=== PATIENT | male | born 1975 | race Caucasian/White ===

== ENCOUNTER 2017-04-11 13:48 | Inpatient (IN) | payer MEDICARE, MEDICAID ==
[~2017-04-11] VITALS: Ht 175.3 cm; Wt 76.7 kg
[~2017-04-11 13:48] MED LIST: AMOX1TAB61 PO; ASPI-630 PO; ASPI325T8 PO; ATEN25TA PO; CARV25TA PO; CLOP75TA PO; DOCU-109 PO; FENO48TA2 PO; FLUO20CA8 PO; FURO40TA4 PO; GABA600T2 PO; HYDR50CA PO; HYDR8TAB29 PO; IPRA4AER IH; LANS30CA PO; METF500T4 PO; MORP15TA3 PO; NITR0.4T SL; OMEP20CA9 PO; POTA10TA5 PO; POTA20TA12 PO; PROM25TA10 PO; SIMV20TA3 PO; TIZA4TAB PO; TRAZ150T49 PO
[2017-04-11] MEDS ORDERED: IPRATRPIUM/ALBUTEROL 0.5/2.5MG 3 ML NEBU. NEB ONE (14:30)
[2017-04-11] MEDS ORDERED: oxyCODONE/APAP 10/325 1 TAB TABLET PO ONE (14:30)
[2017-04-11 14:41] LABS: BASO # 0.1 x10^3/uL (0.0-0.2); BASO % 0 % (0-3); EOS % 0 % (0-3); HEMATOCRIT 36.9 % (39.0-53.0); HEMOGLOBIN 11.7 g/dL (13.0-17.5); LYMPH % 8 % (24-48); MEAN CORPUSCULAR HEMOGLOBIN 23 pg (25-35); MEAN CORPUSCULAR HGB CONC 32 g/dL (31-37); MEAN CORPUSCULAR VOLUME 71 fL (79-100); MONO % 4 % (0-9); NEUT % 88 % (31-73); PLATELET COUNT 416 x10^3/uL (140-400); RED BLOOD COUNT 5.21 x10^6/uL (4.30-5.70); RED CELL DISTRIBUTION WIDTH 26.5 % (11.5-14.5); WHITE BLOOD COUNT 25.7 x10^3/uL (4.0-11.0)
--- NOTE | 2017-04-11 14:49 | RAD ---
Portable chest, 04/11/2017: History: Hypoxia, recent pneumonia Comparison is made to a study from 09/10/2015. There has been an interval median sternotomy. The heart size and pulmonary vascularity are at the upper limits of normal. The basilar pulmonary markings are prominent. No consolidating infiltrate is seen. There is no evidence of pleural fluid. IMPRESSION: Prominent basilar pulmonary markings suggesting low-grade congestive heart failure versus atypical pneumonia.
[2017-04-11 14:58] LABS: ALBUMIN 3.5 g/dL (3.4-5.0); ALBUMIN/GLOBULIN RATIO 0.9 (1.0-1.7); CALCIUM 8.9 mg/dL (8.5-10.1); GFR 81.9; TOTAL BILIRUBIN 0.2 mg/dL (0.2-1.0); TOTAL PROTEIN 7.2 g/dL (6.4-8.2)
[2017-04-11 15:06] LABS: CKMB MASS 3.7 ng/mL (0.0-3.6); CREATINE KINASE 69 U/L (39-308)
[2017-04-11] MEDS ORDERED: VANCOMYCIN 1GM IVPB FOR OMNI 250 ML IV ONE (15:15)
--- NOTE | 2017-04-11 15:17 | PHYS DOC ---
Past Medical History Past Medical History: CAD, High Cholesterol, Hypertension, AZ, Pneumonia, Other Additional Past Medical Histor: chronic back pain Past Surgical History: Angioplasty, Other Additional Past Surgical Histo: back surgeries, multiple cardiac cath with stents, tear duct surgery.dental Alcohol Use: Occasionally Drug Use: None Adult General Chief Complaint Chief Complaint: SHORTNESS OF BREATH HPI HPI Patient is a 42 year old male who presents ambulatory to the ED with the complaint of hard to breathe for about 2 days. Patient tells me that he lives in [facility]. He is here visiting his vymaia-wi-oiy today. He was just released from the hospital in [place] about one week ago after a hospitalization for pneumonia, states that he was intubated for 3 days and had bronchoscopy. He was released on Levaquin and he has finished that. He felt okay for a few days but it is become more hard to breathe for 2 days. States he had a fever yesterday to 101.8. Patient is still taking prednisone after his hospitalization. On arrival to the room the patient had a pulse ox on room air of 88%. Patient is not on oxygen at home. He does have a nebulizer at home but has not been taking breathing treatments regularly. The patient is a smoker. Patient has a history of AZ and a CABG which was done at [facility]. He denies a history of tuberculosis. PCP in [facility]. Review of Systems Review of Systems Constitutional: As in history of present illness Eyes: Denies change in visual acuity, redness, or eye pain [] HENT: Denies nasal congestion or sore throat [] Respiratory: As in history of present illness Cardiovascular: As in history of present illness GI: Denies abdominal pain, nausea, vomiting, bloody stools or diarrhea [] : Denies dysuria or hematuria [] Musculoskeletal: Denies back pain or joint pain [] Integument: Denies rash or skin lesions [] Neurologic: Denies headache Current Medications Current Medications Current Medications Medications (Trade) Dose Ordered Sig/Josi Start Time Stop Time Status Last Admin Dose Admin Albuterol/ Ipratropium (Duoneb) 3 ml 1X ONCE 04/11/17 14:30 04/11/17 14:31 DC 04/11/17 14:37 3 ML Oxycodone/ Acetaminophen (Percocet 10/325) 1 tab 1X ONCE 04/11/17 14:30 04/11/17 14:31 DC 04/11/17 15:16 1 TAB Vancomycin HCl 250 ml @ 250 mls/hr 1X ONCE 04/11/17 15:15 04/11/17 16:14 Allergies Allergies Allergies Coded Allergies Type Severity Reaction Last Updated Verified ketorolac Adverse Reaction Intermediate nausea and vomiting 09/07/14 Yes metoprolol Adverse Reaction Intermediate hypotension 09/07/14 Yes moxifloxacin Adverse Reaction Intermediate Nausea and Vomiting 09/07/14 Yes tramadol Adverse Reaction Intermediate nausea and vomiting 09/07/14 Yes Physical Exam Physical Exam Constitutional: Well developed, well nourished, talkative without difficulty, not dyspneic, but he is on oxygen per nasal cannula. HENT: Normocephalic, atraumatic, bilateral external ears normal, nose normal. [ ] Eyes: conjunctiva normal, no discharge. [] Neck: Normal range of motion, no stridor. [] Cardiovascular:Heart rate regular rhythm, no murmur [] Lungs & Thorax: Breath sounds decreased on the left. Breath sounds present bilaterally. Prolonged expiratory phase, no significant wheezes or rhonchi. Abdomen: Bowel sounds normal, soft, no tenderness, no masses, no pulsatile masses. [] Skin: Warm, dry, no erythema, no rash. [] Extremities: No tenderness, no cyanosis, no clubbing, ROM intact, no edema. [] Neurologic: Alert and oriented X 3, normal motor function, no focal deficits noted. [] Current Patient Data Vital Signs Vital Signs Date Time Temp Pulse Resp B/P (MAP) Pulse Ox O2 Delivery O2 Flow Rate FiO2 04/11/17 15:16 17 04/11/17 14:37 95 Nasal Cannula 2.0 04/11/17 14:00 98.0 92 143/73 (96) 98.0 Lab Values Laboratory Tests Test 04/11/17 14:00 White Blood Count 25.7 x10^3/uL (4.0-11.0) H Red Blood Count 5.21 x10^6/uL (4.30-5.70) Hemoglobin 11.7 g/dL (13.0-17.5) L Hematocrit 36.9 % (39.0-53.0) L Mean Corpuscular Volume 71 fL (79-100) L Mean Corpuscular Hemoglobin 23 pg (25-35) L Mean Corpuscular Hemoglobin Concent 32 g/dL (31-37) Red Cell Distribution Width 26.5 % (11.5-14.5) H Platelet Count 416 x10^3/uL (140-400) H Neutrophils (%) (Auto) 88 % (31-73) H Lymphocytes (%) (Auto) 8 % (24-48) L Monocytes (%) (Auto) 4 % (0-9) Eosinophils (%) (Auto) 0 % (0-3) Basophils (%) (Auto) 0 % (0-3) Neutrophils # (Auto) 22.6 x10^3uL (1.8-7.7) H Lymphocytes # (Auto) 2.0 x10^3/uL (1.0-4.8) Monocytes # (Auto) 1.0 x10^3/uL (0.0-1.1) Eosinophils # (Auto) 0.0 x10^3/uL (0.0-0.7) Basophils # (Auto) 0.1 x10^3/uL (0.0-0.2) Platelet Estimate Pending Sodium Level 143 mmol/L (136-145) Potassium Level 3.0 mmol/L (3.5-5.1) L Chloride Level 102 mmol/L (98-107) Carbon Dioxide Level 28 mmol/L (21-32) Anion Gap 13 (6-14) Blood Urea Nitrogen 10 mg/dL (8-26) Creatinine 1.0 mg/dL (0.7-1.3) Estimated GFR (Cockcroft-Gault) 81.9 BUN/Creatinine Ratio 10 (6-20) Glucose Level 138 mg/dL (70-99) H Calcium Level 8.9 mg/dL (8.5-10.1) Magnesium Level 1.5 mg/dL (1.8-2.4) L Total Bilirubin 0.2 mg/dL (0.2-1.0) Aspartate Amino Transferase (AST) 24 U/L (15-37) Alanine Aminotransferase (ALT) 24 U/L (16-63) Alkaline Phosphatase 108 U/L (46-116) Creatine Kinase 69 U/L (39-308) Creatine Kinase MB (Mass) 3.7 ng/mL (0.0-3.6) H Creatine Kinase MB Relative Index % (0-4) Troponin I Quantitative 0.020 ng/mL (0.000-0.055) VK-Ctg-J-Type Natriuretic Peptide 512 pg/mL (0-124) H Total Protein 7.2 g/dL (6.4-8.2) Albumin 3.5 g/dL (3.4-5.0) Albumin/Globulin Ratio 0.9 (1.0-1.7) L Laboratory Tests 04/11/17 14:00 Laboratory Tests 04/11/17 14:00 EKG EKG Twelve-lead EKG read by me. Compared to previous EKG in the patient's record. Sinus rhythm. Heart rate 90. There are are lateral no ST and T wave changes which are actually improved from the previous EKG. No ST elevation. No STEMI. 1400[] Radiology/Procedures Radiology/Procedures One view portable chest x-ray read by me. Heart size is normal. There is a left lower lobe infiltrate and possibly a right lower lobe infiltrate. Not consolidated. No effusions.[] Course & Med Decision Making Course & Med Decision Making Pertinent Labs and Imaging studies reviewed. (See chart for details) 42-year-old male who has a history of COPD, AZ, CABG, presents with difficulty breathing for 2 days, worsening. His pulse ox on room air was 88% on arrival. The patient states he was just released one week ago from a hospitalization in [facility] during which time he was intubated for 3 days. He had pneumonia he states. The patient was given a breathing treatment. Chest x-ray shows left lower and possibly bilateral lower lobe infiltrates, no comparison is available so I don' t know whether these are improving or not. His white count is concerning lay elevated at 25,000. He is on prednisone but this is probably at least 2 weeks into his steroids, I find it hard to believe that he would have that much leukocytosis from that at this time. I believe the patient needs to be hospitalized for room air hypoxia and likely persistent pneumonia. I talked to the patient and his about this. I wrote for a dose of vancomycin since he was recently hospitalized and has been on Levaquin recently. Pt states that he takes OxyContin 10 mg twice a day and oxycodone 5 mg 4 times a day, he left those at home and so he hasn't had a dose since this morning. He is having back pain and needs some pain medication. Patient also states he smokes and will need a NicoDerm patch. I discussed the case with Dr. Resendez who will admit the patient. I wrote bridge orders. [] Dragon Disclaimer Dragon Disclaimer This electronic medical record was generated, in whole or in part, using a voice recognition dictation system. Departure Departure Impression: Primary Impression: Pneumonia Additional Impression: Hypoxemia Disposition: 09 ADMITTED INPATIENT Admitting Physician: Tammy Resendez Condition: STABLE Referrals: UNKNOWN PCP NAME (PCP) Problem Qualifiers HOMAR ART MD Apr 11, 2017 15:17
[2017-04-11 15:29] LABS: ANISOCYTOSIS MARKED; HYPOCHROMIA MOD; MICROCYTOSIS MOD; PLT ESTIMATE INCREASED (ADEQUATE)
[2017-04-11] MEDS ORDERED: NICOTINE 21MG PATCH. TD ONE (15:30)
[2017-04-11 15:31] LABS: POIKILOCYTOSIS SLIGHT
[2017-04-11] MEDS ORDERED: NICOTINE 21MG PATCH. TD PRN (17:00)
[2017-04-11] MEDS ORDERED: ALBUTEROL SULFATE 2.5 MG/3 ML NEBU. NEB PRN (17:00)
[2017-04-11] MEDS ORDERED: hydrALAZINE 20 MG/ML VIAL. IVP PRN (17:00)
[2017-04-11] MEDS ORDERED: ONDANSETRON PF 4 MG/2 ML VIAL. IV PRN (17:00)
[2017-04-11] MEDS ORDERED: DOCUSATE SODIUM 100 MG CAPSULE. PO PRN ×2 (17:00→17:15)
[2017-04-11] MEDS ORDERED: ACETAMINOPHEN 325 MG TABLET. PO PRN (17:00)
[2017-04-11] MEDS ORDERED: DIPH25CA58 PO (17:06)
[2017-04-11] MEDS ORDERED: ASPI-630 PO (17:06)
[2017-04-11] MEDS ORDERED: MELA3TAB2 PO (17:06)
--- NOTE | 2017-04-11 17:11 | PDOC1 ---
History and Physical Date of Admission Date of Admission 04/11/17 Identification/Chief Complaint Chief Complaint sob Problems: Source Source: Chart review, Patient History of Present Illness History of Present Illness HPI Patient is a 42 year old male who presents ambulatory to the ED with the complaint of hard to breathe for about 5days. Pt said he was hospitalized at [facility] 1 week ago, for PNA, was intubated x3days, did bronch but didnot know the result. He was was released with levaquin and steroid tapering. He said not really felt good after dc. cont have cough, no sputum, and sob worse for 2 days, no chest pain. + subjective fever, no chills. smoking, 1PPD. as per ERP, On arrival to the room the patient had a pulse ox on room air of 88% . Pt used night home o2 sometimes. use symbicort at home. Patient has a history of CA and a CABG which was done at [facility]. Past Medical History Cardiovascular: CAD, HTN, CA, Hyperlipidemia Pulmonary: Pneumonia CENTRAL NERVOUS SYSTEM: Carpal Tunnel Syndrome GI: GERD Heme/Onc: No pertinent hx Hepatobiliary: No pertinent hx Psych: Anxiety Infectious disease: No pertinent hx Renal/: No pertinent hx Endocrine: Other Past Surgical History Past Surgical History: Other Family History Family History: Coronary Artery Disease Social History Smoke: 1 pack per day ALCOHOL: none Drugs: None Current Problem List Problem List Problems Medical Problems: (1) Hypoxemia Status: Acute (2) Pneumonia Status: Acute Current Medications Current Medications Current Medications Medications (Trade) Dose Ordered Sig/Josi Start Time Stop Time Status Last Admin Dose Admin Albuterol/ Ipratropium (Duoneb) 3 ml RTQID 04/11/17 20:00 04/12/17 19:59 Nicotine (Nicoderm Cq 21mg) 1 patch 1X ONCE 04/11/17 15:30 04/11/17 15:31 DC Oxycodone/ Acetaminophen (Percocet 10/325) 1 tab 1X ONCE 04/11/17 14:30 04/11/17 14:31 DC 04/11/17 15:16 1 TAB Vancomycin HCl 250 ml @ 250 mls/hr 1X ONCE 04/11/17 15:15 04/11/17 16:14 DC Allergies Allergies Allergies Coded Allergies Type Severity Reaction Last Updated Verified ketorolac Adverse Reaction Intermediate nausea and vomiting 09/07/14 Yes metoprolol Adverse Reaction Intermediate hypotension 09/07/14 Yes moxifloxacin Adverse Reaction Intermediate Nausea and Vomiting 09/07/14 Yes tramadol Adverse Reaction Intermediate nausea and vomiting 09/07/14 Yes ROS Review of System CONSTITUTIONAL: No fever or chills EYES: No recent changes SKIN: No rash or itching CARDIOVASCULAR: No chest pain, syncope, palpitations, or edema RESPIRATORY: No SOB or cough GASTROINTESTINAL: No nausea, vomiting or abdominal pain NEUROLOGICAL: No headaches or weakness ENDOCRINE: No cold or heat intolerance GENITOURINARY: No urgency or frequency of urination MUSCULOSKELETAL: No back pain or joint pain LYMPHATICS: No enlarged lymph nodes PSYCHIATRIC: No anxiety or depression Physical Exam Physical Exam GEN.: No apparent distress. Alert and oriented. HEENT: Head is normocephalic, atraumatic NECK: Supple. LUNGS: bl coarse bs HEART: RRR, S1, S2 present. Peripheral pulses intact ABDOMEN: Soft, nontender. Positive bowel sounds. EXTREMITIES: Without any cyanosis. NEUROLOGIC: Normal speech, normal tone PSYCHIATRIC: Normal affect, normal mood. SKIN: No ulcerations Vitals Vitals Vital Signs Date Time Temp Pulse Resp B/P (MAP) Pulse Ox O2 Delivery O2 Flow Rate FiO2 04/11/17 15:26 94 33 128/83 (98) 92 Nasal Cannula 2.0 04/11/17 14:00 98.0 98.0 Labs Labs Laboratory Tests Test 04/11/17 14:00 White Blood Count 25.7 x10^3/uL (4.0-11.0) Red Blood Count 5.21 x10^6/uL (4.30-5.70) Hemoglobin 11.7 g/dL (13.0-17.5) Hematocrit 36.9 % (39.0-53.0) Mean Corpuscular Volume 71 fL (79-100) Mean Corpuscular Hemoglobin 23 pg (25-35) Mean Corpuscular Hemoglobin Concent 32 g/dL (31-37) Red Cell Distribution Width 26.5 % (11.5-14.5) Platelet Count 416 x10^3/uL (140-400) Neutrophils (%) (Auto) 88 % (31-73) Lymphocytes (%) (Auto) 8 % (24-48) Monocytes (%) (Auto) 4 % (0-9) Eosinophils (%) (Auto) 0 % (0-3) Basophils (%) (Auto) 0 % (0-3) Neutrophils # (Auto) 22.6 x10^3uL (1.8-7.7) Lymphocytes # (Auto) 2.0 x10^3/uL (1.0-4.8) Monocytes # (Auto) 1.0 x10^3/uL (0.0-1.1) Eosinophils # (Auto) 0.0 x10^3/uL (0.0-0.7) Basophils # (Auto) 0.1 x10^3/uL (0.0-0.2) Segmented Neutrophils % 92 % (35-66) Lymphocytes % 4 % (24-48) Atypical Lymphocytes % (Manual) 1 % (0-0) Monocytes % 3 % (0-10) Platelet Estimate Increased (ADEQUATE) Hypochromasia Mod Poikilocytosis Slight Anisocytosis Marked Microcytosis Mod Sodium Level 143 mmol/L (136-145) Potassium Level 3.0 mmol/L (3.5-5.1) Chloride Level 102 mmol/L (98-107) Carbon Dioxide Level 28 mmol/L (21-32) Anion Gap 13 (6-14) Blood Urea Nitrogen 10 mg/dL (8-26) Creatinine 1.0 mg/dL (0.7-1.3) Estimated GFR (Cockcroft-Gault) 81.9 BUN/Creatinine Ratio 10 (6-20) Glucose Level 138 mg/dL (70-99) Calcium Level 8.9 mg/dL (8.5-10.1) Magnesium Level 1.5 mg/dL (1.8-2.4) Total Bilirubin 0.2 mg/dL (0.2-1.0) Aspartate Amino Transf (AST/SGOT) 24 U/L (15-37) Alanine Aminotransferase (ALT/SGPT) 24 U/L (16-63) Alkaline Phosphatase 108 U/L (46-116) Creatine Kinase 69 U/L (39-308) Creatine Kinase MB (Mass) 3.7 ng/mL (0.0-3.6) Creatine Kinase MB Relative Index % (0-4) Troponin I Quantitative 0.020 ng/mL (0.000-0.055) QH-Qkm-T-Type Natriuretic Peptide 512 pg/mL (0-124) Total Protein 7.2 g/dL (6.4-8.2) Albumin 3.5 g/dL (3.4-5.0) Albumin/Globulin Ratio 0.9 (1.0-1.7) Laboratory Tests Test 04/11/17 14:00 White Blood Count 25.7 x10^3/uL (4.0-11.0) Red Blood Count 5.21 x10^6/uL (4.30-5.70) Hemoglobin 11.7 g/dL (13.0-17.5) Hematocrit 36.9 % (39.0-53.0) Mean Corpuscular Volume 71 fL (79-100) Mean Corpuscular Hemoglobin 23 pg (25-35) Mean Corpuscular Hemoglobin Concent 32 g/dL (31-37) Red Cell Distribution Width 26.5 % (11.5-14.5) Platelet Count 416 x10^3/uL (140-400) Neutrophils (%) (Auto) 88 % (31-73) Lymphocytes (%) (Auto) 8 % (24-48) Monocytes (%) (Auto) 4 % (0-9) Eosinophils (%) (Auto) 0 % (0-3) Basophils (%) (Auto) 0 % (0-3) Neutrophils # (Auto) 22.6 x10^3uL (1.8-7.7) Lymphocytes # (Auto) 2.0 x10^3/uL (1.0-4.8) Monocytes # (Auto) 1.0 x10^3/uL (0.0-1.1) Eosinophils # (Auto) 0.0 x10^3/uL (0.0-0.7) Basophils # (Auto) 0.1 x10^3/uL (0.0-0.2) Segmented Neutrophils % 92 % (35-66) Lymphocytes % 4 % (24-48) Atypical Lymphocytes % (Manual) 1 % (0-0) Monocytes % 3 % (0-10) Platelet Estimate Increased (ADEQUATE) Hypochromasia Mod Poikilocytosis Slight Anisocytosis Marked Microcytosis Mod Sodium Level 143 mmol/L (136-145) Potassium Level 3.0 mmol/L (3.5-5.1) Chloride Level 102 mmol/L (98-107) Carbon Dioxide Level 28 mmol/L (21-32) Anion Gap 13 (6-14) Blood Urea Nitrogen 10 mg/dL (8-26) Creatinine 1.0 mg/dL (0.7-1.3) Estimated GFR (Cockcroft-Gault) 81.9 BUN/Creatinine Ratio 10 (6-20) Glucose Level 138 mg/dL (70-99) Calcium Level 8.9 mg/dL (8.5-10.1) Magnesium Level 1.5 mg/dL (1.8-2.4) Total Bilirubin 0.2 mg/dL (0.2-1.0) Aspartate Amino Transf (AST/SGOT) 24 U/L (15-37) Alanine Aminotransferase (ALT/SGPT) 24 U/L (16-63) Alkaline Phosphatase 108 U/L (46-116) Creatine Kinase 69 U/L (39-308) Creatine Kinase MB (Mass) 3.7 ng/mL (0.0-3.6) Creatine Kinase MB Relative Index % (0-4) Troponin I Quantitative 0.020 ng/mL (0.000-0.055) LH-Bwx-P-Type Natriuretic Peptide 512 pg/mL (0-124) Total Protein 7.2 g/dL (6.4-8.2) Albumin 3.5 g/dL (3.4-5.0) Albumin/Globulin Ratio 0.9 (1.0-1.7) VTE Prophylaxis Ordered VTE Prophylaxis Devices: Yes VTE Pharmacological Prophylaxi: Yes Assessment/Plan Assessment/Plan acute resp failure with copd, HAP possible HAP copd EXAcerbation h/o CAD post PCI and CABG HTN HLD RECEnt PNA chronic back pain ,s/p back sx tobaccoism hypokalemia hypomagnesemia sepsis plan: pulm consult cont home meds add vanco, zosyn for now duoneb prednisone 40mg daily nc as needed may need 6min walk before dc dvt ppx gi ppx nicotine patch prn daily admit 2 nights ANNIKA REZA MD Apr 11, 2017 17:11
[2017-04-11] MEDS ORDERED: VANCOMYCIN PER PHARMACY MC PRN (17:15)
[2017-04-11] MEDS ORDERED: NITROGLYCERIN SUBLINGUAL 0.4 MG BOTTLE OF 25. SL PRN (17:15)
[2017-04-11] MEDS ORDERED: PIP/TAZO PER PHARMACY MC PRN (17:15)
[2017-04-11 17:22] VITALS: BP 128/76
[2017-04-11 17:23] VITALS: BP 128/76
[2017-04-11] MEDS ORDERED: PROMETHAZINE 12.5 MG TABLET. PO PRN (17:30)
[2017-04-11] MEDS ORDERED: VANCOMYCIN 2 GM in IV NORMAL SALINE 500ML BAG 500 ML IV ONE (17:30)
[2017-04-11] MEDS: MAGNESIUM SULFATE 2GM 50 ML IV ONE ×2 (17:30→22:05)
[2017-04-11] MEDS: POTASSIUM CHLORIDE 20 MEQ TABLET.ER. PO SCH (17:31)
[2017-04-11] MEDS: ENOXAPARIN 40 MG/0.4 ML SYRINGE. SQ SCH (18:00)
--- NOTE | 2017-04-11 18:46 | PDOC ---
PULMONARY PROGRESS NOTES Vitals Vital Signs Date Time Temp Pulse Resp B/P (MAP) Pulse Ox O2 Delivery O2 Flow Rate FiO2 04/11/17 17:23 97.6 84 15 128/76 (93) 95 Room Air 97.6 04/11/17 17:11 2.0 Lungs: Clear Cardiovascular: S1, S2 Abdomen: Soft Extremities: No Edema Labs Laboratory Tests Test 04/11/17 14:00 White Blood Count 25.7 x10^3/uL (4.0-11.0) Red Blood Count 5.21 x10^6/uL (4.30-5.70) Hemoglobin 11.7 g/dL (13.0-17.5) Hematocrit 36.9 % (39.0-53.0) Mean Corpuscular Volume 71 fL (79-100) Mean Corpuscular Hemoglobin 23 pg (25-35) Mean Corpuscular Hemoglobin Concent 32 g/dL (31-37) Red Cell Distribution Width 26.5 % (11.5-14.5) Platelet Count 416 x10^3/uL (140-400) Neutrophils (%) (Auto) 88 % (31-73) Lymphocytes (%) (Auto) 8 % (24-48) Monocytes (%) (Auto) 4 % (0-9) Eosinophils (%) (Auto) 0 % (0-3) Basophils (%) (Auto) 0 % (0-3) Neutrophils # (Auto) 22.6 x10^3uL (1.8-7.7) Lymphocytes # (Auto) 2.0 x10^3/uL (1.0-4.8) Monocytes # (Auto) 1.0 x10^3/uL (0.0-1.1) Eosinophils # (Auto) 0.0 x10^3/uL (0.0-0.7) Basophils # (Auto) 0.1 x10^3/uL (0.0-0.2) Segmented Neutrophils % 92 % (35-66) Lymphocytes % 4 % (24-48) Atypical Lymphocytes % (Manual) 1 % (0-0) Monocytes % 3 % (0-10) Platelet Estimate Increased (ADEQUATE) Hypochromasia Mod Poikilocytosis Slight Anisocytosis Marked Microcytosis Mod Sodium Level 143 mmol/L (136-145) Potassium Level 3.0 mmol/L (3.5-5.1) Chloride Level 102 mmol/L (98-107) Carbon Dioxide Level 28 mmol/L (21-32) Anion Gap 13 (6-14) Blood Urea Nitrogen 10 mg/dL (8-26) Creatinine 1.0 mg/dL (0.7-1.3) Estimated GFR (Cockcroft-Gault) 81.9 BUN/Creatinine Ratio 10 (6-20) Glucose Level 138 mg/dL (70-99) Calcium Level 8.9 mg/dL (8.5-10.1) Magnesium Level 1.5 mg/dL (1.8-2.4) Total Bilirubin 0.2 mg/dL (0.2-1.0) Aspartate Amino Transf (AST/SGOT) 24 U/L (15-37) Alanine Aminotransferase (ALT/SGPT) 24 U/L (16-63) Alkaline Phosphatase 108 U/L (46-116) Creatine Kinase 69 U/L (39-308) Creatine Kinase MB (Mass) 3.7 ng/mL (0.0-3.6) Creatine Kinase MB Relative Index % (0-4) Troponin I Quantitative 0.020 ng/mL (0.000-0.055) UI-Zlq-V-Type Natriuretic Peptide 512 pg/mL (0-124) Total Protein 7.2 g/dL (6.4-8.2) Albumin 3.5 g/dL (3.4-5.0) Albumin/Globulin Ratio 0.9 (1.0-1.7) Laboratory Tests Test 04/11/17 14:00 White Blood Count 25.7 x10^3/uL (4.0-11.0) Red Blood Count 5.21 x10^6/uL (4.30-5.70) Hemoglobin 11.7 g/dL (13.0-17.5) Hematocrit 36.9 % (39.0-53.0) Mean Corpuscular Volume 71 fL (79-100) Mean Corpuscular Hemoglobin 23 pg (25-35) Mean Corpuscular Hemoglobin Concent 32 g/dL (31-37) Red Cell Distribution Width 26.5 % (11.5-14.5) Platelet Count 416 x10^3/uL (140-400) Neutrophils (%) (Auto) 88 % (31-73) Lymphocytes (%) (Auto) 8 % (24-48) Monocytes (%) (Auto) 4 % (0-9) Eosinophils (%) (Auto) 0 % (0-3) Basophils (%) (Auto) 0 % (0-3) Neutrophils # (Auto) 22.6 x10^3uL (1.8-7.7) Lymphocytes # (Auto) 2.0 x10^3/uL (1.0-4.8) Monocytes # (Auto) 1.0 x10^3/uL (0.0-1.1) Eosinophils # (Auto) 0.0 x10^3/uL (0.0-0.7) Basophils # (Auto) 0.1 x10^3/uL (0.0-0.2) Segmented Neutrophils % 92 % (35-66) Lymphocytes % 4 % (24-48) Atypical Lymphocytes % (Manual) 1 % (0-0) Monocytes % 3 % (0-10) Platelet Estimate Increased (ADEQUATE) Hypochromasia Mod Poikilocytosis Slight Anisocytosis Marked Microcytosis Mod Sodium Level 143 mmol/L (136-145) Potassium Level 3.0 mmol/L (3.5-5.1) Chloride Level 102 mmol/L (98-107) Carbon Dioxide Level 28 mmol/L (21-32) Anion Gap 13 (6-14) Blood Urea Nitrogen 10 mg/dL (8-26) Creatinine 1.0 mg/dL (0.7-1.3) Estimated GFR (Cockcroft-Gault) 81.9 BUN/Creatinine Ratio 10 (6-20) Glucose Level 138 mg/dL (70-99) Calcium Level 8.9 mg/dL (8.5-10.1) Magnesium Level 1.5 mg/dL (1.8-2.4) Total Bilirubin 0.2 mg/dL (0.2-1.0) Aspartate Amino Transf (AST/SGOT) 24 U/L (15-37) Alanine Aminotransferase (ALT/SGPT) 24 U/L (16-63) Alkaline Phosphatase 108 U/L (46-116) Creatine Kinase 69 U/L (39-308) Creatine Kinase MB (Mass) 3.7 ng/mL (0.0-3.6) Creatine Kinase MB Relative Index % (0-4) Troponin I Quantitative 0.020 ng/mL (0.000-0.055) RU-Uiy-U-Type Natriuretic Peptide 512 pg/mL (0-124) Total Protein 7.2 g/dL (6.4-8.2) Albumin 3.5 g/dL (3.4-5.0) Albumin/Globulin Ratio 0.9 (1.0-1.7) Medications Active Scripts Medications Dose Route/Sig Max Daily Dose Days Date Category Benadryl (Diphenhydramine Hcl) 25 Mg Capsule 1 Cap PO QHS 04/11/17 Reported Melatonin 3 Mg Tablet 1 Tab PO QHS 04/11/17 Reported Aspirin 81 Mg Tab.chew 81 Mg PO 04/11/17 Reported Dilaudid (Hydromorphone Hcl) 8 Mg Tablet 10 Mg PO PRN 09/10/15 Reported Combivent Respimat Inhal (Ipratropium/Albuterol Sulfate) 4 Gm Aer.w.adap 2 Inh IH TID 09/10/15 Reported Nitrostat (Nitroglycerin) 0.4 Mg Tab.subl 0.4 Mg SL PRN Q5MIN PRN 09/10/15 Reported Trazodone Hcl 150 Mg Tablet 1 Tab PO QHS 09/10/15 Reported Omeprazole 20 Mg Capsule. 1 Cap PO DAILY 09/10/15 Reported Coreg (Carvedilol) 25 Mg Tablet 1 Tab PO BID 09/10/15 Reported Colace (Docusate Sodium) 100 Mg Capsule 100 Mg PO PRN 09/07/14 Reported Promethazine Hcl 25 Mg Tablet 25 Mg PO Q6H PRN 09/07/14 Reported Tizanidine Hcl 4 Mg Tablet 4 Mg PO QID PRN 09/07/14 Reported Klor-Con 10 (Potassium Chloride) 10 Meq Tablet.er 1 Tab PO DAILY PRN 09/07/14 Reported Potassium Chloride 20 Meq Tab.er.prt 20 Meq PO DAILY 09/07/14 Reported Furosemide 40 Mg Tablet 1 Tab PO DAILY PRN 09/07/14 Reported Fenofibrate (Fenofibrate Nanocrystallized) 48 Mg Tablet 48 Mg PO DAILY 09/07/14 Reported Vistaril (Hydroxyzine Pamoate) 50 Mg Capsule 50 Mg PO QID 09/07/14 Reported Simvastatin 20 Mg Tablet 1 Tab PO QHS 09/07/14 Reported Lansoprazole 30 Mg Capsule.dr 1 Cap PO DAILY 09/07/14 Reported Fluoxetine Hcl 20 Mg Capsule 1 Cap PO DAILY 09/07/14 Reported Gabapentin 600 Mg Tablet 3 Tab PO QHS 09/07/14 Reported Gabapentin 600 Mg Tablet 2 Tab PO DAILY06 09/07/14 Reported Clopidogrel (Clopidogrel Bisulfate) 75 Mg Tablet 1 Tab PO DAILY 09/07/14 Reported Impression . consult dictated resp failure acute chf possible pneumonia BELINDA SCOTT MD Apr 11, 2017 18:46
[2017-04-11] MEDS: CARVEDILOL 12.5 MG TABLET. PO SCH (18:56)
[2017-04-11] MEDS: PIPERACILLIN/TAZOBACTAM 3.375 GM in IV NORMAL SALINE 50ML 50 ML IV SCH (18:56)
[2017-04-11 19:00] VITALS: BP 137/71
[2017-04-11] MEDS: IPRATRPIUM/ALBUTEROL 0.5/2.5MG 3 ML NEBU. NEB SCH (19:52)
[2017-04-11] MEDS ORDERED: IPRATRPIUM/ALBUTEROL 0.5/2.5MG 3 ML NEBU. NEB SCH (20:00)
[2017-04-11] MEDS: GABAPENTIN 300 MG CAPSULE. PO SCH (20:32)
[2017-04-11] MEDS: diphenhydrAMINE HCL 25 MG CAPSULE PO SCH (20:33)
[2017-04-11] MEDS: hydrOXYzine PAMOATE 25 MG CAPSULE PO SCH (20:33)
[2017-04-11] MEDS: traZODone 100 MG TABLET. PO SCH (20:33)
[2017-04-11] MEDS: oxyCODONE/APAP 10/325 1 TAB TABLET PO PRN (20:34)
[2017-04-11] MEDS: SIMVASTATIN 20 MG TABLET PO SCH (20:43)
[2017-04-11 20:59] VITALS: BP 137/71
[2017-04-11] MEDS ORDERED: NON FORMULARY ITEM (Melatonin 1 TAB) PO SCH (21:00)
[2017-04-11 23:00] VITALS: BP 137/71
[2017-04-12] MEDS: oxyCODONE/APAP 10/325 1 TAB TABLET PO PRN ×3 (02:42→21:47)
[2017-04-12] MEDS: tiZANidine 4 MG TABLET. PO PRN ×2 (04:24→21:48)
[2017-04-12] MEDS ORDERED: VANCOMYCIN 1.5 GM in IV NORMAL SALINE 500ML BAG 500 ML IV SCH (05:00)
[2017-04-12] MEDS: PIPERACILLIN/TAZOBACTAM 3.375 GM in IV NORMAL SALINE 50ML 50 ML IV SCH ×7 (06:02→23:51)
[2017-04-12] MEDS: GABAPENTIN 300 MG CAPSULE. PO SCH ×2 (06:02→20:12)
[2017-04-12 06:10] LABS: BASO # 0.2 x10^3/uL (0.0-0.2); BASO % 1 % (0-3); EOS % 1 % (0-3); HEMATOCRIT 33.7 % (39.0-53.0); HEMOGLOBIN 10.4 g/dL (13.0-17.5); LYMPH # 3.9 x10^3/uL (1.0-4.8); LYMPH % 19 % (24-48); MEAN CORPUSCULAR HEMOGLOBIN 22 pg (25-35); MEAN CORPUSCULAR HGB CONC 31 g/dL (31-37); MEAN CORPUSCULAR VOLUME 72 fL (79-100); MONO % 4 % (0-9); NEUT % 76 % (31-73); PLATELET COUNT 323 x10^3/uL (140-400); RED BLOOD COUNT 4.69 x10^6/uL (4.30-5.70); RED CELL DISTRIBUTION WIDTH 26.7 % (11.5-14.5); WHITE BLOOD COUNT 20.4 x10^3/uL (4.0-11.0)
[2017-04-12 06:19] LABS: CALCIUM 8.3 mg/dL (8.5-10.1); CREATININE 1.1 mg/dL (0.7-1.3); GFR 73.4; POTASSIUM 3.2 mmol/L (3.5-5.1)
[2017-04-12 06:50] VITALS: BP 96/49
--- NOTE | 2017-04-12 07:33 | CONS ---
DATE OF CONSULTATION: 04/11/2017 ATTENDING PHYSICIAN: Niesha Resendez M.D. REASON FOR CONSULTATION: The patient is seen in pulmonary consultation at the request of Dr. Resendez for abnormal x-ray, increasing shortness of breath. HISTORY OF PRESENT ILLNESS: The patient is a 42-year-old with history of COPD, previous myocardial infarction, status post coronary artery bypass grafting, presented with increasing shortness of breath over the last 2 days, cough, mostly nonproductive. He was recently hospitalized at [place], [place] for pneumonia. The patient was also complaining of low O2 sat on room air it was found to have saturations of 88%. He uses Symbicort and albuterol at home. He continues to smoke. He has had some subjective fever, no chills, no productive cough, no hemoptysis. PAST MEDICAL HISTORY: Coronary artery disease with previous myocardial infarction, status post coronary artery bypass grafting, hypertension, carpal tunnel syndrome, COPD, tobacco dependence. No history of DVT or pulmonary embolism. PAST SURGICAL HISTORY: As above. In addition, has had a previous back surgery. CURRENT MEDICATIONS: List is reviewed. SOCIAL HISTORY: He continues to smoke. FAMILY HISTORY: Remarkable for coronary artery disease. REVIEW OF SYSTEMS: As indicated above, otherwise, a 10-point system was reviewed and negative. PHYSICAL EXAMINATION: VITAL SIGNS: Stable. O2 saturation was greater than 92%, currently on 2 liters. HEENT: Eyes, the sclerae were nonicteric. NECK: Jugular venous distention was not elevated. No lymphadenopathy. CHEST: Full expansion. LUNGS: Crackles and wheezes bilaterally. CARDIOVASCULAR: Regular rate and rhythm with S1, S2, no S3. ABDOMEN: Soft, nontender, nondistended. EXTREMITIES: No clubbing, cyanosis, minimal edema. IMAGING: Chest x-ray was reviewed, bilateral pulmonary infiltrates compatible with vascular congestion. IMPRESSION: 1. Acute respiratory failure secondary to acute systolic heart failure. 2. Acute systolic heart failure. 3. Abnormal x-ray. 4. Acute exacerbation of chronic obstructive pulmonary disease. PLAN: 1. Difficult to rule out the possibility of concomitant pneumonia. I agree for now to empirically start antibiotics. 2. Continue home meds. 3. Oxygen supplementation. 4. Prednisone. 5. A 6-minute walk prior to discharge. I do appreciate the privilege in sharing in the patient's care. BELINDA SCOTT MD DR: Jaylen JOB#: [id number] / [id number]
[2017-04-12] MEDS: CARVEDILOL 12.5 MG TABLET. PO SCH ×2 (08:00→17:00)
[2017-04-12] MEDS: IPRATRPIUM/ALBUTEROL 0.5/2.5MG 3 ML NEBU. NEB SCH ×4 (08:04→20:10)
[2017-04-12] MEDS: CLOPIDOGREL BISULFATE 75 MG TABLET PO SCH (08:20)
[2017-04-12] MEDS: POTASSIUM CHLORIDE 20 MEQ TABLET.ER. PO SCH ×2 (08:21→18:20)
[2017-04-12] MEDS: PANTOPRAZOLE 40 MG TABLET.DR. PO SCH (08:22)
[2017-04-12] MEDS: FENOFIBRATE 54 MG TABLET. PO SCH (08:22)
[2017-04-12] MEDS: ASPIRIN CHEWABLE 81 MG TABLET. PO SCH (08:22)
[2017-04-12] MEDS: FLUoxetine HCL 20 MG CAPSULE PO SCH (08:23)
[2017-04-12] MEDS: hydrOXYzine PAMOATE 25 MG CAPSULE PO SCH ×4 (08:23→20:13)
[2017-04-12] MEDS ORDERED: predniSONE 20 MG TABLET PO SCH (09:00)
[2017-04-12] MEDS ORDERED: POTASSIUM CHLORIDE 20 MEQ TABLET.ER. PO SCH (09:00)
[2017-04-12 11:20] VITALS: BP 89/47
[2017-04-12 12:14] LABS: HCO3 ABG 25 mmol/L (21-28); PCO2 ABG 34 mmHg (35-46); PH ABG 7.49 (7.35-7.45); PO2 ABG 91 mmHg (75-108); SAT O2 ABG 97 % (92-99)
--- NOTE | 2017-04-12 12:14 | EKG ---
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
[2017-04-12 12:16] LABS: FIO2 ABG >50
[2017-04-12] MEDS ORDERED: FUROSEMIDE 40 MG/4 ML VIAL. IVP ONE ×2 (12:30→15:45)
--- NOTE | 2017-04-12 12:47 | PDOC ---
PROGRESS NOTES Chief Complaint Chief Complaint Acute on chronic, hypoxic respir distress ASSESSMENT AND PLAN: 1. Respir failure: recent admit for PNA/COPD [facility] with D/C about a week ago, persistent/worsening sx. appears comfortable. nebs, suppl O2 (pt has home O2 at [facility]); appreciate Dr Betancourt's input: suspected CHF by CXR. stop steroids, start IV lasix. obtain echo, cardiology input 2. Early sepsis: Tachycardia, hypotension, no fevers, leukocytosis sl improved. with above issues, cautious with IVF administration 3. Tobaccoism: nicotine patch prn daily. encouraged cessation 4. CAD: hx AR/CABG. no acute issues. cont home meds 5. HTN/HLD: continue home meds 6. hypokalemia/hypomagnesemia: replete as indicated 7. [place]: moderate microcytosis. obtain iron labs 8. GERD: PPI 9. Chronic back pain: hx back sx. cont home regimen 10. Anxiety 11. Prophylaxis: lovenox History of Present Illness History of Present Illness feels fine, no SOP, CP or palpitations Vitals Vitals Vital Signs Date Time Temp Pulse Resp B/P (MAP) Pulse Ox O2 Delivery O2 Flow Rate FiO2 04/12/17 11:34 80 Nasal Cannula 6.0 04/12/17 09:03 18 04/12/17 08:00 87 96/49 04/12/17 06:50 99.3 99.3 Physical Exam General: Alert, Oriented X3, Cooperative, No acute distress Heart: Regular rate Lungs: Clear Abdomen: Normal bowel sounds, No tenderness Extremities: No clubbing, No edema Skin: No rashes Labs LABS Laboratory Tests Test 04/11/17 14:00 04/11/17 22:00 04/12/17 05:00 04/12/17 11:55 White Blood Count 25.7 x10^3/uL (4.0-11.0) 20.4 x10^3/uL (4.0-11.0) Red Blood Count 5.21 x10^6/uL (4.30-5.70) 4.69 x10^6/uL (4.30-5.70) Hemoglobin 11.7 g/dL (13.0-17.5) 10.4 g/dL (13.0-17.5) Hematocrit 36.9 % (39.0-53.0) 33.7 % (39.0-53.0) Mean Corpuscular Volume 71 fL (79-100) 72 fL (79-100) Mean Corpuscular Hemoglobin 23 pg (25-35) 22 pg (25-35) Mean Corpuscular Hemoglobin Concent 32 g/dL (31-37) 31 g/dL (31-37) Red Cell Distribution Width 26.5 % (11.5-14.5) 26.7 % (11.5-14.5) Platelet Count 416 x10^3/uL (140-400) 323 x10^3/uL (140-400) Neutrophils (%) (Auto) 88 % (31-73) 76 % (31-73) Lymphocytes (%) (Auto) 8 % (24-48) 19 % (24-48) Monocytes (%) (Auto) 4 % (0-9) 4 % (0-9) Eosinophils (%) (Auto) 0 % (0-3) 1 % (0-3) Basophils (%) (Auto) 0 % (0-3) 1 % (0-3) Neutrophils # (Auto) 22.6 x10^3uL (1.8-7.7) 15.6 x10^3uL (1.8-7.7) Lymphocytes # (Auto) 2.0 x10^3/uL (1.0-4.8) 3.9 x10^3/uL (1.0-4.8) Monocytes # (Auto) 1.0 x10^3/uL (0.0-1.1) 0.7 x10^3/uL (0.0-1.1) Eosinophils # (Auto) 0.0 x10^3/uL (0.0-0.7) 0.1 x10^3/uL (0.0-0.7) Basophils # (Auto) 0.1 x10^3/uL (0.0-0.2) 0.2 x10^3/uL (0.0-0.2) Segmented Neutrophils % 92 % (35-66) Lymphocytes % 4 % (24-48) Atypical Lymphocytes % (Manual) 1 % (0-0) Monocytes % 3 % (0-10) Platelet Estimate Increased (ADEQUATE) Hypochromasia Mod Poikilocytosis Slight Anisocytosis Marked Microcytosis Mod Sodium Level 143 mmol/L (136-145) 139 mmol/L (136-145) Potassium Level 3.0 mmol/L (3.5-5.1) 3.2 mmol/L (3.5-5.1) Chloride Level 102 mmol/L (98-107) 102 mmol/L (98-107) Carbon Dioxide Level 28 mmol/L (21-32) 24 mmol/L (21-32) Anion Gap 13 (6-14) 13 (6-14) Blood Urea Nitrogen 10 mg/dL (8-26) 11 mg/dL (8-26) Creatinine 1.0 mg/dL (0.7-1.3) 1.1 mg/dL (0.7-1.3) Estimated GFR (Cockcroft-Gault) 81.9 73.4 BUN/Creatinine Ratio 10 (6-20) Glucose Level 138 mg/dL (70-99) 114 mg/dL (70-99) Calcium Level 8.9 mg/dL (8.5-10.1) 8.3 mg/dL (8.5-10.1) Magnesium Level 1.5 mg/dL (1.8-2.4) Total Bilirubin 0.2 mg/dL (0.2-1.0) Aspartate Amino Transf (AST/SGOT) 24 U/L (15-37) Alanine Aminotransferase (ALT/SGPT) 24 U/L (16-63) Alkaline Phosphatase 108 U/L (46-116) Creatine Kinase 69 U/L (39-308) Creatine Kinase MB (Mass) 3.7 ng/mL (0.0-3.6) Creatine Kinase MB Relative Index % (0-4) Troponin I Quantitative 0.020 ng/mL (0.000-0.055) 0.030 ng/mL (0.000-0.055) 0.026 ng/mL (0.000-0.055) XC-Nxw-Q-Type Natriuretic Peptide 512 pg/mL (0-124) Total Protein 7.2 g/dL (6.4-8.2) Albumin 3.5 g/dL (3.4-5.0) Albumin/Globulin Ratio 0.9 (1.0-1.7) O2 Saturation 97 % (92-99) Arterial Blood pH 7.49 (7.35-7.45) Arterial Blood pCO2 at Patient Temp 34 mmHg (35-46) Arterial Blood pO2 at Patient Temp 91 mmHg (75-108) Arterial Blood HCO3 25 mmol/L (21-28) Arterial Blood Base Excess 2 mmol/L (-3-3) FiO2 >50 MALINDA NOVA MD Apr 12, 2017 12:47
[2017-04-12 13:28] LABS: BARBITURATES NEG (NEG); BENZODIAZEPINES NEG (NEG); CANNABINOIDS NEG (NEG); COCAINE NEG (NEG); METHADONE NEG (NEG); OPIATES NEG (NEG); PHENCYCLIDINE NEG (NEG)
[2017-04-12] MEDS ORDERED: IOHEXOL 300 MG/ML 75 ML VIAL IV ONE (13:30)
[2017-04-12] MEDS ORDERED: CONTRAST GIVEN MC PRN (13:45)
--- NOTE | 2017-04-12 13:59 | RAD ---
CTA of the chest with contrast, 04/12/2017: History: Shortness of breath, hypoxia Multidetector CT imaging was performed following an IV bolus injection of iodinated contrast material. Multiplanar reconstructions were produced including coronal MIP images. The central pulmonary arteries are well opacified and no filling defects are seen to suggest pulmonary emboli. Some of the smaller pulmonary arteries are less clearly defined. The thoracic aorta is of normal caliber. There has been a previous median sternotomy. Moderate coronary artery calcifications are present. The heart is mildly enlarged. Several small mediastinal lymph nodes are seen without definite pathologic enlargement. There are extensive airspace and interstitial opacities throughout both lungs. The central bronchi are widely patent. There is a suggestion of a trace amount of right-sided pleural fluid. No large pleural effusions are evident. IMPRESSION: 1. No CT evidence of central pulmonary emboli. 2. Extensive coronary artery disease. 3. Extensive bilateral airspace and interstitial opacities most compatible with pulmonary edema. Pneumonia on an infectious or hypersensitivity basis is less likely. PQRS Compliance Statement: One or more of the following individualized dose reduction techniques were utilized for this examination: 1. Automated exposure control 2. Adjustment of the mA and/or kV according to patient size 3. Use of iterative reconstruction technique
--- NOTE | 2017-04-12 14:40 | PDOC ---
PULMONARY PROGRESS NOTES Subjective pt severely soa this am Vitals Vital Signs Date Time Temp Pulse Resp B/P (MAP) Pulse Ox O2 Delivery O2 Flow Rate FiO2 04/12/17 11:34 80 Nasal Cannula 6.0 04/12/17 11:20 98.2 111 24 89/47 (61) 98.2 ROS: No Nausea, No Chest Pain, No Abdominal Pain, No Increase Cough Lungs: Wheezing, Crackles Cardiovascular: S1, S2 Abdomen: Soft Neuro Exam: Alert Extremities: No Edema Skin: Warm Labs Laboratory Tests Test 04/11/17 14:00 04/11/17 22:00 04/12/17 05:00 04/12/17 11:55 White Blood Count 25.7 x10^3/uL (4.0-11.0) 20.4 x10^3/uL (4.0-11.0) Red Blood Count 5.21 x10^6/uL (4.30-5.70) 4.69 x10^6/uL (4.30-5.70) Hemoglobin 11.7 g/dL (13.0-17.5) 10.4 g/dL (13.0-17.5) Hematocrit 36.9 % (39.0-53.0) 33.7 % (39.0-53.0) Mean Corpuscular Volume 71 fL (79-100) 72 fL (79-100) Mean Corpuscular Hemoglobin 23 pg (25-35) 22 pg (25-35) Mean Corpuscular Hemoglobin Concent 32 g/dL (31-37) 31 g/dL (31-37) Red Cell Distribution Width 26.5 % (11.5-14.5) 26.7 % (11.5-14.5) Platelet Count 416 x10^3/uL (140-400) 323 x10^3/uL (140-400) Neutrophils (%) (Auto) 88 % (31-73) 76 % (31-73) Lymphocytes (%) (Auto) 8 % (24-48) 19 % (24-48) Monocytes (%) (Auto) 4 % (0-9) 4 % (0-9) Eosinophils (%) (Auto) 0 % (0-3) 1 % (0-3) Basophils (%) (Auto) 0 % (0-3) 1 % (0-3) Neutrophils # (Auto) 22.6 x10^3uL (1.8-7.7) 15.6 x10^3uL (1.8-7.7) Lymphocytes # (Auto) 2.0 x10^3/uL (1.0-4.8) 3.9 x10^3/uL (1.0-4.8) Monocytes # (Auto) 1.0 x10^3/uL (0.0-1.1) 0.7 x10^3/uL (0.0-1.1) Eosinophils # (Auto) 0.0 x10^3/uL (0.0-0.7) 0.1 x10^3/uL (0.0-0.7) Basophils # (Auto) 0.1 x10^3/uL (0.0-0.2) 0.2 x10^3/uL (0.0-0.2) Segmented Neutrophils % 92 % (35-66) Lymphocytes % 4 % (24-48) Atypical Lymphocytes % (Manual) 1 % (0-0) Monocytes % 3 % (0-10) Platelet Estimate Increased (ADEQUATE) Hypochromasia Mod Poikilocytosis Slight Anisocytosis Marked Microcytosis Mod Sodium Level 143 mmol/L (136-145) 139 mmol/L (136-145) Potassium Level 3.0 mmol/L (3.5-5.1) 3.2 mmol/L (3.5-5.1) Chloride Level 102 mmol/L (98-107) 102 mmol/L (98-107) Carbon Dioxide Level 28 mmol/L (21-32) 24 mmol/L (21-32) Anion Gap 13 (6-14) 13 (6-14) Blood Urea Nitrogen 10 mg/dL (8-26) 11 mg/dL (8-26) Creatinine 1.0 mg/dL (0.7-1.3) 1.1 mg/dL (0.7-1.3) Estimated GFR (Cockcroft-Gault) 81.9 73.4 BUN/Creatinine Ratio 10 (6-20) Glucose Level 138 mg/dL (70-99) 114 mg/dL (70-99) Calcium Level 8.9 mg/dL (8.5-10.1) 8.3 mg/dL (8.5-10.1) Magnesium Level 1.5 mg/dL (1.8-2.4) Total Bilirubin 0.2 mg/dL (0.2-1.0) Aspartate Amino Transf (AST/SGOT) 24 U/L (15-37) Alanine Aminotransferase (ALT/SGPT) 24 U/L (16-63) Alkaline Phosphatase 108 U/L (46-116) Creatine Kinase 69 U/L (39-308) Creatine Kinase MB (Mass) 3.7 ng/mL (0.0-3.6) Creatine Kinase MB Relative Index % (0-4) Troponin I Quantitative 0.020 ng/mL (0.000-0.055) 0.030 ng/mL (0.000-0.055) 0.026 ng/mL (0.000-0.055) QY-Orl-U-Type Natriuretic Peptide 512 pg/mL (0-124) Total Protein 7.2 g/dL (6.4-8.2) Albumin 3.5 g/dL (3.4-5.0) Albumin/Globulin Ratio 0.9 (1.0-1.7) O2 Saturation 97 % (92-99) Arterial Blood pH 7.49 (7.35-7.45) Arterial Blood pCO2 at Patient Temp 34 mmHg (35-46) Arterial Blood pO2 at Patient Temp 91 mmHg (75-108) Arterial Blood HCO3 25 mmol/L (21-28) Arterial Blood Base Excess 2 mmol/L (-3-3) FiO2 >50 Test 04/12/17 12:25 04/12/17 13:10 Lactic Acid Level 2.6 mmol/L (0.4-2.0) Urine Opiates Screen Neg (NEG) Urine Methadone Screen Neg (NEG) Urine Barbiturates Neg (NEG) Urine Phencyclidine Screen Neg (NEG) Urine Amphetamine/Methamphetamine Neg (NEG) Urine Benzodiazepines Screen Neg (NEG) Urine Cocaine Screen Neg (NEG) Urine Cannabinoids Screen Neg (NEG) Urine Ethyl Alcohol Neg (NEG) Laboratory Tests Test 04/11/17 22:00 04/12/17 05:00 04/12/17 11:55 04/12/17 12:25 Troponin I Quantitative 0.030 ng/mL (0.000-0.055) 0.026 ng/mL (0.000-0.055) White Blood Count 20.4 x10^3/uL (4.0-11.0) Red Blood Count 4.69 x10^6/uL (4.30-5.70) Hemoglobin 10.4 g/dL (13.0-17.5) Hematocrit 33.7 % (39.0-53.0) Mean Corpuscular Volume 72 fL (79-100) Mean Corpuscular Hemoglobin 22 pg (25-35) Mean Corpuscular Hemoglobin Concent 31 g/dL (31-37) Red Cell Distribution Width 26.7 % (11.5-14.5) Platelet Count 323 x10^3/uL (140-400) Neutrophils (%) (Auto) 76 % (31-73) Lymphocytes (%) (Auto) 19 % (24-48) Monocytes (%) (Auto) 4 % (0-9) Eosinophils (%) (Auto) 1 % (0-3) Basophils (%) (Auto) 1 % (0-3) Neutrophils # (Auto) 15.6 x10^3uL (1.8-7.7) Lymphocytes # (Auto) 3.9 x10^3/uL (1.0-4.8) Monocytes # (Auto) 0.7 x10^3/uL (0.0-1.1) Eosinophils # (Auto) 0.1 x10^3/uL (0.0-0.7) Basophils # (Auto) 0.2 x10^3/uL (0.0-0.2) Sodium Level 139 mmol/L (136-145) Potassium Level 3.2 mmol/L (3.5-5.1) Chloride Level 102 mmol/L (98-107) Carbon Dioxide Level 24 mmol/L (21-32) Anion Gap 13 (6-14) Blood Urea Nitrogen 11 mg/dL (8-26) Creatinine 1.1 mg/dL (0.7-1.3) Estimated GFR (Cockcroft-Gault) 73.4 Glucose Level 114 mg/dL (70-99) Calcium Level 8.3 mg/dL (8.5-10.1) O2 Saturation 97 % (92-99) Arterial Blood pH 7.49 (7.35-7.45) Arterial Blood pCO2 at Patient Temp 34 mmHg (35-46) Arterial Blood pO2 at Patient Temp 91 mmHg (75-108) Arterial Blood HCO3 25 mmol/L (21-28) Arterial Blood Base Excess 2 mmol/L (-3-3) FiO2 >50 Lactic Acid Level 2.6 mmol/L (0.4-2.0) Test 04/12/17 13:10 Urine Opiates Screen Neg (NEG) Urine Methadone Screen Neg (NEG) Urine Barbiturates Neg (NEG) Urine Phencyclidine Screen Neg (NEG) Urine Amphetamine/Methamphetamine Neg (NEG) Urine Benzodiazepines Screen Neg (NEG) Urine Cocaine Screen Neg (NEG) Urine Cannabinoids Screen Neg (NEG) Urine Ethyl Alcohol Neg (NEG) Medications Active Scripts Medications Dose Route/Sig Max Daily Dose Days Date Category Benadryl (Diphenhydramine Hcl) 25 Mg Capsule 1 Cap PO QHS 04/11/17 Reported Melatonin 3 Mg Tablet 1 Tab PO QHS 04/11/17 Reported Aspirin 81 Mg Tab.chew 81 Mg PO 04/11/17 Reported Dilaudid (Hydromorphone Hcl) 8 Mg Tablet 10 Mg PO PRN 09/10/15 Reported Combivent Respimat Inhal (Ipratropium/Albuterol Sulfate) 4 Gm Aer.w.adap 2 Inh IH TID 09/10/15 Reported Nitrostat (Nitroglycerin) 0.4 Mg Tab.subl 0.4 Mg SL PRN Q5MIN PRN 09/10/15 Reported Trazodone Hcl 150 Mg Tablet 1 Tab PO QHS 09/10/15 Reported Omeprazole 20 Mg Capsule.dr 1 Cap PO DAILY 09/10/15 Reported Coreg (Carvedilol) 25 Mg Tablet 1 Tab PO BID 09/10/15 Reported Colace (Docusate Sodium) 100 Mg Capsule 100 Mg PO PRN 09/07/14 Reported Promethazine Hcl 25 Mg Tablet 25 Mg PO Q6H PRN 09/07/14 Reported Tizanidine Hcl 4 Mg Tablet 4 Mg PO QID PRN 09/07/14 Reported Klor-Con 10 (Potassium Chloride) 10 Meq Tablet.er 1 Tab PO DAILY PRN 09/07/14 Reported Potassium Chloride 20 Meq Tab.er.prt 20 Meq PO DAILY 09/07/14 Reported Furosemide 40 Mg Tablet 1 Tab PO DAILY PRN 09/07/14 Reported Fenofibrate (Fenofibrate Nanocrystallized) 48 Mg Tablet 48 Mg PO DAILY 09/07/14 Reported Vistaril (Hydroxyzine Pamoate) 50 Mg Capsule 50 Mg PO QID 09/07/14 Reported Simvastatin 20 Mg Tablet 1 Tab PO QHS 09/07/14 Reported Lansoprazole 30 Mg Capsule.dr 1 Cap PO DAILY 09/07/14 Reported Fluoxetine Hcl 20 Mg Capsule 1 Cap PO DAILY 09/07/14 Reported Gabapentin 600 Mg Tablet 3 Tab PO QHS 09/07/14 Reported Gabapentin 600 Mg Tablet 2 Tab PO DAILY06 09/07/14 Reported Clopidogrel (Clopidogrel Bisulfate) 75 Mg Tablet 1 Tab PO DAILY 09/07/14 Reported Comments IMPRESSION: 1. No CT evidence of central pulmonary emboli. 2. Extensive coronary artery disease. 3. Extensive bilateral airspace and interstitial opacities most compatible with pulmonary edema. Pneumonia on an infectious or hypersensitivity basis is less likely. Impression . 1. Acute respiratory failure secondary to acute systolic heart failure. 2. Acute systolic heart failure. 3. Abnormal x-ray. 4. Acute exacerbation of chronic obstructive pulmonary disease. Plan . pt with severe soa this am stat CT of chest no pe suspect mostly CHF will give extra lasix bipap see orders 1. Difficult to rule out the possibility of concomitant pneumonia. I agree for now to empirically start antibiotics. 2. Continue home meds. 3. Oxygen supplementation. 4. Prednisone. 5. A 6-minute walk prior to discharge. BELINDA SCOTT MD Apr 12, 2017 14:40
[2017-04-12 15:00] VITALS: BP 117/58
[2017-04-12 17:28] VITALS: BP 123/70
[2017-04-12] MEDS: ENOXAPARIN 40 MG/0.4 ML SYRINGE. SQ SCH (18:00)
[2017-04-12 19:00] VITALS: BP 98/57
[2017-04-12] MEDS: traZODone 100 MG TABLET. PO SCH (20:13)
[2017-04-12] MEDS: diphenhydrAMINE HCL 25 MG CAPSULE PO SCH (20:13)
[2017-04-12] MEDS: SIMVASTATIN 20 MG TABLET PO SCH (20:13)
[2017-04-12 23:00] VITALS: BP 107/66
[2017-04-13] VITALS (13 sets, daily range): BP systolic 79–122; BP diastolic 34–76
[2017-04-13 03:50] LABS: BASO # 0.1 x10^3/uL (0.0-0.2); BASO % 0 % (0-3); EOS % 1 % (0-3); HEMATOCRIT 32.1 % (39.0-53.0); LYMPH # 3.5 x10^3/uL (1.0-4.8); LYMPH % 20 % (24-48); MEAN CORPUSCULAR HEMOGLOBIN 22 pg (25-35); MEAN CORPUSCULAR HGB CONC 31 g/dL (31-37); MEAN CORPUSCULAR VOLUME 70 fL (79-100); MONO % 2 % (0-9); NEUT % 77 % (31-73); PLATELET COUNT 330 x10^3/uL (140-400); RED BLOOD COUNT 4.56 x10^6/uL (4.30-5.70); WHITE BLOOD COUNT 17.7 x10^3/uL (4.0-11.0)
[2017-04-13 04:09] LABS: % SAT IRON 5 % (15-34); IRON,SERUM 15 ug/dL (65-175)
[2017-04-13 04:20] LABS: ALBUMIN 2.5 g/dL (3.4-5.0); ALBUMIN/GLOBULIN RATIO 0.7 (1.0-1.7); CALCIUM 8.5 mg/dL (8.5-10.1); CREATININE 0.9 mg/dL (0.7-1.3); GFR 92.5; MAGNESIUM 1.7 mg/dL (1.8-2.4); TOTAL BILIRUBIN 0.4 mg/dL (0.2-1.0); TOTAL PROTEIN 6.2 g/dL (6.4-8.2)
[2017-04-13] MEDS: oxyCODONE/APAP 10/325 1 TAB TABLET PO PRN ×3 (05:42→18:18)
[2017-04-13] MEDS: GABAPENTIN 300 MG CAPSULE. PO SCH ×2 (05:42→20:48)
[2017-04-13] MEDS: PIPERACILLIN/TAZOBACTAM 3.375 GM in IV NORMAL SALINE 50ML 50 ML IV SCH ×3 (05:43→18:18)
[2017-04-13] MEDS: IPRATRPIUM/ALBUTEROL 0.5/2.5MG 3 ML NEBU. NEB SCH ×4 (07:30→19:47)
[2017-04-13] MEDS: CARVEDILOL 12.5 MG TABLET. PO SCH ×2 (08:00→16:12)
[2017-04-13] MEDS: CLOPIDOGREL BISULFATE 75 MG TABLET PO SCH (10:00)
[2017-04-13] MEDS: PANTOPRAZOLE 40 MG TABLET.DR. PO SCH (10:00)
[2017-04-13] MEDS: tiZANidine 4 MG TABLET. PO PRN (10:00)
[2017-04-13] MEDS: FENOFIBRATE 54 MG TABLET. PO SCH (10:00)
[2017-04-13] MEDS: ASPIRIN CHEWABLE 81 MG TABLET. PO SCH (10:00)
[2017-04-13] MEDS: hydrOXYzine PAMOATE 25 MG CAPSULE PO SCH ×4 (10:01→21:00)
[2017-04-13] MEDS: POTASSIUM CHLORIDE 20 MEQ TABLET.ER. PO SCH ×2 (10:01→18:17)
[2017-04-13] MEDS: FLUoxetine HCL 20 MG CAPSULE PO SCH (10:01)
[2017-04-13] MEDS: SUCRALFATE 1 GM TABLET. PO SCH ×2 (12:16→20:45)
--- NOTE | 2017-04-13 12:54 | PDOC ---
PROGRESS NOTES Chief Complaint Chief Complaint Acute on chronic, hypoxic respir distress ASSESSMENT AND PLAN: 1. Respir failure: recent admit for PNA/COPD [facility] with D/C about a week ago, persistent/worsening sx. appears comfortable. nebs, suppl O2 (pt has home O2 at [facility]); appreciate Dr Betancourt's input: suspected CHF by CXR. stop steroids, IV lasix on hold due to low BP as is BB. obtain echo, cardiology input 2. Early sepsis: Tachycardia, hypotension, no fevers, leukocytosis sl improved. lactate still elevated; rpt pending. with above issues, cautious with IVF administration. may need ICU transfer 3. Tobaccoism: nicotine patch prn daily. encouraged cessation 4. CAD: hx UT/CABG. no acute issues. cont home meds 5. HTN/HLD: continue home meds 6. hypokalemia/hypomagnesemia: replete as indicated 7. [place]: moderate microcytosis. obtain iron labs 8. GERD: PPI 9. Chronic back pain: hx back sx. cont home regimen 10. Anxiety 11. Prophylaxis: lovenox History of Present Illness History of Present Illness hypoxic, feels SOB off BiPAP. no CP or palpitations Vitals Vitals Vital Signs Date Time Temp Pulse Resp B/P (MAP) Pulse Ox O2 Delivery O2 Flow Rate FiO2 04/13/17 11:42 95 BiPAP/CPAP 04/13/17 11:00 97.7 74 18 102/53 (69) 6.0 97.7 Physical Exam General: Alert, Oriented X3, Cooperative, mild distress Heart: Regular rate Lungs: Wheezing, Crackles Abdomen: Normal bowel sounds, No tenderness Extremities: No clubbing, No edema Skin: No rashes Labs LABS Laboratory Tests Test 04/12/17 13:10 04/12/17 16:25 04/13/17 03:29 Urine Opiates Screen Neg (NEG) Urine Methadone Screen Neg (NEG) Urine Barbiturates Neg (NEG) Urine Phencyclidine Screen Neg (NEG) Urine Amphetamine/Methamphetamine Neg (NEG) Urine Benzodiazepines Screen Neg (NEG) Urine Cocaine Screen Neg (NEG) Urine Cannabinoids Screen Neg (NEG) Urine Ethyl Alcohol Neg (NEG) Lactic Acid Level 3.7 mmol/L (0.4-2.0) White Blood Count 17.7 x10^3/uL (4.0-11.0) Red Blood Count 4.56 x10^6/uL (4.30-5.70) Hemoglobin 10.0 g/dL (13.0-17.5) Hematocrit 32.1 % (39.0-53.0) Mean Corpuscular Volume 70 fL (79-100) Mean Corpuscular Hemoglobin 22 pg (25-35) Mean Corpuscular Hemoglobin Concent 31 g/dL (31-37) Red Cell Distribution Width 26.0 % (11.5-14.5) Platelet Count 330 x10^3/uL (140-400) Neutrophils (%) (Auto) 77 % (31-73) Lymphocytes (%) (Auto) 20 % (24-48) Monocytes (%) (Auto) 2 % (0-9) Eosinophils (%) (Auto) 1 % (0-3) Basophils (%) (Auto) 0 % (0-3) Neutrophils # (Auto) 13.7 x10^3uL (1.8-7.7) Lymphocytes # (Auto) 3.5 x10^3/uL (1.0-4.8) Monocytes # (Auto) 0.3 x10^3/uL (0.0-1.1) Eosinophils # (Auto) 0.1 x10^3/uL (0.0-0.7) Basophils # (Auto) 0.1 x10^3/uL (0.0-0.2) Sodium Level 140 mmol/L (136-145) Potassium Level 4.0 mmol/L (3.5-5.1) Chloride Level 101 mmol/L (98-107) Carbon Dioxide Level 33 mmol/L (21-32) Anion Gap 6 (6-14) Blood Urea Nitrogen 19 mg/dL (8-26) Creatinine 0.9 mg/dL (0.7-1.3) Estimated GFR (Cockcroft-Gault) 92.5 BUN/Creatinine Ratio 21 (6-20) Glucose Level 103 mg/dL (70-99) Calcium Level 8.5 mg/dL (8.5-10.1) Magnesium Level 1.7 mg/dL (1.8-2.4) Iron Level 15 ug/dL (65-175) Total Iron Binding Capacity 291 ug/dL (250-450) Iron Saturation 5 % (15-34) Ferritin 151 ng/mL (26-388) Total Bilirubin 0.4 mg/dL (0.2-1.0) Aspartate Amino Transf (AST/SGOT) 38 U/L (15-37) Alanine Aminotransferase (ALT/SGPT) 23 U/L (16-63) Alkaline Phosphatase 90 U/L (46-116) Total Protein 6.2 g/dL (6.4-8.2) Albumin 2.5 g/dL (3.4-5.0) Albumin/Globulin Ratio 0.7 (1.0-1.7) MALINDA NOVA MD Apr 13, 2017 12:54
[2017-04-13] MEDS ORDERED: MAGNESIUM SULFATE 2GM 50 ML IV ONE (13:15)
--- NOTE | 2017-04-13 15:09 | CARD ---
APPROVED REPORT EXAM: Two-dimensional and M-mode echocardiogram with Doppler and color Doppler. Other Information Quality : Technically Limited Rhythm : NSRTechnically limited study due to bi-pap machine. INDICATION Congestive Heart Failure 2D DIMENSIONS RVDd2.9 (2.9-3.5cm)Left Atrium(2D)3.2 (1.6-4.0cm) IVSd0.9 (0.7-1.1cm)Aortic Root(2D)2.9 (2.0-3.7cm) LVDd4.5 (3.9-5.9cm)LVOT Diameter2.1 (1.8-2.4cm) PWd0.9 (0.7-1.1cm)LVDs3.1 (2.5-4.0cm) FS (%) 31.1 %SV53.9 ml LVEF(%)58.9 (>50%) Aortic Valve AoV Peak Jose Francisco.160.6cm/sAoV VTI26.1cm AO Peak GR.10.3mmHgLVOT VTI 19.69cm AO Mean GR.6mmHgAVA (VTI)2.68cm2 AI P 1/2 [id number] Mitral Valve MV E Pdtnrtan09.9cm/sMV E Peak Gr.4mmHg MV DECEL [id number] A Hdywrpsn618.0cm/s MV FDC74ogK/A Ratio0.8 MV A [id number] (PHT)3.33cm2 TDI Lateral E' P. V13.32cm/sMedial E' P. V10.16cm/s E/Lateral E'7.1E/Medial E'9.3 Tricuspid Valve TR P. Meopnsqm642cy/sRAP [id number] TR Peak Gr.02mlSkQXQD19abVc LEFT VENTRICLE The left ventricle is normal size. There is borderline concentric left ventricular hypertrophy. Left ventricle systolic function is normal. The Ejection Fraction is 55-60%. There is normal LV segmental wall motion. The left ventricular diastolic function and filling is normal for age. There is no ventr icular septal defect visualized. RIGHT VENTRICLE The right ventricle is normal size. The right ventricular systolic function is normal. ATRIA The left atrium size is normal. The right atrium size is normal. The interatrial septum is intact wit h no evidence for an atrial septal defect or patent foramen ovale as noted on 2-D or Doppler imaging. AORTIC VALVE The aortic valve is normal in structure and function. The aortic valve is trileaflet. Doppler and Col or Flow revealed trace to mild aortic regurgitation. There is no significant aortic valvular stenosis . MITRAL VALVE The mitral valve is normal in structure and function. There is no mitral valve stenosis. Doppler and Color Flow revealed trace mitral regurgitation. TRICUSPID VALVE The tricuspid valve is not well visualized. Doppler and Color Flow revealed trace tricuspid regurgita tion. The PA pressure was estimated at 22 mmHg. There is no tricuspid valve stenosis. PULMONIC VALVE The pulmonic valve is not well visualized. Doppler and Color Flow revealed no pulmonic valvular regur gitation. There is no pulmonic valvular stenosis. GREAT VESSELS The aortic root is normal in size. Pulmonary veins not recorded. The IVC is normal in size and collap ses >50% with inspiration. PERICARDIAL EFFUSION There is no evidence of significant pericardial effusion. Critical Notification Critical Value: No <Conclusion> The left ventricle is normal size. Left ventricle systolic function is normal. The Ejection Fraction is 55-60%. There is borderline concentric left ventricular hypertrophy. There is no significant aortic valvular stenosis. Doppler and Color Flow revealed trace to mild aortic regurgitation. Doppler and Color Flow revealed trace mitral regurgitation. Doppler and Color Flow revealed trace tricuspid regurgitation. The PA pressure was estimated at 22 mmHg.
--- NOTE | 2017-04-13 18:16 | PDOC ---
PULMONARY PROGRESS NOTES Subjective pt on bipap in icu Vitals Vital Signs Date Time Temp Pulse Resp B/P (MAP) Pulse Ox O2 Delivery O2 Flow Rate FiO2 04/13/17 17:30 Bi-pap 04/13/17 17:30 98.9 92 26 116/61 (79) 95 98.9 04/13/17 11:00 6.0 ROS: No Nausea, No Chest Pain, No Abdominal Pain, No Increase Cough Lungs: Wheezing, Crackles Cardiovascular: S1, S2 Abdomen: Soft Neuro Exam: Alert Extremities: No Edema Skin: Warm Labs Laboratory Tests Test 04/11/17 22:00 04/12/17 05:00 04/12/17 11:55 04/12/17 12:25 Troponin I Quantitative 0.030 ng/mL (0.000-0.055) 0.026 ng/mL (0.000-0.055) White Blood Count 20.4 x10^3/uL (4.0-11.0) Red Blood Count 4.69 x10^6/uL (4.30-5.70) Hemoglobin 10.4 g/dL (13.0-17.5) Hematocrit 33.7 % (39.0-53.0) Mean Corpuscular Volume 72 fL (79-100) Mean Corpuscular Hemoglobin 22 pg (25-35) Mean Corpuscular Hemoglobin Concent 31 g/dL (31-37) Red Cell Distribution Width 26.7 % (11.5-14.5) Platelet Count 323 x10^3/uL (140-400) Neutrophils (%) (Auto) 76 % (31-73) Lymphocytes (%) (Auto) 19 % (24-48) Monocytes (%) (Auto) 4 % (0-9) Eosinophils (%) (Auto) 1 % (0-3) Basophils (%) (Auto) 1 % (0-3) Neutrophils # (Auto) 15.6 x10^3uL (1.8-7.7) Lymphocytes # (Auto) 3.9 x10^3/uL (1.0-4.8) Monocytes # (Auto) 0.7 x10^3/uL (0.0-1.1) Eosinophils # (Auto) 0.1 x10^3/uL (0.0-0.7) Basophils # (Auto) 0.2 x10^3/uL (0.0-0.2) Sodium Level 139 mmol/L (136-145) Potassium Level 3.2 mmol/L (3.5-5.1) Chloride Level 102 mmol/L (98-107) Carbon Dioxide Level 24 mmol/L (21-32) Anion Gap 13 (6-14) Blood Urea Nitrogen 11 mg/dL (8-26) Creatinine 1.1 mg/dL (0.7-1.3) Estimated GFR (Cockcroft-Gault) 73.4 Glucose Level 114 mg/dL (70-99) Calcium Level 8.3 mg/dL (8.5-10.1) O2 Saturation 97 % (92-99) Arterial Blood pH 7.49 (7.35-7.45) Arterial Blood pCO2 at Patient Temp 34 mmHg (35-46) Arterial Blood pO2 at Patient Temp 91 mmHg (75-108) Arterial Blood HCO3 25 mmol/L (21-28) Arterial Blood Base Excess 2 mmol/L (-3-3) FiO2 >50 Lactic Acid Level 2.6 mmol/L (0.4-2.0) Test 04/12/17 13:10 04/12/17 16:25 04/13/17 03:29 04/13/17 12:50 Urine Opiates Screen Neg (NEG) Urine Methadone Screen Neg (NEG) Urine Barbiturates Neg (NEG) Urine Phencyclidine Screen Neg (NEG) Urine Amphetamine/Methamphetamine Neg (NEG) Urine Benzodiazepines Screen Neg (NEG) Urine Cocaine Screen Neg (NEG) Urine Cannabinoids Screen Neg (NEG) Urine Ethyl Alcohol Neg (NEG) Lactic Acid Level 3.7 mmol/L (0.4-2.0) 1.7 mmol/L (0.4-2.0) White Blood Count 17.7 x10^3/uL (4.0-11.0) Red Blood Count 4.56 x10^6/uL (4.30-5.70) Hemoglobin 10.0 g/dL (13.0-17.5) Hematocrit 32.1 % (39.0-53.0) Mean Corpuscular Volume 70 fL (79-100) Mean Corpuscular Hemoglobin 22 pg (25-35) Mean Corpuscular Hemoglobin Concent 31 g/dL (31-37) Red Cell Distribution Width 26.0 % (11.5-14.5) Platelet Count 330 x10^3/uL (140-400) Neutrophils (%) (Auto) 77 % (31-73) Lymphocytes (%) (Auto) 20 % (24-48) Monocytes (%) (Auto) 2 % (0-9) Eosinophils (%) (Auto) 1 % (0-3) Basophils (%) (Auto) 0 % (0-3) Neutrophils # (Auto) 13.7 x10^3uL (1.8-7.7) Lymphocytes # (Auto) 3.5 x10^3/uL (1.0-4.8) Monocytes # (Auto) 0.3 x10^3/uL (0.0-1.1) Eosinophils # (Auto) 0.1 x10^3/uL (0.0-0.7) Basophils # (Auto) 0.1 x10^3/uL (0.0-0.2) Sodium Level 140 mmol/L (136-145) Potassium Level 4.0 mmol/L (3.5-5.1) Chloride Level 101 mmol/L (98-107) Carbon Dioxide Level 33 mmol/L (21-32) Anion Gap 6 (6-14) Blood Urea Nitrogen 19 mg/dL (8-26) Creatinine 0.9 mg/dL (0.7-1.3) Estimated GFR (Cockcroft-Gault) 92.5 BUN/Creatinine Ratio 21 (6-20) Glucose Level 103 mg/dL (70-99) Calcium Level 8.5 mg/dL (8.5-10.1) Magnesium Level 1.7 mg/dL (1.8-2.4) Iron Level 15 ug/dL (65-175) Total Iron Binding Capacity 291 ug/dL (250-450) Iron Saturation 5 % (15-34) Ferritin 151 ng/mL (26-388) Total Bilirubin 0.4 mg/dL (0.2-1.0) Aspartate Amino Transf (AST/SGOT) 38 U/L (15-37) Alanine Aminotransferase (ALT/SGPT) 23 U/L (16-63) Alkaline Phosphatase 90 U/L (46-116) Total Protein 6.2 g/dL (6.4-8.2) Albumin 2.5 g/dL (3.4-5.0) Albumin/Globulin Ratio 0.7 (1.0-1.7) Laboratory Tests Test 04/13/17 03:29 04/13/17 12:50 White Blood Count 17.7 x10^3/uL (4.0-11.0) Red Blood Count 4.56 x10^6/uL (4.30-5.70) Hemoglobin 10.0 g/dL (13.0-17.5) Hematocrit 32.1 % (39.0-53.0) Mean Corpuscular Volume 70 fL (79-100) Mean Corpuscular Hemoglobin 22 pg (25-35) Mean Corpuscular Hemoglobin Concent 31 g/dL (31-37) Red Cell Distribution Width 26.0 % (11.5-14.5) Platelet Count 330 x10^3/uL (140-400) Neutrophils (%) (Auto) 77 % (31-73) Lymphocytes (%) (Auto) 20 % (24-48) Monocytes (%) (Auto) 2 % (0-9) Eosinophils (%) (Auto) 1 % (0-3) Basophils (%) (Auto) 0 % (0-3) Neutrophils # (Auto) 13.7 x10^3uL (1.8-7.7) Lymphocytes # (Auto) 3.5 x10^3/uL (1.0-4.8) Monocytes # (Auto) 0.3 x10^3/uL (0.0-1.1) Eosinophils # (Auto) 0.1 x10^3/uL (0.0-0.7) Basophils # (Auto) 0.1 x10^3/uL (0.0-0.2) Sodium Level 140 mmol/L (136-145) Potassium Level 4.0 mmol/L (3.5-5.1) Chloride Level 101 mmol/L (98-107) Carbon Dioxide Level 33 mmol/L (21-32) Anion Gap 6 (6-14) Blood Urea Nitrogen 19 mg/dL (8-26) Creatinine 0.9 mg/dL (0.7-1.3) Estimated GFR (Cockcroft-Gault) 92.5 BUN/Creatinine Ratio 21 (6-20) Glucose Level 103 mg/dL (70-99) Calcium Level 8.5 mg/dL (8.5-10.1) Magnesium Level 1.7 mg/dL (1.8-2.4) Iron Level 15 ug/dL (65-175) Total Iron Binding Capacity 291 ug/dL (250-450) Iron Saturation 5 % (15-34) Ferritin 151 ng/mL (26-388) Total Bilirubin 0.4 mg/dL (0.2-1.0) Aspartate Amino Transf (AST/SGOT) 38 U/L (15-37) Alanine Aminotransferase (ALT/SGPT) 23 U/L (16-63) Alkaline Phosphatase 90 U/L (46-116) Total Protein 6.2 g/dL (6.4-8.2) Albumin 2.5 g/dL (3.4-5.0) Albumin/Globulin Ratio 0.7 (1.0-1.7) Lactic Acid Level 1.7 mmol/L (0.4-2.0) Medications Active Scripts Medications Dose Route/Sig Max Daily Dose Days Date Category Benadryl (Diphenhydramine Hcl) 25 Mg Capsule 1 Cap PO QHS 04/11/17 Reported Melatonin 3 Mg Tablet 1 Tab PO QHS 04/11/17 Reported Aspirin 81 Mg Tab.chew 81 Mg PO 04/11/17 Reported Dilaudid (Hydromorphone Hcl) 8 Mg Tablet 10 Mg PO PRN 09/10/15 Reported Combivent Respimat Inhal (Ipratropium/Albuterol Sulfate) 4 Gm Aer.w.adap 2 Inh IH TID 09/10/15 Reported Nitrostat (Nitroglycerin) 0.4 Mg Tab.subl 0.4 Mg SL PRN Q5MIN PRN 09/10/15 Reported Trazodone Hcl 150 Mg Tablet 1 Tab PO QHS 09/10/15 Reported Omeprazole 20 Mg Capsule.dr 1 Cap PO DAILY 09/10/15 Reported Coreg (Carvedilol) 25 Mg Tablet 1 Tab PO BID 09/10/15 Reported Colace (Docusate Sodium) 100 Mg Capsule 100 Mg PO PRN 09/07/14 Reported Promethazine Hcl 25 Mg Tablet 25 Mg PO Q6H PRN 09/07/14 Reported Tizanidine Hcl 4 Mg Tablet 4 Mg PO QID PRN 09/07/14 Reported Klor-Con 10 (Potassium Chloride) 10 Meq Tablet.er 1 Tab PO DAILY PRN 09/07/14 Reported Potassium Chloride 20 Meq Tab.er.prt 20 Meq PO DAILY 09/07/14 Reported Furosemide 40 Mg Tablet 1 Tab PO DAILY PRN 09/07/14 Reported Fenofibrate (Fenofibrate Nanocrystallized) 48 Mg Tablet 48 Mg PO DAILY 09/07/14 Reported Vistaril (Hydroxyzine Pamoate) 50 Mg Capsule 50 Mg PO QID 09/07/14 Reported Simvastatin 20 Mg Tablet 1 Tab PO QHS 09/07/14 Reported Lansoprazole 30 Mg Capsule.dr 1 Cap PO DAILY 09/07/14 Reported Fluoxetine Hcl 20 Mg Capsule 1 Cap PO DAILY 09/07/14 Reported Gabapentin 600 Mg Tablet 3 Tab PO QHS 09/07/14 Reported Gabapentin 600 Mg Tablet 2 Tab PO DAILY06 09/07/14 Reported Clopidogrel (Clopidogrel Bisulfate) 75 Mg Tablet 1 Tab PO DAILY 09/07/14 Reported Comments IMPRESSION: 1. No CT evidence of central pulmonary emboli. 2. Extensive coronary artery disease. 3. Extensive bilateral airspace and interstitial opacities most compatible with pulmonary edema. Pneumonia on an infectious or hypersensitivity basis is less likely. Impression . 1. Acute respiratory failure secondary to acute systolic heart failure. 2. Acute systolic heart failure. 3. Abnormal x-ray. 4. Acute exacerbation of chronic obstructive pulmonary disease. Plan . transfer to ICU for low B/P now better i think this is more chf stat CT of chest no pe suspect mostly CHF will give extra lasix bipap continue antibx BELINDA SCOTT MD Apr 13, 2017 18:16
--- NOTE | 2017-04-13 18:19 | PDOC2 ---
CONSULT Date of Consult Date of Consult DATE: 04/13/17 TIME: 18:14 Reason for Consult Reason for Consult: Shortness of breath, heart failure, history of bypass surgery Referring Physician Referring Physician: Dr. Resendez Identification/Chief Complaint Chief Complaint Shortness of breath Problems: Source Source: Chart review, Patient History of Present Illness Reason for Visit: The patient is a 42-year-old male who presented to the emergency room with several days of increasing shortness of breath. Apparently he was recently admitted at another hospital for pneumonia. His history is significant for history of bypass surgery, COPD with continued tobacco abuse, hypertension and hyperlipidemia. Chest x-ray shows bilateral pulmonary infiltrates. EKG shows no acute ischemic changes. Patient has initially been treated with diuretics and pulmonary medication and is feeling better. Past Medical History Cardiovascular: CAD, HTN, SC, Hyperlipidemia Pulmonary: COPD, Pneumonia CENTRAL NERVOUS SYSTEM: Carpal Tunnel Syndrome GI: GERD Heme/Onc: No pertinent hx Hepatobiliary: No pertinent hx Psych: Anxiety Musculoskeletal: low back pain, Osteoarthritis Infectious disease: No pertinent hx Renal/: No pertinent hx Endocrine: Other Past Surgical History Past Surgical History: CABG, Other (back surgery) Family History Family History: Coronary Artery Disease, Heart Disease Social History 1 pack per day ALCOHOL: none Drugs: None Lives: with Family Current Problem List Problem List Problems Medical Problems: (1) Hypoxemia Status: Acute (2) Pneumonia Status: Acute Current Medications Current Medications Current Medications Oxycodone/ Acetaminophen (Percocet 10/325) 1 tab 1X ONCE PO Last administered on 04/11/17 15:16; Start 04/11/17 at 14:30; Stop 04/11/17 at 14:31; Status DC Albuterol/ Ipratropium (Duoneb) 3 ml 1X ONCE NEB Last administered on 14:37; Start 04/11/17 at 14:30; Stop 04/11/17 at 14:31; Status DC Vancomycin HCl 250 ml @ 250 mls/hr 1X ONCE IV ; Start 04/11/17 at 15:15; Stop 04/11/17 at 16:14; Status Cancel Nicotine (Nicoderm Cq 21mg) 1 patch 1X ONCE TD Last administered on 04/11/17 17:31; Start 04/11/17 at 15:30; Stop 04/11/17 at 15:31; Status DC Albuterol/ Ipratropium (Duoneb) 3 ml RTQID NEB ; Start 04/11/17 at 20:00; Stop 04/11/17 at 20:00; Status DC Acetaminophen (Tylenol) 650 mg PRN Q6HRS PRN PO FEVER; Start 04/11/17 at 17:00 Ondansetron HCl (Zofran) 4 mg PRN Q6HRS PRN IV NAUSEA/VOMITING; Start 04/11/17 at 17:00 Hydralazine HCl (Apresoline) 10 mg PRN Q4HRS PRN IVP ELEVATED BP, SEE COMMENTS ; Start 04/11/17 at 17:00 Docusate Sodium (Colace) 100 mg PRN DAILY PRN PO CONSTIPATION; Start 04/11/17 at 17:00 Albuterol/ Ipratropium (Duoneb) 3 ml RTQID NEB Last administered on 04/13/17 15:50; Start 04/11/17 at 20:00 Albuterol Sulfate (Ventolin Neb Soln) 2.5 mg PRN Q2HR PRN NEB SHORTNESS OF BREATH Last administered on 04/12/17 05:14; Start 04/11/17 at 17:00 Guaifenesin (Mucinex) 600 mg BID PO Last administered on 04/13/17 10:00; Start 04/11/17 at 21:00 Potassium Chloride (Klor-Con) 40 meq BIDWMEALS PO Last administered on 10:01; Start 04/11/17 at 17:30 Magnesium Sulfate/ Dextrose 50 ml @ 25 mls/hr 1X ONCE IV Last administered on 04/11/17 22:05; Start 04/11/17 at 17:30; Stop 04/11/17 at 19:29; Status DC Enoxaparin Sodium (Lovenox 40mg Syringe) 40 mg Q24H SQ ; Start 04/11/17 at 18:00 Nicotine (Nicoderm Cq 21mg) 1 patch PRN DAILY PRN TD SMOKING CESSATION; Start 04/11/17 at 17:00 Aspirin (Children'S Aspirin) 81 mg DAILYWBKFT PO Last administered on 10:00; Start 04/12/17 at 08:00 Clopidogrel Bisulfate (Plavix) 75 mg DAILYWBKFT PO Last administered on 10:00; Start 04/12/17 at 08:00 Diphenhydramine HCl (Benadryl) 25 mg QHS PO Last administered on 04/12/17 20: 13; Start 04/11/17 at 21:00 Docusate Sodium (Colace) 100 mg PRN DAILY PRN PO CONSTIPATION; Start 04/11/17 at 17:15; Status Cancel Fluoxetine HCl (PROzac) 20 mg DAILY PO Last administered on 04/13/17 10:01; Start 04/12/17 at 09:00 Nitroglycerin (Nitrostat) 0.4 mg PRN Q5MIN PRN SL CHEST PAIN; Start 04/11/17 at 17:15 Potassium Chloride (Klor-Con) 20 meq DAILY PO ; Start 04/12/17 at 09:00; Status UNV Simvastatin (Zocor) 20 mg QHS PO Last administered on 04/12/17 20:13; Start 04/11/17 at 21:00 Tizanidine HCl (Zanaflex) 4 mg QID PRN PO MUSCLE SPASMS Last administered on 10:00; Start 04/11/17 at 17:15 Carvedilol (Coreg) 25 mg BIDWMEALS PO Last administered on 04/11/17 18:56; Start 04/11/17 at 18:00 Fenofibrate (Lofibra) 54 mg DAILY PO Last administered on 04/13/17 10:00; Start 04/12/17 at 09:00 Gabapentin (Neurontin) 1,200 mg DAILY06 PO Last administered on 04/13/17 05:42 ; Start 04/12/17 at 06:00 Gabapentin (Neurontin) 1,800 mg QHS PO Last administered on 04/12/17 20:12; Start 04/11/17 at 21:00 Hydroxyzine Pamoate (Vistaril) 50 mg QID PO Last administered on 04/13/17 12: 18; Start 04/11/17 at 21:00 Non-Formulary Medication 1 tab QHS PO ; Start 04/11/17 at 21:00; Status UNV Pantoprazole Sodium (Protonix) 40 mg DAILYAC PO Last administered on 04/13/17 10:00; Start 04/12/17 at 07:30 Promethazine HCl (Phenergan) 25 mg PRN Q6HRS PRN PO NAUSEA/VOMITING; Start 04/11/17 at 17:30 Trazodone HCl (Desyrel) 150 mg QHS PO Last administered on 04/12/17 20:13; Start 04/11/17 at 21:00 Vancomycin HCl (Vanco Per Pharmacy) 1 each PRN DAILY PRN MC SEE COMMENTS Last administered on 04/11/17 20:31; Start 04/11/17 at 17:15; Stop 04/12/17 at 12:58 ; Status DC Piperacillin Sod/ Tazobactam Sod 3.375 gm/Sodium Chloride 50 ml @ 100 mls/hr Q6HRS IV Last administered on 04/12/17 06:02; Start 04/11/17 at 18:00; Stop 04/12/17 at 12:58; Status DC Piperacillin Sod/ Tazobactam Sod (Zosyn Per Pharmacy) 1 each PRN DAILY PRN MC SEE COMMENTS; Start 04/11/17 at 17:15; Stop 04/12/17 at 12:58; Status DC Prednisone (Prednisone) 40 mg DAILY PO Last administered on 04/12/17 08:22; Start 04/12/17 at 09:00; Stop 04/12/17 at 12:58; Status DC Vancomycin HCl 2 gm/Sodium Chloride 500 ml @ 250 mls/hr 1X ONCE IV Last administered on 04/11/17 20:35; Start 04/11/17 at 17:30; Stop 04/11/17 at 19:29 ; Status DC Oxycodone/ Acetaminophen (Percocet 10/325) 1 tab PRN Q6HRS PRN PO PAIN Last administered on 04/13/17 12:16; Start 04/11/17 at 20:30 Vancomycin HCl 1.5 gm/Sodium Chloride 500 ml @ 250 mls/hr Q8H IV Last administered on 04/12/17 04:25; Start 04/12/17 at 05:00; Stop 04/12/17 at 12:58 ; Status DC Vancomycin HCl 1 each 1X ONCE MC ; Start 04/12/17 at 20:30; Stop 04/12/17 at 20 :30; Status DC Furosemide (Lasix) 40 mg 1X ONCE IVP Last administered on 04/12/17 12:10; Start 04/12/17 at 12:30; Stop 04/12/17 at 12:31; Status DC Iohexol (Omnipaque 300 Mg/ml) 75 ml 1X ONCE IV Last administered on 04/12/17 13:37; Start 04/12/17 at 13:30; Stop 04/12/17 at 13:31; Status DC Info (Do NOT chart on this entry -- for MONITORING) 1 each PRN DAILY PRN MC SEE COMMENTS; Start 04/12/17 at 13:45; Stop 04/14/17 at 13:44 Piperacillin Sod/ Tazobactam Sod 3.375 gm/Sodium Chloride 50 ml @ 100 mls/hr Q6HRS IV Last administered on 04/13/17 12:16; Start 04/12/17 at 13:45 Furosemide (Lasix) 40 mg 1X ONCE IVP Last administered on 04/12/17 16:19; Start 04/12/17 at 15:45; Stop 04/12/17 at 15:48; Status DC Sucralfate (Carafate) 1 gm BID PO Last administered on 04/13/17 12:16; Start 04/13/17 at 12:00 Magnesium Sulfate/ Dextrose 50 ml @ 25 mls/hr 1X ONCE IV Last administered on 04/13/17 14:43; Start 04/13/17 at 13:15; Stop 04/13/17 at 15:14; Status DC Active Scripts Active Reported Benadryl (Diphenhydramine Hcl) 25 Mg Capsule 1 Cap PO QHS Melatonin 3 Mg Tablet 1 Tab PO QHS Aspirin 81 Mg Tab.chew 81 Mg PO Dilaudid (Hydromorphone Hcl) 8 Mg Tablet 10 Mg PO PRN Combivent Respimat Inhal (Ipratropium/Albuterol Sulfate) 4 Gm Aer.w.adap 2 Inh IH TID Nitrostat (Nitroglycerin) 0.4 Mg Tab.subl 0.4 Mg SL PRN Q5MIN PRN Trazodone Hcl 150 Mg Tablet 1 Tab PO QHS Omeprazole 20 Mg Capsule.dr 1 Cap PO DAILY Coreg (Carvedilol) 25 Mg Tablet 1 Tab PO BID Colace (Docusate Sodium) 100 Mg Capsule 100 Mg PO PRN Promethazine Hcl 25 Mg Tablet 25 Mg PO Q6H PRN Tizanidine Hcl 4 Mg Tablet 4 Mg PO QID PRN Klor-Con 10 (Potassium Chloride) 10 Meq Tablet.er 1 Tab PO DAILY PRN Potassium Chloride 20 Meq Tab.er.prt 20 Meq PO DAILY Furosemide 40 Mg Tablet 1 Tab PO DAILY PRN Fenofibrate (Fenofibrate Nanocrystallized) 48 Mg Tablet 48 Mg PO DAILY Vistaril (Hydroxyzine Pamoate) 50 Mg Capsule 50 Mg PO QID Simvastatin 20 Mg Tablet 1 Tab PO QHS Lansoprazole 30 Mg Capsule.dr 1 Cap PO DAILY Fluoxetine Hcl 20 Mg Capsule 1 Cap PO DAILY Gabapentin 600 Mg Tablet 3 Tab PO QHS Gabapentin 600 Mg Tablet 2 Tab PO DAILY06 Clopidogrel (Clopidogrel Bisulfate) 75 Mg Tablet 1 Tab PO DAILY Allergies Allergies: Coded Allergies: ketorolac (Verified Adverse Reaction, Intermediate, nausea and vomiting, ) metoprolol (Verified Adverse Reaction, Intermediate, hypotension, 09/07/14) moxifloxacin (Verified Adverse Reaction, Intermediate, Nausea and Vomiting , 09/07/14) tramadol (Verified Adverse Reaction, Intermediate, nausea and vomiting, 09/07/14) ROS General: YES: Fatigue Respiratory: YES: Shortness of breath, SOB with excertion Physical Exam General: mild distress Lungs: Other (decreased breath sounds) Heart: Regular rate Abdomen: Normal bowel sounds Extremities: No clubbing Vitals VITALS Vital Signs Date Time Temp Pulse Resp B/P (MAP) Pulse Ox O2 Delivery O2 Flow Rate FiO2 04/13/17 16:23 79/34 (49) 04/13/17 16:12 84 04/13/17 15:50 BiPAP/CPAP 04/13/17 15:18 98.1 22 92 98.1 04/13/17 11:00 6.0 Labs Labs Laboratory Tests Test 04/11/17 22:00 04/12/17 05:00 04/12/17 11:55 04/12/17 12:25 Troponin I Quantitative 0.030 ng/mL (0.000-0.055) 0.026 ng/mL (0.000-0.055) White Blood Count 20.4 x10^3/uL (4.0-11.0) Red Blood Count 4.69 x10^6/uL (4.30-5.70) Hemoglobin 10.4 g/dL (13.0-17.5) Hematocrit 33.7 % (39.0-53.0) Mean Corpuscular Volume 72 fL (79-100) Mean Corpuscular Hemoglobin 22 pg (25-35) Mean Corpuscular Hemoglobin Concent 31 g/dL (31-37) Red Cell Distribution Width 26.7 % (11.5-14.5) Platelet Count 323 x10^3/uL (140-400) Neutrophils (%) (Auto) 76 % (31-73) Lymphocytes (%) (Auto) 19 % (24-48) Monocytes (%) (Auto) 4 % (0-9) Eosinophils (%) (Auto) 1 % (0-3) Basophils (%) (Auto) 1 % (0-3) Neutrophils # (Auto) 15.6 x10^3uL (1.8-7.7) Lymphocytes # (Auto) 3.9 x10^3/uL (1.0-4.8) Monocytes # (Auto) 0.7 x10^3/uL (0.0-1.1) Eosinophils # (Auto) 0.1 x10^3/uL (0.0-0.7) Basophils # (Auto) 0.2 x10^3/uL (0.0-0.2) Sodium Level 139 mmol/L (136-145) Potassium Level 3.2 mmol/L (3.5-5.1) Chloride Level 102 mmol/L (98-107) Carbon Dioxide Level 24 mmol/L (21-32) Anion Gap 13 (6-14) Blood Urea Nitrogen 11 mg/dL (8-26) Creatinine 1.1 mg/dL (0.7-1.3) Estimated GFR (Cockcroft-Gault) 73.4 Glucose Level 114 mg/dL (70-99) Calcium Level 8.3 mg/dL (8.5-10.1) O2 Saturation 97 % (92-99) Arterial Blood pH 7.49 (7.35-7.45) Arterial Blood pCO2 at Patient Temp 34 mmHg (35-46) Arterial Blood pO2 at Patient Temp 91 mmHg (75-108) Arterial Blood HCO3 25 mmol/L (21-28) Arterial Blood Base Excess 2 mmol/L (-3-3) FiO2 >50 Lactic Acid Level 2.6 mmol/L (0.4-2.0) Test 04/12/17 13:10 04/12/17 16:25 04/13/17 03:29 04/13/17 12:50 Urine Opiates Screen Neg (NEG) Urine Methadone Screen Neg (NEG) Urine Barbiturates Neg (NEG) Urine Phencyclidine Screen Neg (NEG) Urine Amphetamine/Methamphetamine Neg (NEG) Urine Benzodiazepines Screen Neg (NEG) Urine Cocaine Screen Neg (NEG) Urine Cannabinoids Screen Neg (NEG) Urine Ethyl Alcohol Neg (NEG) Lactic Acid Level 3.7 mmol/L (0.4-2.0) 1.7 mmol/L (0.4-2.0) White Blood Count 17.7 x10^3/uL (4.0-11.0) Red Blood Count 4.56 x10^6/uL (4.30-5.70) Hemoglobin 10.0 g/dL (13.0-17.5) Hematocrit 32.1 % (39.0-53.0) Mean Corpuscular Volume 70 fL (79-100) Mean Corpuscular Hemoglobin 22 pg (25-35) Mean Corpuscular Hemoglobin Concent 31 g/dL (31-37) Red Cell Distribution Width 26.0 % (11.5-14.5) Platelet Count 330 x10^3/uL (140-400) Neutrophils (%) (Auto) 77 % (31-73) Lymphocytes (%) (Auto) 20 % (24-48) Monocytes (%) (Auto) 2 % (0-9) Eosinophils (%) (Auto) 1 % (0-3) Basophils (%) (Auto) 0 % (0-3) Neutrophils # (Auto) 13.7 x10^3uL (1.8-7.7) Lymphocytes # (Auto) 3.5 x10^3/uL (1.0-4.8) Monocytes # (Auto) 0.3 x10^3/uL (0.0-1.1) Eosinophils # (Auto) 0.1 x10^3/uL (0.0-0.7) Basophils # (Auto) 0.1 x10^3/uL (0.0-0.2) Sodium Level 140 mmol/L (136-145) Potassium Level 4.0 mmol/L (3.5-5.1) Chloride Level 101 mmol/L (98-107) Carbon Dioxide Level 33 mmol/L (21-32) Anion Gap 6 (6-14) Blood Urea Nitrogen 19 mg/dL (8-26) Creatinine 0.9 mg/dL (0.7-1.3) Estimated GFR (Cockcroft-Gault) 92.5 BUN/Creatinine Ratio 21 (6-20) Glucose Level 103 mg/dL (70-99) Calcium Level 8.5 mg/dL (8.5-10.1) Magnesium Level 1.7 mg/dL (1.8-2.4) Iron Level 15 ug/dL (65-175) Total Iron Binding Capacity 291 ug/dL (250-450) Iron Saturation 5 % (15-34) Ferritin 151 ng/mL (26-388) Total Bilirubin 0.4 mg/dL (0.2-1.0) Aspartate Amino Transf (AST/SGOT) 38 U/L (15-37) Alanine Aminotransferase (ALT/SGPT) 23 U/L (16-63) Alkaline Phosphatase 90 U/L (46-116) Total Protein 6.2 g/dL (6.4-8.2) Albumin 2.5 g/dL (3.4-5.0) Albumin/Globulin Ratio 0.7 (1.0-1.7) Laboratory Tests Test 04/13/17 03:29 04/13/17 12:50 White Blood Count 17.7 x10^3/uL (4.0-11.0) Red Blood Count 4.56 x10^6/uL (4.30-5.70) Hemoglobin 10.0 g/dL (13.0-17.5) Hematocrit 32.1 % (39.0-53.0) Mean Corpuscular Volume 70 fL (79-100) Mean Corpuscular Hemoglobin 22 pg (25-35) Mean Corpuscular Hemoglobin Concent 31 g/dL (31-37) Red Cell Distribution Width 26.0 % (11.5-14.5) Platelet Count 330 x10^3/uL (140-400) Neutrophils (%) (Auto) 77 % (31-73) Lymphocytes (%) (Auto) 20 % (24-48) Monocytes (%) (Auto) 2 % (0-9) Eosinophils (%) (Auto) 1 % (0-3) Basophils (%) (Auto) 0 % (0-3) Neutrophils # (Auto) 13.7 x10^3uL (1.8-7.7) Lymphocytes # (Auto) 3.5 x10^3/uL (1.0-4.8) Monocytes # (Auto) 0.3 x10^3/uL (0.0-1.1) Eosinophils # (Auto) 0.1 x10^3/uL (0.0-0.7) Basophils # (Auto) 0.1 x10^3/uL (0.0-0.2) Sodium Level 140 mmol/L (136-145) Potassium Level 4.0 mmol/L (3.5-5.1) Chloride Level 101 mmol/L (98-107) Carbon Dioxide Level 33 mmol/L (21-32) Anion Gap 6 (6-14) Blood Urea Nitrogen 19 mg/dL (8-26) Creatinine 0.9 mg/dL (0.7-1.3) Estimated GFR (Cockcroft-Gault) 92.5 BUN/Creatinine Ratio 21 (6-20) Glucose Level 103 mg/dL (70-99) Calcium Level 8.5 mg/dL (8.5-10.1) Magnesium Level 1.7 mg/dL (1.8-2.4) Iron Level 15 ug/dL (65-175) Total Iron Binding Capacity 291 ug/dL (250-450) Iron Saturation 5 % (15-34) Ferritin 151 ng/mL (26-388) Total Bilirubin 0.4 mg/dL (0.2-1.0) Aspartate Amino Transf (AST/SGOT) 38 U/L (15-37) Alanine Aminotransferase (ALT/SGPT) 23 U/L (16-63) Alkaline Phosphatase 90 U/L (46-116) Total Protein 6.2 g/dL (6.4-8.2) Albumin 2.5 g/dL (3.4-5.0) Albumin/Globulin Ratio 0.7 (1.0-1.7) Lactic Acid Level 1.7 mmol/L (0.4-2.0) Images Images Chest x-ray with bilateral pulmonary infiltrates. Assessment/Plan Assessment/Plan 1. Acute heart failure. Probably systolic. History of bypass surgery and myocardial infarction. Continue diuresis. We'll rule out for myocardial infarction. Echocardiogram for LV function. We'll obtain old records. 2. Acute respiratory failure. Probably multifactorial including heart failure and pulmonary disease. Patient has a history of COPD and continues to smoke cigarettes. He has bilateral infiltrates on chest x-ray. Being followed by the pulmonary service. 3. Possible pneumonia. Chest x-ray as above. Antibiotics. Followed by pulmonary. 4. History of bypass surgery. We'll attempt to obtain old records. Echo for LV function. 5. History of hypertension. Continue medications and monitor. 6. Probable hyperlipidemia. We'll check a lipid panel. Thank you for allowing us to participate in the care of your patient. JOE ANG MD Apr 13, 2017 18:19
[2017-04-13] MEDS: ENOXAPARIN 40 MG/0.4 ML SYRINGE. SQ SCH (18:20)
[2017-04-13] MEDS: SIMVASTATIN 20 MG TABLET PO SCH (20:45)
[2017-04-13] MEDS: diphenhydrAMINE HCL 25 MG CAPSULE PO SCH (20:45)
[2017-04-13] MEDS: traZODone 100 MG TABLET. PO SCH (20:45)
[2017-04-13] MEDS: oxyCODONE IR 5 MG TABLET PO PRN (22:02)
[2017-04-14] VITALS (24 sets, daily range): BP systolic 91–130; BP diastolic 55–85
[2017-04-14] MEDS: PIPERACILLIN/TAZOBACTAM 3.375 GM in IV NORMAL SALINE 50ML 50 ML IV SCH ×5 (00:16→23:39)
[2017-04-14] MEDS: oxyCODONE/APAP 10/325 1 TAB TABLET PO PRN ×2 (01:02→08:34)
[2017-04-14] MEDS: oxyCODONE IR 5 MG TABLET PO PRN ×4 (04:03→23:39)
[2017-04-14] MEDS: GABAPENTIN 300 MG CAPSULE. PO SCH ×2 (06:14→20:53)
[2017-04-14] MEDS: ASPIRIN CHEWABLE 81 MG TABLET. PO SCH (08:32)
[2017-04-14] MEDS: FLUoxetine HCL 20 MG CAPSULE PO SCH (08:32)
[2017-04-14] MEDS: hydrOXYzine PAMOATE 25 MG CAPSULE PO SCH ×4 (08:32→20:53)
[2017-04-14] MEDS: FENOFIBRATE 54 MG TABLET. PO SCH (08:32)
[2017-04-14] MEDS: CLOPIDOGREL BISULFATE 75 MG TABLET PO SCH (08:32)
[2017-04-14] MEDS: POTASSIUM CHLORIDE 20 MEQ TABLET.ER. PO SCH ×2 (08:33→17:33)
[2017-04-14] MEDS: PANTOPRAZOLE 40 MG TABLET.DR. PO SCH (08:33)
[2017-04-14] MEDS: SUCRALFATE 1 GM TABLET. PO SCH ×2 (08:33→20:53)
[2017-04-14] MEDS: CARVEDILOL 12.5 MG TABLET. PO SCH (08:34)
[2017-04-14 09:20] LABS: HCO3 ABG 29 mmol/L (21-28); PCO2 ABG 45 mmHg (35-46); PH ABG 7.42 (7.35-7.45); PO2 ABG 101 mmHg (75-108); SAT O2 ABG 97 % (92-99)
--- NOTE | 2017-04-14 10:52 | RAD ---
Indication shortness of rest. A single view of the chest was obtained and is compared to an examination 3 days earlier. The patient is rotated on the film. Postoperative changes are noted. Heart size is unchanged. There is now patchy infiltrate in the right lung compatible with pneumonia. A focal infiltrate in the left lung is not seen. Significant pleural fluid is not present. There is no pneumothorax. IMPRESSION: Slightly limited study secondary to rotation. There appears to be a new infiltrate in the right lung which suggests pneumonia. If possible a repeat examination, with attention to centering, in the department, with an additional lateral view may be useful.
[2017-04-14] MEDS: IPRATRPIUM/ALBUTEROL 0.5/2.5MG 3 ML NEBU. NEB SCH ×3 (11:38→19:44)
[2017-04-14] MEDS ORDERED: FUROSEMIDE 20 MG/2 ML VIAL. IVP ONE (13:30)
--- NOTE | 2017-04-14 13:40 | PDOC ---
PROGRESS NOTES Chief Complaint Chief Complaint Acute on chronic, hypoxic respir distress ASSESSMENT AND PLAN: 1. Respir failure: recent admit for PNA/COPD [facility] with D/C about a week ago, persistent/worsening sx. appears comfortable. nebs, suppl O2 (pt has home O2 at [facility]); appreciate Dr Betancourt's input: suspected CHF by CXR. stop steroids, IV lasix on hold due to low BP as is BB. obtain echo, cardiology input 2. Early sepsis: Tachycardia, hypotension, no fevers, leukocytosis sl improved. lactate still elevated; rpt pending. with above issues, cautious with IVF administration. may need ICU transfer 3. Tobaccoism: nicotine patch prn daily. encouraged cessation 4. CAD: hx MT/CABG. no acute issues. cont home meds 5. HTN/HLD: continue home meds 6. hypokalemia/hypomagnesemia: replete as indicated 7. Sublette: moderate microcytosis. obtain iron labs 8. GERD: PPI 9. Chronic back pain: hx back sx. cont home regimen 10. Anxiety 11. Prophylaxis: lovenox plan: ICU care, taper Bipap Repeated CXR showed some right PNA, cont zosyn, consider add vanco lasix 20mg iv x1 echo not significant, EF 55% dc coreg, consider metoprolol History of Present Illness History of Present Illness ROS: no fever, chills, sob or chest pain pt wants BIPAP to keep comfortable, i talked to RT, likely not needed it CXR repeated today showed right PNA likely BP ok in ICU Vitals Vitals Vital Signs Date Time Temp Pulse Resp B/P (MAP) Pulse Ox O2 Delivery O2 Flow Rate FiO2 04/14/17 11:38 94 BiPAP/CPAP 04/14/17 11:00 77 18 103/64 (77) 04/14/17 08:00 98.1 98.1 04/13/17 11:00 6.0 Physical Exam General: Alert, Oriented X3, Cooperative, mild distress Heart: Regular rate, Normal S1, Normal S2 Lungs: Clear Abdomen: Normal bowel sounds Extremities: No clubbing Skin: No rashes Assessment and Plan Assessmemt and Plan Problems Medical Problems: (1) Hypoxemia Status: Acute (2) Pneumonia Status: Acute Problems: Comment Review of Relevant I have reviewed the following items lexie (where applicable) has been applied. Labs Laboratory Tests Test 04/12/17 16:25 04/13/17 03:29 04/13/17 12:50 Lactic Acid Level 3.7 mmol/L (0.4-2.0) 1.7 mmol/L (0.4-2.0) White Blood Count 17.7 x10^3/uL (4.0-11.0) Red Blood Count 4.56 x10^6/uL (4.30-5.70) Hemoglobin 10.0 g/dL (13.0-17.5) Hematocrit 32.1 % (39.0-53.0) Mean Corpuscular Volume 70 fL (79-100) Mean Corpuscular Hemoglobin 22 pg (25-35) Mean Corpuscular Hemoglobin Concent 31 g/dL (31-37) Red Cell Distribution Width 26.0 % (11.5-14.5) Platelet Count 330 x10^3/uL (140-400) Neutrophils (%) (Auto) 77 % (31-73) Lymphocytes (%) (Auto) 20 % (24-48) Monocytes (%) (Auto) 2 % (0-9) Eosinophils (%) (Auto) 1 % (0-3) Basophils (%) (Auto) 0 % (0-3) Neutrophils # (Auto) 13.7 x10^3uL (1.8-7.7) Lymphocytes # (Auto) 3.5 x10^3/uL (1.0-4.8) Monocytes # (Auto) 0.3 x10^3/uL (0.0-1.1) Eosinophils # (Auto) 0.1 x10^3/uL (0.0-0.7) Basophils # (Auto) 0.1 x10^3/uL (0.0-0.2) Sodium Level 140 mmol/L (136-145) Potassium Level 4.0 mmol/L (3.5-5.1) Chloride Level 101 mmol/L (98-107) Carbon Dioxide Level 33 mmol/L (21-32) Anion Gap 6 (6-14) Blood Urea Nitrogen 19 mg/dL (8-26) Creatinine 0.9 mg/dL (0.7-1.3) Estimated GFR (Cockcroft-Gault) 92.5 BUN/Creatinine Ratio 21 (6-20) Glucose Level 103 mg/dL (70-99) Calcium Level 8.5 mg/dL (8.5-10.1) Magnesium Level 1.7 mg/dL (1.8-2.4) Iron Level 15 ug/dL (65-175) Total Iron Binding Capacity 291 ug/dL (250-450) Iron Saturation 5 % (15-34) Ferritin 151 ng/mL (26-388) Total Bilirubin 0.4 mg/dL (0.2-1.0) Aspartate Amino Transf (AST/SGOT) 38 U/L (15-37) Alanine Aminotransferase (ALT/SGPT) 23 U/L (16-63) Alkaline Phosphatase 90 U/L (46-116) Total Protein 6.2 g/dL (6.4-8.2) Albumin 2.5 g/dL (3.4-5.0) Albumin/Globulin Ratio 0.7 (1.0-1.7) Microbiology 04/12/17 Blood Culture - Preliminary, Resulted NO GROWTH AFTER 1 DAY Medications Current Medications Oxycodone/ Acetaminophen (Percocet 10/325) 1 tab 1X ONCE PO Last administered on 04/11/17 15:16; Start 04/11/17 at 14:30; Stop 04/11/17 at 14:31; Status DC Albuterol/ Ipratropium (Duoneb) 3 ml 1X ONCE NEB Last administered on 14:37; Start 04/11/17 at 14:30; Stop 04/11/17 at 14:31; Status DC Vancomycin HCl 250 ml @ 250 mls/hr 1X ONCE IV ; Start 04/11/17 at 15:15; Stop 04/11/17 at 16:14; Status Cancel Nicotine (Nicoderm Cq 21mg) 1 patch 1X ONCE TD Last administered on 04/11/17 17:31; Start 04/11/17 at 15:30; Stop 04/11/17 at 15:31; Status DC Albuterol/ Ipratropium (Duoneb) 3 ml RTQID NEB ; Start 04/11/17 at 20:00; Stop 04/11/17 at 20:00; Status DC Acetaminophen (Tylenol) 650 mg PRN Q6HRS PRN PO FEVER; Start 04/11/17 at 17:00 Ondansetron HCl (Zofran) 4 mg PRN Q6HRS PRN IV NAUSEA/VOMITING; Start 04/11/17 at 17:00 Hydralazine HCl (Apresoline) 10 mg PRN Q4HRS PRN IVP ELEVATED BP, SEE COMMENTS ; Start 04/11/17 at 17:00 Docusate Sodium (Colace) 100 mg PRN DAILY PRN PO CONSTIPATION; Start 04/11/17 at 17:00 Albuterol/ Ipratropium (Duoneb) 3 ml RTQID NEB Last administered on 04/14/17 11:38; Start 04/11/17 at 20:00 Albuterol Sulfate (Ventolin Neb Soln) 2.5 mg PRN Q2HR PRN NEB SHORTNESS OF BREATH Last administered on 04/12/17 05:14; Start 04/11/17 at 17:00 Guaifenesin (Mucinex) 600 mg BID PO Last administered on 04/14/17 08:32; Start 04/11/17 at 21:00 Potassium Chloride (Klor-Con) 40 meq BIDWMEALS PO Last administered on 08:33; Start 04/11/17 at 17:30 Magnesium Sulfate/ Dextrose 50 ml @ 25 mls/hr 1X ONCE IV Last administered on 04/11/17 22:05; Start 04/11/17 at 17:30; Stop 04/11/17 at 19:29; Status DC Enoxaparin Sodium (Lovenox 40mg Syringe) 40 mg Q24H SQ Last administered on 18:20; Start 04/11/17 at 18:00 Nicotine (Nicoderm Cq 21mg) 1 patch PRN DAILY PRN TD SMOKING CESSATION Last administered on 04/13/17 20:47; Start 04/11/17 at 17:00 Aspirin (Children'S Aspirin) 81 mg DAILYWBKFT PO Last administered on 08:32; Start 04/12/17 at 08:00 Clopidogrel Bisulfate (Plavix) 75 mg DAILYWBKFT PO Last administered on 08:32; Start 04/12/17 at 08:00 Diphenhydramine HCl (Benadryl) 25 mg QHS PO Last administered on 10/9/17at 20: 45; Start 04/11/17 at 21:00 Docusate Sodium (Colace) 100 mg PRN DAILY PRN PO CONSTIPATION; Start 04/11/17 at 17:15; Status Cancel Fluoxetine HCl (PROzac) 20 mg DAILY PO Last administered on 04/14/17 08:32; Start 04/12/17 at 09:00 Nitroglycerin (Nitrostat) 0.4 mg PRN Q5MIN PRN SL CHEST PAIN; Start 04/11/17 at 17:15 Potassium Chloride (Klor-Con) 20 meq DAILY PO ; Start 04/12/17 at 09:00; Status UNV Simvastatin (Zocor) 20 mg QHS PO Last administered on 04/13/17 20:45; Start 04/11/17 at 21:00 Tizanidine HCl (Zanaflex) 4 mg QID PRN PO MUSCLE SPASMS Last administered on 10:00; Start 04/11/17 at 17:15 Carvedilol (Coreg) 25 mg BIDWMEALS PO Last administered on 04/14/17 08:34; Start 04/11/17 at 18:00; Stop 04/14/17 at 09:44; Status DC Fenofibrate (Lofibra) 54 mg DAILY PO Last administered on 04/14/17 08:32; Start 04/12/17 at 09:00 Gabapentin (Neurontin) 1,200 mg DAILY06 PO Last administered on 04/14/17 06: 14; Start 04/12/17 at 06:00 Gabapentin (Neurontin) 1,800 mg QHS PO Last administered on 04/13/17 20:48; Start 04/11/17 at 21:00 Hydroxyzine Pamoate (Vistaril) 50 mg QID PO Last administered on 04/14/17 08: 32; Start 04/11/17 at 21:00 Non-Formulary Medication 1 tab QHS PO ; Start 04/11/17 at 21:00; Status UNV Pantoprazole Sodium (Protonix) 40 mg DAILYAC PO Last administered on 08:33; Start 04/12/17 at 07:30 Promethazine HCl (Phenergan) 25 mg PRN Q6HRS PRN PO NAUSEA/VOMITING; Start 04/11/17 at 17:30 Trazodone HCl (Desyrel) 150 mg QHS PO Last administered on 04/13/17 20:45; Start 04/11/17 at 21:00 Vancomycin HCl (Vanco Per Pharmacy) 1 each PRN DAILY PRN MC SEE COMMENTS Last administered on 04/11/17 20:31; Start 04/11/17 at 17:15; Stop 04/12/17 at 12:58 ; Status DC Piperacillin Sod/ Tazobactam Sod 3.375 gm/Sodium Chloride 50 ml @ 100 mls/hr Q6HRS IV Last administered on 04/12/17 06:02; Start 04/11/17 at 18:00; Stop 04/12/17 at 12:58; Status DC Piperacillin Sod/ Tazobactam Sod (Zosyn Per Pharmacy) 1 each PRN DAILY PRN MC SEE COMMENTS; Start 04/11/17 at 17:15; Stop 04/12/17 at 12:58; Status DC Prednisone (Prednisone) 40 mg DAILY PO Last administered on 04/12/17 08:22; Start 04/12/17 at 09:00; Stop 04/12/17 at 12:58; Status DC Vancomycin HCl 2 gm/Sodium Chloride 500 ml @ 250 mls/hr 1X ONCE IV Last administered on 04/11/17 20:35; Start 04/11/17 at 17:30; Stop 04/11/17 at 19:29 ; Status DC Oxycodone/ Acetaminophen (Percocet 10/325) 1 tab PRN Q6HRS PRN PO PAIN Last administered on 04/14/17 08:34; Start 04/11/17 at 20:30; Stop 04/14/17 at 09: 41; Status DC Vancomycin HCl 1.5 gm/Sodium Chloride 500 ml @ 250 mls/hr Q8H IV Last administered on 04/12/17 04:25; Start 04/12/17 at 05:00; Stop 04/12/17 at 12:58 ; Status DC Vancomycin HCl 1 each 1X ONCE MC ; Start 04/12/17 at 20:30; Stop 04/12/17 at 20 :30; Status DC Furosemide (Lasix) 40 mg 1X ONCE IVP Last administered on 04/12/17 12:10; Start 04/12/17 at 12:30; Stop 04/12/17 at 12:31; Status DC Iohexol (Omnipaque 300 Mg/ml) 75 ml 1X ONCE IV Last administered on 04/12/17 13:37; Start 04/12/17 at 13:30; Stop 04/12/17 at 13:31; Status DC Info (Do NOT chart on this entry -- for MONITORING) 1 each PRN DAILY PRN MC SEE COMMENTS; Start 04/12/17 at 13:45; Stop 04/14/17 at 13:44 Piperacillin Sod/ Tazobactam Sod 3.375 gm/Sodium Chloride 50 ml @ 100 mls/hr Q6HRS IV Last administered on 04/14/17 12:13; Start 04/12/17 at 13:45 Furosemide (Lasix) 40 mg 1X ONCE IVP Last administered on 04/12/17 16:19; Start 04/12/17 at 15:45; Stop 04/12/17 at 15:48; Status DC Sucralfate (Carafate) 1 gm BID PO Last administered on 04/14/17 08:33; Start 04/13/17 at 12:00 Magnesium Sulfate/ Dextrose 50 ml @ 25 mls/hr 1X ONCE IV Last administered on 04/13/17 14:43; Start 04/13/17 at 13:15; Stop 04/13/17 at 15:14; Status DC Oxycodone HCl (Roxicodone) 10 mg PRN Q6HRS PRN PO PAIN Last administered on 10:46; Start 04/13/17 at 21:45 Carvedilol (Coreg) 6.25 mg BIDWMEALS PO ; Start 04/14/17 at 17:00 Active Scripts Active Reported Benadryl (Diphenhydramine Hcl) 25 Mg Capsule 1 Cap PO QHS Melatonin 3 Mg Tablet 1 Tab PO QHS Aspirin 81 Mg Tab.chew 81 Mg PO Dilaudid (Hydromorphone Hcl) 8 Mg Tablet 10 Mg PO PRN Combivent Respimat Inhal (Ipratropium/Albuterol Sulfate) 4 Gm Aer.w.adap 2 Inh IH TID Nitrostat (Nitroglycerin) 0.4 Mg Tab.subl 0.4 Mg SL PRN Q5MIN PRN Trazodone Hcl 150 Mg Tablet 1 Tab PO QHS Omeprazole 20 Mg Capsule.dr 1 Cap PO DAILY Coreg (Carvedilol) 25 Mg Tablet 1 Tab PO BID Colace (Docusate Sodium) 100 Mg Capsule 100 Mg PO PRN Promethazine Hcl 25 Mg Tablet 25 Mg PO Q6H PRN Tizanidine Hcl 4 Mg Tablet 4 Mg PO QID PRN Klor-Con 10 (Potassium Chloride) 10 Meq Tablet.er 1 Tab PO DAILY PRN Potassium Chloride 20 Meq Tab.er.prt 20 Meq PO DAILY Furosemide 40 Mg Tablet 1 Tab PO DAILY PRN Fenofibrate (Fenofibrate Nanocrystallized) 48 Mg Tablet 48 Mg PO DAILY Vistaril (Hydroxyzine Pamoate) 50 Mg Capsule 50 Mg PO QID Simvastatin 20 Mg Tablet 1 Tab PO QHS Lansoprazole 30 Mg Capsule.dr 1 Cap PO DAILY Fluoxetine Hcl 20 Mg Capsule 1 Cap PO DAILY Gabapentin 600 Mg Tablet 3 Tab PO QHS Gabapentin 600 Mg Tablet 2 Tab PO DAILY06 Clopidogrel (Clopidogrel Bisulfate) 75 Mg Tablet 1 Tab PO DAILY Vitals/I & O Vital Sign - Last 24 Hours 04/13/17 04/13/17 04/13/17 04/13/17 15:18 15:50 16:12 16:23 Temp 98.1 98.1 Pulse 84 84 Resp 22 B/P (MAP) 81/39 (53) 81/39 79/34 (49) Pulse Ox 92 O2 Delivery BiPAP/CPAP BiPAP/CPAP 04/13/17 04/13/17 04/13/17 04/13/17 17:30 17:30 18:00 18:18 Temp 98.9 98.9 Pulse 92 91 Resp 26 27 B/P (MAP) 116/61 (79) 107/68 (81) Pulse Ox 95 98 O2 Delivery BiPAP/CPAP Bi-pap BiPAP/CPAP BiPAP/CPAP 04/13/17 04/13/17 04/13/17 04/13/17 19:00 19:47 20:00 20:00 Temp 98.8 98.8 Pulse 96 88 Resp 21 22 B/P (MAP) 109/71 (84) 112/76 (88) Pulse Ox 98 97 100 O2 Delivery BiPAP/CPAP BiPAP/CPAP Bi-pap BiPAP/CPAP 04/13/17 04/13/17 04/13/17 04/13/17 21:00 21:10 22:00 22:02 Pulse 86 87 Resp 27 29 39 B/P (MAP) 101/73 (82) 122/68 (86) Pulse Ox 98 98 100 100 O2 Delivery BiPAP/CPAP BiPAP/CPAP BiPAP/CPAP BiPAP/CPAP 04/13/17 04/13/17 04/14/17 04/14/17 23:00 23:15 00:00 00:00 Temp 99.1 99.1 Pulse 92 91 Resp 19 24 B/P (MAP) 118/70 (86) 105/59 (74) Pulse Ox 98 97 99 O2 Delivery BiPAP/CPAP BiPAP/CPAP Bi-pap BiPAP/CPAP 04/14/17 04/14/17 04/14/17 04/14/17 00:53 01:00 01:02 02:00 Pulse 98 110 Resp 24 20 17 B/P (MAP) 95/56 (69) 95/66 (76) Pulse Ox 97 98 99 99 O2 Delivery BiPAP/CPAP BiPAP/CPAP BiPAP/CPAP BiPAP/CPAP 04/14/17 04/14/17 04/14/17 04/14/17 02:02 03:00 03:05 04:00 Pulse 116 Resp 17 20 B/P (MAP) 108/67 (81) Pulse Ox 99 94 99 O2 Delivery BiPAP/CPAP BiPAP/CPAP BiPAP/CPAP Bi-pap 04/14/17 04/14/17 04/14/17 04/14/17 04:00 04:03 05:00 05:03 Temp 99.1 99.1 Pulse 105 105 Resp 19 22 16 16 B/P (MAP) 102/68 (79) 119/71 (87) Pulse Ox 99 97 99 99 O2 Delivery BiPAP/CPAP BiPAP/CPAP BiPAP/CPAP BiPAP/CPAP 04/14/17 04/14/17 04/14/17 04/14/17 05:40 06:00 07:00 07:38 Pulse 102 101 Resp 21 20 B/P (MAP) 130/85 (100) 121/76 (91) Pulse Ox 99 99 99 100 O2 Delivery BiPAP/CPAP BiPAP/CPAP BiPAP/CPAP BiPAP/CPAP 04/14/17 04/14/17 04/14/17 04/14/17 08:00 08:00 08:34 08:34 Temp 98.1 98.1 Pulse 108 108 Resp 28 B/P (MAP) 128/73 (91) 128/73 Pulse Ox 98 O2 Delivery BiPAP/CPAP Bi-pap BiPAP/CPAP 04/14/17 04/14/17 04/14/17 04/14/17 09:00 09:13 10:00 10:46 Pulse 85 80 Resp 17 25 B/P (MAP) 105/65 (78) 93/55 (68) Pulse Ox 93 100 98 O2 Delivery BiPAP/CPAP BiPAP/CPAP BiPAP/CPAP BiPAP/CPAP 04/14/17 04/14/17 11:00 11:38 Pulse 77 Resp 18 B/P (MAP) 103/64 (77) Pulse Ox 93 94 O2 Delivery BiPAP/CPAP BiPAP/CPAP Intake and Output 04/14/17 04/14/17 04/15/17 15:00 23:00 07:00 Output Total 400 ml Balance -400 ml ANNIKA REZA MD Apr 14, 2017 13:40
[2017-04-14] MEDS ORDERED: VANCOMYCIN 1.75 GM in IV NORMAL SALINE 500ML BAG 500 ML IV SCH (13:45)
--- NOTE | 2017-04-14 14:07 | PDOC ---
PULMONARY PROGRESS NOTES Subjective pt on bipap in icu Vitals Vital Signs Date Time Temp Pulse Resp B/P (MAP) Pulse Ox O2 Delivery O2 Flow Rate FiO2 04/14/17 13:00 84 17 93/55 (68) 91 Nasal Cannula 5.0 04/14/17 12:00 98.4 98.4 ROS: No Nausea, No Chest Pain, No Abdominal Pain, No Increase Cough Lungs: Clear Cardiovascular: S1, S2 Abdomen: Soft Neuro Exam: Alert Extremities: No Edema Skin: Warm Labs Laboratory Tests Test 04/12/17 16:25 04/13/17 03:29 04/13/17 12:50 Lactic Acid Level 3.7 mmol/L (0.4-2.0) 1.7 mmol/L (0.4-2.0) White Blood Count 17.7 x10^3/uL (4.0-11.0) Red Blood Count 4.56 x10^6/uL (4.30-5.70) Hemoglobin 10.0 g/dL (13.0-17.5) Hematocrit 32.1 % (39.0-53.0) Mean Corpuscular Volume 70 fL (79-100) Mean Corpuscular Hemoglobin 22 pg (25-35) Mean Corpuscular Hemoglobin Concent 31 g/dL (31-37) Red Cell Distribution Width 26.0 % (11.5-14.5) Platelet Count 330 x10^3/uL (140-400) Neutrophils (%) (Auto) 77 % (31-73) Lymphocytes (%) (Auto) 20 % (24-48) Monocytes (%) (Auto) 2 % (0-9) Eosinophils (%) (Auto) 1 % (0-3) Basophils (%) (Auto) 0 % (0-3) Neutrophils # (Auto) 13.7 x10^3uL (1.8-7.7) Lymphocytes # (Auto) 3.5 x10^3/uL (1.0-4.8) Monocytes # (Auto) 0.3 x10^3/uL (0.0-1.1) Eosinophils # (Auto) 0.1 x10^3/uL (0.0-0.7) Basophils # (Auto) 0.1 x10^3/uL (0.0-0.2) Sodium Level 140 mmol/L (136-145) Potassium Level 4.0 mmol/L (3.5-5.1) Chloride Level 101 mmol/L (98-107) Carbon Dioxide Level 33 mmol/L (21-32) Anion Gap 6 (6-14) Blood Urea Nitrogen 19 mg/dL (8-26) Creatinine 0.9 mg/dL (0.7-1.3) Estimated GFR (Cockcroft-Gault) 92.5 BUN/Creatinine Ratio 21 (6-20) Glucose Level 103 mg/dL (70-99) Calcium Level 8.5 mg/dL (8.5-10.1) Magnesium Level 1.7 mg/dL (1.8-2.4) Iron Level 15 ug/dL (65-175) Total Iron Binding Capacity 291 ug/dL (250-450) Iron Saturation 5 % (15-34) Ferritin 151 ng/mL (26-388) Total Bilirubin 0.4 mg/dL (0.2-1.0) Aspartate Amino Transf (AST/SGOT) 38 U/L (15-37) Alanine Aminotransferase (ALT/SGPT) 23 U/L (16-63) Alkaline Phosphatase 90 U/L (46-116) Total Protein 6.2 g/dL (6.4-8.2) Albumin 2.5 g/dL (3.4-5.0) Albumin/Globulin Ratio 0.7 (1.0-1.7) Medications Active Scripts Medications Dose Route/Sig Max Daily Dose Days Date Category Benadryl (Diphenhydramine Hcl) 25 Mg Capsule 1 Cap PO QHS 04/11/17 Reported Melatonin 3 Mg Tablet 1 Tab PO QHS 04/11/17 Reported Aspirin 81 Mg Tab.chew 81 Mg PO 04/11/17 Reported Dilaudid (Hydromorphone Hcl) 8 Mg Tablet 10 Mg PO PRN 09/10/15 Reported Combivent Respimat Inhal (Ipratropium/Albuterol Sulfate) 4 Gm Aer.w.adap 2 Inh IH TID 09/10/15 Reported Nitrostat (Nitroglycerin) 0.4 Mg Tab.subl 0.4 Mg SL PRN Q5MIN PRN 09/10/15 Reported Trazodone Hcl 150 Mg Tablet 1 Tab PO QHS 09/10/15 Reported Omeprazole 20 Mg Capsule.dr 1 Cap PO DAILY 09/10/15 Reported Coreg (Carvedilol) 25 Mg Tablet 1 Tab PO BID 09/10/15 Reported Colace (Docusate Sodium) 100 Mg Capsule 100 Mg PO PRN 09/07/14 Reported Promethazine Hcl 25 Mg Tablet 25 Mg PO Q6H PRN 09/07/14 Reported Tizanidine Hcl 4 Mg Tablet 4 Mg PO QID PRN 09/07/14 Reported Klor-Con 10 (Potassium Chloride) 10 Meq Tablet.er 1 Tab PO DAILY PRN 09/07/14 Reported Potassium Chloride 20 Meq Tab.er.prt 20 Meq PO DAILY 09/07/14 Reported Furosemide 40 Mg Tablet 1 Tab PO DAILY PRN 09/07/14 Reported Fenofibrate (Fenofibrate Nanocrystallized) 48 Mg Tablet 48 Mg PO DAILY 09/07/14 Reported Vistaril (Hydroxyzine Pamoate) 50 Mg Capsule 50 Mg PO QID 09/07/14 Reported Simvastatin 20 Mg Tablet 1 Tab PO QHS 09/07/14 Reported Lansoprazole 30 Mg Capsule.dr 1 Cap PO DAILY 09/07/14 Reported Fluoxetine Hcl 20 Mg Capsule 1 Cap PO DAILY 09/07/14 Reported Gabapentin 600 Mg Tablet 3 Tab PO QHS 09/07/14 Reported Gabapentin 600 Mg Tablet 2 Tab PO DAILY06 09/07/14 Reported Clopidogrel (Clopidogrel Bisulfate) 75 Mg Tablet 1 Tab PO DAILY 09/07/14 Reported Comments IMPRESSION: 1. No CT evidence of central pulmonary emboli. 2. Extensive coronary artery disease. 3. Extensive bilateral airspace and interstitial opacities most compatible with pulmonary edema. Pneumonia on an infectious or hypersensitivity basis is less likely. Impression . 1. Acute respiratory failure secondary to acute systolic heart failure. 2. Acute systolic heart failure. 3. Abnormal x-ray. 4. Acute exacerbation of chronic obstructive pulmonary disease. Plan . PT NO BETTER TODAY CONTINUES TO REQUIRE BIPAP CXR NO BETTER WILL START IV LASIX DRIP I THINK PT IS TAKING IN EXCESS AMOUNTS OF SALT DRINKS 2-[address] PEPPER PER DAY BELINDA SCOTT MD Apr 14, 2017 14:07
[2017-04-14 14:19] LABS: FIO2 ABG 40
[2017-04-14] MEDS: VANCOMYCIN PER PHARMACY MC PRN (14:28)
[2017-04-14] MEDS: FUROSEMIDE 40 MG/4 ML VIAL. IVP SCH (14:51)
[2017-04-14] MEDS: VANCOMYCIN 1.25 GM in IV NORMAL SALINE 250ML 250 ML IV SCH ×2 (14:51→21:59)
--- NOTE | 2017-04-14 16:45 | PDOC ---
PROGRESS NOTES Subjective Subjective The patient is on BiPAP in the ICU. Not significantly improved from yesterday. Objective Objective Vital Signs Date Time Temp Pulse Resp B/P (MAP) Pulse Ox O2 Delivery O2 Flow Rate FiO2 04/14/17 15:41 94 BiPAP/CPAP 04/14/17 15:00 86 17 121/76 (91) 04/14/17 13:00 5.0 04/14/17 12:00 98.4 98.4 Intake and Output 04/15/17 07:00 Intake Total 400 ml Output Total 2800 ml Balance -2400 ml Intake Oral 400 ml Output Urine Total 2800 ml Physical Exam Abdomen: Normal bowel sounds Heart: Regular rate General: moderate distress Lungs: Other (decreased breath sounds) Assessment Assessment Problems Medical Problems: (1) Hypoxemia Status: Acute (2) Pneumonia Status: Acute Assessment/Plan Assessment/Plan 1. Acute heart failure. History of bypass surgery and myocardial infarction. Echo with normal ejection fraction, mild borderline left ventricular hypertrophy and mild aortic insufficiency. IV Lasix drip has been started. 2. Acute respiratory failure. Probably multifactorial including heart failure and pulmonary disease. Patient has a history of COPD and continues to smoke cigarettes. He has bilateral infiltrates on chest x-ray. Being followed by the pulmonary service. 3. Possible pneumonia. Chest x-ray as above. Antibiotics. Followed by pulmonary. 4. History of bypass surgery. We'll attempt to obtain old records. Echo shows intact LV systolic function. 5. History of hypertension. Continue medications and monitor. 6. Probable hyperlipidemia. Comment Review of Relevant I have reviewed the following items lexie (where applicable) has been applied. Labs Laboratory Tests Test 04/13/17 03:29 04/13/17 12:50 04/14/17 09:15 White Blood Count 17.7 x10^3/uL (4.0-11.0) Red Blood Count 4.56 x10^6/uL (4.30-5.70) Hemoglobin 10.0 g/dL (13.0-17.5) Hematocrit 32.1 % (39.0-53.0) Mean Corpuscular Volume 70 fL (79-100) Mean Corpuscular Hemoglobin 22 pg (25-35) Mean Corpuscular Hemoglobin Concent 31 g/dL (31-37) Red Cell Distribution Width 26.0 % (11.5-14.5) Platelet Count 330 x10^3/uL (140-400) Neutrophils (%) (Auto) 77 % (31-73) Lymphocytes (%) (Auto) 20 % (24-48) Monocytes (%) (Auto) 2 % (0-9) Eosinophils (%) (Auto) 1 % (0-3) Basophils (%) (Auto) 0 % (0-3) Neutrophils # (Auto) 13.7 x10^3uL (1.8-7.7) Lymphocytes # (Auto) 3.5 x10^3/uL (1.0-4.8) Monocytes # (Auto) 0.3 x10^3/uL (0.0-1.1) Eosinophils # (Auto) 0.1 x10^3/uL (0.0-0.7) Basophils # (Auto) 0.1 x10^3/uL (0.0-0.2) Sodium Level 140 mmol/L (136-145) Potassium Level 4.0 mmol/L (3.5-5.1) Chloride Level 101 mmol/L (98-107) Carbon Dioxide Level 33 mmol/L (21-32) Anion Gap 6 (6-14) Blood Urea Nitrogen 19 mg/dL (8-26) Creatinine 0.9 mg/dL (0.7-1.3) Estimated GFR (Cockcroft-Gault) 92.5 BUN/Creatinine Ratio 21 (6-20) Glucose Level 103 mg/dL (70-99) Calcium Level 8.5 mg/dL (8.5-10.1) Magnesium Level 1.7 mg/dL (1.8-2.4) Iron Level 15 ug/dL (65-175) Total Iron Binding Capacity 291 ug/dL (250-450) Iron Saturation 5 % (15-34) Ferritin 151 ng/mL (26-388) Total Bilirubin 0.4 mg/dL (0.2-1.0) Aspartate Amino Transf (AST/SGOT) 38 U/L (15-37) Alanine Aminotransferase (ALT/SGPT) 23 U/L (16-63) Alkaline Phosphatase 90 U/L (46-116) Total Protein 6.2 g/dL (6.4-8.2) Albumin 2.5 g/dL (3.4-5.0) Albumin/Globulin Ratio 0.7 (1.0-1.7) Lactic Acid Level 1.7 mmol/L (0.4-2.0) O2 Saturation 97 % (92-99) Arterial Blood pH 7.42 (7.35-7.45) Arterial Blood pCO2 at Patient Temp 45 mmHg (35-46) Arterial Blood pO2 at Patient Temp 101 mmHg (75-108) Arterial Blood HCO3 29 mmol/L (21-28) Arterial Blood Base Excess 4 mmol/L (-3-3) FiO2 40 Laboratory Tests Test 04/14/17 09:15 O2 Saturation 97 % (92-99) Arterial Blood pH 7.42 (7.35-7.45) Arterial Blood pCO2 at Patient Temp 45 mmHg (35-46) Arterial Blood pO2 at Patient Temp 101 mmHg (75-108) Arterial Blood HCO3 29 mmol/L (21-28) Arterial Blood Base Excess 4 mmol/L (-3-3) FiO2 40 Microbiology 04/12/17 Blood Culture - Preliminary, Resulted NO GROWTH AFTER 2 DAYS Medications Current Medications Oxycodone/ Acetaminophen (Percocet 10/325) 1 tab 1X ONCE PO Last administered on 04/11/17 15:16; Start 04/11/17 at 14:30; Stop 04/11/17 at 14:31; Status DC Albuterol/ Ipratropium (Duoneb) 3 ml 1X ONCE NEB Last administered on 14:37; Start 04/11/17 at 14:30; Stop 04/11/17 at 14:31; Status DC Vancomycin HCl 250 ml @ 250 mls/hr 1X ONCE IV ; Start 04/11/17 at 15:15; Stop 04/11/17 at 16:14; Status Cancel Nicotine (Nicoderm Cq 21mg) 1 patch 1X ONCE TD Last administered on 04/11/17 17:31; Start 04/11/17 at 15:30; Stop 04/11/17 at 15:31; Status DC Albuterol/ Ipratropium (Duoneb) 3 ml RTQID NEB ; Start 04/11/17 at 20:00; Stop 04/11/17 at 20:00; Status DC Acetaminophen (Tylenol) 650 mg PRN Q6HRS PRN PO FEVER; Start 04/11/17 at 17:00 Ondansetron HCl (Zofran) 4 mg PRN Q6HRS PRN IV NAUSEA/VOMITING; Start 04/11/17 at 17:00 Hydralazine HCl (Apresoline) 10 mg PRN Q4HRS PRN IVP ELEVATED BP, SEE COMMENTS ; Start 04/11/17 at 17:00 Docusate Sodium (Colace) 100 mg PRN DAILY PRN PO CONSTIPATION; Start 04/11/17 at 17:00 Albuterol/ Ipratropium (Duoneb) 3 ml RTQID NEB Last administered on 04/14/17 15:41; Start 04/11/17 at 20:00 Albuterol Sulfate (Ventolin Neb Soln) 2.5 mg PRN Q2HR PRN NEB SHORTNESS OF BREATH Last administered on 04/12/17 05:14; Start 04/11/17 at 17:00 Guaifenesin (Mucinex) 600 mg BID PO Last administered on 04/14/17 08:32; Start 04/11/17 at 21:00 Potassium Chloride (Klor-Con) 40 meq BIDWMEALS PO Last administered on 08:33; Start 04/11/17 at 17:30 Magnesium Sulfate/ Dextrose 50 ml @ 25 mls/hr 1X ONCE IV Last administered on 04/11/17 22:05; Start 04/11/17 at 17:30; Stop 04/11/17 at 19:29; Status DC Enoxaparin Sodium (Lovenox 40mg Syringe) 40 mg Q24H SQ Last administered on 18:20; Start 04/11/17 at 18:00 Nicotine (Nicoderm Cq 21mg) 1 patch PRN DAILY PRN TD SMOKING CESSATION Last administered on 04/13/17 20:47; Start 04/11/17 at 17:00 Aspirin (Children'S Aspirin) 81 mg DAILYWBKFT PO Last administered on 08:32; Start 04/12/17 at 08:00 Clopidogrel Bisulfate (Plavix) 75 mg DAILYWBKFT PO Last administered on 08:32; Start 04/12/17 at 08:00 Diphenhydramine HCl (Benadryl) 25 mg QHS PO Last administered on 04/13/17 20: 45; Start 04/11/17 at 21:00 Docusate Sodium (Colace) 100 mg PRN DAILY PRN PO CONSTIPATION; Start 04/11/17 at 17:15; Status Cancel Fluoxetine HCl (PROzac) 20 mg DAILY PO Last administered on 04/14/17 08:32; Start 04/12/17 at 09:00 Nitroglycerin (Nitrostat) 0.4 mg PRN Q5MIN PRN SL CHEST PAIN; Start 04/11/17 at 17:15 Potassium Chloride (Klor-Con) 20 meq DAILY PO ; Start 04/12/17 at 09:00; Status UNV Simvastatin (Zocor) 20 mg QHS PO Last administered on 04/13/17 20:45; Start 04/11/17 at 21:00 Tizanidine HCl (Zanaflex) 4 mg QID PRN PO MUSCLE SPASMS Last administered on 10:00; Start 04/11/17 at 17:15 Carvedilol (Coreg) 25 mg BIDWMEALS PO Last administered on 04/14/17 08:34; Start 04/11/17 at 18:00; Stop 04/14/17 at 09:44; Status DC Fenofibrate (Lofibra) 54 mg DAILY PO Last administered on 04/14/17 08:32; Start 04/12/17 at 09:00 Gabapentin (Neurontin) 1,200 mg DAILY06 PO Last administered on 04/14/17 06: 14; Start 04/12/17 at 06:00 Gabapentin (Neurontin) 1,800 mg QHS PO Last administered on 04/13/17 20:48; Start 04/11/17 at 21:00 Hydroxyzine Pamoate (Vistaril) 50 mg QID PO Last administered on 04/14/17 08: 32; Start 04/11/17 at 21:00 Non-Formulary Medication 1 tab QHS PO ; Start 04/11/17 at 21:00; Status UNV Pantoprazole Sodium (Protonix) 40 mg DAILYAC PO Last administered on 08:33; Start 04/12/17 at 07:30 Promethazine HCl (Phenergan) 25 mg PRN Q6HRS PRN PO NAUSEA/VOMITING; Start 04/11/17 at 17:30 Trazodone HCl (Desyrel) 150 mg QHS PO Last administered on 04/13/17 20:45; Start 04/11/17 at 21:00 Vancomycin HCl (Vanco Per Pharmacy) 1 each PRN DAILY PRN MC SEE COMMENTS Last administered on 04/11/17 20:31; Start 04/11/17 at 17:15; Stop 04/12/17 at 12:58 ; Status DC Piperacillin Sod/ Tazobactam Sod 3.375 gm/Sodium Chloride 50 ml @ 100 mls/hr Q6HRS IV Last administered on 04/12/17 06:02; Start 04/11/17 at 18:00; Stop 04/12/17 at 12:58; Status DC Piperacillin Sod/ Tazobactam Sod (Zosyn Per Pharmacy) 1 each PRN DAILY PRN MC SEE COMMENTS; Start 04/11/17 at 17:15; Stop 04/12/17 at 12:58; Status DC Prednisone (Prednisone) 40 mg DAILY PO Last administered on 04/12/17 08:22; Start 04/12/17 at 09:00; Stop 04/12/17 at 12:58; Status DC Vancomycin HCl 2 gm/Sodium Chloride 500 ml @ 250 mls/hr 1X ONCE IV Last administered on 04/11/17 20:35; Start 04/11/17 at 17:30; Stop 04/11/17 at 19:29 ; Status DC Oxycodone/ Acetaminophen (Percocet 10/325) 1 tab PRN Q6HRS PRN PO PAIN Last administered on 04/14/17 08:34; Start 04/11/17 at 20:30; Stop 04/14/17 at 09: 41; Status DC Vancomycin HCl 1.5 gm/Sodium Chloride 500 ml @ 250 mls/hr Q8H IV Last administered on 04/12/17 04:25; Start 04/12/17 at 05:00; Stop 04/12/17 at 12:58 ; Status DC Vancomycin HCl 1 each 1X ONCE MC ; Start 04/12/17 at 20:30; Stop 04/12/17 at 20 :30; Status DC Furosemide (Lasix) 40 mg 1X ONCE IVP Last administered on 04/12/17 12:10; Start 04/12/17 at 12:30; Stop 04/12/17 at 12:31; Status DC Iohexol (Omnipaque 300 Mg/ml) 75 ml 1X ONCE IV Last administered on 04/12/17 13:37; Start 04/12/17 at 13:30; Stop 04/12/17 at 13:31; Status DC Info (Do NOT chart on this entry -- for MONITORING) 1 each PRN DAILY PRN MC SEE COMMENTS; Start 04/12/17 at 13:45; Stop 04/14/17 at 13:44; Status DC Piperacillin Sod/ Tazobactam Sod 3.375 gm/Sodium Chloride 50 ml @ 100 mls/hr Q6HRS IV Last administered on 04/14/17 12:13; Start 04/12/17 at 13:45 Furosemide (Lasix) 40 mg 1X ONCE IVP Last administered on 04/12/17 16:19; Start 04/12/17 at 15:45; Stop 04/12/17 at 15:48; Status DC Sucralfate (Carafate) 1 gm BID PO Last administered on 04/14/17 08:33; Start 04/13/17 at 12:00 Magnesium Sulfate/ Dextrose 50 ml @ 25 mls/hr 1X ONCE IV Last administered on 04/13/17 14:43; Start 04/13/17 at 13:15; Stop 04/13/17 at 15:14; Status DC Oxycodone HCl (Roxicodone) 10 mg PRN Q6HRS PRN PO PAIN Last administered on 10:46; Start 04/13/17 at 21:45 Carvedilol (Coreg) 6.25 mg BIDWMEALS PO ; Start 04/14/17 at 17:00; Stop at 17:00; Status DC Furosemide (Lasix) 20 mg 1X ONCE IVP ; Start 04/14/17 at 13:30; Stop at 13:44; Status DC Vancomycin HCl (Vanco Per Pharmacy) 1 each PRN DAILY PRN MC SEE COMMENTS Last administered on 04/14/17 14:28; Start 04/14/17 at 13:45 Vancomycin HCl 1.75 gm/Sodium Chloride 500 ml @ 250 mls/hr Q12H IV ; Start 04/21 at 13:45; Status UNV Vancomycin HCl 1.25 gm/Sodium Chloride 250 ml @ 166.667 mls/hr Q8H IV Last administered on 04/14/17 14:51; Start 04/14/17 at 14:00 Vancomycin HCl 1 each 1X ONCE MC ; Start 04/15/17 at 13:30; Stop 04/15/17 at 13:31 Furosemide (Lasix) 40 mg BID92 IVP Last administered on 04/14/17 14:51; Start 04/14/17 at 14:15 Carvedilol (Coreg) 6.25 mg BIDWMEALS PO ; Start 04/14/17 at 17:00 Active Scripts Active Reported Benadryl (Diphenhydramine Hcl) 25 Mg Capsule 1 Cap PO QHS Melatonin 3 Mg Tablet 1 Tab PO QHS Aspirin 81 Mg Tab.chew 81 Mg PO Dilaudid (Hydromorphone Hcl) 8 Mg Tablet 10 Mg PO PRN Combivent Respimat Inhal (Ipratropium/Albuterol Sulfate) 4 Gm Aer.w.adap 2 Inh IH TID Nitrostat (Nitroglycerin) 0.4 Mg Tab.subl 0.4 Mg SL PRN Q5MIN PRN Trazodone Hcl 150 Mg Tablet 1 Tab PO QHS Omeprazole 20 Mg Capsule.dr 1 Cap PO DAILY Coreg (Carvedilol) 25 Mg Tablet 1 Tab PO BID Colace (Docusate Sodium) 100 Mg Capsule 100 Mg PO PRN Promethazine Hcl 25 Mg Tablet 25 Mg PO Q6H PRN Tizanidine Hcl 4 Mg Tablet 4 Mg PO QID PRN Klor-Con 10 (Potassium Chloride) 10 Meq Tablet.er 1 Tab PO DAILY PRN Potassium Chloride 20 Meq Tab.er.prt 20 Meq PO DAILY Furosemide 40 Mg Tablet 1 Tab PO DAILY PRN Fenofibrate (Fenofibrate Nanocrystallized) 48 Mg Tablet 48 Mg PO DAILY Vistaril (Hydroxyzine Pamoate) 50 Mg Capsule 50 Mg PO QID Simvastatin 20 Mg Tablet 1 Tab PO QHS Lansoprazole 30 Mg Capsule.dr 1 Cap PO DAILY Fluoxetine Hcl 20 Mg Capsule 1 Cap PO DAILY Gabapentin 600 Mg Tablet 3 Tab PO QHS Gabapentin 600 Mg Tablet 2 Tab PO DAILY06 Clopidogrel (Clopidogrel Bisulfate) 75 Mg Tablet 1 Tab PO DAILY Vitals/I & O Vital Sign - Last 24 Hours 10/03/2204/13/17 04/13/17 04/13/17 17:30 17:30 18:00 18:18 Temp 98.9 98.9 Pulse 92 91 Resp 26 27 B/P (MAP) 116/61 (79) 107/68 (81) Pulse Ox 95 98 O2 Delivery BiPAP/CPAP Bi-pap BiPAP/CPAP BiPAP/CPAP 04/13/17 04/13/17 04/13/17 04/13/17 19:00 19:47 20:00 20:00 Temp 98.8 98.8 Pulse 96 88 Resp 21 22 B/P (MAP) 109/71 (84) 112/76 (88) Pulse Ox 98 97 100 O2 Delivery BiPAP/CPAP BiPAP/CPAP Bi-pap BiPAP/CPAP 04/13/17 04/13/17 04/13/17 04/13/17 21:00 21:10 22:00 22:02 Pulse 86 87 Resp 27 29 39 B/P (MAP) 101/73 (82) 122/68 (86) Pulse Ox 98 98 100 100 O2 Delivery BiPAP/CPAP BiPAP/CPAP BiPAP/CPAP BiPAP/CPAP 04/13/17 04/13/17 04/14/17 04/14/17 23:00 23:15 00:00 00:00 Temp 99.1 99.1 Pulse 92 91 Resp 19 24 B/P (MAP) 118/70 (86) 105/59 (74) Pulse Ox 98 97 99 O2 Delivery BiPAP/CPAP BiPAP/CPAP Bi-pap BiPAP/CPAP 04/14/17 04/14/17 04/14/17 04/14/17 00:53 01:00 01:02 02:00 Pulse 98 110 Resp 24 20 17 B/P (MAP) 95/56 (69) 95/66 (76) Pulse Ox 97 98 99 99 O2 Delivery BiPAP/CPAP BiPAP/CPAP BiPAP/CPAP BiPAP/CPAP 04/14/17 04/14/17 04/14/17 04/14/17 02:02 03:00 03:05 04:00 Pulse 116 Resp 17 20 B/P (MAP) 108/67 (81) Pulse Ox 99 94 99 O2 Delivery BiPAP/CPAP BiPAP/CPAP BiPAP/CPAP Bi-pap 04/14/17 04/14/17 04/14/17 04/14/17 04:00 04:03 05:00 05:03 Temp 99.1 99.1 Pulse 105 105 Resp 19 22 16 16 B/P (MAP) 102/68 (79) 119/71 (87) Pulse Ox 99 97 99 99 O2 Delivery BiPAP/CPAP BiPAP/CPAP BiPAP/CPAP 04/14/17 04/14/17 04/14/17 04/14/17 05:40 06:00 07:00 07:38 Pulse 102 101 Resp 21 20 B/P (MAP) 130/85 (100) 121/76 (91) Pulse Ox 99 99 99 100 O2 Delivery BiPAP/CPAP BiPAP/CPAP BiPAP/CPAP BiPAP/CPAP 04/14/17 04/14/17 04/14/17 04/14/17 08:00 08:00 08:34 08:34 Temp 98.1 98.1 Pulse 108 108 Resp 28 B/P (MAP) 128/73 (91) 128/73 Pulse Ox 98 O2 Delivery BiPAP/CPAP Bi-pap BiPAP/CPAP 04/14/17 04/14/17 04/14/17 04/14/17 09:00 09:13 10:00 10:46 Pulse 85 80 Resp 17 25 B/P (MAP) 105/65 (78) 93/55 (68) Pulse Ox 93 100 98 O2 Delivery BiPAP/CPAP BiPAP/CPAP BiPAP/CPAP BiPAP/CPAP 04/14/17 04/14/17 04/14/17 04/14/17 11:00 11:38 11:46 12:00 Pulse 77 Resp 18 B/P (MAP) 103/64 (77) Pulse Ox 93 94 O2 Delivery BiPAP/CPAP BiPAP/CPAP BiPAP/CPAP Bi-pap 04/14/17 04/14/17 04/14/17 04/14/17 12:00 13:00 14:00 15:00 Temp 98.4 98.4 Pulse 76 84 82 86 Resp 19 17 20 17 B/P (MAP) 110/68 (82) 93/55 (68) 93/61 (72) 121/76 (91) Pulse Ox 94 91 90 94 O2 Delivery BiPAP/CPAP Nasal Cannula BiPAP/CPAP BiPAP/CPAP O2 Flow Rate 5.0 04/14/17 15:41 Pulse Ox 94 O2 Delivery BiPAP/CPAP Intake and Output 04/14/17 04/14/17 04/15/17 15:00 23:00 07:00 Intake Total 400 ml Output Total 1950 ml 850 ml Balance -1550 ml -850 ml JOE ANG MD Apr 14, 2017 16:45
[2017-04-14] MEDS: CARVEDILOL 6.25 MG TABLET. PO SCH (17:00)
[2017-04-14] MEDS ORDERED: CARVEDILOL 6.25 MG TABLET. PO SCH (17:00)
[2017-04-14] MEDS: tiZANidine 4 MG TABLET. PO PRN ×2 (17:30→23:38)
[2017-04-14] MEDS: ENOXAPARIN 40 MG/0.4 ML SYRINGE. SQ SCH (17:36)
[2017-04-14] MEDS: diphenhydrAMINE HCL 25 MG CAPSULE PO SCH (20:53)
[2017-04-14] MEDS: SIMVASTATIN 20 MG TABLET PO SCH (20:53)
[2017-04-14] MEDS: traZODone 100 MG TABLET. PO SCH (20:53)
[2017-04-15] VITALS (13 sets, daily range): BP systolic 83–96; BP diastolic 55–63
[2017-04-15] MEDS: PIPERACILLIN/TAZOBACTAM 3.375 GM in IV NORMAL SALINE 50ML 50 ML IV SCH ×3 (05:29→17:59)
[2017-04-15 05:54] LABS: BASO # 0.1 x10^3/uL (0.0-0.2); BASO % 1 % (0-3); EOS % 3 % (0-3); HEMOGLOBIN 10.7 g/dL (13.0-17.5); LYMPH # 2.9 x10^3/uL (1.0-4.8); LYMPH % 34 % (24-48); MEAN CORPUSCULAR HEMOGLOBIN 22 pg (25-35); MEAN CORPUSCULAR HGB CONC 31 g/dL (31-37); MEAN CORPUSCULAR VOLUME 70 fL (79-100); MONO % 2 % (0-9); NEUT % 59 % (31-73); PLATELET COUNT 321 x10^3/uL (140-400); RED BLOOD COUNT 4.84 x10^6/uL (4.30-5.70); RED CELL DISTRIBUTION WIDTH 25.8 % (11.5-14.5); WHITE BLOOD COUNT 8.5 x10^3/uL (4.0-11.0)
[2017-04-15] MEDS: GABAPENTIN 300 MG CAPSULE. PO SCH ×2 (06:04→21:04)
[2017-04-15] MEDS: VANCOMYCIN 1.25 GM in IV NORMAL SALINE 250ML 250 ML IV SCH (06:04)
[2017-04-15] MEDS: oxyCODONE IR 5 MG TABLET PO PRN ×2 (06:05→13:14)
[2017-04-15 06:07] LABS: CALCIUM 9.4 mg/dL (8.5-10.1); GFR 81.9; POTASSIUM 4.6 mmol/L (3.5-5.1)
[2017-04-15] MEDS: CARVEDILOL 6.25 MG TABLET. PO SCH (08:00)
[2017-04-15] MEDS: IPRATRPIUM/ALBUTEROL 0.5/2.5MG 3 ML NEBU. NEB SCH ×3 (08:23→19:44)
[2017-04-15 08:58] LABS: % BASOS 1 % (0-3); % EOS 5 % (0-5)
[2017-04-15 08:59] LABS: PLT ESTIMATE ADEQUATE (ADEQUATE)
[2017-04-15 09:00] LABS: ANISOCYTOSIS MOD; HYPOCHROMIA MOD; MICROCYTOSIS MOD; OVALOCYTES PRESENT; POIKILOCYTOSIS PRESENT
[2017-04-15] MEDS: POTASSIUM CHLORIDE 20 MEQ TABLET.ER. PO SCH ×2 (09:27→17:12)
[2017-04-15] MEDS: ASPIRIN CHEWABLE 81 MG TABLET. PO SCH (09:27)
[2017-04-15] MEDS: CLOPIDOGREL BISULFATE 75 MG TABLET PO SCH (09:27)
[2017-04-15] MEDS: PANTOPRAZOLE 40 MG TABLET.DR. PO SCH (09:27)
[2017-04-15] MEDS: FUROSEMIDE 40 MG/4 ML VIAL. IVP SCH (09:27)
[2017-04-15] MEDS: SUCRALFATE 1 GM TABLET. PO SCH ×2 (09:28→21:03)
[2017-04-15] MEDS: hydrOXYzine PAMOATE 25 MG CAPSULE PO SCH ×4 (09:28→21:03)
[2017-04-15] MEDS: FLUoxetine HCL 20 MG CAPSULE PO SCH (09:28)
[2017-04-15] MEDS: FENOFIBRATE 54 MG TABLET. PO SCH (09:28)
[2017-04-15] MEDS: VANCOMYCIN PER PHARMACY MC PRN ×2 (09:58→14:33)
--- NOTE | 2017-04-15 10:43 | PDOC ---
PULMONARY PROGRESS NOTES Subjective PT UP IN CHAIR OFF BIPAP HAS BACK PAIN Vitals Vital Signs Date Time Temp Pulse Resp B/P (MAP) Pulse Ox O2 Delivery O2 Flow Rate FiO2 04/15/17 08:24 Nasal Cannula 4.0 04/15/17 08:00 97.8 99 22 92/61 (71) 98 97.8 ROS: No Nausea, No Chest Pain, No Abdominal Pain, No Increase Cough Lungs: Clear Cardiovascular: S1, S2 Abdomen: Soft Neuro Exam: Alert Extremities: No Edema Skin: Warm Labs Laboratory Tests Test 04/13/17 12:50 04/13/17 17:30 04/14/17 09:15 04/15/17 05:34 Lactic Acid Level 1.7 mmol/L (0.4-2.0) Nasal Screen MRSA (PCR) Negative (Negative) O2 Saturation 97 % (92-99) Arterial Blood pH 7.42 (7.35-7.45) Arterial Blood pCO2 at Patient Temp 45 mmHg (35-46) Arterial Blood pO2 at Patient Temp 101 mmHg (75-108) Arterial Blood HCO3 29 mmol/L (21-28) Arterial Blood Base Excess 4 mmol/L (-3-3) FiO2 40 White Blood Count 8.5 x10^3/uL (4.0-11.0) Red Blood Count 4.84 x10^6/uL (4.30-5.70) Hemoglobin 10.7 g/dL (13.0-17.5) Hematocrit 34.0 % (39.0-53.0) Mean Corpuscular Volume 70 fL (79-100) Mean Corpuscular Hemoglobin 22 pg (25-35) Mean Corpuscular Hemoglobin Concent 31 g/dL (31-37) Red Cell Distribution Width 25.8 % (11.5-14.5) Platelet Count 321 x10^3/uL (140-400) Neutrophils (%) (Auto) 59 % (31-73) Lymphocytes (%) (Auto) 34 % (24-48) Monocytes (%) (Auto) 2 % (0-9) Eosinophils (%) (Auto) 3 % (0-3) Basophils (%) (Auto) 1 % (0-3) Neutrophils # (Auto) 5.0 x10^3uL (1.8-7.7) Lymphocytes # (Auto) 2.9 x10^3/uL (1.0-4.8) Monocytes # (Auto) 0.2 x10^3/uL (0.0-1.1) Eosinophils # (Auto) 0.3 x10^3/uL (0.0-0.7) Basophils # (Auto) 0.1 x10^3/uL (0.0-0.2) Segmented Neutrophils % 53 % (35-66) Lymphocytes % 38 % (24-48) Atypical Lymphocytes % (Manual) 1 % (0-0) Monocytes % 1 % (0-10) Eosinophils % 5 % (0-5) Basophils % 1 % (0-3) Metamyelocytes % 1 % (0-0) Platelet Estimate Adequate (ADEQUATE) Hypochromasia Mod Poikilocytosis Present Anisocytosis Mod Microcytosis Mod Ovalocytes Present Sodium Level 134 mmol/L (136-145) Potassium Level 4.6 mmol/L (3.5-5.1) Chloride Level 97 mmol/L (98-107) Carbon Dioxide Level 29 mmol/L (21-32) Anion Gap 8 (6-14) Blood Urea Nitrogen 19 mg/dL (8-26) Creatinine 1.0 mg/dL (0.7-1.3) Estimated GFR (Cockcroft-Gault) 81.9 Glucose Level 94 mg/dL (70-99) Calcium Level 9.4 mg/dL (8.5-10.1) Laboratory Tests Test 04/15/17 05:34 White Blood Count 8.5 x10^3/uL (4.0-11.0) Red Blood Count 4.84 x10^6/uL (4.30-5.70) Hemoglobin 10.7 g/dL (13.0-17.5) Hematocrit 34.0 % (39.0-53.0) Mean Corpuscular Volume 70 fL (79-100) Mean Corpuscular Hemoglobin 22 pg (25-35) Mean Corpuscular Hemoglobin Concent 31 g/dL (31-37) Red Cell Distribution Width 25.8 % (11.5-14.5) Platelet Count 321 x10^3/uL (140-400) Neutrophils (%) (Auto) 59 % (31-73) Lymphocytes (%) (Auto) 34 % (24-48) Monocytes (%) (Auto) 2 % (0-9) Eosinophils (%) (Auto) 3 % (0-3) Basophils (%) (Auto) 1 % (0-3) Neutrophils # (Auto) 5.0 x10^3uL (1.8-7.7) Lymphocytes # (Auto) 2.9 x10^3/uL (1.0-4.8) Monocytes # (Auto) 0.2 x10^3/uL (0.0-1.1) Eosinophils # (Auto) 0.3 x10^3/uL (0.0-0.7) Basophils # (Auto) 0.1 x10^3/uL (0.0-0.2) Segmented Neutrophils % 53 % (35-66) Lymphocytes % 38 % (24-48) Atypical Lymphocytes % (Manual) 1 % (0-0) Monocytes % 1 % (0-10) Eosinophils % 5 % (0-5) Basophils % 1 % (0-3) Metamyelocytes % 1 % (0-0) Platelet Estimate Adequate (ADEQUATE) Hypochromasia Mod Poikilocytosis Present Anisocytosis Mod Microcytosis Mod Ovalocytes Present Sodium Level 134 mmol/L (136-145) Potassium Level 4.6 mmol/L (3.5-5.1) Chloride Level 97 mmol/L (98-107) Carbon Dioxide Level 29 mmol/L (21-32) Anion Gap 8 (6-14) Blood Urea Nitrogen 19 mg/dL (8-26) Creatinine 1.0 mg/dL (0.7-1.3) Estimated GFR (Cockcroft-Gault) 81.9 Glucose Level 94 mg/dL (70-99) Calcium Level 9.4 mg/dL (8.5-10.1) Medications Active Scripts Medications Dose Route/Sig Max Daily Dose Days Date Category Benadryl (Diphenhydramine Hcl) 25 Mg Capsule 1 Cap PO QHS 04/11/17 Reported Melatonin 3 Mg Tablet 1 Tab PO QHS 04/11/17 Reported Aspirin 81 Mg Tab.chew 81 Mg PO 04/11/17 Reported Dilaudid (Hydromorphone Hcl) 8 Mg Tablet 10 Mg PO PRN 09/10/15 Reported Combivent Respimat Inhal (Ipratropium/Albuterol Sulfate) 4 Gm Aer.w.adap 2 Inh IH TID 09/10/15 Reported Nitrostat (Nitroglycerin) 0.4 Mg Tab.subl 0.4 Mg SL PRN Q5MIN PRN 09/10/15 Reported Trazodone Hcl 150 Mg Tablet 1 Tab PO QHS 09/10/15 Reported Omeprazole 20 Mg Capsule.dr 1 Cap PO DAILY 09/10/15 Reported Coreg (Carvedilol) 25 Mg Tablet 1 Tab PO BID 09/10/15 Reported Colace (Docusate Sodium) 100 Mg Capsule 100 Mg PO PRN 09/07/14 Reported Promethazine Hcl 25 Mg Tablet 25 Mg PO Q6H PRN 09/07/14 Reported Tizanidine Hcl 4 Mg Tablet 4 Mg PO QID PRN 09/07/14 Reported Klor-Con 10 (Potassium Chloride) 10 Meq Tablet.er 1 Tab PO DAILY PRN 09/07/14 Reported Potassium Chloride 20 Meq Tab.er.prt 20 Meq PO DAILY 09/07/14 Reported Furosemide 40 Mg Tablet 1 Tab PO DAILY PRN 09/07/14 Reported Fenofibrate (Fenofibrate Nanocrystallized) 48 Mg Tablet 48 Mg PO DAILY 09/07/14 Reported Vistaril (Hydroxyzine Pamoate) 50 Mg Capsule 50 Mg PO QID 09/07/14 Reported Simvastatin 20 Mg Tablet 1 Tab PO QHS 09/07/14 Reported Lansoprazole 30 Mg Capsule.dr 1 Cap PO DAILY 09/07/14 Reported Fluoxetine Hcl 20 Mg Capsule 1 Cap PO DAILY 09/07/14 Reported Gabapentin 600 Mg Tablet 3 Tab PO QHS 09/07/14 Reported Gabapentin 600 Mg Tablet 2 Tab PO DAILY06 09/07/14 Reported Clopidogrel (Clopidogrel Bisulfate) 75 Mg Tablet 1 Tab PO DAILY 09/07/14 Reported Comments IMPRESSION: 1. No CT evidence of central pulmonary emboli. 2. Extensive coronary artery disease. 3. Extensive bilateral airspace and interstitial opacities most compatible with pulmonary edema. Pneumonia on an infectious or hypersensitivity basis is less likely. Impression . 1. Acute respiratory failure secondary to acute systolic heart failure. 2. Acute systolic heart failure. 3. Abnormal x-ray, Possible pneumonia POA, gram neg/pos 4. Acute exacerbation of chronic obstructive pulmonary disease. 5. Possible depression 6. Obesity 7. Chronic pain Plan . PT APPEARS DEPRESSED DENIES BEING DOWN NOT WELL MOTIVATED DOES NOT THINK HE DRINKS TOO MUCH POP OR TAKE IN SALTY FOOD WILL REPEAT CXR CONTINUES TO REQUIRE BIPAP WILL START IV LASIX DRIP I THINK PT IS TAKING IN EXCESS AMOUNTS OF SALT DRINKS 2-[address] PEPPER PER DAY ANTIBX TO COVER GRAM NEG AND POS ORGANISM BELINDA SCOTT MD Apr 15, 2017 10:43
--- NOTE | 2017-04-15 13:25 | PDOC ---
PROGRESS NOTES Chief Complaint Chief Complaint Acute on chronic, hypoxic respir distress ASSESSMENT AND PLAN: 1. Respir failure: recent admit for PNA/COPD [facility] with D/C about a week ago, persistent/worsening sx. appears comfortable. nebs, suppl O2 (pt has home O2 at [facility]); appreciate Dr Betancourt's input: suspected CHF by CXR. stop steroids, IV lasix on hold due to low BP as is BB. obtain echo, cardiology input 2. Early sepsis: Tachycardia, hypotension, no fevers, leukocytosis sl improved. lactate still elevated; rpt pending. with above issues, cautious with IVF administration. may need ICU transfer 3. Tobaccoism: nicotine patch prn daily. encouraged cessation 4. CAD: hx UT/CABG. no acute issues. cont home meds 5. HTN/HLD: continue home meds 6. hypokalemia/hypomagnesemia: replete as indicated 7. [place]: moderate microcytosis. obtain iron labs 8. GERD: PPI 9. Chronic back pain: hx back sx. cont home regimen 10. Anxiety 11. Prophylaxis: lovenox plan: ok to transfer out of ICU off [place], [place] 5L Repeated CXR showed some right PNA, cont zosyn, add vanco, TAPER soon lasix 40mg iv bid echo not significant, EF 55% dc coreg given low BP, consider metoprolol if tachycardia History of Present Illness History of Present Illness ROS: no fever, chills, sob or chest pain pt wants BIPAP to keep comfortable, i talked to RT, likely not needed it CXR repeated today showed right PNA likely BP ok in ICU Vitals Vitals Vital Signs Date Time Temp Pulse Resp B/P (MAP) Pulse Ox O2 Delivery O2 Flow Rate FiO2 04/15/17 13:14 20 97 Nasal Cannula 2.0 04/15/17 12:00 97.7 94 83/57 (66) 97.7 Physical Exam General: Alert, Oriented X3, Cooperative, mild distress Heart: Regular rate, Normal S1, Normal S2 Lungs: Clear Abdomen: Normal bowel sounds Extremities: No clubbing Skin: No rashes Labs LABS Laboratory Tests Test 04/15/17 05:34 White Blood Count 8.5 x10^3/uL (4.0-11.0) Red Blood Count 4.84 x10^6/uL (4.30-5.70) Hemoglobin 10.7 g/dL (13.0-17.5) Hematocrit 34.0 % (39.0-53.0) Mean Corpuscular Volume 70 fL (79-100) Mean Corpuscular Hemoglobin 22 pg (25-35) Mean Corpuscular Hemoglobin Concent 31 g/dL (31-37) Red Cell Distribution Width 25.8 % (11.5-14.5) Platelet Count 321 x10^3/uL (140-400) Neutrophils (%) (Auto) 59 % (31-73) Lymphocytes (%) (Auto) 34 % (24-48) Monocytes (%) (Auto) 2 % (0-9) Eosinophils (%) (Auto) 3 % (0-3) Basophils (%) (Auto) 1 % (0-3) Neutrophils # (Auto) 5.0 x10^3uL (1.8-7.7) Lymphocytes # (Auto) 2.9 x10^3/uL (1.0-4.8) Monocytes # (Auto) 0.2 x10^3/uL (0.0-1.1) Eosinophils # (Auto) 0.3 x10^3/uL (0.0-0.7) Basophils # (Auto) 0.1 x10^3/uL (0.0-0.2) Segmented Neutrophils % 53 % (35-66) Lymphocytes % 38 % (24-48) Atypical Lymphocytes % (Manual) 1 % (0-0) Monocytes % 1 % (0-10) Eosinophils % 5 % (0-5) Basophils % 1 % (0-3) Metamyelocytes % 1 % (0-0) Platelet Estimate Adequate (ADEQUATE) Hypochromasia Mod Poikilocytosis Present Anisocytosis Mod Microcytosis Mod Ovalocytes Present Sodium Level 134 mmol/L (136-145) Potassium Level 4.6 mmol/L (3.5-5.1) Chloride Level 97 mmol/L (98-107) Carbon Dioxide Level 29 mmol/L (21-32) Anion Gap 8 (6-14) Blood Urea Nitrogen 19 mg/dL (8-26) Creatinine 1.0 mg/dL (0.7-1.3) Estimated GFR (Cockcroft-Gault) 81.9 Glucose Level 94 mg/dL (70-99) Calcium Level 9.4 mg/dL (8.5-10.1) Assessment and Plan Assessmemt and Plan Problems Medical Problems: (1) Hypoxemia Status: Acute (2) Pneumonia Status: Acute Problems: Comment Review of Relevant I have reviewed the following items lexie (where applicable) has been applied. Labs Laboratory Tests Test 04/13/17 17:30 04/14/17 09:15 04/15/17 05:34 Nasal Screen MRSA (PCR) Negative (Negative) O2 Saturation 97 % (92-99) Arterial Blood pH 7.42 (7.35-7.45) Arterial Blood pCO2 at Patient Temp 45 mmHg (35-46) Arterial Blood pO2 at Patient Temp 101 mmHg (75-108) Arterial Blood HCO3 29 mmol/L (21-28) Arterial Blood Base Excess 4 mmol/L (-3-3) FiO2 40 White Blood Count 8.5 x10^3/uL (4.0-11.0) Red Blood Count 4.84 x10^6/uL (4.30-5.70) Hemoglobin 10.7 g/dL (13.0-17.5) Hematocrit 34.0 % (39.0-53.0) Mean Corpuscular Volume 70 fL (79-100) Mean Corpuscular Hemoglobin 22 pg (25-35) Mean Corpuscular Hemoglobin Concent 31 g/dL (31-37) Red Cell Distribution Width 25.8 % (11.5-14.5) Platelet Count 321 x10^3/uL (140-400) Neutrophils (%) (Auto) 59 % (31-73) Lymphocytes (%) (Auto) 34 % (24-48) Monocytes (%) (Auto) 2 % (0-9) Eosinophils (%) (Auto) 3 % (0-3) Basophils (%) (Auto) 1 % (0-3) Neutrophils # (Auto) 5.0 x10^3uL (1.8-7.7) Lymphocytes # (Auto) 2.9 x10^3/uL (1.0-4.8) Monocytes # (Auto) 0.2 x10^3/uL (0.0-1.1) Eosinophils # (Auto) 0.3 x10^3/uL (0.0-0.7) Basophils # (Auto) 0.1 x10^3/uL (0.0-0.2) Segmented Neutrophils % 53 % (35-66) Lymphocytes % 38 % (24-48) Atypical Lymphocytes % (Manual) 1 % (0-0) Monocytes % 1 % (0-10) Eosinophils % 5 % (0-5) Basophils % 1 % (0-3) Metamyelocytes % 1 % (0-0) Platelet Estimate Adequate (ADEQUATE) Hypochromasia Mod Poikilocytosis Present Anisocytosis Mod Microcytosis Mod Ovalocytes Present Sodium Level 134 mmol/L (136-145) Potassium Level 4.6 mmol/L (3.5-5.1) Chloride Level 97 mmol/L (98-107) Carbon Dioxide Level 29 mmol/L (21-32) Anion Gap 8 (6-14) Blood Urea Nitrogen 19 mg/dL (8-26) Creatinine 1.0 mg/dL (0.7-1.3) Estimated GFR (Cockcroft-Gault) 81.9 Glucose Level 94 mg/dL (70-99) Calcium Level 9.4 mg/dL (8.5-10.1) Laboratory Tests Test 04/15/17 05:34 White Blood Count 8.5 x10^3/uL (4.0-11.0) Red Blood Count 4.84 x10^6/uL (4.30-5.70) Hemoglobin 10.7 g/dL (13.0-17.5) Hematocrit 34.0 % (39.0-53.0) Mean Corpuscular Volume 70 fL (79-100) Mean Corpuscular Hemoglobin 22 pg (25-35) Mean Corpuscular Hemoglobin Concent 31 g/dL (31-37) Red Cell Distribution Width 25.8 % (11.5-14.5) Platelet Count 321 x10^3/uL (140-400) Neutrophils (%) (Auto) 59 % (31-73) Lymphocytes (%) (Auto) 34 % (24-48) Monocytes (%) (Auto) 2 % (0-9) Eosinophils (%) (Auto) 3 % (0-3) Basophils (%) (Auto) 1 % (0-3) Neutrophils # (Auto) 5.0 x10^3uL (1.8-7.7) Lymphocytes # (Auto) 2.9 x10^3/uL (1.0-4.8) Monocytes # (Auto) 0.2 x10^3/uL (0.0-1.1) Eosinophils # (Auto) 0.3 x10^3/uL (0.0-0.7) Basophils # (Auto) 0.1 x10^3/uL (0.0-0.2) Segmented Neutrophils % 53 % (35-66) Lymphocytes % 38 % (24-48) Atypical Lymphocytes % (Manual) 1 % (0-0) Monocytes % 1 % (0-10) Eosinophils % 5 % (0-5) Basophils % 1 % (0-3) Metamyelocytes % 1 % (0-0) Platelet Estimate Adequate (ADEQUATE) Hypochromasia Mod Poikilocytosis Present Anisocytosis Mod Microcytosis Mod Ovalocytes Present Sodium Level 134 mmol/L (136-145) Potassium Level 4.6 mmol/L (3.5-5.1) Chloride Level 97 mmol/L (98-107) Carbon Dioxide Level 29 mmol/L (21-32) Anion Gap 8 (6-14) Blood Urea Nitrogen 19 mg/dL (8-26) Creatinine 1.0 mg/dL (0.7-1.3) Estimated GFR (Cockcroft-Gault) 81.9 Glucose Level 94 mg/dL (70-99) Calcium Level 9.4 mg/dL (8.5-10.1) Microbiology 04/12/17 Blood Culture - Preliminary, Resulted NO GROWTH AFTER 2 DAYS Medications Current Medications Oxycodone/ Acetaminophen (Percocet 10/325) 1 tab 1X ONCE PO Last administered on 04/11/17 15:16; Start 04/11/17 at 14:30; Stop 04/11/17 at 14:31; Status DC Albuterol/ Ipratropium (Duoneb) 3 ml 1X ONCE NEB Last administered on 14:37; Start 04/11/17 at 14:30; Stop 04/11/17 at 14:31; Status DC Vancomycin HCl 250 ml @ 250 mls/hr 1X ONCE IV ; Start 04/11/17 at 15:15; Stop 04/11/17 at 16:14; Status Cancel Nicotine (Nicoderm Cq 21mg) 1 patch 1X ONCE TD Last administered on 04/11/17 17:31; Start 04/11/17 at 15:30; Stop 04/11/17 at 15:31; Status DC Albuterol/ Ipratropium (Duoneb) 3 ml RTQID NEB ; Start 04/11/17 at 20:00; Stop 04/11/17 at 20:00; Status DC Acetaminophen (Tylenol) 650 mg PRN Q6HRS PRN PO FEVER; Start 04/11/17 at 17:00 Ondansetron HCl (Zofran) 4 mg PRN Q6HRS PRN IV NAUSEA/VOMITING; Start 04/11/17 at 17:00 Hydralazine HCl (Apresoline) 10 mg PRN Q4HRS PRN IVP ELEVATED BP, SEE COMMENTS ; Start 04/11/17 at 17:00 Docusate Sodium (Colace) 100 mg PRN DAILY PRN PO CONSTIPATION; Start 04/11/17 at 17:00 Albuterol/ Ipratropium (Duoneb) 3 ml RTQID NEB Last administered on 04/15/17 11:41; Start 04/11/17 at 20:00 Albuterol Sulfate (Ventolin Neb Soln) 2.5 mg PRN Q2HR PRN NEB SHORTNESS OF BREATH Last administered on 04/12/17 05:14; Start 04/11/17 at 17:00 Guaifenesin (Mucinex) 600 mg BID PO Last administered on 04/15/17 09:28; Start 04/11/17 at 21:00 Potassium Chloride (Klor-Con) 40 meq BIDWMEALS PO Last administered on 09:27; Start 04/11/17 at 17:30 Magnesium Sulfate/ Dextrose 50 ml @ 25 mls/hr 1X ONCE IV Last administered on 04/11/17 22:05; Start 04/11/17 at 17:30; Stop 04/11/17 at 19:29; Status DC Enoxaparin Sodium (Lovenox 40mg Syringe) 40 mg Q24H SQ Last administered on 18:20; Start 04/11/17 at 18:00 Nicotine (Nicoderm Cq 21mg) 1 patch PRN DAILY PRN TD SMOKING CESSATION Last administered on 04/13/17 20:47; Start 04/11/17 at 17:00 Aspirin (Children'S Aspirin) 81 mg DAILYWBKFT PO Last administered on 09:27; Start 04/12/17 at 08:00 Clopidogrel Bisulfate (Plavix) 75 mg DAILYWBKFT PO Last administered on 09:27; Start 04/12/17 at 08:00 Diphenhydramine HCl (Benadryl) 25 mg QHS PO Last administered on 04/14/17 20: 53; Start 04/11/17 at 21:00 Docusate Sodium (Colace) 100 mg PRN DAILY PRN PO CONSTIPATION; Start 04/11/17 at 17:15; Status Cancel Fluoxetine HCl (PROzac) 20 mg DAILY PO Last administered on 04/15/17 09:28; Start 04/12/17 at 09:00 Nitroglycerin (Nitrostat) 0.4 mg PRN Q5MIN PRN SL CHEST PAIN; Start 04/11/17 at 17:15 Potassium Chloride (Klor-Con) 20 meq DAILY PO ; Start 04/12/17 at 09:00; Status UNV Simvastatin (Zocor) 20 mg QHS PO Last administered on 04/14/17 20:53; Start 04/11/17 at 21:00 Tizanidine HCl (Zanaflex) 4 mg QID PRN PO MUSCLE SPASMS Last administered on 23:38; Start 04/11/17 at 17:15 Carvedilol (Coreg) 25 mg BIDWMEALS PO Last administered on 04/14/17 08:34; Start 04/11/17 at 18:00; Stop 04/14/17 at 09:44; Status DC Fenofibrate (Lofibra) 54 mg DAILY PO Last administered on 04/15/17 09:28; Start 04/12/17 at 09:00 Gabapentin (Neurontin) 1,200 mg DAILY06 PO Last administered on 04/15/17 06: 04; Start 04/12/17 at 06:00 Gabapentin (Neurontin) 1,800 mg QHS PO Last administered on 04/14/17 20:53; Start 04/11/17 at 21:00 Hydroxyzine Pamoate (Vistaril) 50 mg QID PO Last administered on 04/15/17 12: 56; Start 04/11/17 at 21:00 Non-Formulary Medication 1 tab QHS PO ; Start 04/11/17 at 21:00; Status UNV Pantoprazole Sodium (Protonix) 40 mg DAILYAC PO Last administered on 09:27; Start 04/12/17 at 07:30 Promethazine HCl (Phenergan) 25 mg PRN Q6HRS PRN PO NAUSEA/VOMITING; Start 04/11/17 at 17:30 Trazodone HCl (Desyrel) 150 mg QHS PO Last administered on 04/14/17 20:53; Start 04/11/17 at 21:00 Vancomycin HCl (Vanco Per Pharmacy) 1 each PRN DAILY PRN MC SEE COMMENTS Last administered on 04/11/17 20:31; Start 04/11/17 at 17:15; Stop 04/12/17 at 12:58 ; Status DC Piperacillin Sod/ Tazobactam Sod 3.375 gm/Sodium Chloride 50 ml @ 100 mls/hr Q6HRS IV Last administered on 04/12/17 06:02; Start 04/11/17 at 18:00; Stop 04/12/17 at 12:58; Status DC Piperacillin Sod/ Tazobactam Sod (Zosyn Per Pharmacy) 1 each PRN DAILY PRN MC SEE COMMENTS; Start 04/11/17 at 17:15; Stop 04/12/17 at 12:58; Status DC Prednisone (Prednisone) 40 mg DAILY PO Last administered on 04/12/17 08:22; Start 04/12/17 at 09:00; Stop 04/12/17 at 12:58; Status DC Vancomycin HCl 2 gm/Sodium Chloride 500 ml @ 250 mls/hr 1X ONCE IV Last administered on 04/11/17 20:35; Start 04/11/17 at 17:30; Stop 04/11/17 at 19:29 ; Status DC Oxycodone/ Acetaminophen (Percocet 10325) 1 tab PRN Q6HRS PRN PO PAIN Last administered on 04/14/17 08:34; Start 04/11/17 at 20:30; Stop 04/14/17 at 09: 41; Status DC Vancomycin HCl 1.5 gm/Sodium Chloride 500 ml @ 250 mls/hr Q8H IV Last administered on 04/12/17 04:25; Start 04/12/17 at 05:00; Stop 04/12/17 at 12:58 ; Status DC Vancomycin HCl 1 each 1X ONCE MC ; Start 04/12/17 at 20:30; Stop 04/12/17 at 20 :30; Status DC Furosemide (Lasix) 40 mg 1X ONCE IVP Last administered on 04/12/17 12:10; Start 04/12/17 at 12:30; Stop 04/12/17 at 12:31; Status DC Iohexol (Omnipaque 300 Mg/ml) 75 ml 1X ONCE IV Last administered on 04/12/17 13:37; Start 04/12/17 at 13:30; Stop 04/12/17 at 13:31; Status DC Info (Do NOT chart on this entry -- for MONITORING) 1 each PRN DAILY PRN MC SEE COMMENTS; Start 04/12/17 at 13:45; Stop 04/14/17 at 13:44; Status DC Piperacillin Sod/ Tazobactam Sod 3.375 gm/Sodium Chloride 50 ml @ 100 mls/hr Q6HRS IV Last administered on 04/15/17 12:56; Start 04/12/17 at 13:45 Furosemide (Lasix) 40 mg 1X ONCE IVP Last administered on 04/12/17 16:19; Start 04/12/17 at 15:45; Stop 04/12/17 at 15:48; Status DC Sucralfate (Carafate) 1 gm BID PO Last administered on 04/15/17 09:28; Start 04/13/17 at 12:00 Magnesium Sulfate/ Dextrose 50 ml @ 25 mls/hr 1X ONCE IV Last administered on 04/13/17 14:43; Start 04/13/17 at 13:15; Stop 04/13/17 at 15:14; Status DC Oxycodone HCl (Roxicodone) 10 mg PRN Q6HRS PRN PO PAIN Last administered on 13:14; Start 04/13/17 at 21:45 Carvedilol (Coreg) 6.25 mg BIDWMEALS PO ; Start 04/14/17 at 17:00; Stop at 17:00; Status DC Furosemide (Lasix) 20 mg 1X ONCE IVP ; Start 04/14/17 at 13:30; Stop at 13:44; Status DC Vancomycin HCl (Vanco Per Pharmacy) 1 each PRN DAILY PRN MC SEE COMMENTS Last administered on 04/15/17 09:58; Start 04/14/17 at 13:45 Vancomycin HCl 1.75 gm/Sodium Chloride 500 ml @ 250 mls/hr Q12H IV ; Start 04/21 at 13:45; Status UNV Vancomycin HCl 1.25 gm/Sodium Chloride 250 ml @ 166.667 mls/hr Q8H IV Last administered on 04/15/17 06:04; Start 04/14/17 at 14:00 Vancomycin HCl 1 each 1X ONCE MC ; Start 04/15/17 at 13:30; Stop 04/15/17 at 13:31 Furosemide (Lasix) 40 mg BID92 IVP Last administered on 04/15/17 09:27; Start 04/14/17 at 14:15 Carvedilol (Coreg) 6.25 mg BIDWMEALS PO ; Start 04/14/17 at 17:00; Stop at 08:46; Status DC Active Scripts Active Reported Benadryl (Diphenhydramine Hcl) 25 Mg Capsule 1 Cap PO QHS Melatonin 3 Mg Tablet 1 Tab PO QHS Aspirin 81 Mg Tab.chew 81 Mg PO Dilaudid (Hydromorphone Hcl) 8 Mg Tablet 10 Mg PO PRN Combivent Respimat Inhal (Ipratropium/Albuterol Sulfate) 4 Gm Aer.w.adap 2 Inh IH TID Nitrostat (Nitroglycerin) 0.4 Mg Tab.subl 0.4 Mg SL PRN Q5MIN PRN Trazodone Hcl 150 Mg Tablet 1 Tab PO QHS Omeprazole 20 Mg Capsule.dr 1 Cap PO DAILY Coreg (Carvedilol) 25 Mg Tablet 1 Tab PO BID Colace (Docusate Sodium) 100 Mg Capsule 100 Mg PO PRN Promethazine Hcl 25 Mg Tablet 25 Mg PO Q6H PRN Tizanidine Hcl 4 Mg Tablet 4 Mg PO QID PRN Klor-Con 10 (Potassium Chloride) 10 Meq Tablet.er 1 Tab PO DAILY PRN Potassium Chloride 20 Meq Tab.er.prt 20 Meq PO DAILY Furosemide 40 Mg Tablet 1 Tab PO DAILY PRN Fenofibrate (Fenofibrate Nanocrystallized) 48 Mg Tablet 48 Mg PO DAILY Vistaril (Hydroxyzine Pamoate) 50 Mg Capsule 50 Mg PO QID Simvastatin 20 Mg Tablet 1 Tab PO QHS Lansoprazole 30 Mg Capsule.dr 1 Cap PO DAILY Fluoxetine Hcl 20 Mg Capsule 1 Cap PO DAILY Gabapentin 600 Mg Tablet 3 Tab PO QHS Gabapentin 600 Mg Tablet 2 Tab PO DAILY06 Clopidogrel (Clopidogrel Bisulfate) 75 Mg Tablet 1 Tab PO DAILY Vitals/I & O Vital Sign - Last 24 Hours 04/14/17 04/14/17 04/14/17 04/14/17 14:00 15:00 15:41 16:00 Pulse 82 86 Resp 20 17 B/P (MAP) 93/61 (72) 121/76 (91) Pulse Ox 90 94 94 O2 Delivery BiPAP/CPAP BiPAP/CPAP BiPAP/CPAP Venturi Mask 04/14/17 04/14/17 04/14/17 04/14/17 16:00 17:00 17:30 18:00 Temp 98.8 98.8 Pulse 94 99 101 Resp 21 25 24 B/P (MAP) 112/76 (88) 104/77 (86) 109/65 (80) Pulse Ox 97 98 94 97 O2 Delivery Venturi Mask Venturi Mask Venturi Mask O2 Flow Rate 5.0 04/14/17 04/14/17 04/14/17 04/14/17 19:00 19:43 20:00 20:00 Pulse 96 Resp 24 B/P (MAP) 101/72 (82) Pulse Ox 95 96 O2 Delivery Venturi Mask Venturi Mask Venturi Mask O2 Flow Rate 15.0 15.0 04/14/17 04/14/17 04/14/17 04/14/17 20:00 21:00 22:00 23:00 Temp 98.4 98.4 Pulse 87 82 86 94 Resp 25 23 15 23 B/P (MAP) 99/67 (78) 102/64 (77) 102/58 (73) 91/62 (72) Pulse Ox 97 100 98 96 O2 Delivery Venturi Mask Venturi Mask Venturi Mask Venturi Mask 04/14/17 04/15/17 04/15/17 04/15/17 23:39 00:00 00:00 00:00 Temp 99.5 99.5 Pulse 93 Resp 34 20 B/P (MAP) 91/61 (71) Pulse Ox 98 95 O2 Delivery Venturi Mask Venturi Mask Venturi Mask O2 Flow Rate 15.0 04/15/17 04/15/17 04/15/17 04/15/17 01:00 02:00 03:00 04:00 Temp 97.8 97.8 Pulse 92 80 80 84 Resp 27 21 22 20 B/P (MAP) 90/58 (69) 86/57 (67) 86/59 (68) 92/61 (71) Pulse Ox 97 100 98 97 O2 Delivery Venturi Mask Venturi Mask Venturi Mask Venturi Mask 04/15/17 04/15/17 04/15/17 04/15/17 04:00 04:00 05:00 06:00 Pulse 84 82 Resp 21 29 B/P (MAP) 96/63 (74) 92/63 (73) Pulse Ox 100 96 O2 Delivery Venturi Mask Venturi Mask Venturi Mask O2 Flow Rate 15.0 04/15/17 04/15/17 04/15/17 04/15/17 06:05 07:00 07:05 08:00 Temp 97.8 97.8 Pulse 85 99 Resp 28 21 18 22 B/P (MAP) 91/60 (70) 92/61 (71) Pulse Ox 98 99 99 98 O2 Delivery Venturi Mask Venturi Mask Venturi Mask Nasal Cannula O2 Flow Rate 35.0 4.0 04/15/17 04/15/17 04/15/17 04/15/17 08:00 08:24 11:41 12:00 Temp 97.7 97.7 Pulse 94 Resp 22 B/P (MAP) 83/57 (66) Pulse Ox 99 96 O2 Delivery Nasal Cannula Nasal Cannula Nasal Cannula Nasal Cannula O2 Flow Rate 4.0 4.0 4.0 4.0 04/15/17 13:14 Resp 20 Pulse Ox 97 O2 Delivery Nasal Cannula O2 Flow Rate 2.0 ANNIKA REZA MD Apr 15, 2017 13:25
--- NOTE | 2017-04-15 13:39 | PDOC ---
CARDIO Progress Notes Date and Time Date of Service 04/15/2017 Time of Evaluation 1320 Subjective Subjective: No Chest Pain, No shortness of breath, No Palpitations Vitals Vitals Vital Signs Date Time Temp Pulse Resp B/P (MAP) Pulse Ox O2 Delivery O2 Flow Rate FiO2 04/15/17 13:14 20 97 Nasal Cannula 2.0 04/15/17 12:00 97.7 94 83/57 (66) 97.7 Weight Weight [ ] Laboratory Labs Laboratory Tests Test 04/15/17 05:34 White Blood Count 8.5 x10^3/uL (4.0-11.0) Red Blood Count 4.84 x10^6/uL (4.30-5.70) Hemoglobin 10.7 g/dL (13.0-17.5) Hematocrit 34.0 % (39.0-53.0) Mean Corpuscular Volume 70 fL (79-100) Mean Corpuscular Hemoglobin 22 pg (25-35) Mean Corpuscular Hemoglobin Concent 31 g/dL (31-37) Red Cell Distribution Width 25.8 % (11.5-14.5) Platelet Count 321 x10^3/uL (140-400) Neutrophils (%) (Auto) 59 % (31-73) Lymphocytes (%) (Auto) 34 % (24-48) Monocytes (%) (Auto) 2 % (0-9) Eosinophils (%) (Auto) 3 % (0-3) Basophils (%) (Auto) 1 % (0-3) Neutrophils # (Auto) 5.0 x10^3uL (1.8-7.7) Lymphocytes # (Auto) 2.9 x10^3/uL (1.0-4.8) Monocytes # (Auto) 0.2 x10^3/uL (0.0-1.1) Eosinophils # (Auto) 0.3 x10^3/uL (0.0-0.7) Basophils # (Auto) 0.1 x10^3/uL (0.0-0.2) Segmented Neutrophils % 53 % (35-66) Lymphocytes % 38 % (24-48) Atypical Lymphocytes % (Manual) 1 % (0-0) Monocytes % 1 % (0-10) Eosinophils % 5 % (0-5) Basophils % 1 % (0-3) Metamyelocytes % 1 % (0-0) Platelet Estimate Adequate (ADEQUATE) Hypochromasia Mod Poikilocytosis Present Anisocytosis Mod Microcytosis Mod Ovalocytes Present Sodium Level 134 mmol/L (136-145) Potassium Level 4.6 mmol/L (3.5-5.1) Chloride Level 97 mmol/L (98-107) Carbon Dioxide Level 29 mmol/L (21-32) Anion Gap 8 (6-14) Blood Urea Nitrogen 19 mg/dL (8-26) Creatinine 1.0 mg/dL (0.7-1.3) Estimated GFR (Cockcroft-Gault) 81.9 Glucose Level 94 mg/dL (70-99) Calcium Level 9.4 mg/dL (8.5-10.1) Microbiology Micro Microbiology 04/12/17 Blood Culture - Preliminary, Resulted NO GROWTH AFTER 2 DAYS Physical Exam HEENT: Neck Supple W Full Motion Chest: Symmetric LUNGS: Other (basilar crackles) Heart: S1S2, RRR (SR no rhythm ectopies) Abdomen: Soft N/T Extremities: No Calf Tenderness Neurology: alert, oriented, follow commands Assessment Assessment 1. Acute on chronic diastolic CHF: appears compensated 2. Acute respiratory failure with possible pneumonia: pulmonary following. 3. CAD: past CABG. 4. HTN: low end likely from significant diurese. 5. HLP Recommendations 1. Pt reiterating that he does not want any cardiac workup here and that his principal android developer is from [facility]. Follow up with his primary principal android developer upon DC. 2. Continue lasix to daily. 3. Continue with secondary prevention. DAPT 4. No records on file. Will reeval start of coreg tomorrow and will likely decrease dose if BP trend is OK. 5. Also pt will need ACEi or ARB and could be started as an outpt pending BP trend. JOSIE MCNEAL PASTING INSPECTOR Apr 15, 2017 13:39
[2017-04-15] MEDS: ENOXAPARIN 40 MG/0.4 ML SYRINGE. SQ SCH (17:13)
[2017-04-15] MEDS: VANCOMYCIN 1.5 GM in IV NORMAL SALINE 500ML BAG 500 ML IV SCH (20:15)
[2017-04-15] MEDS: diphenhydrAMINE HCL 25 MG CAPSULE PO SCH (21:03)
[2017-04-15] MEDS: SIMVASTATIN 20 MG TABLET PO SCH (21:03)
[2017-04-15] MEDS: traZODone 100 MG TABLET. PO SCH (21:04)
[2017-04-16] MEDS: PIPERACILLIN/TAZOBACTAM 3.375 GM in IV NORMAL SALINE 50ML 50 ML IV SCH ×2 (00:12→08:28)
[2017-04-16 03:09] VITALS: BP 100/58
[2017-04-16] MEDS: GABAPENTIN 300 MG CAPSULE. PO SCH (06:05)
[2017-04-16] MEDS: PANTOPRAZOLE 40 MG TABLET.DR. PO SCH ×2 (06:05→08:30)
[2017-04-16] MEDS: VANCOMYCIN 1.5 GM in IV NORMAL SALINE 500ML BAG 500 ML IV SCH (06:08)
[2017-04-16] MEDS: IPRATRPIUM/ALBUTEROL 0.5/2.5MG 3 ML NEBU. NEB SCH ×2 (07:04→11:12)
[2017-04-16 07:30] VITALS: BP 92/54
--- NOTE | 2017-04-16 07:42 | RAD ---
Portable chest, 04/16/2017: History: Cough, shortness of breath Comparison is made to a study from 04/14/2017. There has been a previous median sternotomy. The heart is mildly enlarged. The pulmonary vascularity is now within normal limits. Previously seen pulmonary infiltrates have cleared. No significant infiltrate is currently seen. There is no evidence of pleural fluid. No new abnormality is detected. IMPRESSION: Resolution of the previously seen pulmonary infiltrates.
[2017-04-16] MEDS: FLUoxetine HCL 20 MG CAPSULE PO SCH (08:30)
[2017-04-16] MEDS: oxyCODONE IR 5 MG TABLET PO PRN (08:30)
[2017-04-16] MEDS: hydrOXYzine PAMOATE 25 MG CAPSULE PO SCH ×2 (08:30→13:00)
[2017-04-16] MEDS: FENOFIBRATE 54 MG TABLET. PO SCH (08:30)
[2017-04-16] MEDS: SUCRALFATE 1 GM TABLET. PO SCH (08:30)
[2017-04-16] MEDS: CLOPIDOGREL BISULFATE 75 MG TABLET PO SCH (08:30)
[2017-04-16] MEDS: POTASSIUM CHLORIDE 20 MEQ TABLET.ER. PO SCH (08:31)
[2017-04-16] MEDS: ASPIRIN CHEWABLE 81 MG TABLET. PO SCH (08:31)
[2017-04-16] MEDS ORDERED: FUROSEMIDE 40 MG/4 ML VIAL. IVP SCH (09:00)
--- NOTE | 2017-04-16 09:42 | PDOC ---
CARDIO Progress Notes Date and Time Date of Service 04/16/17 Time of Evaluation 0920 Subjective Subjective: No Chest Pain, No shortness of breath, No Palpitations Vitals Vitals Vital Signs Date Time Temp Pulse Resp B/P (MAP) Pulse Ox O2 Delivery O2 Flow Rate FiO2 04/16/17 08:30 18 96 Nasal Cannula 2.0 04/16/17 07:30 97.9 90 92/54 (67) 97.9 Weight Weight [ ] Laboratory Labs Laboratory Tests Test 04/15/17 13:30 Vancomycin Level Trough 24.1 mcg/mL (10.0-20.0) Vancomycin Last Dose Date 04/15/17 Vancomycin Last Dose Time 0200 Microbiology Micro Microbiology 04/12/17 Blood Culture - Preliminary, Resulted NO GROWTH AFTER 3 DAYS Physical Exam HEENT: Neck Supple W Full Motion Chest: Symmetric LUNGS: Other (faint basilar crackles) Heart: S1S2, RRR (SR no rhythm ectopies) Abdomen: Soft N/T Extremities: No Calf Tenderness Neurology: alert, oriented, follow commands Assessment Assessment 1. Acute on chronic diastolic CHF: compensated 2. Acute respiratory failure with possible pneumonia: pulmonary following. 3. CAD: past CABG. CP free 4. HTN: remains low end, significant diurese in the last 48 hours. 5. HLP Recommendations 1. Change lasix to PO 2. Continue with secondary prevention. DAPT 3. Remains no records on file. May resume coreg but recommend at much lower dose once BP is more adequate. 4. Reeval for ACEi as an outpt. Follow up with his outpt accountant cost in 2 weeks at [facility]. Will follow as needed. JOSIE MCNEAL SOLDER SPRAYER Apr 16, 2017 09:42
[2017-04-16 10:30] VITALS: BP 100/61
[2017-04-16] MEDS ORDERED: AMOX1TAB61 PO (11:44)
--- NOTE | 2017-04-16 11:49 | PDOC3 ---
Discharge Summary Visit Information Date of Admission: Apr 11, 2017 Date of Discharge: Apr 16, 2017 Admitting Diagnosis Comment: 1. Respir failure: recent admit for PNA/COPD exac with D/C about a week ago, persistent/worsening sx. appears comfortable. nebs, suppl O2 (pt has home O2 at [facility]); appreciate Dr Betancourt's input: suspected CHF by CXR. stop steroids, IV lasix on hold due to low BP as is BB. obtain echo, cardiology input 2. Early sepsis: Tachycardia, hypotension, no fevers, leukocytosis sl improved. lactate still elevated; rpt pending. with above issues, cautious with IVF administration. may need ICU transfer 3. Tobaccoism: nicotine patch prn daily. encouraged cessation 4. CAD: hx [place]/CABG. no acute issues. cont home meds 5. HTN/HLD: continue home meds 6. hypokalemia/hypomagnesemia: replete as indicated 7. [place]: moderate microcytosis. obtain iron labs 8. GERD: PPI 9. Chronic back pain: hx back sx. cont home regimen 10. Anxiety 11. Prophylaxis: lovenox Final Diagnosis Problems Medical Problems: (1) Hypoxemia Status: Acute (2) Pneumonia Status: Acute Brief Hospital Course Allergies Allergies Coded Allergies Type Severity Reaction Last Updated Verified metoprolol Allergy Intermediate hypotension 04/14/17 Yes ketorolac Adverse Reaction Intermediate nausea and vomiting 09/07/14 Yes moxifloxacin Adverse Reaction Intermediate Nausea and Vomiting 09/07/14 Yes tramadol Adverse Reaction Intermediate nausea and vomiting 09/07/14 Yes Vital Signs Vital Signs Date Time Temp Pulse Resp B/P (MAP) Pulse Ox O2 Delivery O2 Flow Rate FiO2 04/16/17 11:12 93 Nasal Cannula 2.0 04/16/17 10:30 98.6 94 18 100/61 (74) 98.6 Lab Results Laboratory Tests Test 04/15/17 05:34 04/15/17 13:30 White Blood Count 8.5 x10^3/uL (4.0-11.0) Red Blood Count 4.84 x10^6/uL (4.30-5.70) Hemoglobin 10.7 g/dL (13.0-17.5) Hematocrit 34.0 % (39.0-53.0) Mean Corpuscular Volume 70 fL (79-100) Mean Corpuscular Hemoglobin 22 pg (25-35) Mean Corpuscular Hemoglobin Concent 31 g/dL (31-37) Red Cell Distribution Width 25.8 % (11.5-14.5) Platelet Count 321 x10^3/uL (140-400) Neutrophils (%) (Auto) 59 % (31-73) Lymphocytes (%) (Auto) 34 % (24-48) Monocytes (%) (Auto) 2 % (0-9) Eosinophils (%) (Auto) 3 % (0-3) Basophils (%) (Auto) 1 % (0-3) Neutrophils # (Auto) 5.0 x10^3uL (1.8-7.7) Lymphocytes # (Auto) 2.9 x10^3/uL (1.0-4.8) Monocytes # (Auto) 0.2 x10^3/uL (0.0-1.1) Eosinophils # (Auto) 0.3 x10^3/uL (0.0-0.7) Basophils # (Auto) 0.1 x10^3/uL (0.0-0.2) Segmented Neutrophils % 53 % (35-66) Lymphocytes % 38 % (24-48) Atypical Lymphocytes % (Manual) 1 % (0-0) Monocytes % 1 % (0-10) Eosinophils % 5 % (0-5) Basophils % 1 % (0-3) Metamyelocytes % 1 % (0-0) Platelet Estimate Adequate (ADEQUATE) Hypochromasia Mod Poikilocytosis Present Anisocytosis Mod Microcytosis Mod Ovalocytes Present Sodium Level 134 mmol/L (136-145) Potassium Level 4.6 mmol/L (3.5-5.1) Chloride Level 97 mmol/L (98-107) Carbon Dioxide Level 29 mmol/L (21-32) Anion Gap 8 (6-14) Blood Urea Nitrogen 19 mg/dL (8-26) Creatinine 1.0 mg/dL (0.7-1.3) Estimated GFR (Cockcroft-Gault) 81.9 Glucose Level 94 mg/dL (70-99) Calcium Level 9.4 mg/dL (8.5-10.1) Vancomycin Level Trough 24.1 mcg/mL (10.0-20.0) Vancomycin Last Dose Date 04/15/17 Vancomycin Last Dose Time 0200 Laboratory Tests Test 04/15/17 13:30 Vancomycin Level Trough 24.1 mcg/mL (10.0-20.0) Vancomycin Last Dose Date 04/15/17 Vancomycin Last Dose Time 020 Brief Hospital Course Mr. Marcum is a 42 old male with hx CHF follows with cards in [facility] admitted for presumed "pna", in respi failure needed NIPPV in ICU , CXR now clear, Was on IV zosyn, BC neg, ALso co managed with cards, BP on low side, needed tyo hold tameka inhibitor and BB - which he needs given CHF. Looking at home meds, was on midodrine - was not being given here - oversite I assue brian today on day of dc, no home o2 needs Feels well to go home, COnt Home POnlasix 40 POq D with K supplements Cards advises 2 week ff up with his cards in [facility] for resumption of tameka inhib if BP allows Seen and examined Rx done =- also on some narcs at home PO augmentin to home Discharge Information Condition at Discharge: Improved, Stable Disposition/Orders: D/C to Home Scheduled Carvedilol (Coreg), 1 TAB PO BID, (Reported) Clopidogrel Bisulfate (Clopidogrel), 1 TAB PO DAILY, (Reported) Diphenhydramine Hcl (Benadryl), 1 CAP PO QHS, (Reported) Fenofibrate Nanocrystallized (Fenofibrate), 48 MG PO DAILY, (Reported) Fluoxetine Hcl (Fluoxetine Hcl), 1 CAP PO DAILY, (Reported) Gabapentin (Gabapentin), 2 TAB PO DAILY06, (Reported) Gabapentin (Gabapentin), 3 TAB PO QHS, (Reported) Hydroxyzine Pamoate (Vistaril), 50 MG PO QID, (Reported) Ipratropium/Albuterol Sulfate (Combivent Respimat Inhal), 2 INH IH TID, ( Reported) Lansoprazole (Lansoprazole), 1 CAP PO DAILY, (Reported) Melatonin (Melatonin), 1 TAB PO QHS, (Reported) Omeprazole (Omeprazole), 1 CAP PO DAILY, (Reported) Potassium Chloride (Potassium Chloride), 20 MEQ PO DAILY, (Reported) Simvastatin (Simvastatin), 1 TAB PO QHS, (Reported) Trazodone Hcl (Trazodone Hcl), 1 TAB PO QHS, (Reported) Scheduled PRN Docusate Sodium (Colace), 100 MG PO for CONSTIPATION, (Reported) Furosemide (Furosemide), 1 TAB PO DAILY PRN for SHORTNESS OF BREATH, (Reported) Hydromorphone Hcl (Dilaudid), 10 MG PO for PAIN, (Reported) Nitroglycerin (Nitrostat), 0.4 MG SL PRN Q5MIN PRN for CHEST PAIN, (Reported) Potassium Chloride (Klor-Con 10), 1 TAB PO DAILY PRN for SEE COMMENTS, (Reported ) Promethazine Hcl (Promethazine Hcl), 25 MG PO Q6H PRN for NAUSEA/VOMITING, ( Reported) Tizanidine Hcl (Tizanidine Hcl), 4 MG PO QID PRN for MUSCLE SPASMS, (Reported) Miscellaneous Medications Aspirin (Aspirin), 81 MG PO, (Reported) PAUL REICH MD Apr 16, 2017 11:49
[2017-04-16] MEDS ORDERED: AMOXICILLIN/K CLAV 875/125MG TABLET. PO SCH (21:00)
[2017-04-17] MEDS ORDERED: FUROSEMIDE 40 MG TABLET. PO SCH (09:00)
== END 2017-04-16 14:25 | disposition home or self-care (01) | DRG 871 ==
LOC: ER 13:48 → 6 SOUTH 15:15 → 5 SOUTH 04-12 11:31 → 1 WEST ICU 04-13 17:20 → 5 NORTH 04-15 15:50
PROVIDERS: ADMIT Internal Medicine; ATTEND Internal Medicine
PROC: 5A09457 Assistance with Respiratory Ventilation, 24-96 Consecutive Hours, Continuous Positive Airway Pressure (ICD-10-PCS; principal; 2017-04-12)
DX: A41.9 Sepsis, unspecified organism (principal); J96.01 Acute respiratory failure with hypoxia; I50.43 Acute on chronic combined systolic (congestive) and diastolic (congestive) heart failure; J18.9 Pneumonia, unspecified organism; I11.0 Hypertensive heart disease with heart failure; Z99.81 Dependence on supplemental oxygen; F17.210 Nicotine dependence, cigarettes, uncomplicated; D50.9 Iron deficiency anemia, unspecified; J44.1 Chronic obstructive pulmonary disease with (acute) exacerbation; J44.0 Chronic obstructive pulmonary disease with (acute) lower respiratory infection; E83.42 Hypomagnesemia; I25.10 Atherosclerotic heart disease of native coronary artery without angina pectoris; E78.00 Pure hypercholesterolemia, unspecified; G89.29 Other chronic pain; E78.5 Hyperlipidemia, unspecified; K21.9 Gastro-esophageal reflux disease without esophagitis; F41.9 Anxiety disorder, unspecified; Y95 Nosocomial condition; E87.6 Hypokalemia; M19.90 Unspecified osteoarthritis, unspecified site; E66.9 Obesity, unspecified; I35.1 Nonrheumatic aortic (valve) insufficiency; I25.2 Old myocardial infarction; Z95.1 Presence of aortocoronary bypass graft; Z88.8 Allergy status to other drugs, medicaments and biological substances; Z88.1 Allergy status to other antibiotic agents; Z88.6 Allergy status to analgesic agent; Z82.49 Family history of ischemic heart disease and other diseases of the circulatory system
CPT/HCPCS: 36415; 36600; 71010; 71275; 80048; 80053; 80202; 80307; 82553; 82728; 82805; 83540; 83550; 83605; 83735; 83880; 84484; 85007; 85025; 87040; 87641; 93005; 93306; 94250; 94640; 94660; 94760; J1650; J1940; J2543; J3370; J7040; J7050; J7060; J7512; J7613; J7620; Q0163; Q0177; Q9967; 99285-25; G0479; J7030

== ENCOUNTER 2017-12-20 16:41 | Inpatient (IN) | payer MEDICARE, MEDICAID ==
[2017-12-20 17:40] LABS: ADD MAN DIFF? NO
[2017-12-20 17:45] LABS: BASO # 0.2 x10^3/uL (0.0-0.2); BASO % 2 % (0-3); EOS # 0.6 x10^3/uL (0.0-0.7); EOS % 4 % (0-3); HEMATOCRIT 27.4 % (39.0-53.0); HEMOGLOBIN 8.6 g/dL (13.0-17.5); LYMPH # 3.6 x10^3/uL (1.0-4.8); LYMPH % 23 % (24-48); MEAN CORPUSCULAR HEMOGLOBIN 21 pg (25-35); MEAN CORPUSCULAR HGB CONC 31 g/dL (31-37); MEAN CORPUSCULAR VOLUME 68 fL (79-100); MONO # 0.7 x10^3/uL (0.0-1.1); MONO % 5 % (0-9); NEUT # 10.4 x10^3uL (1.8-7.7); NEUT % 67 % (31-73); PLATELET COUNT 323 x10^3/uL (140-400); RED BLOOD COUNT 4.06 x10^6/uL (4.30-5.70); RED CELL DISTRIBUTION WIDTH 28.4 % (11.5-14.5); WHITE BLOOD COUNT 15.6 x10^3/uL (4.0-11.0)
[2017-12-20 17:54] LABS: ANION GAP 13 (6-14); BLOOD UREA NITROGEN 8 mg/dL (8-26); BUN/CREATININE RATIO 7 (6-20); CALCIUM 9.3 mg/dL (8.5-10.1); CARBON DIOXIDE 24 mmol/L (21-32); CHLORIDE 102 mmol/L (98-107); CREATININE 1.2 mg/dL (0.7-1.3); GFR 66.4; GLUCOSE 96 mg/dL (70-99); POTASSIUM 3.3 mmol/L (3.5-5.1); SODIUM 139 mmol/L (136-145)
[2017-12-20 18:00] LABS: ALBUMIN 3.9 g/dL (3.4-5.0); ALBUMIN/GLOBULIN RATIO 1.1 (1.0-1.7); ALK PHOS 93 U/L (46-116); ALT (SGPT) 16 U/L (16-63); AST (SGOT) 22 U/L (15-37); TOTAL BILIRUBIN 0.4 mg/dL (0.2-1.0); TOTAL PROTEIN 7.6 g/dL (6.4-8.2)
[2017-12-20 18:06] LABS: ANISOCYTOSIS MARKED; HYPOCHROMIA MOD; MICROCYTOSIS MARKED; PLT ESTIMATE ADEQUATE (ADEQUATE); POLYCHROMASIA SLIGHT
[2017-12-20 18:07] LABS: FECAL OB PT POSITIVE (NEG); NEG OBC FOB NEG; POS OBC FOB POS
[2017-12-20] MEDS: POTASSIUM CHLORIDE 20 MEQ TABLET.ER. PO (18:33)
[2017-12-20] MEDS: fentaNYL PF VIAL 100 MCG/2 ML VIAL IV (18:38)
[2017-12-20] MEDS ORDERED: ONDANSETRON PF 4 MG/2 ML VIAL. IV (18:45)
[2017-12-20] MEDS: IV NORMAL SALINE 1000ML BAG 1,000 ML IV (19:00)
[2017-12-20] MEDS: PANTOPRAZOLE IV PUSH 40 MG VIAL. IVP (19:00)
[2017-12-20] MEDS: oxyCODONE/APAP 10/325 1 TAB TABLET PO (21:24)
[2017-12-20] MEDS: NICOTINE 21MG PATCH. TD (21:25)
[2017-12-20] MEDS ORDERED: BACLOFEN 10 MG TABLET. PO (23:15)
[2017-12-20] MEDS ORDERED: FUROSEMIDE 20 MG TABLET PO (23:15)
[2017-12-20] MEDS ORDERED: METOCLOPRAMIDE 10 MG TABLET. PO (23:15)
[2017-12-20] MEDS ORDERED: NITROGLYCERIN SUBLINGUAL 0.4 MG BOTTLE OF 25. SL (23:15)
[2017-12-20] MEDS ORDERED: POTASSIUM CHLORIDE 10 MEQ TABLET.ER. PO (23:15)
[2017-12-20] MEDS ORDERED: ONDANSETRON ODT 4 MG TAB.RAPDIS. PO (23:15)
[2017-12-20] MEDS ORDERED: tiZANidine 4 MG TABLET. PO (23:15)
[2017-12-20] MEDS ORDERED: PROMETHAZINE 12.5 MG TABLET. PO (23:15)
[2017-12-20] MEDS: hydrOXYzine PAMOATE 25 MG CAPSULE PO (23:40)
[2017-12-20] MEDS: FAMOTIDINE 20 MG TABLET. PO (23:41)
[2017-12-20] MEDS: traZODone 50 MG TABLET. PO (23:41)
[2017-12-21] MEDS ORDERED: MIDAZOLAM HCL/PF 2 MG/2 ML VIAL. IV (07:15)
[2017-12-21] MEDS ORDERED: LIDOCAINE 1% PF 2 ML VIAL. ID (07:15)
[2017-12-21] MEDS ORDERED: fentaNYL PF VIAL 100 MCG/2 ML VIAL IV ×2 (07:15)
[2017-12-21] MEDS ORDERED: PROPOFOL 20 ML IV (07:22)
[2017-12-21] MEDS ORDERED: LIDOCAINE 2% PF Vial for OR 5 ML VIAL. (07:23)
[2017-12-21] MEDS ORDERED: NON FORMULARY ITEM (Lansoprazole 1 CAP) PO (09:00)
[2017-12-21] MEDS ORDERED: NON FORMULARY ITEM (Tiotropium Bromide (Spiriva) 2 INH) IH (09:00)
[2017-12-21] MEDS ORDERED: NON FORMULARY ITEM (Omeprazole 1 CAP) PO (09:00)
[2017-12-21] MEDS ORDERED: CLOPIDOGREL BISULFATE 75 MG TABLET PO (09:00)
[2017-12-21] MEDS ORDERED: NON FORMULARY ITEM (Budesonide/Formoterol Fumarate (Symbicort 160-4.5 Mcg Inhaler) 2 PUFF) IH (09:00)
[2017-12-21] MEDS: FENOFIBRATE 54 MG TABLET. PO (09:23)
[2017-12-21] MEDS: TORSEMIDE 20 MG TABLET. PO (09:24)
[2017-12-21] MEDS: hydrOXYzine PAMOATE 25 MG CAPSULE PO ×2 (09:24→13:50)
[2017-12-21] MEDS: AMOXICILLIN/K CLAV 875/125MG TABLET. PO (09:24)
[2017-12-21] MEDS: oxyCODONE/APAP 10/325 1 TAB TABLET PO ×2 (09:25→13:50)
[2017-12-21] MEDS: FLUoxetine HCL 20 MG CAPSULE PO (09:26)
[2017-12-21] MEDS: PANTOPRAZOLE IV PUSH 40 MG VIAL. IVP (09:26)
[2017-12-21] MEDS: ASPIRIN CHEWABLE 81 MG TABLET. PO (09:27)
[2017-12-21] MEDS: IV RINGERS,LACTATED 1000ML 1,000 ML IV (09:28)
[2017-12-21] MEDS: fentaNYL PF VIAL 100 MCG/2 ML VIAL IV ×2 (09:28→13:49)
[2017-12-21] MEDS: IV NORMAL SALINE 1000ML BAG 1,000 ML IV ×2 (09:32→11:22)
[2017-12-21] MEDS: BUDESONIDE 0.5 MG/2 ML NEBU. NEB (09:38)
[2017-12-21] MEDS: ALBUTEROL SULFATE 2.5 MG/3 ML NEBU. NEB ×2 (09:38→13:28)
[2017-12-21 10:05] LABS: ADD MAN DIFF? NO
[2017-12-21 10:09] LABS: BASO # 0.1 x10^3/uL (0.0-0.2); BASO % 1 % (0-3); EOS # 0.5 x10^3/uL (0.0-0.7); EOS % 4 % (0-3); HEMATOCRIT 25.5 % (39.0-53.0); LYMPH # 2.8 x10^3/uL (1.0-4.8); LYMPH % 24 % (24-48); MEAN CORPUSCULAR HEMOGLOBIN 21 pg (25-35); MEAN CORPUSCULAR HGB CONC 31 g/dL (31-37); MEAN CORPUSCULAR VOLUME 68 fL (79-100); MONO # 0.5 x10^3/uL (0.0-1.1); MONO % 5 % (0-9); NEUT # 7.9 x10^3uL (1.8-7.7); NEUT % 67 % (31-73); PLATELET COUNT 328 x10^3/uL (140-400); RED BLOOD COUNT 3.78 x10^6/uL (4.30-5.70); RED CELL DISTRIBUTION WIDTH 28.6 % (11.5-14.5); WHITE BLOOD COUNT 11.9 x10^3/uL (4.0-11.0)
[2017-12-21 10:30] LABS: ANION GAP 12 (6-14); BLOOD UREA NITROGEN 7 mg/dL (8-26); CARBON DIOXIDE 22 mmol/L (21-32); CHLORIDE 105 mmol/L (98-107); CREATININE 1.1 mg/dL (0.7-1.3); GFR 73.4; GLUCOSE 133 mg/dL (70-99); POTASSIUM 3.2 mmol/L (3.5-5.1); SODIUM 139 mmol/L (136-145)
[2017-12-21] MEDS: GABAPENTIN 300 MG CAPSULE. PO (11:26)
[2017-12-21] MEDS: NICOTINE 21MG PATCH. TD (11:33)
[2017-12-21] MEDS: buPROPion 75 MG TABLET. PO (13:49)
[2017-12-21] MEDS ORDERED: ZOLPIDEM 5 MG TABLET. PO (21:00)
== END 2017-12-21 19:00 | disposition home or self-care (01) | DRG 378 ==
LOC: ER 16:41 → 6 SOUTH 18:00
PROC: 0DB38ZX Excision of Lower Esophagus, Via Natural or Artificial Opening Endoscopic, Diagnostic (ICD-10-PCS; principal; 2017-12-21 07:30)
DX: K62.5 Hemorrhage of anus and rectum (principal); D62 Acute posthemorrhagic anemia; R04.0 Epistaxis; M54.5 Low back pain; I25.10 Atherosclerotic heart disease of native coronary artery without angina pectoris; K31.84 Gastroparesis; K21.0 Gastro-esophageal reflux disease with esophagitis; J44.9 Chronic obstructive pulmonary disease, unspecified; E78.5 Hyperlipidemia, unspecified; G62.9 Polyneuropathy, unspecified; I10 Essential (primary) hypertension; F41.9 Anxiety disorder, unspecified; F32.9 Major depressive disorder, single episode, unspecified; G89.29 Other chronic pain; W22.8XXA Striking against or struck by other objects, initial encounter; Z95.5 Presence of coronary angioplasty implant and graft; Z95.1 Presence of aortocoronary bypass graft; Z87.01 Personal history of pneumonia (recurrent); Z88.6 Allergy status to analgesic agent; Z88.1 Allergy status to other antibiotic agents; Z88.5 Allergy status to narcotic agent; Z88.8 Allergy status to other drugs, medicaments and biological substances; Z82.49 Family history of ischemic heart disease and other diseases of the circulatory system; Z79.02 Long term (current) use of antithrombotics/antiplatelets; Y93.89 Activity, other specified; Y92.89 Other specified places as the place of occurrence of the external cause; Y99.8 Other external cause status
CPT/HCPCS: 36415; 80048; 80053; 82274; 85025; 88305; 94640; 96374; 99285; 99285-25; C9113; J2704; J3010; J7030; J7613; J7626; Q0177

== ENCOUNTER 2017-12-28 11:45 | Emergency (ER) | payer MEDICARE, MEDICAID ==
[2017-12-28] MEDS: IPRATRPIUM/ALBUTEROL 0.5/2.5MG 3 ML NEBU. NEB (13:36)
[2017-12-28 13:39] LABS: ANION GAP 5 (6-14); BASO # 0.1 x10^3/uL (0.0-0.2); BASO % 1 % (0-3); BLOOD UREA NITROGEN 19 mg/dL (8-26); BUN/CREATININE RATIO 17 (6-20); CALCIUM 9.6 mg/dL (8.5-10.1); CARBON DIOXIDE 31 mmol/L (21-32); CHLORIDE 100 mmol/L (98-107); CREATININE 1.1 mg/dL (0.7-1.3); EOS # 0.3 x10^3/uL (0.0-0.7); EOS % 2 % (0-3); GFR 73.4; GLUCOSE 100 mg/dL (70-99); HEMATOCRIT 28.7 % (39.0-53.0); HEMOGLOBIN 8.8 g/dL (13.0-17.5); LYMPH # 4.1 x10^3/uL (1.0-4.8); LYMPH % 25 % (24-48); MEAN CORPUSCULAR HEMOGLOBIN 20 pg (25-35); MEAN CORPUSCULAR HGB CONC 31 g/dL (31-37); MEAN CORPUSCULAR VOLUME 66 fL (79-100); MONO # 0.9 x10^3/uL (0.0-1.1); MONO % 6 % (0-9); NEUT % 67 % (31-73); PLATELET COUNT 463 x10^3/uL (140-400); POTASSIUM 3.7 mmol/L (3.5-5.1); RED BLOOD COUNT 4.33 x10^6/uL (4.30-5.70); RED CELL DISTRIBUTION WIDTH 28.3 % (11.5-14.5); SODIUM 136 mmol/L (136-145); WHITE BLOOD COUNT 16.4 x10^3/uL (4.0-11.0)
[2017-12-28 13:43] LABS: ALBUMIN 3.6 g/dL (3.4-5.0); ALBUMIN/GLOBULIN RATIO 0.9 (1.0-1.7); ALK PHOS 82 U/L (46-116); ALT (SGPT) 21 U/L (16-63); TOTAL BILIRUBIN 0.3 mg/dL (0.2-1.0); TOTAL PROTEIN 7.4 g/dL (6.4-8.2)
[2017-12-28 13:46] LABS: ADD MAN DIFF? YES
[2017-12-28 13:47] LABS: TROPONINI < 0.017 ng/mL (0.000-0.055)
[2017-12-28 13:55] LABS: NT-PRO BNP 178 pg/mL (0-124)
[2017-12-28 13:55] LABS: CKMB MASS < 0.5 ng/mL (0.0-3.6); CREATINE KINASE 35 U/L (39-308)
[2017-12-28 13:59] LABS: AST (SGOT) 9 U/L (15-37)
[2017-12-28 14:40] LABS: % EOS 3 % (0-5); % LYMPHS 34 % (24-48); % MONOS 6 % (0-10); % MYELOS 1 % (0-0); % SEGS 56 % (35-66)
[2017-12-28 14:43] LABS: HYPOCHROMIA MARKED; PLT ESTIMATE INCREASED (ADEQUATE)
[2017-12-28 14:44] LABS: ANISOCYTOSIS MARKED; MICROCYTOSIS MARKED; POLYCHROMASIA SLIGHT
== END 2017-12-28 15:12 | disposition home or self-care (01) ==
LOC: ER 11:45
DX: R06.00 Dyspnea, unspecified (principal); G89.29 Other chronic pain; R06.02 Shortness of breath; R05 Cough; M54.9 Dorsalgia, unspecified; I50.9 Heart failure, unspecified; J44.9 Chronic obstructive pulmonary disease, unspecified; I25.10 Atherosclerotic heart disease of native coronary artery without angina pectoris; Z88.5 Allergy status to narcotic agent; Z87.891 Personal history of nicotine dependence; Z88.8 Allergy status to other drugs, medicaments and biological substances; Z88.1 Allergy status to other antibiotic agents
CPT/HCPCS: 36415; 71046; 80053; 82553; 83880; 84484; 85007; 85025; 93005; 94640; 99285-25; J7620

== ENCOUNTER 2018-01-03 04:48 | Emergency (ER) | payer MEDICARE, MEDICAID ==
[2018-01-03] MEDS: ALPRAZolam 0.5 MG TABLET PO (05:43)
[2018-01-03 05:57] LABS: BASO # 0.3 x10^3/uL (0.0-0.2); BASO % 1 % (0-3); EOS # 0.3 x10^3/uL (0.0-0.7); EOS % 1 % (0-3); HEMATOCRIT 29.6 % (39.0-53.0); HEMOGLOBIN 9.1 g/dL (13.0-17.5); LYMPH # 6.4 x10^3/uL (1.0-4.8); LYMPH % 25 % (24-48); MEAN CORPUSCULAR HEMOGLOBIN 20 pg (25-35); MEAN CORPUSCULAR HGB CONC 31 g/dL (31-37); MEAN CORPUSCULAR VOLUME 66 fL (79-100); MONO # 1.1 x10^3/uL (0.0-1.1); MONO % 4 % (0-9); NEUT # 17.9 x10^3uL (1.8-7.7); NEUT % 69 % (31-73); PLATELET COUNT 454 x10^3/uL (140-400); RED BLOOD COUNT 4.47 x10^6/uL (4.30-5.70); RED CELL DISTRIBUTION WIDTH 27.9 % (11.5-14.5); WHITE BLOOD COUNT 25.9 x10^3/uL (4.0-11.0)
[2018-01-03 06:12] LABS: ADD MAN DIFF? YES
[2018-01-03 06:14] LABS: TROPONINI < 0.017 ng/mL (0.000-0.055)
[2018-01-03 06:14] LABS: ALK PHOS 92 U/L (46-116); ALT (SGPT) 24 U/L (16-63); ANION GAP 13 (6-14); AST (SGOT) 16 U/L (15-37); BLOOD UREA NITROGEN 9 mg/dL (8-26); BUN/CREATININE RATIO 8 (6-20); CALCIUM 9.6 mg/dL (8.5-10.1); CARBON DIOXIDE 25 mmol/L (21-32); CHLORIDE 103 mmol/L (98-107); CREATININE 1.2 mg/dL (0.7-1.3); GFR 66.4; GLUCOSE 87 mg/dL (70-99); SODIUM 141 mmol/L (136-145); TOTAL BILIRUBIN 0.4 mg/dL (0.2-1.0); TOTAL PROTEIN 7.9 g/dL (6.4-8.2)
[2018-01-03 06:19] LABS: POTASSIUM 2.7 mmol/L (3.5-5.1)
[2018-01-03 07:35] LABS: % BASOS 1 % (0-3); % LYMPHS 31 % (24-48); % MONOS 2 % (0-10); % SEGS 66 % (35-66)
[2018-01-03 07:36] LABS: PLT ESTIMATE INCREASED (ADEQUATE)
[2018-01-03 07:41] LABS: ANISOCYTOSIS PRESENT; HYPOCHROMIA PRESENT; MICROCYTOSIS PRESENT; POIKILOCYTOSIS PRESENT; POLYCHROMASIA PRESENT
[2018-01-03 07:42] LABS: SPHEROCYTES PRESENT
[2018-01-03 07:43] LABS: SCHISTOCYTES FEW
[2018-01-03] MEDS: POTASSIUM CHLORIDE 20 MEQ TABLET.ER. PO (08:38)
== END 2018-01-03 09:00 | disposition left against medical advice (07) ==
LOC: ER 04:48
DX: R07.89 Other chest pain (principal); F41.9 Anxiety disorder, unspecified; G89.29 Other chronic pain; J44.9 Chronic obstructive pulmonary disease, unspecified; Z86.79 Personal history of other diseases of the circulatory system; Z95.5 Presence of coronary angioplasty implant and graft; I25.10 Atherosclerotic heart disease of native coronary artery without angina pectoris; Z88.1 Allergy status to other antibiotic agents; Z88.6 Allergy status to analgesic agent; Z88.5 Allergy status to narcotic agent; Z88.8 Allergy status to other drugs, medicaments and biological substances
CPT/HCPCS: 36415; 71045; 80053; 84484; 85007; 85025; 93005; 99285-25

== ENCOUNTER 2018-02-18 11:01 | Emergency (ER) | payer MEDICARE, MEDICAID ==
[~2018-02-18] VITALS: Ht 175.3 cm; Wt 81.6 kg
[~2018-02-18 11:01] MED LIST changes: +ALPR0.254 PO; +BACL10TA PO; +BUDE10.2 IH; +BUPR100T7 PO; +CYAN10005 PO; +DIPH25CA58 PO; +DOXY100T PO; +FAMO40TA4 PO; +FERR325T72 PO; +FURO20TA3 PO; +MELA3TAB2 PO; -METF500T4 PO; +METF500T5 PO; +METO10TA81 PO; +ONDA8TAB12 PO; +POTA10TA12 PO; -POTA10TA5 PO; +PRED20TA PO; +TAPE100T9 PO; +TIOT18CA IH; +TORS20TA2 PO
[2018-02-18] MEDS ORDERED: IV NORMAL SALINE 1000ML BAG 1,000 ML IV ONE (11:30)
[2018-02-18 11:37] LABS: BASO # 0.2 x10^3/uL (0.0-0.2); BASO % 1 % (0-3); EOS # 0.3 x10^3/uL (0.0-0.7); EOS % 2 % (0-3); HEMATOCRIT 27.4 % (39.0-53.0); HEMOGLOBIN 8.2 g/dL (13.0-17.5); LYMPH # 2.9 x10^3/uL (1.0-4.8); LYMPH % 18 % (24-48); MEAN CORPUSCULAR HEMOGLOBIN 19 pg (25-35); MEAN CORPUSCULAR HGB CONC 30 g/dL (31-37); MEAN CORPUSCULAR VOLUME 63 fL (79-100); MONO # 0.7 x10^3/uL (0.0-1.1); MONO % 4 % (0-9); NEUT # 11.8 x10^3uL (1.8-7.7); NEUT % 74 % (31-73); PLATELET COUNT 341 x10^3/uL (140-400); RED BLOOD COUNT 4.32 x10^6/uL (4.30-5.70); RED CELL DISTRIBUTION WIDTH 21.8 % (11.5-14.5); WHITE BLOOD COUNT 15.8 x10^3/uL (4.0-11.0)
[2018-02-18 11:42] LABS: CALCIUM 9.1 mg/dL (8.5-10.1); CREATININE 1.1 mg/dL (0.7-1.3); GFR 73.1; POTASSIUM 3.3 mmol/L (3.5-5.1)
[2018-02-18 11:48] LABS: ALBUMIN/GLOBULIN RATIO 1.2 (1.0-1.7); MAGNESIUM 2.3 mg/dL (1.8-2.4); TOTAL BILIRUBIN 0.3 mg/dL (0.2-1.0); TOTAL PROTEIN 7.3 g/dL (6.4-8.2)
--- NOTE | 2018-02-18 12:07 | RAD ---
PORTABLE CHEST 1V Clinical Indication: has not felt well for 3 days Comparison: AP chest January 03, 2018. Findings: Median sternotomy wires and changes of CABG. The cardiomediastinal silhouette is normal. No focal airspace disease. Unchanged diffuse interstitial prominence. There is no pneumothorax. No pleural effusion is appreciated. No acute bone abnormality. IMPRESSION: No acute cardiopulmonary process. Electronically signed by: Alan Ruiz MD (02/18/2018 12:03 PM) [id number]
--- NOTE | 2018-02-18 12:14 | EKG ---
[facility] [address] [place] [address] Test Date: 2018-02-18 Test Time: 11:27:22 Pat Name: EMELIA AGUIAR Department: Room: Gender: M Manager Product: : 1975 Requested By: FANTA LYNCH Order Number: [id number] Reading MD: Theodore Lamas MD Measurements Intervals [place] Rate: 79 P: 48 PA: 150 QRS: 41 QRSD: 98 T: 33 QT: 432 QTc: 496 Interpretive Statements SINUS RHYTHM NON-SPECIFIC ST/T CHANGES PROLONGED QT Electronically Signed On 02-18-2018 15:11:47 CDT by Theodore Lamas MD
[2018-02-18 12:42] LABS: BILIRUBIN,URINE NEGATIVE (NEG); CLARITY,URINE TURBID; COLOR,URINE YELLOW; NITRITE,URINE NEGATIVE (NEG); PROTEIN,URINE NEGATIVE (NEG-TRACE)
[2018-02-18 12:44] LABS: AMPHETAMINE/METHAMPHETAMINE NEG (NEG); BARBITURATES NEG (NEG); BENZODIAZEPINES NEG (NEG); CANNABINOIDS NEG (NEG); COCAINE NEG (NEG); METHADONE NEG (NEG); OPIATES POS (NEG); PHENCYCLIDINE NEG (NEG)
[2018-02-18 13:12] LABS: AMORPHOUS SEDIMENT,UR PRESENT /HPF; BACTERIA,URINE 0 /HPF (0-FEW); RBC,URINE 0 /HPF (0-2); WBC,URINE 0 /HPF (0-4)
[2018-02-18] MEDS ORDERED: POTASSIUM CHLORIDE 20 MEQ TABLET.ER. PO ONE (13:45)
--- NOTE | 2018-02-18 13:53 | PHYS DOC ---
Past Medical History Past Medical History: Anemia, CAD, CHF, COPD, Pneumonia Additional Past Medical Histor: chronic back pain Past Surgical History: Angioplasty, Other Additional Past Surgical Histo: open heart ,3X bypass, LARGE BACK SURGERY Additional Information: 07/07 ppd Alcohol Use: None Drug Use: None Adult General Chief Complaint Chief Complaint: WEAKNESS/GENERALIZED HPI HPI Patient is a 43 year old male with history of anemia, CAD, CABG, COPD, current smoker, who presents today complaining of generalized weakness for 3 days. Patient denies any fever coughing or congestion. Denies any abdominal pain nausea vomiting. Denies any chest pain or shortness of breath. Patient states his hemoglobin typically runs low and sometimes he has to have transfusions. He states he is in the process of trying to see a client support consultant. Review of Systems Review of Systems Constitutional: Reports generalized weakness. Denies fever or chills [] Eyes: Denies change in visual acuity, redness, or eye pain [] HENT: Denies nasal congestion or sore throat [] Respiratory: Denies cough or shortness of breath [] Cardiovascular: No additional information not addressed in HPI [] GI: Denies abdominal pain, nausea, vomiting, bloody stools or diarrhea [] : Denies dysuria or hematuria [] Musculoskeletal: Denies back pain or joint pain [] Integument: Denies rash or skin lesions [] Neurologic: Denies headache, focal weakness or sensory changes [] All other systems were reviewed and found to be within normal limits, except as documented in this note. Current Medications Current Medications Current Medications Medications (Trade) Dose Ordered Sig/Josi Start Time Stop Time Status Last Admin Dose Admin Potassium Chloride (Klor-Con) 40 meq 1X ONCE 02/18/18 13:45 02/18/18 13:46 DC Sodium Chloride 1,000 ml @ 1,000 mls/hr 1X ONCE 02/18/18 11:30 02/18/18 12:29 DC 02/18/18 11:44 1,000 MLS/HR Allergies Allergies Allergies Coded Allergies Type Severity Reaction Last Updated Verified morphine Allergy Intermediate rash 12/21/17 Yes ketorolac Adverse Reaction Intermediate nausea and vomiting 12/21/17 Yes moxifloxacin Adverse Reaction Intermediate Nausea and Vomiting 12/21/17 Yes tramadol Adverse Reaction Intermediate nausea and vomiting 12/21/17 Yes Physical Exam Physical Exam Constitutional: Well developed, well nourished, no acute distress, non-toxic appearance. [] HENT: Normocephalic, atraumatic, bilateral external ears normal, oropharynx moist, no oral exudates, nose normal. [] Eyes: PERRLA, EOMI, conjunctiva normal, no discharge. [] Neck: Normal range of motion, no tenderness, supple, no stridor. [] Cardiovascular: Old healed surgical incision midline chest. Heart rate regular rhythm, no murmur [] Lungs & Thorax: Bilateral breath sounds clear to auscultation [] Abdomen: Bowel sounds normal, soft, no tenderness, no masses, no pulsatile masses. [] Skin: Warm, dry, no erythema, no rash. [] Back: No tenderness, no CVA tenderness. [] Extremities: No tenderness, no cyanosis, no clubbing, ROM intact, no edema. [] Neurologic: Alert and oriented X 3, normal motor function, normal sensory function, no focal deficits noted. Cranial nerves II through XII intact. Psychologic: Affect normal, judgement normal, mood normal. [] Current Patient Data Vital Signs Vital Signs Date Time Temp Pulse Resp B/P (MAP) Pulse Ox O2 Delivery O2 Flow Rate FiO2 02/18/18 12:42 83 18 98 02/18/18 11:15 98.4 157/70 (99) Room Air 98.4 Lab Values Laboratory Tests Test 02/18/18 11:20 02/18/18 12:30 White Blood Count 15.8 x10^3/uL (4.0-11.0) H Red Blood Count 4.32 x10^6/uL (4.30-5.70) Hemoglobin 8.2 g/dL (13.0-17.5) L Hematocrit 27.4 % (39.0-53.0) L Mean Corpuscular Volume 63 fL (79-100) L Mean Corpuscular Hemoglobin 19 pg (25-35) L Mean Corpuscular Hemoglobin Concent 30 g/dL (31-37) L Red Cell Distribution Width 21.8 % (11.5-14.5) H Platelet Count 341 x10^3/uL (140-400) Neutrophils (%) (Auto) 74 % (31-73) H Lymphocytes (%) (Auto) 18 % (24-48) L Monocytes (%) (Auto) 4 % (0-9) Eosinophils (%) (Auto) 2 % (0-3) Basophils (%) (Auto) 1 % (0-3) Neutrophils # (Auto) 11.8 x10^3uL (1.8-7.7) H Lymphocytes # (Auto) 2.9 x10^3/uL (1.0-4.8) Monocytes # (Auto) 0.7 x10^3/uL (0.0-1.1) Eosinophils # (Auto) 0.3 x10^3/uL (0.0-0.7) Basophils # (Auto) 0.2 x10^3/uL (0.0-0.2) Platelet Estimate Adequate (ADEQUATE) Hypochromasia Mod Poikilocytosis Slight Anisocytosis Mod Microcytosis Marked Ovalocytes Occ Sodium Level 138 mmol/L (136-145) Potassium Level 3.3 mmol/L (3.5-5.1) L Chloride Level 102 mmol/L (98-107) Carbon Dioxide Level 25 mmol/L (21-32) Anion Gap 11 (6-14) Blood Urea Nitrogen 10 mg/dL (8-26) Creatinine 1.1 mg/dL (0.7-1.3) Estimated GFR (Cockcroft-Gault) 73.1 BUN/Creatinine Ratio 9 (6-20) Glucose Level 136 mg/dL (70-99) H Calcium Level 9.1 mg/dL (8.5-10.1) Magnesium Level 2.3 mg/dL (1.8-2.4) Total Bilirubin 0.3 mg/dL (0.2-1.0) Aspartate Amino Transferase (AST) 12 U/L (15-37) L Alanine Aminotransferase (ALT) 22 U/L (16-63) Alkaline Phosphatase 107 U/L (46-116) Creatine Kinase 83 U/L (39-308) Creatine Kinase MB (Mass) 1.2 ng/mL (0.0-3.6) Creatine Kinase MB Relative Index 1.4 % (0-4) Troponin I Quantitative < 0.017 ng/mL (0.000-0.055) DG-Udu-U-Type Natriuretic Peptide 196 pg/mL (0-124) H Total Protein 7.3 g/dL (6.4-8.2) Albumin 4.0 g/dL (3.4-5.0) Albumin/Globulin Ratio 1.2 (1.0-1.7) Thyroid Stimulating Hormone (TSH) 2.476 uIU/mL (0.358-3.74) Ethyl Alcohol Level < 10 mg/dL (0-10) Urine Collection Type Unknown Urine Color Yellow Urine Clarity Turbid Urine pH 7.0 Urine Specific [place] 1.020 Urine Protein Negative mg/dL (NEG-TRACE) Urine Glucose (UA) Negative mg/dL (NEG) Urine Ketones (Stick) Negative mg/dL (NEG) Urine Blood Negative (NEG) Urine Nitrite Negative (NEG) Urine Bilirubin Negative (NEG) Urine Urobilinogen Dipstick 1.0 mg/dL (0.2 mg/dL) Urine Leukocyte Esterase Negative (NEG) Urine RBC 0 /HPF (0-2) Urine WBC 0 /HPF (0-4) Urine Amorphous Sediment Present /HPF Urine Bacteria 0 /HPF (0-FEW) Urine Opiates Screen Pos (NEG) Urine Methadone Screen Neg (NEG) Urine Barbiturates Neg (NEG) Urine Phencyclidine Screen Neg (NEG) Urine Amphetamine/Methamphetamine Neg (NEG) Urine Benzodiazepines Screen Neg (NEG) Urine Cocaine Screen Neg (NEG) Urine Cannabinoids Screen Neg (NEG) Urine Ethyl Alcohol Neg (NEG) Laboratory Tests 02/18/18 11:20 Laboratory Tests 02/18/18 11:20 EKG EKG Interpreted by DR. Nixon sinus rhythm, inverted T waves on V 2 and V3 similar to EKG on 01/2018.[] Radiology/Procedures Radiology/Procedures []PROCEDURE: PORTABLE CHEST 1V PORTABLE CHEST 1V Clinical Indication: has not felt well for 3 days Comparison: AP chest January 03, 2018. Findings: Median sternotomy wires and changes of CABG. The cardiomediastinal silhouette is normal. No focal airspace disease. Unchanged diffuse interstitial prominence. There is no pneumothorax. No pleural effusion is appreciated. No acute bone abnormality. IMPRESSION: No acute cardiopulmonary process. Electronically signed by: Alan Kaur MD (02/18/2018 12:03 PM) [id number] DICTATED and SIGNED BY: ALAN KAUR MD DATE: 02/18/18 1201 Course & Med Decision Making Course & Med Decision Making Pertinent Labs and Imaging studies reviewed. (See chart for details) This is a 43-year-old male patient presenting to the ED today complaining of generalized weakness for 3 days. Patient's workup in the emergency room is negative for any acute findings. He was initially worried for his hemoglobin stating it runs low and he gets transfusions. Hemoglobin is 8.2 with hematocrit 27.4. WBC 15.8, patient has no abdominal pain, no nausea no vomiting. Chest x- ray is negative for any acute findings. Dragon Disclaimer Dragon Disclaimer This electronic medical record was generated, in whole or in part, using a voice recognition dictation system. Departure Departure Impression: Primary Impression: Generalized weakness Additional Impression: Anemia Disposition: 01 HOME, SELF-CARE Condition: STABLE Referrals: UNKNOWN PCP NAME (PCP) Follow-up with your doctor in the next 1-2 weeks Patient Instructions: Anemia, Nonspecific-Brief, Weakness Additional Instructions: You were evaluated in the emergency room for generalized weakness. Your work up in the emergency room is negative for any acute findings. Please follow-up with your own doctor as soon as you can. Consider taking [id number] iron tablets. Problem Qualifiers Additional Impression: Anemia Anemia type: unspecified type Qualified Codes: D64.9 - Anemia, unspecified FANTA LYNCH MESSAGE AND DELIVERY SERVICE PRICER Feb 18, 2018 13:53
[2018-02-18 13:58] VITALS: BP 111/59
[2018-02-18 13:59] LABS: ANISOCYTOSIS MOD; HYPOCHROMIA MOD; MICROCYTOSIS MARKED; PLT ESTIMATE ADEQUATE (ADEQUATE); POIKILOCYTOSIS SLIGHT
[2018-02-18 14:00] LABS: OVALOCYTES OCC
== END 2018-02-18 14:04 | disposition home or self-care (01) ==
LOC: ER 11:01
DX: D64.9 Anemia, unspecified (principal); R53.1 Weakness; J44.9 Chronic obstructive pulmonary disease, unspecified; Z86.79 Personal history of other diseases of the circulatory system; I25.10 Atherosclerotic heart disease of native coronary artery without angina pectoris; G89.29 Other chronic pain; Z95.5 Presence of coronary angioplasty implant and graft; F17.200 Nicotine dependence, unspecified, uncomplicated; Z88.1 Allergy status to other antibiotic agents; Z88.5 Allergy status to narcotic agent; Z88.6 Allergy status to analgesic agent; Z88.8 Allergy status to other drugs, medicaments and biological substances
CPT/HCPCS: 36415; 71045; 80053; 80307; 81001; 82553; 83735; 83880; 84443; 84484; 85025; 93005; 99285; G0480; J7030; G0479

== ENCOUNTER 2018-05-08 05:00 | Emergency (ER) | payer MEDICARE, MEDICAID ==
[~2018-05-08] VITALS: Ht 177.8 cm; Wt 94.8 kg
[2018-05-08 05:00] VITALS: BP 119/59
[~2018-05-08 05:00] MED LIST changes: +ATOR80TA72 PO; +BUPR75TA6 PO; +BUSP7.5T PO; +HYDR4TAB PO; +HYDR8TAB PO; +LINE600T PO; +METF500T16 PO; -METF500T5 PO; +METO-239 PO; +PANT20TA2 PO
--- NOTE | 2018-05-08 05:27 | PHYS DOC ---
Past Medical History Past Medical History: Anemia, CAD, CHF, COPD, Pneumonia Additional Past Medical Histor: chronic back pain Past Surgical History: Angioplasty, Other Additional Past Surgical Histo: open heart ,3X bypass, LARGE BACK SURGERY Smoking: Less than 1pk/day Alcohol Use: None Drug Use: None Adult General Chief Complaint Chief Complaint: NAUSEA/VOMITING/DIARRHA HPI HPI Patient is a 43 year old male presenting to the ED due to coughing, vomiting, runny nose. He states that it started overnight without unknown inciting factor. He states that he had a normal night, but does admit to having had pneumonia about one week ago. States that he was admitted to 2 different hospitals for his pneumonia in the past few weeks. He also complains of chest tightness does not radiate anywhere and becomes worse with cough. Denies shortness of breath. Review of Systems Review of Systems Constitutional: Denies fever or chills [] Eyes: Denies change in visual acuity, redness, or eye pain [] HENT: Denies nasal congestion or sore throat [] Respiratory: Reports cough, denies shortness of breath. Cardiovascular: Reports chest tightness. GI: Denies abdominal pain; reports nausea and vomiting; bloody stools. : Denies dysuria or hematuria [] Musculoskeletal: Denies back pain, reports right ankle pain. Integument: Denies rash or skin lesions [] Neurologic: Denies headache, focal weakness or sensory changes [] Complete systems were reviewed and found to be within normal limits, except as documented in this note. Current Medications Current Medications Current Medications Medications (Trade) Dose Ordered Sig/Josi Start Time Stop Time Status Last Admin Dose Admin Albuterol Sulfate (Ventolin Neb Soln) 2.5 mg 1X ONCE 05/08/18 05:30 05/08/18 05:31 DC 05/08/18 05:40 2.5 MG Dexamethasone Sodium Phosphate (Decadron) 10 mg 1X ONCE 05/08/18 05:30 05/08/18 05:31 DC 05/08/18 06:08 10 MG Famotidine (Pepcid Vial) 20 mg 1X ONCE 05/08/18 05:30 05/08/18 05:31 DC 05/08/18 06:07 20 MG Fentanyl Citrate (Fentanyl 2ml Vial) 50 mcg 1X ONCE 05/08/18 06:00 05/08/18 06:01 DC 05/08/18 06:08 50 MCG Ondansetron HCl (Zofran) 4 mg 1X ONCE 05/08/18 05:30 05/08/18 05:31 DC 05/08/18 06:07 4 MG Allergies Allergies Allergies Coded Allergies Type Severity Reaction Last Updated Verified morphine Allergy Intermediate rash 12/21/17 Yes vancomycin Allergy Intermediate Rash 04/06/18 Yes I S O L A T I O N *CONTACT* Allergy Unknown 04/09/18 Yes ketorolac Adverse Reaction Intermediate nausea and vomiting 12/21/17 Yes moxifloxacin Adverse Reaction Intermediate Nausea and Vomiting 12/21/17 Yes tramadol Adverse Reaction Intermediate nausea and vomiting 12/21/17 Yes Physical Exam Physical Exam Constitutional: Well developed, disheveled appears older than stated age. HENT: Normocephalic, atraumatic, bilateral external ears normal, oropharynx moist, Eyes: PERRL, EOMI, conjunctiva normal, no discharge. [] Neck: Normal range of motion, no tenderness, supple, no stridor. [] Cardiovascular:Heart rate regular rhythm, no murmur [] Lungs & Thorax: Coarse bilateral breath sounds, rhonchi and wheezing present in all lobes. Abdomen: Bowel sounds normal, soft, no tenderness, no masses. Skin: Warm, dry, no erythema, no rash. [] Back: No tenderness, no CVA tenderness. [] Extremities: No tenderness, no cyanosis, no clubbing, ROM intact, no edema. [] Neurologic: Alert and oriented X 3, normal motor function, normal sensory function, no focal deficits noted. [] Psychologic: Affect normal, judgement normal, mood normal. [] Current Patient Data Vital Signs Vital Signs Date Time Temp Pulse Resp B/P (MAP) Pulse Ox O2 Delivery O2 Flow Rate FiO2 05/08/18 06:08 18 98 Room Air 05/08/18 05:00 98.0 119/59 (79) 98.0 Lab Values Laboratory Tests Test 05/08/18 05:45 White Blood Count 12.5 x10^3/uL (4.0-11.0) H Red Blood Count 4.95 x10^6/uL (4.30-5.70) Hemoglobin 11.6 g/dL (13.0-17.5) L Hematocrit 37.0 % (39.0-53.0) L Mean Corpuscular Volume 75 fL (79-100) L Mean Corpuscular Hemoglobin 23 pg (25-35) L Mean Corpuscular Hemoglobin Concent 31 g/dL (31-37) Red Cell Distribution Width 22.4 % (11.5-14.5) H Platelet Count 313 x10^3/uL (140-400) Neutrophils (%) (Auto) 63 % (31-73) Lymphocytes (%) (Auto) 28 % (24-48) Monocytes (%) (Auto) 6 % (0-9) Eosinophils (%) (Auto) 2 % (0-3) Basophils (%) (Auto) 1 % (0-3) Neutrophils # (Auto) 7.8 x10^3uL (1.8-7.7) H Lymphocytes # (Auto) 3.5 x10^3/uL (1.0-4.8) Monocytes # (Auto) 0.8 x10^3/uL (0.0-1.1) Eosinophils # (Auto) 0.2 x10^3/uL (0.0-0.7) Basophils # (Auto) 0.1 x10^3/uL (0.0-0.2) Platelet Estimate Pending Sodium Level 142 mmol/L (136-145) Potassium Level 3.6 mmol/L (3.5-5.1) Chloride Level 103 mmol/L (98-107) Carbon Dioxide Level 28 mmol/L (21-32) Anion Gap 11 (6-14) Blood Urea Nitrogen 13 mg/dL (8-26) Creatinine 1.0 mg/dL (0.7-1.3) Estimated GFR (Cockcroft-Gault) 81.6 BUN/Creatinine Ratio 13 (6-20) Glucose Level 92 mg/dL (70-99) Lactic Acid Level 0.8 mmol/L (0.4-2.0) Calcium Level 9.5 mg/dL (8.5-10.1) Magnesium Level 2.0 mg/dL (1.8-2.4) Total Bilirubin 0.2 mg/dL (0.2-1.0) Aspartate Amino Transferase (AST) 22 U/L (15-37) Alanine Aminotransferase (ALT) 32 U/L (16-63) Alkaline Phosphatase 129 U/L (46-116) H Creatine Kinase 160 U/L (39-308) Creatine Kinase MB (Mass) 1.4 ng/mL (0.0-3.6) Creatine Kinase MB Relative Index 0.9 % (0-4) Troponin I Quantitative < 0.017 ng/mL (0.000-0.055) Total Protein 7.4 g/dL (6.4-8.2) Albumin 3.5 g/dL (3.4-5.0) Albumin/Globulin Ratio 0.9 (1.0-1.7) L Lipase 141 U/L (73-393) Laboratory Tests 05/08/18 05:45 Laboratory Tests 05/08/18 05:45 EKG EKG @0531 NSR at 63bpm, NO ST elevation, nonspecific t wave inversion V1-V2 Radiology/Procedures Radiology/Procedures CXR 2 view (preliminary interpretation): no acute process Course & Med Decision Making Course & Med Decision Making 43-year-old male presents with wheezing and shortness of breath with report of post-tussive vomiting. Respiratory nebs and IV steroid provided. CXR without acute process. Labs obtained and posted to chart. EKG stable. Tronopin WNL. Patient stable for discharge with outpatient follow-up with PCP. Discussed findings and plan with patient and family, who acknowledge understanding and agreement. Dania Disclaimer Dania Disclaimer This electronic medical record was generated, in whole or in part, using a voice recognition dictation system. Departure Departure Impression: Primary Impression: Acute bronchitis Disposition: 01 HOME, SELF-CARE Condition: IMPROVED Referrals: UNKNOWN PCP NAME (PCP) Patient Instructions: Acute Bronchitis, [id number] Scripts Prednisone (PREDNISONE) 20 Mg Tablet 2 TAB PO DAILY, #8 TAB Start this on Thursday05/08/18 Prov: SANCHO PRESTON DO 05/08/18 Albuterol Sulfate (PROAIR HFA INHALER) 8.5 Gm Hfa.aer.ad 1 PUFF INH PRN Q6HRS PRN for SHORTNESS OF BREATH, #1 INHALER 0 Refills Prov: SANCHO PRESTON DO 05/08/18 Problem Qualifiers Primary Impression: Acute bronchitis Bronchitis organism: unspecified organism Qualified Codes: J20.9 - Acute bronchitis, unspecified SANCHO PRESTON DO May 08, 2018 05:27
[2018-05-08] MEDS ORDERED: DEXAMETHASONE SOD PHOS 20 MG/5 ML VIAL. IV ONE (05:30)
[2018-05-08] MEDS ORDERED: ALBUTEROL SULFATE 2.5 MG/3 ML NEBU. NEB ONE (05:30)
[2018-05-08] MEDS ORDERED: ONDANSETRON PF 4 MG/2 ML VIAL. IV ONE (05:30)
[2018-05-08] MEDS ORDERED: FAMOTIDINE 20 MG/2 ML VIAL IVP ONE (05:30)
[2018-05-08] MEDS ORDERED: fentaNYL PF VIAL 100 MCG/2 ML VIAL IV ONE (06:00)
--- NOTE | 2018-05-08 06:04 | EKG ---
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
[2018-05-08 06:07] LABS: BASO # 0.1 x10^3/uL (0.0-0.2); BASO % 1 % (0-3); EOS # 0.2 x10^3/uL (0.0-0.7); EOS % 2 % (0-3); HEMOGLOBIN 11.6 g/dL (13.0-17.5); LYMPH # 3.5 x10^3/uL (1.0-4.8); LYMPH % 28 % (24-48); MEAN CORPUSCULAR HEMOGLOBIN 23 pg (25-35); MEAN CORPUSCULAR HGB CONC 31 g/dL (31-37); MEAN CORPUSCULAR VOLUME 75 fL (79-100); MONO # 0.8 x10^3/uL (0.0-1.1); MONO % 6 % (0-9); NEUT # 7.8 x10^3uL (1.8-7.7); NEUT % 63 % (31-73); PLATELET COUNT 313 x10^3/uL (140-400); RED BLOOD COUNT 4.95 x10^6/uL (4.30-5.70); RED CELL DISTRIBUTION WIDTH 22.4 % (11.5-14.5); WHITE BLOOD COUNT 12.5 x10^3/uL (4.0-11.0)
[2018-05-08 06:16] LABS: CALCIUM 9.5 mg/dL (8.5-10.1); GFR 81.6; POTASSIUM 3.6 mmol/L (3.5-5.1)
[2018-05-08 06:25] LABS: ALBUMIN 3.5 g/dL (3.4-5.0); ALBUMIN/GLOBULIN RATIO 0.9 (1.0-1.7); TOTAL BILIRUBIN 0.2 mg/dL (0.2-1.0); TOTAL PROTEIN 7.4 g/dL (6.4-8.2)
[2018-05-08] MEDS ORDERED: PROAIR HFA8.5 GM INH (06:51)
[2018-05-08] MEDS ORDERED: PRED20TA PO (06:51)
--- NOTE | 2018-05-08 07:51 | RAD ---
Chest, PA and Lateral: Technique: PA and lateral views of the chest were obtained. History: Cough. Comparison: 04/09/2018. Findings: The heart and pulmonary vasculature appear within normal limits. Mild diffuse prominent interstitial lung markings in the bilateral lungs appear slightly less prominent compared to prior exam could be pulmonary infiltrates or edema.. The pleural margins are clear. Impression: Mild diffuse prominent bilateral interstitial lung markings could be interstitial infiltrates or edema. Electronically signed by: Gopal Mejias MD (05/08/2018 7:48 AM) [facility]
[2018-05-08 09:40] LABS: MICROCYTOSIS PRESENT; PLT ESTIMATE ADEQUATE (ADEQUATE)
== END 2018-05-08 07:00 | disposition home or self-care (01) ==
LOC: ER 05:00
DX: J20.9 Acute bronchitis, unspecified (principal); J44.9 Chronic obstructive pulmonary disease, unspecified; G89.29 Other chronic pain; I25.10 Atherosclerotic heart disease of native coronary artery without angina pectoris; F17.200 Nicotine dependence, unspecified, uncomplicated; Z95.5 Presence of coronary angioplasty implant and graft; Z95.1 Presence of aortocoronary bypass graft; Z86.79 Personal history of other diseases of the circulatory system; Z98.890 Other specified postprocedural states; Z88.1 Allergy status to other antibiotic agents; Z88.5 Allergy status to narcotic agent; Z91.041 Radiographic dye allergy status; Z88.6 Allergy status to analgesic agent
CPT/HCPCS: 36415; 71046; 80053; 82553; 83605; 83690; 83735; 84484; 85025; 93005; 94640; 96374; 96375; 99285; J1100; J2405; J3010; J3490; J7613

== ENCOUNTER 2018-10-14 06:01 | Emergency (ER) | payer MEDICARE, MEDICAID ==
[~2018-10-14] VITALS: Ht 175.3 cm; Wt 90.7 kg
[~2018-10-14 06:01] MED LIST changes: +ALBU2.5V8 INH; +AMOX1TAB58 PO; -GABA600T2 PO; +GABA600T7 PO; +LACT1CAP19 PO; +LEVO500T59 PO; +OMEP20CA10 PO; -OMEP20CA9 PO
--- NOTE | 2018-10-14 06:40 | PHYS DOC ---
Past Medical History Past Medical History: Anemia, CAD, CHF, COPD, Pneumonia Additional Past Medical Histor: chronic back pain Past Surgical History: Angioplasty, Other Additional Past Surgical Histo: open heart ,3X bypass, LARGE BACK SURGERY Smoking: Cigarettes, Less than 1pk/day Alcohol Use: None Drug Use: None Adult General Chief Complaint Chief Complaint: WEAKNESS/GENERALIZED HPI HPI Patient is a 43 year old male with history of coronary artery disease status post CABG, CHF, COPD, chronic back pain on Dilaudid who presents with complaining of hurting all over and weakness. Patient states he had generalized myalgia since last night with dry cough, headache, weakness that did not get better with Dilaudid as his home pain medication. Patient states he has generalized weakness and not able to walk because of severe lower extremity pain. Patient complaining of chills without fever. Patient denies nausea, vomiting, nasal congestion, diarrhea, new symptoms, sick contact. Patient states he gets frequent episodes of pneumonia. Review of Systems Review of Systems Constitutional: Denies fever, reports chills [] Eyes: Denies change in visual acuity, redness, or eye pain [] HENT: Denies nasal congestion or sore throat [] Respiratory: Reports cough and shortness of breath Cardiovascular: No additional information not addressed in HPI [] GI: Denies abdominal pain, nausea, vomiting, bloody stools or diarrhea [] : Denies dysuria or hematuria [] Musculoskeletal: Denies back pain or joint pain [] Integument: Denies rash or skin lesions [] Neurologic: Denies headache, focal weakness or sensory changes [] Endocrine: Denies polyuria or polydipsia [] All other systems were reviewed and found to be within normal limits, except as documented in this note. Current Medications Current Medications Current Medications Medications (Trade) Dose Ordered Sig/Josi Start Time Stop Time Status Last Admin Dose Admin Albuterol/ Ipratropium (Duoneb) 3 ml 1X ONCE 10/14/18 07:00 10/14/18 07:01 DC 10/14/18 06:37 3 ML Fentanyl Citrate (Fentanyl 2ml Vial) 50 mcg 1X ONCE 10/14/18 07:15 10/14/18 07:16 DC 10/14/18 07:20 50 MCG Methylprednisolone Sodium Succinate (SOLU-Medrol 125MG VIAL) 125 mg 1X ONCE 10/14/18 07:00 10/14/18 07:01 DC 10/14/18 06:29 125 MG Potassium Chloride (Klor-Con) 40 meq 1X ONCE 10/14/18 07:15 10/14/18 07:17 DC 10/14/18 07:22 40 MEQ Sodium Chloride 500 ml @ 500 mls/hr 1X ONCE 10/14/18 07:00 10/14/18 07:59 DC 10/14/18 06:35 500 MLS/HR Allergies Allergies Allergies Coded Allergies Type Severity Reaction Last Updated Verified morphine Allergy Intermediate rash 12/21/17 Yes vancomycin Allergy Intermediate Rash 04/06/18 Yes I S O L A T I O N *CONTACT* Allergy Unknown 04/09/18 Yes ketorolac Adverse Reaction Intermediate nausea and vomiting 12/21/17 Yes moxifloxacin Adverse Reaction Intermediate Nausea and Vomiting 12/21/17 Yes tramadol Adverse Reaction Intermediate nausea and vomiting 12/21/17 Yes Physical Exam Physical Exam Constitutional: Well nourished, mild distress, non-toxic appearance. [] HENT: Normocephalic, atraumatic, bilateral external ears normal, oropharynx moist, no oral exudates, nose normal. [] Eyes: PERRLA, EOMI, conjunctiva normal, no discharge. [] Neck: Normal range of motion, no tenderness, supple, no stridor. [] Cardiovascular:Heart rate regular rhythm, no murmur [] Lungs & Thorax: Bilateral breath sounds clear to auscultation [] Abdomen: Bowel sounds normal, soft, no tenderness, no masses, no pulsatile masses. [] Skin: Warm, dry, no erythema, no rash. [] Back: No tenderness, no CVA tenderness. [] Extremities: No tenderness, no cyanosis, no clubbing, ROM intact, no edema. [] Neurologic: Alert and oriented X 3, normal motor function, normal sensory function, no focal deficits noted. [] Psychologic: Affect anxious, judgement normal, mood normal. [] Current Patient Data Vital Signs Vital Signs Date Time Temp Pulse Resp B/P (MAP) Pulse Ox O2 Delivery O2 Flow Rate FiO2 10/14/18 08:23 84 18 95 10/14/18 07:20 Room Air 10/14/18 06:10 99.7 134/63 (86) 99.7 Lab Values Laboratory Tests Test 10/14/18 06:15 10/14/18 06:30 10/14/18 06:50 Influenza Type A Antigen Negative (NEGATIVE) Influenza Type B Antigen Negative (NEGATIVE) White Blood Count 13.3 x10^3/uL (4.0-11.0) H Red Blood Count 4.71 x10^6/uL (4.30-5.70) Hemoglobin 11.7 g/dL (13.0-17.5) L Hematocrit 36.8 % (39.0-53.0) L Mean Corpuscular Volume 78 fL (79-100) L Mean Corpuscular Hemoglobin 25 pg (25-35) Mean Corpuscular Hemoglobin Concent 32 g/dL (31-37) Red Cell Distribution Width 16.9 % (11.5-14.5) H Platelet Count 289 x10^3/uL (140-400) Neutrophils (%) (Auto) 62 % (31-73) Lymphocytes (%) (Auto) 28 % (24-48) Monocytes (%) (Auto) 8 % (0-9) Eosinophils (%) (Auto) 2 % (0-3) Basophils (%) (Auto) 1 % (0-3) Neutrophils # (Auto) 8.2 x10^3uL (1.8-7.7) H Lymphocytes # (Auto) 3.7 x10^3/uL (1.0-4.8) Monocytes # (Auto) 1.0 x10^3/uL (0.0-1.1) Eosinophils # (Auto) 0.2 x10^3/uL (0.0-0.7) Basophils # (Auto) 0.1 x10^3/uL (0.0-0.2) Sodium Level 136 mmol/L (136-145) Potassium Level 3.3 mmol/L (3.5-5.1) L Chloride Level 98 mmol/L (98-107) Carbon Dioxide Level 26 mmol/L (21-32) Anion Gap 12 (6-14) Blood Urea Nitrogen 20 mg/dL (8-26) Creatinine 1.0 mg/dL (0.7-1.3) Estimated GFR (Cockcroft-Gault) 81.6 BUN/Creatinine Ratio 20 (6-20) Glucose Level 97 mg/dL (70-99) Lactic Acid Level 1.1 mmol/L (0.4-2.0) Calcium Level 9.1 mg/dL (8.5-10.1) Total Bilirubin 0.3 mg/dL (0.2-1.0) Aspartate Amino Transferase (AST) 13 U/L (15-37) L Alanine Aminotransferase (ALT) 21 U/L (16-63) Alkaline Phosphatase 97 U/L (46-116) Creatine Kinase 92 U/L (39-308) Troponin I Quantitative < 0.017 ng/mL (0.000-0.055) BW-Gzs-W-Type Natriuretic Peptide 142 pg/mL (0-124) H Total Protein 7.4 g/dL (6.4-8.2) Albumin 3.5 g/dL (3.4-5.0) Albumin/Globulin Ratio 0.9 (1.0-1.7) L Urine Collection Type Unknown Urine Color Yellow Urine Clarity Clear Urine pH 7.5 Urine Specific [place] 1.020 Urine Protein Negative mg/dL (NEG-TRACE) Urine Glucose (UA) Negative mg/dL (NEG) Urine Ketones (Stick) Negative mg/dL (NEG) Urine Blood Negative (NEG) Urine Nitrite Negative (NEG) Urine Bilirubin Negative (NEG) Urine Urobilinogen Dipstick 1.0 mg/dL (0.2 mg/dL) Urine Leukocyte Esterase Negative (NEG) Urine RBC 0 /HPF (0-2) Urine WBC 0 /HPF (0-4) Urine Squamous Epithelial Cells Few /LPF Urine Bacteria 0 /HPF (0-FEW) Urine Opiates Screen Pos (NEG) Urine Methadone Screen Neg (NEG) Urine Barbiturates Neg (NEG) Urine Phencyclidine Screen Neg (NEG) Urine Amphetamine/Methamphetamine Neg (NEG) Urine Benzodiazepines Screen Neg (NEG) Urine Cocaine Screen Neg (NEG) Urine Cannabinoids Screen Pos (NEG) Urine Ethyl Alcohol Neg (NEG) Laboratory Tests 10/14/18 06:30 Laboratory Tests 10/14/18 06:30 EKG EKG [] Radiology/Procedures Radiology/Procedures [facility] [address] [place], [place] [id number] IMAGING REPORT Signed PATIENT: EMELIA AGUIAR ACCOUNT: [id number] : 1975 LOCATION: ER AGE: 43 SEX: M EXAM STATUS: REG ER ORD. PHYSICIAN: JESS YUSUF MD REASON: cough and myalgia PROCEDURE: CHEST PA & LATERAL CHEST PA LATERAL History: cough and myalgia Comparison: 09/25/2018 two-view chest x-ray exam. Findings: Sternal wires and mediastinal clips are present. Epicardial leads noted. The cardiomediastinal silhouette is borderline. Pulmonary vasculature is normal. Interstitial thickening of lung singh is similar to the prior exam. No pleural effusion or pneumothorax is seen. There is no acute bone abnormality. Osteopenia noted. IMPRESSION: No acute cardiopulmonary process. Electronically signed by: Jamar Chandler MD (10/14/2018 7:55 AM) [facility] DICTATED and SIGNED BY: JAMAR CHANDLER MD DATE: 10/14/18 0755 Course & Med Decision Making Course & Med Decision Making Pertinent Labs and Imaging studies reviewed. (See chart for details) Evaluation of patient in ER showed 43-year-old male patient with multiple medical problems and currently on Dilaudid complaining of hurting in her extremities and all over his body with cough and generalized weakness. Patient had stable vital signs without fever, tachycardia, hypotension. She hasn't had unremarkable labs except for white count of 13.5 because of chronic use of 20 mg of prednisone daily. Lactic acid was unremarkable. Chest x-ray did not show infiltration. Patient treated with 500 mL normal saline, fentanyl and oral potassium and felt better. Patient was advised to continue his home medication and take extra pill of home potassium for couple days. I've spoken with the patient and/or caregivers. I've explained the patient's condition, diagnosis and treatment plan based on information available to me at this time. I've answered the patient's and/or caregivers questions and addressed any concerns. The patient and/or caregivers have a good understanding the patient's diagnosis, condition and treatment plan as can be expected at this point. Vital signs have been stabilized. The patient's condition is stable for discharge from the emergency department. The patient will pursue further outpatient evaluation with her primary care provider or other designated consulting physician as outlined in the discharge instructions. Patient and/or caregivers are agreeable to this plan of care and follow-up instructions have been explained in detail. The patient and/or caregivers have received these instructions in written format and expressed understanding of these discharge instructions. The patient and her caregivers are aware that if any significant change in condition or worsening of symptoms should prompt him to immediately return to this of the closest emergency department. If an emergent department is not readily available I would encourage him to call 911. Dania Disclaimer Dragon Disclaimer This electronic medical record was generated, in whole or in part, using a voice recognition dictation system. Departure Departure Impression: Primary Impression: Generalized weakness Additional Impressions: Myalgia Viral illness Anemia Hypokalemia Tobacco abuse Tobacco abuse counseling Disposition: HOME, SELF-CARE (at 0807) Condition: IMPROVED Referrals: OLIVIA FERRERA DO (PCP) Patient Instructions: Hypokalemia, Myalgia, Adult, Smoking Cessation, Tips For Success, Viral Syndrome Additional Instructions: Continue your home pain medication Follow-up with your primary care physician in 3-5 days Return to ER if not getting better Scripts Azithromycin (ZITHROMAX) 250 Mg Tablet 1 PKG PO UD for infection, #1 PKG Prov: JESS YUSUF MD 10/14/18 Problem Qualifiers Additional Impressions: Anemia Anemia type: unspecified type Qualified Codes: D64.9 - Anemia, unspecified JESS YUSUF MD Oct 14, 2018 06:40
[2018-10-14 06:59] LABS: BILIRUBIN,URINE NEGATIVE (NEG); CLARITY,URINE CLEAR; COLOR,URINE YELLOW; NITRITE,URINE NEGATIVE (NEG); PH,URINE 7.5; PROTEIN,URINE NEGATIVE (NEG-TRACE)
[2018-10-14] MEDS ORDERED: IPRATRPIUM/ALBUTEROL 0.5/2.5MG 3 ML NEBU. NEB ONE (07:00)
[2018-10-14] MEDS ORDERED: methylPREDNISolone SOD SUCC PF 125 MG/2 ML VIAL. IV ONE (07:00)
[2018-10-14] MEDS ORDERED: IV NORMAL SALINE 500ML BAG 500 ML IV ONE (07:00)
[2018-10-14 07:02] LABS: CALCIUM 9.1 mg/dL (8.5-10.1); GFR 81.6; POTASSIUM 3.3 mmol/L (3.5-5.1)
[2018-10-14 07:08] LABS: ALBUMIN 3.5 g/dL (3.4-5.0); ALBUMIN/GLOBULIN RATIO 0.9 (1.0-1.7); TOTAL BILIRUBIN 0.3 mg/dL (0.2-1.0); TOTAL PROTEIN 7.4 g/dL (6.4-8.2)
[2018-10-14] MEDS ORDERED: fentaNYL PF VIAL 100 MCG/2 ML VIAL IV ONE (07:15)
[2018-10-14] MEDS ORDERED: POTASSIUM CHLORIDE 20 MEQ TABLET.ER. PO ONE (07:15)
[2018-10-14 07:16] LABS: BACTERIA,URINE 0 /HPF (0-FEW); RBC,URINE 0 /HPF (0-2); SQUAMOUS EPITHELIAL CELL,UR FEW /LPF; WBC,URINE 0 /HPF (0-4)
[2018-10-14 07:17] LABS: BARBITURATES NEG (NEG); BENZODIAZEPINES NEG (NEG); CANNABINOIDS POS (NEG); COCAINE NEG (NEG); METHADONE NEG (NEG); OPIATES POS (NEG); PHENCYCLIDINE NEG (NEG)
[2018-10-14 07:18] LABS: AMPHETAMINE/METHAMPHETAMINE NEG (NEG)
[2018-10-14 07:21] LABS: INFLUENZA A PATIENT NEGATIVE (NEGATIVE); INFLUENZA B PATIENT NEGATIVE (NEGATIVE)
[2018-10-14 07:29] LABS: BASO # 0.1 x10^3/uL (0.0-0.2); BASO % 1 % (0-3); EOS # 0.2 x10^3/uL (0.0-0.7); EOS % 2 % (0-3); HEMATOCRIT 36.8 % (39.0-53.0); HEMOGLOBIN 11.7 g/dL (13.0-17.5); LYMPH # 3.7 x10^3/uL (1.0-4.8); LYMPH % 28 % (24-48); MEAN CORPUSCULAR HEMOGLOBIN 25 pg (25-35); MEAN CORPUSCULAR HGB CONC 32 g/dL (31-37); MEAN CORPUSCULAR VOLUME 78 fL (79-100); MONO % 8 % (0-9); NEUT # 8.2 x10^3uL (1.8-7.7); NEUT % 62 % (31-73); PLATELET COUNT 289 x10^3/uL (140-400); RED BLOOD COUNT 4.71 x10^6/uL (4.30-5.70); RED CELL DISTRIBUTION WIDTH 16.9 % (11.5-14.5); WHITE BLOOD COUNT 13.3 x10^3/uL (4.0-11.0)
--- NOTE | 2018-10-14 07:58 | RAD ---
CHEST PA LATERAL History: cough and myalgia Comparison: 09/25/2018 two-view chest x-ray exam. Findings: Sternal wires and mediastinal clips are present. Epicardial leads noted. The cardiomediastinal silhouette is borderline. Pulmonary vasculature is normal. Interstitial thickening of lung singh is similar to the prior exam. No pleural effusion or pneumothorax is seen. There is no acute bone abnormality. Osteopenia noted. IMPRESSION: No acute cardiopulmonary process. Electronically signed by: Jamar Montenegro MD (10/14/2018 7:55 AM) [facility]
[2018-10-14] MEDS ORDERED: AZIT250T PO (08:10)
[2018-10-14 08:23] VITALS: BP 98/55
[2018-11-22] MEDS ORDERED: IPRA3AMP29 NEB (12:30)
[2018-11-22] MEDS ORDERED: LINE600T PO (12:30)
[2018-11-22] MEDS ORDERED: AMOX1TAB58 PO (12:30)
[2018-11-22] MEDS ORDERED: Nicotine 14MG TD (12:30)
== END 2018-10-14 08:25 | disposition home or self-care (01) ==
LOC: ER 06:01
DX: B34.9 Viral infection, unspecified (principal); D64.9 Anemia, unspecified; E87.6 Hypokalemia; F17.210 Nicotine dependence, cigarettes, uncomplicated; Z71.6 Tobacco abuse counseling; G89.29 Other chronic pain; J44.9 Chronic obstructive pulmonary disease, unspecified; I25.10 Atherosclerotic heart disease of native coronary artery without angina pectoris; Z95.5 Presence of coronary angioplasty implant and graft; Z88.1 Allergy status to other antibiotic agents; Z88.5 Allergy status to narcotic agent; Z88.6 Allergy status to analgesic agent; Z91.041 Radiographic dye allergy status
CPT/HCPCS: 36415; 71046; 80053; 80307; 81001; 82550; 83605; 83880; 84484; 85025; 87804; 94640; 96374; 96375; 99284; J2930; J3010; J7040; J7620; 96361

== ENCOUNTER 2018-10-27 12:23 | Inpatient (IN) | payer MEDICARE, MEDICAID ==
[~2018-10-27] VITALS: Ht 175.3 cm; Wt 85.7 kg
[~2018-10-27 12:23] MED LIST changes: +AZIT250T PO
--- NOTE | 2018-10-27 13:40 | PHYS DOC ---
Past Medical History Past Medical History: Anemia, CAD, CHF, COPD, Pneumonia Additional Past Medical Histor: chronic back pain Past Surgical History: Angioplasty, Other Additional Past Surgical Histo: open heart ,3X bypass, LARGE BACK SURGERY Alcohol Use: None Drug Use: None Adult General Chief Complaint Chief Complaint: SHORTNESS OF BREATH [facility] HPI Patient is a 43 year old male patient with history of coronary artery disease and status post CABG, CHF, COPD on home oxygen, chronic back pain on Dilaudid who presents with obtaining of shortness of breath. Patient complaining of shortness of breath for the last 2 days of intermittent shortness of breath with exertion with few episode of dry cough. Patient denies chest pain, nausea and vomiting, sick contact. Patient states he had subjective fever. Patient has had frequent emergency room visits and previous history of pneumonia. Patient had O2 sats of 86 at arrival to ER and 2 L of home oxygen that improved to 95 with 4 L of oxygen. Review of Systems Review of Systems Constitutional: Reports fever Eyes: Denies change in visual acuity, redness, or eye pain [] HENT: Denies nasal congestion or sore throat [] Respiratory: Reports cough and shortness of breath Cardiovascular: No additional information not addressed in HPI [] GI: Denies abdominal pain, nausea, vomiting, bloody stools or diarrhea [] : Denies dysuria or hematuria [] Musculoskeletal: He post chronic back pain Integument: Denies rash or skin lesions [] Neurologic: Denies headache, focal weakness or sensory changes [] Endocrine: Denies polyuria or polydipsia [] All other systems were reviewed and found to be within normal limits, except as documented in this note. Current Medications Current Medications Current Medications Medications (Trade) Dose Ordered Sig/Josi Start Time Stop Time Status Last Admin Dose Admin Albuterol/ Ipratropium (Duoneb) 3 ml 1X ONCE 10/27/18 13:45 10/27/18 13:46 DC Methylprednisolone Sodium Succinate (SOLU-Medrol 125MG VIAL) 125 mg 1X ONCE 10/27/18 13:45 10/27/18 13:46 DC 10/27/18 13:51 125 MG Allergies Allergies Allergies Coded Allergies Type Severity Reaction Last Updated Verified morphine Allergy Intermediate rash 12/21/17 Yes vancomycin Allergy Intermediate Rash 04/06/18 Yes I S O L A T I O N *CONTACT* Allergy Unknown 04/09/18 Yes ketorolac Adverse Reaction Intermediate nausea and vomiting 12/21/17 Yes moxifloxacin Adverse Reaction Intermediate Nausea and Vomiting 12/21/17 Yes tramadol Adverse Reaction Intermediate nausea and vomiting 12/21/17 Yes Physical Exam Physical Exam Constitutional: Well nourished, no acute distress, non-toxic appearance. [] HENT: Normocephalic, atraumatic, oropharynx moist, no oral exudates, nose normal. [] Eyes: PERRLA, EOMI, conjunctiva normal, no discharge. [] Neck: Normal range of motion, no tenderness, supple, no stridor. [] Cardiovascular:Heart rate regular rhythm, no murmur [] Lungs & Thorax: Bilateral breath sounds clear to auscultation [] Abdomen: Bowel sounds normal, soft, no tenderness, no masses, no pulsatile masses. [] Skin: Warm, dry, no erythema, no rash. [] Back: No tenderness, no CVA tenderness. [] Extremities: No tenderness, no cyanosis, no clubbing, ROM intact, no edema. [] Neurologic: Alert and oriented X 3, normal motor function, normal sensory function, no focal deficits noted. [] Psychologic: Affect normal, judgement normal, mood normal. [] Current Patient Data Vital Signs Vital Signs Date Time Temp Pulse Resp B/P (MAP) Pulse Ox O2 Delivery O2 Flow Rate FiO2 10/27/18 14:15 97 Room Air 10/27/18 14:00 90 108/55 (72) 10/27/18 12:40 97.9 20 97.9 Lab Values Laboratory Tests Test 10/27/18 13:00 10/27/18 14:15 Sodium Level 135 mmol/L (136-145) L Potassium Level 3.6 mmol/L (3.5-5.1) Chloride Level 98 mmol/L (98-107) Carbon Dioxide Level 23 mmol/L (21-32) Anion Gap 14 (6-14) Blood Urea Nitrogen 27 mg/dL (8-26) H Creatinine 2.1 mg/dL (0.7-1.3) H Estimated GFR (Cockcroft-Gault) 34.6 BUN/Creatinine Ratio 13 (6-20) Glucose Level 132 mg/dL (70-99) H Lactic Acid Level 1.9 mmol/L (0.4-2.0) Calcium Level 9.2 mg/dL (8.5-10.1) Total Bilirubin 0.7 mg/dL (0.2-1.0) Aspartate Amino Transferase (AST) 50 U/L (15-37) H Alanine Aminotransferase (ALT) 25 U/L (16-63) Alkaline Phosphatase 97 U/L (46-116) Creatine Kinase 313 U/L (39-308) H Troponin I Quantitative < 0.017 ng/mL (0.000-0.055) IA-Qny-B-Type Natriuretic Peptide 1281 pg/mL (0-124) H Total Protein 7.5 g/dL (6.4-8.2) Albumin 3.6 g/dL (3.4-5.0) Albumin/Globulin Ratio 0.9 (1.0-1.7) L Lipase 46 U/L (73-393) L White Blood Count 28.5 x10^3/uL (4.0-11.0) H Red Blood Count 4.61 x10^6/uL (4.30-5.70) Hemoglobin 11.3 g/dL (13.0-17.5) L Hematocrit 35.6 % (39.0-53.0) L Mean Corpuscular Volume 77 fL (79-100) L Mean Corpuscular Hemoglobin 25 pg (25-35) Mean Corpuscular Hemoglobin Concent 32 g/dL (31-37) Red Cell Distribution Width 16.8 % (11.5-14.5) H Platelet Count 322 x10^3/uL (140-400) Neutrophils (%) (Auto) 87 % (31-73) H Lymphocytes (%) (Auto) 10 % (24-48) L Monocytes (%) (Auto) 2 % (0-9) Eosinophils (%) (Auto) 0 % (0-3) Basophils (%) (Auto) 1 % (0-3) Neutrophils # (Auto) 24.8 x10^3uL (1.8-7.7) H Lymphocytes # (Auto) 3.0 x10^3/uL (1.0-4.8) Monocytes # (Auto) 0.5 x10^3/uL (0.0-1.1) Eosinophils # (Auto) 0.0 x10^3/uL (0.0-0.7) Basophils # (Auto) 0.2 x10^3/uL (0.0-0.2) Segmented Neutrophils % 74 % (35-66) H Band Neutrophils % 15 % (0-9) H Lymphocytes % 11 % (24-48) L Toxic Granulation Slight Platelet Estimate Adequate (ADEQUATE) Polychromasia Slight Laboratory Tests 10/27/18 14:15 Laboratory Tests 10/27/18 13:00 EKG EKG EKG interpreted by me. EKG at 1250 showed normal sinus rhythm at rate of 93, PVCs, left atrial abnormalities, prolonged QT at 400 ,T-wave abnormalities in anterolateral leads, no acute ST and T-wave abnormalities[] Radiology/Procedures Radiology/Procedures [facility] [address] [place] [address] IMAGING REPORT Signed PATIENT: EMELIA AGUIAR ACCOUNT: [id number] : 1975 LOCATION: ER AGE: 43 SEX: M EXAM STATUS: REG ER ORD. PHYSICIAN: JESS YUSUF MD REASON: shortness of breath, doesn't feel well. PROCEDURE: CHEST PA & LATERAL CHEST PA LATERAL History: shortness of breath, doesn't feel well.. Comparison with October 14, 2018. The heart size is enlarged, unchanged. No evidence of pneumothorax. No large pleural effusion. There has been development of multiple airspace opacities in both lungs more prominent inferiorly. Postsurgical changes are again seen. The regional skeleton appears stable. IMPRESSION: Development of multiple airspace opacities or infiltrates in both lungs. Recommend follow-up to resolution. Electronically signed by: Damion Malik MD (10/27/2018 2:13 PM) [facility] DICTATED and SIGNED BY: DAMION MALIK MD DATE: 10/27/18 7413 Course & Med Decision Making Course & Med Decision Making Pertinent Labs and Imaging studies reviewed. (See chart for details) Evaluation of patient in ER showed 43-year-old patient with multiple medical problems presented to ER with complaining of shortness of breath. Patient had O2 sat of 88% on 2 L of home oxygen that improved to more than 90% with 4 L of oxygen. Patient was afebrile and did not have hypotension or tachycardia at arrival to ER. Patient did not have respiratory distress. Labs showed white count of 20,000 with chest x-ray of possible infiltration. Patient had history of CHF. Patient treated with IV fluid and antibiotic.Patient requiring admission for further evaluation and treatment. Discussed with Dr. Pak who is in agreement with admission. Discussed findings and plan with patient and family, w ho acknowledge understanding and agreement. Dragon Disclaimer Dragon Disclaimer This electronic medical record was generated, in whole or in part, using a voice recognition dictation system. Departure Departure Impression: Primary Impression: HCAP (healthcare-associated pneumonia) Additional Impressions: Acute exacerbation of CHF (congestive heart failure) Anemia SIRS (systemic inflammatory response syndrome) Acute on chronic renal insufficiency Chronic lower back pain Disposition: ADMITTED INPATIENT (aT 1533) Admitting Physician: Angely Pak (accepted admission at 1533) Condition: GUARDED Referrals: OLIVIA FERRERA DO (PCP) Critical Care Time Critical care time was 60 minutes exclusive of procedures. Problem Qualifiers Additional Impressions: Acute exacerbation of CHF (congestive heart failure) Heart failure type: unspecified Qualified Codes: I50.9 - Heart failure, unspecified Anemia Anemia type: unspecified type Qualified Codes: D64.9 - Anemia, unspecified JESS YUSUF MD Oct 27, 2018 13:40
[2018-10-27] MEDS ORDERED: IPRATRPIUM/ALBUTEROL 0.5/2.5MG 3 ML NEBU. NEB ONE (13:45)
[2018-10-27] MEDS ORDERED: methylPREDNISolone SOD SUCC PF 125 MG/2 ML VIAL. IV ONE (13:45)
--- NOTE | 2018-10-27 13:54 | EKG ---
[facility] [address] [place] [id number] Test Date: 2018-10-27 Test Time: 12:50:11 Pat Name: EMELIA AGUIAR Department: Room: Gender: M [employer]: : 1975 Requested By: JESS YUSUF Order Number: [id number] Reading MD: Junaid Carter Measurements Intervals Ranger Rate: 93 P: 11 LA: 140 QRS: 39 QRSD: 96 T: 41 QT: 400 QTc: 500 Interpretive Statements SINUS RHYTHM VENTRICULAR PREMATURE COMPLEX(ES) LEFT ATRIAL ABNORMALITY QRS(T) CONTOUR ABNORMALITY CONSIDER ANTEROLATERAL MYOCARDIAL DAMAGE PROLONGED QT ABNORMAL ECG Electronically Signed On 11-03-2018 11:39:40 CDT by Junaid Carter
[2018-10-27 14:00] LABS: CALCIUM 9.2 mg/dL (8.5-10.1); CREATININE 2.1 mg/dL (0.7-1.3); GFR 34.6; POTASSIUM 3.6 mmol/L (3.5-5.1)
[2018-10-27 14:14] LABS: ALBUMIN 3.6 g/dL (3.4-5.0); ALBUMIN/GLOBULIN RATIO 0.9 (1.0-1.7); TOTAL BILIRUBIN 0.7 mg/dL (0.2-1.0); TOTAL PROTEIN 7.5 g/dL (6.4-8.2)
--- NOTE | 2018-10-27 14:16 | RAD ---
CHEST PA LATERAL History: shortness of breath, doesn't feel well.. Comparison with October 14, 2018. The heart size is enlarged, unchanged. No evidence of pneumothorax. No large pleural effusion. There has been development of multiple airspace opacities in both lungs more prominent inferiorly. Postsurgical changes are again seen. The regional skeleton appears stable. IMPRESSION: Development of multiple airspace opacities or infiltrates in both lungs. Recommend follow-up to resolution. Electronically signed by: Damion Malik MD (10/27/2018 2:13 PM) [facility]
[2018-10-27 14:25] LABS: BASO # 0.2 x10^3/uL (0.0-0.2); BASO % 1 % (0-3); EOS % 0 % (0-3); HEMATOCRIT 35.6 % (39.0-53.0); HEMOGLOBIN 11.3 g/dL (13.0-17.5); LYMPH % 10 % (24-48); MEAN CORPUSCULAR HEMOGLOBIN 25 pg (25-35); MEAN CORPUSCULAR HGB CONC 32 g/dL (31-37); MEAN CORPUSCULAR VOLUME 77 fL (79-100); MONO # 0.5 x10^3/uL (0.0-1.1); MONO % 2 % (0-9); NEUT # 24.8 x10^3uL (1.8-7.7); NEUT % 87 % (31-73); PLATELET COUNT 322 x10^3/uL (140-400); RED BLOOD COUNT 4.61 x10^6/uL (4.30-5.70); RED CELL DISTRIBUTION WIDTH 16.8 % (11.5-14.5); WHITE BLOOD COUNT 28.5 x10^3/uL (4.0-11.0)
[2018-10-27 14:50] LABS: BASE EXCESS ABG -2 mmol/L (-3-3); HCO3 ABG 23 mmol/L (21-28); PCO2 ABG 40 mmHg (35-46); PO2 ABG 105 mmHg (75-108); SAT O2 ABG 97 % (92-99)
[2018-10-27 14:55] LABS: FIO2 ABG 32
[2018-10-27] MEDS ORDERED: fentaNYL PF VIAL 100 MCG/2 ML VIAL IV ONE (15:00)
[2018-10-27 16:29] LABS: % BANDS 15 % (0-9); % LYMPHS 11 % (24-48); % SEGS 74 % (35-66); PLT ESTIMATE ADEQUATE (ADEQUATE)
[2018-10-27 16:32] LABS: POLYCHROMASIA SLIGHT; TOXIC GRANULATION SLIGHT
[2018-10-27] MEDS ORDERED: PIPERACILLIN/TAZOBACTAM 3.375 GM in IV NORMAL SALINE 50ML 50 ML IV ONE (16:45)
[2018-10-27] MEDS ORDERED: IV NORMAL SALINE 1000ML BAG 1,000 ML IV ONE (17:00)
[2018-10-27 17:24] VITALS: BP 105/55
[2018-10-27 19:37] VITALS: BP 125/63
[2018-10-27] MEDS ORDERED: NITROGLYCERIN SUBLINGUAL 0.4 MG BOTTLE OF 25. SL PRN (20:45)
[2018-10-27] MEDS ORDERED: GABAPENTIN PO SCH (21:00)
[2018-10-27] MEDS ORDERED: NON FORMULARY ITEM (Melatonin 1 TAB) PO SCH (21:00)
[2018-10-27] MEDS ORDERED: NON FORMULARY ITEM (Budesonide/Formoterol Fumarate (Symbicort 160-4.5 Mcg Inhaler) 2 PUFF) IH SCH (21:00)
[2018-10-27] MEDS ORDERED: busPIRone 5 MG TABLET. PO SCH (21:15)
[2018-10-27] MEDS ORDERED: PROMETHAZINE 12.5 MG TABLET. PO PRN (21:15)
[2018-10-27] MEDS ORDERED: HYDR4TAB PO (21:33)
[2018-10-27] MEDS: METOPROLOL SUCC 24HR ER 25 MG TAB.ER.24H. PO SCH (21:55)
[2018-10-27] MEDS: ATORVASTATIN CALCIUM 40 MG TABLET. PO SCH (21:56)
[2018-10-27] MEDS: BACLOFEN 10 MG TABLET. PO PRN (21:56)
[2018-10-27] MEDS: LACTOBACILLUS RHAMNOSUS GG 1 CAPSULE. PO SCH (21:56)
[2018-10-27] MEDS: buPROPion 75 MG TABLET. PO SCH (21:56)
[2018-10-27] MEDS: cefTRIAXone IV Push 1 GM VIAL. IVP SCH (21:58)
[2018-10-27] MEDS: methylPREDNISolone SOD SUCC PF 40 MG/ML VIAL. IV SCH (22:18)
[2018-10-27 22:52] VITALS: BP 106/44
--- NOTE | 2018-10-28 00:11 | HP ---
ADMIT DATE: 10/27/2018 CHIEF COMPLAINT: Shortness of breath. HISTORY OF PRESENT ILLNESS: The patient is a pleasant 43-year-old male with multiple comorbidities. He has heart failure and COPD and previous pneumonia; who presented with shortness of breath and chest discomfort. He is on home O2 and he has chronic pain. He is actually on Dilaudid as well. He has been having shortness of breath for 2 days. It has been intermittent, worse with exertion, better with sitting still and has a dry cough. He has apparently had several visits in the past year for pneumonia. When he hit the ER, his O2 sat was 86%. He was given 2 liters of oxygen that seemed to help and it went up to 195. I discussed the case with ER physician and we are going to admit the patient and consult Pulmonary and Cardiology. PAST MEDICAL HISTORY: COPD; CHF; CAD; anemia; previous pneumonia; chronic back pain; narcotic dependent with Dilaudid; previous angioplasty; coronary artery bypass, 3-vessel and large back surgery. ALLERGIES: TORADOL, MORPHINE, MOXIFLOXACIN, ULTRAM and VANCOMYCIN. FAMILY HISTORY: Coronary artery disease. SOCIAL HISTORY: I think he is trying to quit smoking. No drinking or drugs. He is . MEDICATIONS: Reviewed, he is on 23 including: Promethazine, azithromycin, ProAir, baclofen, iron, fenofibrate, atorvastatin, Nitrostat, metoprolol, aspirin, hydromorphone, gabapentin, Prozac, Protonix, Culturelle, prednisone and melatonin. REVIEW OF SYSTEMS: GENERAL: No history of weight change, weakness or fevers. SKIN: No bruising, hair changes or rashes. EYES: No blurred, double or loss of vision. NOSE AND THROAT: No history of nosebleeds, hoarseness or sore throat. HEART: No history of palpitations, chest pain or shortness of breath on exertion. PULMONARY: The patient complains of shortness of breath. GASTROINTESTINAL: Denies changes in appetite, nausea, vomiting, diarrhea or constipation. GENITOURINARY: No history of frequency, urgency, hesitancy or nocturia. NEUROLOGIC: Denies history of numbness, tingling, tremor or weakness. PSYCHIATRIC: No history of panic, anxiety or depression. ENDOCRINE: No history of heat or cold intolerance, polyuria or polydipsia. EXTREMITIES: Denies muscle weakness, joint pain, pain on walking or stiffness. PHYSICAL EXAMINATION: VITAL SIGNS: Temperature afebrile, pulse 92, respirations 18 and blood pressure 125/63. HEART: Distant S1 and S2 with a soft S3. LUNGS: Coarse with wheezing. ABDOMEN: Soft. Positive bowel sounds. EXTREMITIES: Trace edema. SKIN: No rash. ENDOCRINE: No thyromegaly. LYMPHATICS: No cervical nodes. HEMATOPOIETIC: No bruising. PSYCHIATRIC: He is depressed. LABORATORY DATA: White count 28, hemoglobin 11 and platelets 322. Electrolytes: Sodium 135, BUN is 27, creatinine 2.1 and glucose 132. Troponin is 0. BNP is 1281. RADIOLOGICAL DATA: Chest x-ray shows bilateral pneumonia. ASSESSMENT AND PLAN: Kvppq-vh-dolrosc systolic and diastolic heart failure, pneumonia and respiratory failure, leukocytosis, hyponatremia, anemia, pbims-mz-arkeacy renal failure. The patient has been admitted. We will consult Nephrology, Pulmonary and Cardiology. Cardiac monitoring. Deep venous thrombosis prophylaxis. Home meds. Full code, DuoNeb, IV antibiotics, O2 per nasal cannula, serial enzymes, serial EKGs. FRANNY MORRIS DO DR: JOSE/viki JOB#: [id number] / [id number]
[2018-10-28 02:37] VITALS: BP 128/58
[2018-10-28] MEDS: NICOTINE 14MG PATCH. TD PRN ×2 (03:20→09:35)
[2018-10-28] MEDS ORDERED: IPRATRPIUM/ALBUTEROL 0.5/2.5MG 3 ML NEBU. ONE (04:26)
[2018-10-28] MEDS ORDERED: IPRATRPIUM/ALBUTEROL 0.5/2.5MG 3 ML NEBU. NEB ONE (05:00)
[2018-10-28] MEDS: PANTOPRAZOLE 40 MG TABLET.DR. PO SCH ×2 (06:05→09:31)
[2018-10-28] MEDS: HYDROmorphone 2 MG TABLET PO SCH ×2 (06:06)
[2018-10-28] MEDS: methylPREDNISolone SOD SUCC PF 40 MG/ML VIAL. IV SCH ×3 (06:07→21:18)
[2018-10-28 07:00] VITALS: BP 112/46
[2018-10-28] MEDS: BUDESONIDE 0.5 MG/2 ML NEBU. NEB SCH ×2 (08:29→20:00)
[2018-10-28] MEDS ORDERED: ONDANSETRON PF 4 MG/2 ML VIAL. IV PRN (08:30)
[2018-10-28] MEDS ORDERED: guaiFENesin DM 200MG/20MG 10 ML SYRUP PO PRN (08:30)
[2018-10-28] MEDS ORDERED: ACETAMINOPHEN 500 MG TABLET PO PRN (08:30)
[2018-10-28] MEDS ORDERED: fentaNYL PF VIAL 100 MCG/2 ML VIAL IV PRN (08:30)
[2018-10-28] MEDS ORDERED: LEVOFLOXACIN 500 MG PO SCH (09:00)
[2018-10-28] MEDS ORDERED: predniSONE 20 MG TABLET PO SCH (09:00)
--- NOTE | 2018-10-28 09:13 | NUR ---
IP: Pt has a hx of + mrsa screens with most recent on 06/24/18. Pt to be in contact precautions until there are 2 negative screens 7 days apart.
[2018-10-28] MEDS: FENOFIBRATE 54 MG TABLET. PO SCH (09:28)
[2018-10-28] MEDS: POTASSIUM CHLORIDE 10 MEQ TABLET.ER. PO SCH (09:29)
[2018-10-28] MEDS: FLUoxetine HCL 20 MG CAPSULE PO SCH (09:29)
[2018-10-28] MEDS: FUROSEMIDE 40 MG TABLET. PO SCH (09:29)
[2018-10-28] MEDS: buPROPion 75 MG TABLET. PO SCH ×3 (09:29→21:17)
[2018-10-28] MEDS: LACTOBACILLUS RHAMNOSUS GG 1 CAPSULE. PO SCH ×2 (09:29→21:17)
[2018-10-28] MEDS: BACLOFEN 10 MG TABLET. PO PRN (09:29)
[2018-10-28] MEDS: FERROUS SULFATE 325 MG TABLET. PO SCH ×2 (09:29→16:11)
[2018-10-28] MEDS: GABAPENTIN 300 MG CAPSULE. PO SCH ×2 (09:30→21:17)
[2018-10-28] MEDS: ASPIRIN CHEWABLE 81 MG TABLET. PO SCH (09:30)
--- NOTE | 2018-10-28 09:32 | PDOC ---
PROGRESS NOTES Chief Complaint Chief Complaint left sided pneumonia versus atelectasis History CHF, acute on chronic Leukocytosis in the background of pneumonia and recent steroid use History CABG 2016 smoker-trying to quit VIVEK possibly on CK D History of Present Illness History of Present Illness I provided him a copy of his 2 views chest x-ray which showed left-sided haziness vs atelectasis He was less interested in that-he was more focused on getting a regular tray instead of a cardiac diet Blood pressure so far good WBC 28 with no fevers, he was on steroids prednisone 20 by his PCP Cardiology pulmonary and renal all consulted by colleague on admission Creatinine 2.1-he does not know his baseline-he is not the best historian Plan: continue antibiotics DuoNeb's cough medicine etc. Okay for regular diet He does not seem to be in florid chf Avoid nephrotoxins Follow subspecialist input So far no PT OT needs Nicotine patch when necessary Smoking cessation done less than 30 minutes 1-1 Vitals Vitals Vital Signs Date Time Temp Pulse Resp B/P (MAP) Pulse Ox O2 Delivery O2 Flow Rate FiO2 10/28/18 08:33 96 Nasal Cannula 3.0 10/28/18 07:00 97.6 75 20 112/46 (68) 97.6 Physical Exam General: Alert, Oriented X3, Cooperative Heart: Regular rate, Normal S1, Normal S2 Lungs: Other (symmetrical chest expansion, no wheezing, coarse breath sounds) Abdomen: Normal bowel sounds, Soft, No tenderness Extremities: No clubbing, No cyanosis, No edema, Normal pulses Skin: No rashes, No breakdown, No significant lesion Labs LABS Laboratory Tests Test 10/27/18 13:00 10/27/18 14:15 10/27/18 14:40 10/27/18 18:45 Sodium Level 135 mmol/L (136-145) Potassium Level 3.6 mmol/L (3.5-5.1) Chloride Level 98 mmol/L (98-107) Carbon Dioxide Level 23 mmol/L (21-32) Anion Gap 14 (6-14) Blood Urea Nitrogen 27 mg/dL (8-26) Creatinine 2.1 mg/dL (0.7-1.3) Estimated GFR (Cockcroft-Gault) 34.6 BUN/Creatinine Ratio 13 (6-20) Glucose Level 132 mg/dL (70-99) Lactic Acid Level 1.9 mmol/L (0.4-2.0) Calcium Level 9.2 mg/dL (8.5-10.1) Total Bilirubin 0.7 mg/dL (0.2-1.0) Aspartate Amino Transf (AST/SGOT) 50 U/L (15-37) Alanine Aminotransferase (ALT/SGPT) 25 U/L (16-63) Alkaline Phosphatase 97 U/L (46-116) Creatine Kinase 313 U/L (39-308) Troponin I Quantitative < 0.017 ng/mL (0.000-0.055) < 0.017 ng/mL (0.000-0.055) DW-Obo-Z-Type Natriuretic Peptide 1281 pg/mL (0-124) Total Protein 7.5 g/dL (6.4-8.2) Albumin 3.6 g/dL (3.4-5.0) Albumin/Globulin Ratio 0.9 (1.0-1.7) Lipase 46 U/L (73-393) White Blood Count 28.5 x10^3/uL (4.0-11.0) Red Blood Count 4.61 x10^6/uL (4.30-5.70) Hemoglobin 11.3 g/dL (13.0-17.5) Hematocrit 35.6 % (39.0-53.0) Mean Corpuscular Volume 77 fL (79-100) Mean Corpuscular Hemoglobin 25 pg (25-35) Mean Corpuscular Hemoglobin Concent 32 g/dL (31-37) Red Cell Distribution Width 16.8 % (11.5-14.5) Platelet Count 322 x10^3/uL (140-400) Neutrophils (%) (Auto) 87 % (31-73) Lymphocytes (%) (Auto) 10 % (24-48) Monocytes (%) (Auto) 2 % (0-9) Eosinophils (%) (Auto) 0 % (0-3) Basophils (%) (Auto) 1 % (0-3) Neutrophils # (Auto) 24.8 x10^3uL (1.8-7.7) Lymphocytes # (Auto) 3.0 x10^3/uL (1.0-4.8) Monocytes # (Auto) 0.5 x10^3/uL (0.0-1.1) Eosinophils # (Auto) 0.0 x10^3/uL (0.0-0.7) Basophils # (Auto) 0.2 x10^3/uL (0.0-0.2) Segmented Neutrophils % 74 % (35-66) Band Neutrophils % 15 % (0-9) Lymphocytes % 11 % (24-48) Toxic Granulation Slight Platelet Estimate Adequate (ADEQUATE) Polychromasia Slight O2 Saturation 97 % (92-99) Arterial Blood pH 7.38 (7.35-7.45) Arterial Blood pCO2 at Patient Temp 40 mmHg (35-46) Arterial Blood pO2 at Patient Temp 105 mmHg (75-108) Arterial Blood HCO3 23 mmol/L (21-28) Arterial Blood Base Excess -2 mmol/L (-3-3) FiO2 32 Test 10/27/18 21:50 Troponin I Quantitative < 0.017 ng/mL (0.000-0.055) Review of Systems Review of Systems A 14 point ROS was completed with the following noted as positive: Other systems reviewed and negative. \CONSTITUTIONAL: No fever or chills EYES: No recent changes SKIN: No rash or itching CARDIOVASCULAR: No chest pain, syncope, palpitations, or edema RESPIRATORY: No SOB or cough GASTROINTESTINAL: No nausea, vomiting or abdominal pain NEUROLOGICAL: No headaches or weakness ENDOCRINE: No cold or heat intolerance GENITOURINARY: No urgency or frequency of urination MUSCULOSKELETAL: No back pain or joint pain LYMPHATICS: No enlarged lymph nodes PSYCHIATRIC: No anxiety or depression Assessment and Plan Assessmemt and Plan Problems Medical Problems: (1) Acute exacerbation of CHF (congestive heart failure) Status: Acute (2) Acute on chronic renal insufficiency Status: Acute (3) SIRS (systemic inflammatory response syndrome) Status: Acute Comment Review of Relevant I have reviewed the following items lexie (where applicable) has been applied. Labs Laboratory Tests Test 10/27/18 13:00 10/27/18 14:15 10/27/18 14:40 10/27/18 18:45 Sodium Level 135 mmol/L (136-145) Potassium Level 3.6 mmol/L (3.5-5.1) Chloride Level 98 mmol/L (98-107) Carbon Dioxide Level 23 mmol/L (21-32) Anion Gap 14 (6-14) Blood Urea Nitrogen 27 mg/dL (8-26) Creatinine 2.1 mg/dL (0.7-1.3) Estimated GFR (Cockcroft-Gault) 34.6 BUN/Creatinine Ratio 13 (6-20) Glucose Level 132 mg/dL (70-99) Lactic Acid Level 1.9 mmol/L (0.4-2.0) Calcium Level 9.2 mg/dL (8.5-10.1) Total Bilirubin 0.7 mg/dL (0.2-1.0) Aspartate Amino Transf (AST/SGOT) 50 U/L (15-37) Alanine Aminotransferase (ALT/SGPT) 25 U/L (16-63) Alkaline Phosphatase 97 U/L (46-116) Creatine Kinase 313 U/L (39-308) Troponin I Quantitative < 0.017 ng/mL (0.000-0.055) < 0.017 ng/mL (0.000-0.055) FA-Osx-Q-Type Natriuretic Peptide 1281 pg/mL (0-124) Total Protein 7.5 g/dL (6.4-8.2) Albumin 3.6 g/dL (3.4-5.0) Albumin/Globulin Ratio 0.9 (1.0-1.7) Lipase 46 U/L (73-393) White Blood Count 28.5 x10^3/uL (4.0-11.0) Red Blood Count 4.61 x10^6/uL (4.30-5.70) Hemoglobin 11.3 g/dL (13.0-17.5) Hematocrit 35.6 % (39.0-53.0) Mean Corpuscular Volume 77 fL (79-100) Mean Corpuscular Hemoglobin 25 pg (25-35) Mean Corpuscular Hemoglobin Concent 32 g/dL (31-37) Red Cell Distribution Width 16.8 % (11.5-14.5) Platelet Count 322 x10^3/uL (140-400) Neutrophils (%) (Auto) 87 % (31-73) Lymphocytes (%) (Auto) 10 % (24-48) Monocytes (%) (Auto) 2 % (0-9) Eosinophils (%) (Auto) 0 % (0-3) Basophils (%) (Auto) 1 % (0-3) Neutrophils # (Auto) 24.8 x10^3uL (1.8-7.7) Lymphocytes # (Auto) 3.0 x10^3/uL (1.0-4.8) Monocytes # (Auto) 0.5 x10^3/uL (0.0-1.1) Eosinophils # (Auto) 0.0 x10^3/uL (0.0-0.7) Basophils # (Auto) 0.2 x10^3/uL (0.0-0.2) Segmented Neutrophils % 74 % (35-66) Band Neutrophils % 15 % (0-9) Lymphocytes % 11 % (24-48) Toxic Granulation Slight Platelet Estimate Adequate (ADEQUATE) Polychromasia Slight O2 Saturation 97 % (92-99) Arterial Blood pH 7.38 (7.35-7.45) Arterial Blood pCO2 at Patient Temp 40 mmHg (35-46) Arterial Blood pO2 at Patient Temp 105 mmHg (75-108) Arterial Blood HCO3 23 mmol/L (21-28) Arterial Blood Base Excess -2 mmol/L (-3-3) FiO2 32 Test 10/27/18 21:50 Troponin I Quantitative < 0.017 ng/mL (0.000-0.055) Laboratory Tests Test 10/27/18 13:00 10/27/18 14:15 10/27/18 14:40 10/27/18 18:45 Sodium Level 135 mmol/L (136-145) Potassium Level 3.6 mmol/L (3.5-5.1) Chloride Level 98 mmol/L (98-107) Carbon Dioxide Level 23 mmol/L (21-32) Anion Gap 14 (6-14) Blood Urea Nitrogen 27 mg/dL (8-26) Creatinine 2.1 mg/dL (0.7-1.3) Estimated GFR (Cockcroft-Gault) 34.6 BUN/Creatinine Ratio 13 (6-20) Glucose Level 132 mg/dL (70-99) Lactic Acid Level 1.9 mmol/L (0.4-2.0) Calcium Level 9.2 mg/dL (8.5-10.1) Total Bilirubin 0.7 mg/dL (0.2-1.0) Aspartate Amino Transf (AST/SGOT) 50 U/L (15-37) Alanine Aminotransferase (ALT/SGPT) 25 U/L (16-63) Alkaline Phosphatase 97 U/L (46-116) Creatine Kinase 313 U/L (39-308) Troponin I Quantitative < 0.017 ng/mL (0.000-0.055) < 0.017 ng/mL (0.000-0.055) WC-Oiv-E-Type Natriuretic Peptide 1281 pg/mL (0-124) Total Protein 7.5 g/dL (6.4-8.2) Albumin 3.6 g/dL (3.4-5.0) Albumin/Globulin Ratio 0.9 (1.0-1.7) Lipase 46 U/L (73-393) White Blood Count 28.5 x10^3/uL (4.0-11.0) Red Blood Count 4.61 x10^6/uL (4.30-5.70) Hemoglobin 11.3 g/dL (13.0-17.5) Hematocrit 35.6 % (39.0-53.0) Mean Corpuscular Volume 77 fL (79-100) Mean Corpuscular Hemoglobin 25 pg (25-35) Mean Corpuscular Hemoglobin Concent 32 g/dL (31-37) Red Cell Distribution Width 16.8 % (11.5-14.5) Platelet Count 322 x10^3/uL (140-400) Neutrophils (%) (Auto) 87 % (31-73) Lymphocytes (%) (Auto) 10 % (24-48) Monocytes (%) (Auto) 2 % (0-9) Eosinophils (%) (Auto) 0 % (0-3) Basophils (%) (Auto) 1 % (0-3) Neutrophils # (Auto) 24.8 x10^3uL (1.8-7.7) Lymphocytes # (Auto) 3.0 x10^3/uL (1.0-4.8) Monocytes # (Auto) 0.5 x10^3/uL (0.0-1.1) Eosinophils # (Auto) 0.0 x10^3/uL (0.0-0.7) Basophils # (Auto) 0.2 x10^3/uL (0.0-0.2) Segmented Neutrophils % 74 % (35-66) Band Neutrophils % 15 % (0-9) Lymphocytes % 11 % (24-48) Toxic Granulation Slight Platelet Estimate Adequate (ADEQUATE) Polychromasia Slight O2 Saturation 97 % (92-99) Arterial Blood pH 7.38 (7.35-7.45) Arterial Blood pCO2 at Patient Temp 40 mmHg (35-46) Arterial Blood pO2 at Patient Temp 105 mmHg (75-108) Arterial Blood HCO3 23 mmol/L (21-28) Arterial Blood Base Excess -2 mmol/L (-3-3) FiO2 32 Test 10/27/18 21:50 Troponin I Quantitative < 0.017 ng/mL (0.000-0.055) Medications Current Medications Albuterol/ Ipratropium (Duoneb) 3 ml 1X ONCE NEB Last administered on 10/28at 08:29; Start 10/27/18 at 13:45; Stop 10/27/18 at 13:46; Status DC Methylprednisolone Sodium Succinate (SOLU-Medrol 125MG VIAL) 125 mg 1X ONCE IV Last administered on 10/27/18at 13:51; Start 10/27/18 at 13:45; Stop 10/27/18 at 13:46; Status DC Fentanyl Citrate (Fentanyl 2ml Vial) 50 mcg 1X ONCE IV Last administered on 10/27/18at 15:08; Start 10/27/18 at 15:00; Stop 10/27/18 at 15:05; Status DC Piperacillin Sod/ Tazobactam Sod 3.375 gm/Sodium Chloride 50 ml @ 100 mls/hr 1X ONCE IV Last administered on 10/27/18at 17:24; Start 10/27/18 at 16:45; Stop 10/27/18 at 17:14; Status DC Sodium Chloride 1,000 ml @ 1,000 mls/hr 1X ONCE IV Last administered on 10/27/18at 17:33; Start 10/27/18 at 17:00; Stop 10/27/18 at 17:59; Status DC Aspirin (Children'S Aspirin) 81 mg DAILY PO ; Start 10/28/18 at 09:00 Baclofen (Lioresal) 10 mg PRN TID PRN PO PAIN Last administered on 10/27/18at 21:56; Start 10/27/18 at 20:45 Bupropion HCl (Wellbutrin) 75 mg TID PO Last administered on 10/27/18at 21:56; Start 10/27/18 at 21:00 Ferrous Sulfate (Feosol) 325 mg BIDWMEALS PO ; Start 10/28/18 at 08:00 Fluoxetine HCl (PROzac) 20 mg DAILY PO ; Start 10/28/18 at 09:00 Furosemide (Lasix) 40 mg DAILY PO ; Start 10/28/18 at 09:00 Lactobacillus Rhamnosus (Culturelle) 1 cap BID PO Last administered on 10/27/18at 21:56; Start 10/27/18 at 21:00 Metoprolol Succinate (Toprol Xl) 25 mg BID PO Last administered on 10/27/18at 21:55; Start 10/27/18 at 21:00 Nitroglycerin (Nitrostat) 0.4 mg PRN Q5MIN PRN SL CHEST PAIN; Start 10/27/18 at 20:45 Potassium Chloride (Klor-Con) 10 meq DAILY PO ; Start 10/28/18 at 09:00 Prednisone (Prednisone) 20 mg DAILY PO ; Start 10/28/18 at 09:00; Stop 10/28/18 at 09:00; Status DC Atorvastatin Calcium (Lipitor) 80 mg QHS PO Last administered on 10/27/18at 21:56; Start 10/27/18 at 21:00 Non-Formulary Medication (Budesonide/ Formoterol Fumarate (Symbicort 160-4.5 Mcg Inhaler)) 2 puff BID IH ; Start 10/27/18 at 21:00; Status UNV Buspirone HCl (Buspar) 7.5 mg TID PO ; Start 10/27/18 at 21:15; Status Cancel Fenofibrate (Lofibra) 54 mg DAILY PO ; Start 10/28/18 at 09:00 Non-Formulary Medication (Gabapentin ) 3 tab BID PO ; Start 10/27/18 at 21:00; Stop 10/27/18 at 21:34; Status DC Hydromorphone HCl (Dilaudid) 2 mg Q6HRS PO Last administered on 10/28/18at 06:06; Start 10/28/18 at 00:00 Non-Formulary Medication (Levofloxacin (Levaquin)) 500 mg DAILY PO ; Start 10/28/18 at 09:00; Stop 10/28/18 at 09:00; Status DC Non-Formulary Medication (Melatonin ) 1 tab QHS PO ; Start 10/27/18 at 21:00; Status UNV Pantoprazole Sodium (Protonix) 40 mg DAILYAC PO Last administered on 10/28/18at 06:05; Start 10/28/18 at 07:30 Promethazine HCl (Phenergan) 25 mg PRN Q6HRS PRN PO NAUSEA/VOMITING; Start 10/27/18 at 21:15 Albuterol/ Ipratropium (Duoneb) 3 ml RTQID NEB ; Start 10/28/18 at 08:00 Methylprednisolone Sodium Succinate (SOLU-Medrol 40MG VIAL) 60 mg Q8HRS IV Last administered on 10/28/18at 06:07; Start 10/27/18 at 22:00 Ceftriaxone Sodium (Rocephin) 1 gm Q24H IVP Last administered on 10/27/18at 21:58; Start 10/27/18 at 21:00 Budesonide (Pulmicort) 0.5 mg RTBID NEB Last administered on 10/28/18at 08:29; Start 10/28/18 at 08:00 Gabapentin (Neurontin) 600 mg BID PO ; Start 10/28/18 at 09:00 Nicotine (Nicoderm Cq 14mg) 1 patch PRN DAILY PRN TD SMOKING CESSATION Last administered on 10/28/18at 03:20; Start 10/28/18 at 03:00 Albuterol/ Ipratropium (Duoneb) 3 ml 1X ONCE NEB Last administered on 10/28/18at 04:30; Start 10/28/18 at 05:00; Stop 10/28/18 at 05:01; Status DC Albuterol/ Ipratropium (Duoneb) 3 ml STK-MED ONCE .ROUTE ; Start 10/28/18 at 04:26; Stop 10/28/18 at 04:27; Status DC Guaifenesin (Robitussin Dm) 10 ml PRN Q6HRS PRN PO COUGH; Start 10/28/18 at 08:30 Acetaminophen (Tylenol) 500 mg PRN Q6HRS PRN PO MILD PAIN / TEMP; Start 10/28/18 at 08:30 Ondansetron HCl (Zofran) 4 mg PRN Q6HRS PRN IV NAUSEA/VOMITING; Start 10/28/18 at 08:30 Fentanyl Citrate (Fentanyl 2ml Vial) 50 mcg PRN Q2HR PRN IV PAIN; Start 10/28/18 at 08:30 Active Scripts Active Zithromax (Azithromycin) 250 Mg Tablet 1 Pkg PO UD Prednisone 20 Mg Tablet 20 Mg PO DAILY Culturelle (Lactobacillus Rhamnosus Gg) 1 Each Cap.sprink 1 Cap PO BID 14 Days Proair Hfa Inhaler (Albuterol Sulfate) 8.5 Gm Hfa.aer.ad 1 Puff INH PRN Q6HRS PRN Furosemide 40 Mg Tablet 40 Mg PO DAILY 30 Days Feosol (Ferrous Sulfate) 325 Mg Tablet 325 Mg PO BIDWMEALS 30 Days Reported Hydromorphone Hcl 4 Mg Tablet 4 Mg PO PRN Q6HRS PRN Aspirin 81 Mg Tab.chew 1 Tab PO DAILY Klor-Con 10 (Potassium Chloride) 10 Meq Tablet.er 1 Tab PO DAILY Hydromorphone ER (Hydromorphone HCl) 8 Mg Tab.er.24h 8 Mg PO DAILY Metoprolol Succinate ( Xl ) (Metoprolol Succinate) 25 Mg Tab.er.24h 25 Mg PO BID Atorvastatin Calcium 80 Mg Tablet 80 Mg PO HS Protonix (Pantoprazole Sodium) 20 Mg Tablet.dr 20 Mg PO BID Buspirone Hcl 7.5 Mg Tablet 7.5 Mg PO TID Bupropion Hcl 75 Mg Tablet 75 Mg PO TID Symbicort 160-4.5 Mcg Inhaler (Budesonide/Formoterol Fumarate) 10.2 Gm Hfa.aer.ad 2 Puff IH BID Baclofen 10 Mg Tablet 1 Tab PO PRN TID Melatonin 3 Mg Tablet 1 Tab PO QHS Nitrostat (Nitroglycerin) 0.4 Mg Tab.subl 0.4 Mg SL PRN Q5MIN PRN Promethazine Hcl 25 Mg Tablet 25 Mg PO Q6H PRN Fenofibrate (Fenofibrate Nanocrystallized) 48 Mg Tablet 48 Mg PO DAILY Fluoxetine Hcl 20 Mg Capsule 1 Cap PO DAILY Gabapentin 600 Mg Tablet 3 Tab PO BID Vitals/I & O Vital Sign - Last 24 Hours 10/27/18 10/27/18 10/27/18 10/27/18 12:40 13:00 13:30 14:00 Temp 97.9 97.9 Pulse 93 86 90 90 Resp 20 B/P (MAP) 103/58 (73) 97/54 (68) 104/55 (71) 108/55 (72) Pulse Ox 77 93 96 97 O2 Delivery Room Air Room Air 10/27/18 10/27/18 10/27/18 10/27/18 14:15 15:00 15:30 17:24 Temp 97.5 97.5 Pulse 96 77 Resp 20 B/P (MAP) 104/58 (73) 112/54 (73) 105/55 (72) Pulse Ox 97 96 93 O2 Delivery Room Air Nasal Cannula Nasal Cannula O2 Flow Rate 3.0 4.0 10/27/18 10/27/18 10/27/18 10/27/18 17:30 19:37 19:40 21:55 Temp 97.4 97.4 Pulse 77 77 Resp 20 B/P (MAP) 125/63 (83) 125/63 Pulse Ox 99 O2 Delivery Nasal Cannula Nasal Cannula Nasal Cannula O2 Flow Rate 4.0 3.5 4.0 10/27/18 10/28/18 10/28/18 10/28/18 22:52 02:37 04:30 06:06 Temp 98.0 97.5 98.0 97.5 Pulse 85 78 Resp 20 20 16 B/P (MAP) 106/44 (64) 128/58 (81) Pulse Ox 96 95 95 O2 Delivery Nasal Cannula Nasal Cannula Nasal Cannula Nasal Cannula O2 Flow Rate 3.5 3.5 3.0 3.0 10/28/18 10/28/18 10/28/18 07:00 08:32 08:33 Temp 97.6 97.6 Pulse 75 Resp 20 B/P (MAP) 112/46 (68) Pulse Ox 93 96 96 O2 Delivery Nasal Cannula Nasal Cannula Nasal Cannula O2 Flow Rate 3.5 3.0 3.0 Intake and Output 10/27/18 10/27/18 10/28/18 15:00 23:00 07:00 Intake Total 1740 ml Output Total 500 ml 275 ml Balance -500 ml 1465 ml PAUL REICH MD Oct 28, 2018 09:32
[2018-10-28] MEDS: METOPROLOL SUCC 24HR ER 25 MG TAB.ER.24H. PO SCH ×2 (09:34→21:17)
[2018-10-28] MEDS ORDERED: NICOTINE 21MG PATCH. TD PRN (09:45)
[2018-10-28] MEDS ORDERED: oxyCODONE/APAP 10/325 1 TAB TABLET PO PRN (10:45)
[2018-10-28 11:00] VITALS: BP 117/59
[2018-10-28 11:10] LABS: BILIRUBIN,URINE NEGATIVE (NEG); CLARITY,URINE CLEAR; COLOR,URINE YELLOW; NITRITE,URINE NEGATIVE (NEG); PH,URINE 6.5; PROTEIN,URINE NEGATIVE (NEG-TRACE); UROBILINOGEN,URINE 0.2 mg/dL (0.2 mg/dL)
--- NOTE | 2018-10-28 11:37 | PDOC2 ---
CONSULT Date of Consult Date of Consult DATE: 10/28/18 TIME: 11:31 Reason for Consult Reason for Consult: VIVEK Referring Physician Referring Physician: ARTURO Identification/Chief Complaint Chief Complaint SOB Source Source: Chart review, Patient History of Present Illness Reason for Visit: THIS IS A 43 YR OLD WITH SOB AND LEUCOCYTOSIS. NOTED TO HAVE INFILTRATES ON CXRAY. CR OF 2.1. BNP RELATIVELY LOW ALTHOUGH HIGHER THAN NORMAL. NO CKD HX NOTED. NO HEMODYNAMIC INSTABILITY NOTED. NO HX OF ANY KIDNEY OR BLADDER SURGERIES HEMATURIA DYSURIA OR FREQUENCY. NO NEPHROTOXINS NOTED Past Medical History Cardiovascular: CAD, HTN, MD, Hyperlipidemia Pulmonary: COPD, Pneumonia CENTRAL NERVOUS SYSTEM: Carpal Tunnel Syndrome GI: GERD Heme/Onc: No pertinent hx Hepatobiliary: No pertinent hx Psych: Anxiety Musculoskeletal: low back pain, Osteoarthritis Infectious disease: No pertinent hx Renal/: No pertinent hx Endocrine: Other Past Surgical History Past Surgical History: CABG, Other Family History Family History: Coronary Artery Disease, Hypertension Social History ALCOHOL: occassional Drugs: None Lives: Alone Current Problem List Problem List Problems Medical Problems: (1) Acute exacerbation of CHF (congestive heart failure) Status: Acute (2) Acute on chronic renal insufficiency Status: Acute (3) SIRS (systemic inflammatory response syndrome) Status: Acute Current Medications Current Medications Current Medications Albuterol/ Ipratropium (Duoneb) 3 ml 1X ONCE NEB Last administered on 10/28/18at 08:29; Start 10/27/18 at 13:45; Stop 10/27/18 at 13:46; Status DC Methylprednisolone Sodium Succinate (SOLU-Medrol 125MG VIAL) 125 mg 1X ONCE IV Last administered on 10/27/18at 13:51; Start 10/27/18 at 13:45; Stop 10/27/18 at 13:46; Status DC Fentanyl Citrate (Fentanyl 2ml Vial) 50 mcg 1X ONCE IV Last administered on 10/27/18at 15:08; Start 10/27/18 at 15:00; Stop 10/27/18 at 15:05; Status DC Piperacillin Sod/ Tazobactam Sod 3.375 gm/Sodium Chloride 50 ml @ 100 mls/hr 1X ONCE IV Last administered on 10/27/18at 17:24; Start 10/27/18 at 16:45; Stop 10/27/18 at 17:14; Status DC Sodium Chloride 1,000 ml @ 1,000 mls/hr 1X ONCE IV Last administered on 10/27/18 17:33; Start 10/27/18 at 17:00; Stop 10/27/18 at 17:59; Status DC Aspirin (Children'S Aspirin) 81 mg DAILY PO Last administered on 10/28/18 09:30; Start 10/28/18 at 09:00 Baclofen (Lioresal) 10 mg PRN TID PRN PO PAIN Last administered on 10/28/18 09:29; Start 10/27/18 at 20:45 Bupropion HCl (Wellbutrin) 75 mg TID PO Last administered on 10/28/18 09:29; Start 10/27/18 at 21:00 Ferrous Sulfate (Feosol) 325 mg BIDWMEALS PO Last administered on 10/28/18 09:29; Start 10/28/18 at 08:00 Fluoxetine HCl (PROzac) 20 mg DAILY PO Last administered on 10/28/18 09:29; Start 10/28/18 at 09:00 Furosemide (Lasix) 40 mg DAILY PO Last administered on 10/28/18 09:29; Start 10/28/18 at 09:00 Lactobacillus Rhamnosus (Culturelle) 1 cap BID PO Last administered on 10/28/18 09:29; Start 10/27/18 at 21:00 Metoprolol Succinate (Toprol Xl) 25 mg BID PO Last administered on 10/28/18 09:34; Start 10/27/18 at 21:00 Nitroglycerin (Nitrostat) 0.4 mg PRN Q5MIN PRN SL CHEST PAIN; Start 10/27/18 at 20:45 Potassium Chloride (Klor-Con) 10 meq DAILY PO Last administered on 10/28/18 09:29; Start 10/28/18 at 09:00 Prednisone (Prednisone) 20 mg DAILY PO ; Start 10/28/18 at 09:00; Stop 10/28/18 at 09:00; Status DC Atorvastatin Calcium (Lipitor) 80 mg QHS PO Last administered on 10/27/18 21:56; Start 10/27/18 at 21:00 Non-Formulary Medication (Budesonide/ Formoterol Fumarate (Symbicort 160-4.5 Mcg Inhaler)) 2 puff BID IH ; Start 10/27/18 at 21:00; Status UNV Buspirone HCl (Buspar) 7.5 mg TID PO ; Start 10/27/18 at 21:15; Status Cancel Fenofibrate (Lofibra) 54 mg DAILY PO Last administered on 10/28/18at 09:28; Start 10/28/18 at 09:00 Non-Formulary Medication (Gabapentin ) 3 tab BID PO ; Start 10/27/18 at 21:00; Stop 10/27/18 at 21:34; Status DC Hydromorphone HCl (Dilaudid) 2 mg Q6HRS PO Last administered on 10/28/18at 06:06; Start 10/28/18 at 00:00; Stop 10/28/18 at 10:59; Status DC Non-Formulary Medication (Levofloxacin (Levaquin)) 500 mg DAILY PO ; Start 10/28/18 at 09:00; Stop 10/28/18 at 09:00; Status DC Non-Formulary Medication (Melatonin ) 1 tab QHS PO ; Start 10/27/18 at 21:00; Status UNV Pantoprazole Sodium (Protonix) 40 mg DAILYAC PO Last administered on 10/28/18at 09:31; Start 10/28/18 at 07:30 Promethazine HCl (Phenergan) 25 mg PRN Q6HRS PRN PO NAUSEA/VOMITING; Start 10/27/18 at 21:15 Albuterol/ Ipratropium (Duoneb) 3 ml RTQID NEB ; Start 10/28/18 at 08:00 Methylprednisolone Sodium Succinate (SOLU-Medrol 40MG VIAL) 60 mg Q8HRS IV Last administered on 10/28/18at 09:35; Start 10/27/18 at 22:00 Ceftriaxone Sodium (Rocephin) 1 gm Q24H IVP Last administered on 10/27/18at 21:58; Start 10/27/18 at 21:00 Budesonide (Pulmicort) 0.5 mg RTBID NEB Last administered on 10/28/18at 08:29; Start 10/28/18 at 08:00 Gabapentin (Neurontin) 600 mg BID PO Last administered on 10/28/18at 09:30; Start 10/28/18 at 09:00 Nicotine (Nicoderm Cq 14mg) 1 patch PRN DAILY PRN TD SMOKING CESSATION Last administered on 10/28/18at 09:35; Start 10/28/18 at 03:00 Albuterol/ Ipratropium (Duoneb) 3 ml 1X ONCE NEB Last administered on 10/28/18at 04:30; Start 10/28/18 at 05:00; Stop 10/28/18 at 05:01; Status DC Albuterol/ Ipratropium (Duoneb) 3 ml STK-MED ONCE .ROUTE ; Start 10/28/18 at 04:26; Stop 10/28/18 at 04:27; Status DC Guaifenesin (Robitussin Dm) 10 ml PRN Q6HRS PRN PO COUGH; Start 10/28/18 at 08:30 Acetaminophen (Tylenol) 500 mg PRN Q6HRS PRN PO MILD PAIN / TEMP; Start 10/28/18 at 08:30 Ondansetron HCl (Zofran) 4 mg PRN Q6HRS PRN IV NAUSEA/VOMITING; Start 10/28/18 at 08:30 Fentanyl Citrate (Fentanyl 2ml Vial) 50 mcg PRN Q2HR PRN IV PAIN; Start 10/28/18 at 08:30 Nicotine (Nicoderm Cq 21mg) 1 patch PRN DAILY PRN TD SMOKING CESSATION; Start 10/28/18 at 09:45 Oxycodone/ Acetaminophen (Percocet 10/325) 1 tab PRN Q6HRS PRN PO MODERATE PAIN Last administered on 10/28/18at 10:58; Start 10/28/18 at 10:45 Hydromorphone HCl (Dilaudid) 4 mg PRN Q6HRS PRN PO SEVERE PAIN; Start 10/28/18 at 10:45 Hydromorphone HCl (Dilaudid) 4 mg QID PO ; Start 10/28/18 at 13:00 Active Scripts Active Zithromax (Azithromycin) 250 Mg Tablet 1 Pkg PO UD Prednisone 20 Mg Tablet 20 Mg PO DAILY Culturelle (Lactobacillus Rhamnosus Gg) 1 Each Cap.sprink 1 Cap PO BID 14 Days Proair Hfa Inhaler (Albuterol Sulfate) 8.5 Gm Hfa.aer.ad 1 Puff INH PRN Q6HRS PRN Furosemide 40 Mg Tablet 40 Mg PO DAILY 30 Days Feosol (Ferrous Sulfate) 325 Mg Tablet 325 Mg PO BIDWMEALS 30 Days Reported Hydromorphone Hcl 4 Mg Tablet 4 Mg PO PRN Q6HRS PRN Aspirin 81 Mg Tab.chew 1 Tab PO DAILY Klor-Con 10 (Potassium Chloride) 10 Meq Tablet.er 1 Tab PO DAILY Hydromorphone ER (Hydromorphone HCl) 8 Mg Tab.er.24h 8 Mg PO DAILY Metoprolol Succinate ( Xl ) (Metoprolol Succinate) 25 Mg Tab.er.24h 25 Mg PO BID Atorvastatin Calcium 80 Mg Tablet 80 Mg PO HS Protonix (Pantoprazole Sodium) 20 Mg Tablet.dr 20 Mg PO BID Buspirone Hcl 7.5 Mg Tablet 7.5 Mg PO TID Bupropion Hcl 75 Mg Tablet 75 Mg PO TID Symbicort 160-4.5 Mcg Inhaler (Budesonide/Formoterol Fumarate) 10.2 Gm Hfa.aer.ad 2 Puff IH BID Baclofen 10 Mg Tablet 1 Tab PO PRN TID Melatonin 3 Mg Tablet 1 Tab PO QHS Nitrostat (Nitroglycerin) 0.4 Mg Tab.subl 0.4 Mg SL PRN Q5MIN PRN Promethazine Hcl 25 Mg Tablet 25 Mg PO Q6H PRN Fenofibrate (Fenofibrate Nanocrystallized) 48 Mg Tablet 48 Mg PO DAILY Fluoxetine Hcl 20 Mg Capsule 1 Cap PO DAILY Gabapentin 600 Mg Tablet 3 Tab PO BID Allergies Allergies: Coded Allergies: morphine (Verified Allergy, Intermediate, rash, 12/21/17) Tolerates oxycodone vancomycin (Verified Allergy, Intermediate, Rash, 04/06/18) I S O L A T I O N *CONTACT* (Verified Allergy, Unknown, 04/09/18) +MRSA nares 04/06/18 ketorolac (Verified Adverse Reaction, Intermediate, nausea and vomiting, 12/21/17) moxifloxacin (Verified Adverse Reaction, Intermediate, Nausea and Vomiting, 12/21/17) tramadol (Verified Adverse Reaction, Intermediate, nausea and vomiting, 12/21/17) ROS General: YES: Fatigue PSYCHOLOGICAL ROS: YES: Anxiety Eyes: Yes Decreased vision ALLERGY AND IMMUNOLOGY: YES: Seasonal Allergies Respiratory: YES: Cough, Shortness of breath Gastrointestinal: Yes Constipation Genitourinary: YES Other (NOCTURIA THRICE BUT STATES THIS IS HIS USUAL SINCE CHILDHOOD) Musculoskeletal: Yes Muscular Weakness Neurological: Yes Weakness Skin: Yes Dry Skin Physical Exam General: Alert, Oriented X3, Cooperative, No acute distress HEENT: Atraumatic, PERRLA Lungs: Other (FEW EXP WHEEZES) Heart: Regular rate, No murmurs Abdomen: Normal bowel sounds, Soft, No tenderness Extremities: No cyanosis Skin: No breakdown Neuro: Normal speech, Sensation intact Psych/Mental Status: Mental status NL, Mood NL MUSCULOSKELETAL: No joint tenderness, No deformity, No swelling Vitals VITALS Vital Signs Date Time Temp Pulse Resp B/P (MAP) Pulse Ox O2 Delivery O2 Flow Rate FiO2 10/28/18 11:00 98.0 86 20 117/59 (78) 92 Nasal Cannula 3.5 98.0 Labs Labs Laboratory Tests Test 10/27/18 13:00 10/27/18 14:15 10/27/18 14:40 10/27/18 18:45 Sodium Level 135 mmol/L (136-145) Potassium Level 3.6 mmol/L (3.5-5.1) Chloride Level 98 mmol/L (98-107) Carbon Dioxide Level 23 mmol/L (21-32) Anion Gap 14 (6-14) Blood Urea Nitrogen 27 mg/dL (8-26) Creatinine 2.1 mg/dL (0.7-1.3) Estimated GFR (Cockcroft-Gault) 34.6 BUN/Creatinine Ratio 13 (6-20) Glucose Level 132 mg/dL (70-99) Lactic Acid Level 1.9 mmol/L (0.4-2.0) Calcium Level 9.2 mg/dL (8.5-10.1) Total Bilirubin 0.7 mg/dL (0.2-1.0) Aspartate Amino Transf (AST/SGOT) 50 U/L (15-37) Alanine Aminotransferase (ALT/SGPT) 25 U/L (16-63) Alkaline Phosphatase 97 U/L (46-116) Creatine Kinase 313 U/L (39-308) Troponin I Quantitative < 0.017 ng/mL (0.000-0.055) < 0.017 ng/mL (0.000-0.055) GV-Iqo-M-Type Natriuretic Peptide 1281 pg/mL (0-124) Total Protein 7.5 g/dL (6.4-8.2) Albumin 3.6 g/dL (3.4-5.0) Albumin/Globulin Ratio 0.9 (1.0-1.7) Lipase 46 U/L (73-393) White Blood Count 28.5 x10^3/uL (4.0-11.0) Red Blood Count 4.61 x10^6/uL (4.30-5.70) Hemoglobin 11.3 g/dL (13.0-17.5) Hematocrit 35.6 % (39.0-53.0) Mean Corpuscular Volume 77 fL (79-100) Mean Corpuscular Hemoglobin 25 pg (25-35) Mean Corpuscular Hemoglobin Concent 32 g/dL (31-37) Red Cell Distribution Width 16.8 % (11.5-14.5) Platelet Count 322 x10^3/uL (140-400) Neutrophils (%) (Auto) 87 % (31-73) Lymphocytes (%) (Auto) 10 % (24-48) Monocytes (%) (Auto) 2 % (0-9) Eosinophils (%) (Auto) 0 % (0-3) Basophils (%) (Auto) 1 % (0-3) Neutrophils # (Auto) 24.8 x10^3uL (1.8-7.7) Lymphocytes # (Auto) 3.0 x10^3/uL (1.0-4.8) Monocytes # (Auto) 0.5 x10^3/uL (0.0-1.1) Eosinophils # (Auto) 0.0 x10^3/uL (0.0-0.7) Basophils # (Auto) 0.2 x10^3/uL (0.0-0.2) Segmented Neutrophils % 74 % (35-66) Band Neutrophils % 15 % (0-9) Lymphocytes % 11 % (24-48) Toxic Granulation Slight Platelet Estimate Adequate (ADEQUATE) Polychromasia Slight O2 Saturation 97 % (92-99) Arterial Blood pH 7.38 (7.35-7.45) Arterial Blood pCO2 at Patient Temp 40 mmHg (35-46) Arterial Blood pO2 at Patient Temp 105 mmHg (75-108) Arterial Blood HCO3 23 mmol/L (21-28) Arterial Blood Base Excess -2 mmol/L (-3-3) FiO2 32 Test 4/24/19 21:50 10/28/18 08:55 Troponin I Quantitative < 0.017 ng/mL (0.000-0.055) Erythrocyte Sedimentation Rate 40 (0-15) Laboratory Tests Test 10/27/18 13:00 10/27/18 14:15 10/27/18 14:40 10/27/18 18:45 Sodium Level 135 mmol/L (136-145) Potassium Level 3.6 mmol/L (3.5-5.1) Chloride Level 98 mmol/L (98-107) Carbon Dioxide Level 23 mmol/L (21-32) Anion Gap 14 (6-14) Blood Urea Nitrogen 27 mg/dL (8-26) Creatinine 2.1 mg/dL (0.7-1.3) Estimated GFR (Cockcroft-Gault) 34.6 BUN/Creatinine Ratio 13 (6-20) Glucose Level 132 mg/dL (70-99) Lactic Acid Level 1.9 mmol/L (0.4-2.0) Calcium Level 9.2 mg/dL (8.5-10.1) Total Bilirubin 0.7 mg/dL (0.2-1.0) Aspartate Amino Transf (AST/SGOT) 50 U/L (15-37) Alanine Aminotransferase (ALT/SGPT) 25 U/L (16-63) Alkaline Phosphatase 97 U/L (46-116) Creatine Kinase 313 U/L (39-308) Troponin I Quantitative < 0.017 ng/mL (0.000-0.055) < 0.017 ng/mL (0.000-0.055) XL-Xiz-Z-Type Natriuretic Peptide 1281 pg/mL (0-124) Total Protein 7.5 g/dL (6.4-8.2) Albumin 3.6 g/dL (3.4-5.0) Albumin/Globulin Ratio 0.9 (1.0-1.7) Lipase 46 U/L (73-393) White Blood Count 28.5 x10^3/uL (4.0-11.0) Red Blood Count 4.61 x10^6/uL (4.30-5.70) Hemoglobin 11.3 g/dL (13.0-17.5) Hematocrit 35.6 % (39.0-53.0) Mean Corpuscular Volume 77 fL (79-100) Mean Corpuscular Hemoglobin 25 pg (25-35) Mean Corpuscular Hemoglobin Concent 32 g/dL (31-37) Red Cell Distribution Width 16.8 % (11.5-14.5) Platelet Count 322 x10^3/uL (140-400) Neutrophils (%) (Auto) 87 % (31-73) Lymphocytes (%) (Auto) 10 % (24-48) Monocytes (%) (Auto) 2 % (0-9) Eosinophils (%) (Auto) 0 % (0-3) Basophils (%) (Auto) 1 % (0-3) Neutrophils # (Auto) 24.8 x10^3uL (1.8-7.7) Lymphocytes # (Auto) 3.0 x10^3/uL (1.0-4.8) Monocytes # (Auto) 0.5 x10^3/uL (0.0-1.1) Eosinophils # (Auto) 0.0 x10^3/uL (0.0-0.7) Basophils # (Auto) 0.2 x10^3/uL (0.0-0.2) Segmented Neutrophils % 74 % (35-66) Band Neutrophils % 15 % (0-9) Lymphocytes % 11 % (24-48) Toxic Granulation Slight Platelet Estimate Adequate (ADEQUATE) Polychromasia Slight O2 Saturation 97 % (92-99) Arterial Blood pH 7.38 (7.35-7.45) Arterial Blood pCO2 at Patient Temp 40 mmHg (35-46) Arterial Blood pO2 at Patient Temp 105 mmHg (75-108) Arterial Blood HCO3 23 mmol/L (21-28) Arterial Blood Base Excess -2 mmol/L (-3-3) FiO2 32 Test 10/27/18 21:50 10/28/18 08:55 Troponin I Quantitative < 0.017 ng/mL (0.000-0.055) Erythrocyte Sedimentation Rate 40 (0-15) Images Images CHEST PA LATERAL History: shortness of breath, doesn't feel well.. Comparison with October 14, 2018. The heart size is enlarged, unchanged. No evidence of pneumothorax. No large pleural effusion. There has been development of multiple airspace opacities in both lungs more prominent inferiorly. Postsurgical changes are again seen. The regional skeleton appears stable. IMPRESSION: Development of multiple airspace opacities or infiltrates in both lungs. Recommend follow-up to resolution. Assessment/Plan Assessment/Plan IMP VIVEK-WITH CR OF 2.1 AND NO CKD HX PNEUMONIA ACUTE HYPOXIC RESP FAILURE HX OF CHF LEUCOCYTOSIS TOBACCOISM PLAN ANTIBIOTICS UA WITH MICRO RENAL SONOGRAM CONT LASIX FOR NOW HYPOXIA MOST LIKELY DUE TO PNEUMONIA RATHER THAN FAILURE WILL FOLLOW LING DELACRUZ MD Oct 28, 2018 11:36
[2018-10-28 11:57] LABS: BACTERIA,URINE 0 /HPF (0-FEW); RBC,URINE 0 /HPF (0-2); WBC,URINE 0 /HPF (0-4)
--- NOTE | 2018-10-28 12:14 | PDOC2 ---
JOSIE MCNEAL [employer] 10/28/18 1213: CARDIAC CONSULT DATE OF CONSULT Date of Consult DATE: 10/28/18 TIME: 11:50 REASON FOR CONSULT Reason for Consult: CHF exac REFERRING PHYSICIAN Referring Physician: Yoselyn SOURCE Source: Chart review, Patient HISTORY OF PRESENT ILLNESS HISTORY OF PRESENT ILLNESS This is a pleasant 43 yo male admitted for complains of SOA and cough. No CP or palpitations. No leg edema, exertional CP, PND. Denies any chills. No nausea or vomiting. +for MCDONALD. He may have had fever but was noted upon admission with hypoxia. He has COPD and continues to smoke and had multiple bouts of pneumonia. Verbalized medication compliance. PAST MEDICAL HISTORY Past Medical History Cardiovascular: CAD, HTN, MO, Hyperlipidemia Pulmonary: COPD, Pneumonia CENTRAL NERVOUS SYSTEM: Carpal Tunnel Syndrome GI: GERD Heme/Onc: anemia Hepatobiliary: No pertinent hx Psych: Anxiety Musculoskeletal: low back pain, Osteoarthritis Infectious disease: No pertinent hx Renal/: No pertinent hx Endocrine: none PAST SURGICAL HISTORY Past Surgical History CABG, Other (back surgery), PCI/stent FAMILY HISTORY Family History: Coronary Artery Disease SOCIAL HISTORY Social History Smoke: 1 pack per day ALCOHOL: none Drugs: None Lives: Alone CURRENT MEDICATIONS CURRENT MEDICATIONS Current Medications Medications (Trade) Dose Ordered Sig/Josi Route PRN Reason Start Time Stop Time Status Last Admin Dose Admin Albuterol/ Ipratropium (Duoneb) 3 ml 1X ONCE NEB 10/27/18 13:45 10/27/18 13:46 DC 10/28/18 08:29 Methylprednisolone Sodium Succinate (SOLU-Medrol 125MG VIAL) 125 mg 1X ONCE IV 10/27/18 13:45 10/27/18 13:46 DC 10/27/18 13:51 Fentanyl Citrate (Fentanyl 2ml Vial) 50 mcg 1X ONCE IV 10/27/18 15:00 10/27/18 15:05 DC 10/27/18 15:08 Piperacillin Sod/ Tazobactam Sod 3.375 gm/Sodium Chloride 50 ml @ 100 mls/hr 1X ONCE IV 10/27/18 16:45 10/27/18 17:14 DC 10/27/18 17:24 Sodium Chloride 1,000 ml @ 1,000 mls/hr 1X ONCE IV 10/27/18 17:00 10/27/18 17:59 DC 10/27/18 17:33 Aspirin (Children'S Aspirin) 81 mg DAILY PO 10/28/18 09:00 10/28/18 09:30 Baclofen (Lioresal) 10 mg PRN TID PRN PO PAIN 10/27/18 20:45 10/28/18 09:29 Bupropion HCl (Wellbutrin) 75 mg TID PO 10/27/18 21:00 10/28/18 09:29 Ferrous Sulfate (Feosol) 325 mg BIDWMEALS PO 10/28/18 08:00 10/28/18 09:29 Fluoxetine HCl (PROzac) 20 mg DAILY PO 10/28/18 09:00 10/28/18 09:29 Furosemide (Lasix) 40 mg DAILY PO 10/28/18 09:00 10/28/18 09:29 Lactobacillus Rhamnosus (Culturelle) 1 cap BID PO 10/27/18 21:00 10/28/18 09:29 Metoprolol Succinate (Toprol Xl) 25 mg BID PO 10/27/18 21:00 10/28/18 09:34 Potassium Chloride (Klor-Con) 10 meq DAILY PO 10/28/18 09:00 10/28/18 09:29 Atorvastatin Calcium (Lipitor) 80 mg QHS PO 10/27/18 21:00 10/27/18 21:56 Fenofibrate (Lofibra) 54 mg DAILY PO 10/28/18 09:00 10/28/18 09:28 Hydromorphone HCl (Dilaudid) 2 mg Q6HRS PO 10/28/18 00:00 10/28/18 10:59 DC 10/28/18 06:06 Pantoprazole Sodium (Protonix) 40 mg DAILYAC PO 10/28/18 07:30 10/28/18 09:31 Methylprednisolone Sodium Succinate (SOLU-Medrol 40MG VIAL) 60 mg Q8HRS IV 10/27/18 22:00 10/28/18 09:35 Ceftriaxone Sodium (Rocephin) 1 gm Q24H IVP 10/27/18 21:00 10/27/18 21:58 Budesonide (Pulmicort) 0.5 mg RTBID NEB 10/28/18 08:00 10/28/18 08:29 Gabapentin (Neurontin) 600 mg BID PO 10/28/18 09:00 10/28/18 09:30 Nicotine (Nicoderm Cq 14mg) 1 patch PRN DAILY PRN TD SMOKING CESSATION 10/28/18 03:00 10/28/18 09:35 Albuterol/ Ipratropium (Duoneb) 3 ml 1X ONCE NEB 10/28/18 05:00 10/28/18 05:01 DC 10/28/18 04:30 Oxycodone/ Acetaminophen (Percocet 10/325) 1 tab PRN Q6HRS PRN PO MODERATE PAIN 10/28/18 10:45 10/28/18 10:58 ALLERGIES ALLERGIES: Coded Allergies: morphine (Verified Allergy, Intermediate, rash, 12/21/17) Tolerates oxycodone vancomycin (Verified Allergy, Intermediate, Rash, 04/06/18) I S O L A T I O N *CONTACT* (Verified Allergy, Unknown, 04/09/18) +MRSA nares 04/06/18 ketorolac (Verified Adverse Reaction, Intermediate, nausea and vomiting, 12/21/17) moxifloxacin (Verified Adverse Reaction, Intermediate, Nausea and Vomiting, 12/21/17) tramadol (Verified Adverse Reaction, Intermediate, nausea and vomiting, 12/21/17) ROS Review of System 14 point ROS evaluated with pertinent positives noted per HPI PHYSICAL EXAM General: Alert, Oriented X3, Cooperative, No acute distress HEENT: Atraumatic, Mucous membr. moist/pink Lungs: Clear to auscultation, Normal air movement Heart: Regular rate (Sr no ectopies), Normal S1, Normal S2, Other (2/6 systolic murmur to LLS border) Abdomen: Soft, No tenderness Extremities: No cyanosis, No edema Skin: No breakdown, No significant lesion Neuro: Normal speech, Sensation intact Psych/Mental Status: Mental status NL, Mood NL MUSCULOSKELETAL: Osteoarthritic changes both hands VITALS VITALS Vital Signs Date Time Temp Pulse Resp B/P (MAP) Pulse Ox O2 Delivery O2 Flow Rate FiO2 10/28/18 11:00 98.0 86 20 117/59 (78) 92 Nasal Cannula 3.5 98.0 LABS Lab: Laboratory Tests Test 10/27/18 13:00 10/27/18 14:15 10/27/18 14:40 10/27/18 18:45 Sodium Level 135 mmol/L (136-145) Potassium Level 3.6 mmol/L (3.5-5.1) Chloride Level 98 mmol/L (98-107) Carbon Dioxide Level 23 mmol/L (21-32) Anion Gap 14 (6-14) Blood Urea Nitrogen 27 mg/dL (8-26) Creatinine 2.1 mg/dL (0.7-1.3) Estimated GFR (Cockcroft-Gault) 34.6 BUN/Creatinine Ratio 13 (6-20) Glucose Level 132 mg/dL (70-99) Lactic Acid Level 1.9 mmol/L (0.4-2.0) Calcium Level 9.2 mg/dL (8.5-10.1) Total Bilirubin 0.7 mg/dL (0.2-1.0) Aspartate Amino Transf (AST/SGOT) 50 U/L (15-37) Alanine Aminotransferase (ALT/SGPT) 25 U/L (16-63) Alkaline Phosphatase 97 U/L (46-116) Creatine Kinase 313 U/L (39-308) Troponin I Quantitative < 0.017 ng/mL (0.000-0.055) < 0.017 ng/mL (0.000-0.055) KV-Mxe-B-Type Natriuretic Peptide 1281 pg/mL (0-124) Total Protein 7.5 g/dL (6.4-8.2) Albumin 3.6 g/dL (3.4-5.0) Albumin/Globulin Ratio 0.9 (1.0-1.7) Lipase 46 U/L (73-393) White Blood Count 28.5 x10^3/uL (4.0-11.0) Red Blood Count 4.61 x10^6/uL (4.30-5.70) Hemoglobin 11.3 g/dL (13.0-17.5) Hematocrit 35.6 % (39.0-53.0) Mean Corpuscular Volume 77 fL (79-100) Mean Corpuscular Hemoglobin 25 pg (25-35) Mean Corpuscular Hemoglobin Concent 32 g/dL (31-37) Red Cell Distribution Width 16.8 % (11.5-14.5) Platelet Count 322 x10^3/uL (140-400) Neutrophils (%) (Auto) 87 % (31-73) Lymphocytes (%) (Auto) 10 % (24-48) Monocytes (%) (Auto) 2 % (0-9) Eosinophils (%) (Auto) 0 % (0-3) Basophils (%) (Auto) 1 % (0-3) Neutrophils # (Auto) 24.8 x10^3uL (1.8-7.7) Lymphocytes # (Auto) 3.0 x10^3/uL (1.0-4.8) Monocytes # (Auto) 0.5 x10^3/uL (0.0-1.1) Eosinophils # (Auto) 0.0 x10^3/uL (0.0-0.7) Basophils # (Auto) 0.2 x10^3/uL (0.0-0.2) Segmented Neutrophils % 74 % (35-66) Band Neutrophils % 15 % (0-9) Lymphocytes % 11 % (24-48) Toxic Granulation Slight Platelet Estimate Adequate (ADEQUATE) Polychromasia Slight O2 Saturation 97 % (92-99) Arterial Blood pH 7.38 (7.35-7.45) Arterial Blood pCO2 at Patient Temp 40 mmHg (35-46) Arterial Blood pO2 at Patient Temp 105 mmHg (75-108) Arterial Blood HCO3 23 mmol/L (21-28) Arterial Blood Base Excess -2 mmol/L (-3-3) FiO2 32 Test 10/27/18 21:50 10/28/18 08:55 Troponin I Quantitative < 0.017 ng/mL (0.000-0.055) Erythrocyte Sedimentation Rate 40 (0-15) ECHOCARDIOGRAM ECHOCARDIOGRAM <Conclusion> The left ventricle is normal size. The left ventricular systolic function is normal and the ejection fraction is within normal range. The Ejection Fraction is 55-60%. There is borderline concentric left ventricular hypertrophy. There is no significant aortic valvular stenosis. Doppler and Color Flow revealed no significant aortic regurgitation. Doppler and Color-flow revealed trace mitral regurgitation. Doppler and Color Flow revealed trace tricuspid regurgitation. DATE: 04/06/18 1241 HEART CATH HEART CATH Conclusion 1. Severe two vessel coronary artery disease as described above 2. Successful PCI/stents placement to right coronary artery and also the obtuse marginal branch of left circumflex artery Recommendations 1. Aspirin 325 mg daily 2. Plavix 75 mg daily for preferably one year 3. Cardiovascular risk factor modification DATE: 09/08/14 1420 ASSESSMENT/PLAN ASSESSMENT/PLAN 1. Suspect pneumonia with underlying AECOPD 2. VIVEK: nephrology following 3. Chronic diastolic CHF; compensated 3. CAD; past CABG and PCI/stent to RCA and OM, clinically stable 4. HTN: controlled 5. HLP Recommendations 1. lipids, BMP and Mg today. IVF have been given 2. Continue with secondary prevention. Hold ARB/ACEi pending Cr. 3. Continue home lasix therapy upon DC. Follow up with [facility] manager cleaning. 4. Will follow peripherally, call for any questions 5. Smoking cessation BHARGAVI TOLBERT MD 10/28/185: CARDIAC CONSULT ASSESSMENT/PLAN ASSESSMENT/PLAN Patient seen and examined. Agree with WOOL WASHER's assessment and plan. Continue current treatment for acute COPD exacerbation and pneumonia Chronic diastolic HF compensated. Recent echo showed normal LVF CAD s/p CABG clinically stable Continue current medical regimen Thank you for your consultation JOSIE MCNEAL APRN Oct 28, 2018 12:13 BHARGAVI TOLBERT MD Oct 28, 2018 21:07
[2018-10-28] MEDS: IPRATRPIUM/ALBUTEROL 0.5/2.5MG 3 ML NEBU. NEB SCH ×3 (12:35→20:00)
[2018-10-28 12:48] LABS: CALCIUM 9.6 mg/dL (8.5-10.1); CREATININE 1.2 mg/dL (0.7-1.3); GFR 66.1; MAGNESIUM 1.6 mg/dL (1.8-2.4)
--- NOTE | 2018-10-28 12:49 | NUR ---
SS following for discharge planning. SS reviewed pt chart. Pt is from home with spouse and is currently requiring oxygen. No discharge needs noted at this time. SS will continue to follow for pending discharge needs.
[2018-10-28] MEDS: HYDROmorphone 4 MG TABLET PO SCH ×3 (13:03→21:17)
[2018-10-28] MEDS ORDERED: MAGNESIUM SULFATE 2GM 50 ML IV ONE (14:00)
[2018-10-28 15:00] VITALS: BP 115/53
--- NOTE | 2018-10-28 15:52 | PDOC ---
PULMONARY PROGRESS NOTES Vitals Vital Signs Date Time Temp Pulse Resp B/P (MAP) Pulse Ox O2 Delivery O2 Flow Rate FiO2 10/28/18 15:00 98.3 91 18 115/53 (73) 92 Nasal Cannula 3.5 98.3 General: Alert, No acute distress Lungs: Other (symmetrical chest expansion, no wheezing, coarse breath sounds) Cardiovascular: S1, S2 Abdomen: Soft Extremities: No Edema Labs Laboratory Tests Test 10/27/18 13:00 10/27/18 14:15 10/27/18 14:40 10/27/18 18:45 Sodium Level 135 mmol/L (136-145) Potassium Level 3.6 mmol/L (3.5-5.1) Chloride Level 98 mmol/L (98-107) Carbon Dioxide Level 23 mmol/L (21-32) Anion Gap 14 (6-14) Blood Urea Nitrogen 27 mg/dL (8-26) Creatinine 2.1 mg/dL (0.7-1.3) Estimated GFR (Cockcroft-Gault) 34.6 BUN/Creatinine Ratio 13 (6-20) Glucose Level 132 mg/dL (70-99) Lactic Acid Level 1.9 mmol/L (0.4-2.0) Calcium Level 9.2 mg/dL (8.5-10.1) Total Bilirubin 0.7 mg/dL (0.2-1.0) Aspartate Amino Transf (AST/SGOT) 50 U/L (15-37) Alanine Aminotransferase (ALT/SGPT) 25 U/L (16-63) Alkaline Phosphatase 97 U/L (46-116) Creatine Kinase 313 U/L (39-308) Troponin I Quantitative < 0.017 ng/mL (0.000-0.055) < 0.017 ng/mL (0.000-0.055) RW-Oer-P-Type Natriuretic Peptide 1281 pg/mL (0-124) Total Protein 7.5 g/dL (6.4-8.2) Albumin 3.6 g/dL (3.4-5.0) Albumin/Globulin Ratio 0.9 (1.0-1.7) Lipase 46 U/L (73-393) White Blood Count 28.5 x10^3/uL (4.0-11.0) Red Blood Count 4.61 x10^6/uL (4.30-5.70) Hemoglobin 11.3 g/dL (13.0-17.5) Hematocrit 35.6 % (39.0-53.0) Mean Corpuscular Volume 77 fL (79-100) Mean Corpuscular Hemoglobin 25 pg (25-35) Mean Corpuscular Hemoglobin Concent 32 g/dL (31-37) Red Cell Distribution Width 16.8 % (11.5-14.5) Platelet Count 322 x10^3/uL (140-400) Neutrophils (%) (Auto) 87 % (31-73) Lymphocytes (%) (Auto) 10 % (24-48) Monocytes (%) (Auto) 2 % (0-9) Eosinophils (%) (Auto) 0 % (0-3) Basophils (%) (Auto) 1 % (0-3) Neutrophils # (Auto) 24.8 x10^3uL (1.8-7.7) Lymphocytes # (Auto) 3.0 x10^3/uL (1.0-4.8) Monocytes # (Auto) 0.5 x10^3/uL (0.0-1.1) Eosinophils # (Auto) 0.0 x10^3/uL (0.0-0.7) Basophils # (Auto) 0.2 x10^3/uL (0.0-0.2) Segmented Neutrophils % 74 % (35-66) Band Neutrophils % 15 % (0-9) Lymphocytes % 11 % (24-48) Toxic Granulation Slight Platelet Estimate Adequate (ADEQUATE) Polychromasia Slight O2 Saturation 97 % (92-99) Arterial Blood pH 7.38 (7.35-7.45) Arterial Blood pCO2 at Patient Temp 40 mmHg (35-46) Arterial Blood pO2 at Patient Temp 105 mmHg (75-108) Arterial Blood HCO3 23 mmol/L (21-28) Arterial Blood Base Excess -2 mmol/L (-3-3) FiO2 32 Test 10/27/18 21:50 10/28/18 08:55 10/28/18 11:00 Troponin I Quantitative < 0.017 ng/mL (0.000-0.055) Erythrocyte Sedimentation Rate 40 (0-15) Sodium Level 137 mmol/L (136-145) Potassium Level 4.0 mmol/L (3.5-5.1) Chloride Level 98 mmol/L (98-107) Carbon Dioxide Level 26 mmol/L (21-32) Anion Gap 13 (6-14) Blood Urea Nitrogen 24 mg/dL (8-26) Creatinine 1.2 mg/dL (0.7-1.3) Estimated GFR (Cockcroft-Gault) 66.1 Glucose Level 150 mg/dL (70-99) Calcium Level 9.6 mg/dL (8.5-10.1) Magnesium Level 1.6 mg/dL (1.8-2.4) Urine Collection Type Unknown Urine Color Yellow Urine Clarity Clear Urine pH 6.5 Urine Specific [place] <=1.005 Urine Protein Negative mg/dL (NEG-TRACE) Urine Glucose (UA) Negative mg/dL (NEG) Urine Ketones (Stick) Negative mg/dL (NEG) Urine Blood Negative (NEG) Urine Nitrite Negative (NEG) Urine Bilirubin Negative (NEG) Urine Urobilinogen Dipstick 0.2 mg/dL (0.2 mg/dL) Urine Leukocyte Esterase Negative (NEG) Urine RBC 0 /HPF (0-2) Urine WBC 0 /HPF (0-4) Urine Bacteria 0 /HPF (0-FEW) Laboratory Tests Test 10/27/18 18:45 10/27/18 21:50 10/28/18 08:55 10/28/18 11:00 Troponin I Quantitative < 0.017 ng/mL (0.000-0.055) < 0.017 ng/mL (0.000-0.055) Erythrocyte Sedimentation Rate 40 (0-15) Sodium Level 137 mmol/L (136-145) Potassium Level 4.0 mmol/L (3.5-5.1) Chloride Level 98 mmol/L (98-107) Carbon Dioxide Level 26 mmol/L (21-32) Anion Gap 13 (6-14) Blood Urea Nitrogen 24 mg/dL (8-26) Creatinine 1.2 mg/dL (0.7-1.3) Estimated GFR (Cockcroft-Gault) 66.1 Glucose Level 150 mg/dL (70-99) Calcium Level 9.6 mg/dL (8.5-10.1) Magnesium Level 1.6 mg/dL (1.8-2.4) Urine Collection Type Unknown Urine Color Yellow Urine Clarity Clear Urine pH 6.5 Urine Specific [place] <=1.005 Urine Protein Negative mg/dL (NEG-TRACE) Urine Glucose (UA) Negative mg/dL (NEG) Urine Ketones (Stick) Negative mg/dL (NEG) Urine Blood Negative (NEG) Urine Nitrite Negative (NEG) Urine Bilirubin Negative (NEG) Urine Urobilinogen Dipstick 0.2 mg/dL (0.2 mg/dL) Urine Leukocyte Esterase Negative (NEG) Urine RBC 0 /HPF (0-2) Urine WBC 0 /HPF (0-4) Urine Bacteria 0 /HPF (0-FEW) Medications Active Scripts Medications Dose Route/Sig Max Daily Dose Days Date Category Hydromorphone Hcl 4 Mg Tablet 4 Mg PO PRN Q6HRS PRN 10/27/18 Reported Zithromax (Azithromycin) 250 Mg Tablet 1 Pkg PO UD 10/14/18 Rx Prednisone 20 Mg Tablet 20 Mg PO DAILY 06/27/18 Rx Culturelle (Lactobacillus Rhamnosus Gg) 1 Each Cap.sprink 1 Cap PO BID 14 06/27/18 Rx Aspirin 81 Mg Tab.chew 1 Tab PO DAILY 06/24/18 Reported Klor-Con 10 (Potassium Chloride) 10 Meq Tablet.er 1 Tab PO DAILY 06/21/18 Reported Proair Hfa Inhaler (Albuterol Sulfate) 8.5 Gm Hfa.aer.ad 1 Puff INH PRN Q6HRS PRN 05/08/18 Rx Hydromorphone ER (Hydromorphone HCl) 8 Mg Tab.er.24h 8 Mg PO DAILY 04/06/18 Reported Metoprolol Succinate ( Xl ) (Metoprolol Succinate) 25 Mg Tab.er.24h 25 Mg PO BID 04/06/18 Reported Atorvastatin Calcium 80 Mg Tablet 80 Mg PO HS 04/06/18 Reported Protonix (Pantoprazole Sodium) 20 Mg Tablet.dr 20 Mg PO BID 04/06/18 Reported Buspirone Hcl 7.5 Mg Tablet 7.5 Mg PO TID 04/06/18 Reported Bupropion Hcl 75 Mg Tablet 75 Mg PO TID 04/06/18 Reported Furosemide 40 Mg Tablet 40 Mg PO DAILY 30 12/25/17 Rx Feosol (Ferrous Sulfate) 325 Mg Tablet 325 Mg PO BIDWMEALS 30 12/25/17 Rx Symbicort 160-4.5 Mcg Inhaler (Budesonide/Formoterol Fumarate) 10.2 Gm Hfa.aer.ad 2 Puff IH BID 06/25/17 Reported Baclofen 10 Mg Tablet 1 Tab PO PRN TID 06/25/17 Reported Melatonin 3 Mg Tablet 1 Tab PO QHS 04/11/17 Reported Nitrostat (Nitroglycerin) 0.4 Mg Tab.subl 0.4 Mg SL PRN Q5MIN PRN 09/10/15 Reported Promethazine Hcl 25 Mg Tablet 25 Mg PO Q6H PRN 09/07/14 Reported Fenofibrate (Fenofibrate Nanocrystallized) 48 Mg Tablet 48 Mg PO DAILY 09/07/14 Reported Fluoxetine Hcl 20 Mg Capsule 1 Cap PO DAILY 09/07/14 Reported Gabapentin 600 Mg Tablet 3 Tab PO BID 09/07/14 Reported Impression . note dictated bronch in am continue the same for now BELINDA SCOTT MD Oct 28, 2018 15:52
[2018-10-28] MEDS: HYDROmorphone 4 MG TABLET PO PRN (16:11)
--- NOTE | 2018-10-28 17:13 | RAD ---
Examination: RENAL COMPLETE BILATERAL History: VIVEK Comparison/Correlation: None Findings: Right kidney measures 11.8 cm x by 5.8 cm x 5.67. Left kidney measures 11.2 cm x 6 cm x 7.1 cm. No hydronephrosis. Renal contours are unremarkable. No calculi identified. Renal cortical echotexture is normal. Inferior vena cava is unremarkable. Abdominal aorta is obscured by bowel gas. Urinary bladder measures 10.7 cm x 7.6 x 5.8 cm. Bilateral ureteral jets are present. Impression: Unremarkable renal ultrasound exam. Electronically signed by: Jamar Montenegro MD (10/28/2018 5:11 PM) [facility]
[2018-10-28 19:27] VITALS: BP 115/58
[2018-10-28] MEDS: ALPRAZolam 0.25 MG TABLET PO PRN (19:53)
[2018-10-28] MEDS: ATORVASTATIN CALCIUM 40 MG TABLET. PO SCH (21:17)
[2018-10-28] MEDS: cefTRIAXone IV Push 1 GM VIAL. IVP SCH (21:27)
[2018-10-28 22:18] VITALS: BP 150/60
--- NOTE | 2018-10-29 01:44 | CONS ---
DATE OF CONSULTATION: 10/28/2018 REASON FOR CONSULTATION: The patient is seen in pulmonary consultation at the request of Dr. Pak for abnormal chest x-ray. HISTORY OF PRESENT ILLNESS: The patient is a 43-year-old well known to me from previous hospitalization. He presents with waxing and waning type of infiltrates on x-ray. He was last in the office back in August. He was treated for presumptive BOOP with prednisone, was taken off the prednisone. A repeat CT of the chest greatly subsided. The patient now presents with increasing shortness of breath given x-ray, which was now worse. He denies any symptoms of infection. No fever, chills, or night sweats. He has a cough, mostly nonproductive. He remains short of breath. I reviewed his medication list. There is nothing that stands out that would cause his acute lung injury. He denies any inhalation of any toxic fumes, not utilizing any illicit drugs. PAST MEDICAL HISTORY: 1. Recurrent pulmonary infiltrates, as stated above. 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 2. Chronic pain syndrome. 3. COPD. 4. CHF. 5. Coronary artery disease with previous angioplasty. PAST SURGICAL HISTORY: Coronary artery bypass grafting, back surgery, previous PCI and stent placement. FAMILY HISTORY: Coronary artery disease. ALLERGIES: MORPHINE, MOXIFLOXACIN, TRAMADOL, VANCOMYCIN, and KETOROLAC. REVIEW OF SYSTEMS: As indicated in history of present illness, otherwise a 10-point system was reviewed and negative. PHYSICAL EXAMINATION: GENERAL: The patient was in no significant respiratory distress, currently on 3 liters of oxygen supplementation, saturation greater than 92%. HEENT: Eyes, the sclerae were nonicteric. NECK: Jugular venous distention was not elevated. No lymphadenopathy. CHEST: Full expansion. LUNGS: Adequate airway flow with no wheezes. CARDIOVASCULAR: Regular rate and rhythm with S1, S2, no S3. ABDOMEN: Soft and nontender. EXTREMITIES: No clubbing, cyanosis, or edema. NEUROLOGIC: The patient was awake, alert, following commands. A detailed neuro exam not performed. LABORATORY DATA: Reviewed. Arterial blood gas noted. White count was elevated at 28,000, hemoglobin and hematocrit 11 and 35. Electrolytes were noted. BNP was initially elevated, troponin was not elevated. BUN was elevated, creatinine was elevated initially, now normal. IMPRESSION: 1. Recurrent pulmonary infiltrates of unknown etiology. The patient has been treated in the past for presumptive bronchiolitis obliterans organizing pneumonia. 2. Respiratory insufficiency secondary to above. 3. Coronary artery disease with previous coronary artery bypass grafting. 4. Acute exacerbation of chronic obstructive pulmonary disease. 5. Possible pneumonia, gram negative. PLAN: 1. We will continue current empiric antibiotics. 2. Diagnostic bronchoscopy. 3. Follow Cardiology input. 4. Repeat CT chest, no response to diurese. I do appreciate the privilege in sharing in the patient's care. BELINDA SCOTT MD DR: YENNI/viki JOB#: [id number] / [id number]
[2018-10-29 02:22] VITALS: BP 103/43
[2018-10-29] MEDS: methylPREDNISolone SOD SUCC PF 40 MG/ML VIAL. IV SCH ×3 (05:13→21:08)
[2018-10-29 06:00] LABS: BASO % 0 % (0-3); EOS % 0 % (0-3); HEMATOCRIT 33.7 % (39.0-53.0); HEMOGLOBIN 10.7 g/dL (13.0-17.5); LYMPH # 1.3 x10^3/uL (1.0-4.8); LYMPH % 5 % (24-48); MEAN CORPUSCULAR HEMOGLOBIN 25 pg (25-35); MEAN CORPUSCULAR HGB CONC 32 g/dL (31-37); MEAN CORPUSCULAR VOLUME 78 fL (79-100); MONO # 0.7 x10^3/uL (0.0-1.1); MONO % 3 % (0-9); NEUT # 22.4 x10^3uL (1.8-7.7); NEUT % 92 % (31-73); PLATELET COUNT 291 x10^3/uL (140-400); RED BLOOD COUNT 4.35 x10^6/uL (4.30-5.70); RED CELL DISTRIBUTION WIDTH 16.6 % (11.5-14.5); WHITE BLOOD COUNT 24.5 x10^3/uL (4.0-11.0)
[2018-10-29 06:15] LABS: CALCIUM 9.6 mg/dL (8.5-10.1); GFR 81.6; POTASSIUM 4.3 mmol/L (3.5-5.1)
[2018-10-29 07:00] VITALS: BP 105/51
[2018-10-29] MEDS: IPRATRPIUM/ALBUTEROL 0.5/2.5MG 3 ML NEBU. NEB SCH ×4 (07:24→20:00)
[2018-10-29] MEDS: BUDESONIDE 0.5 MG/2 ML NEBU. NEB SCH ×2 (07:25→20:00)
[2018-10-29] MEDS: GABAPENTIN 300 MG CAPSULE. PO SCH ×2 (08:02→21:09)
[2018-10-29] MEDS: FERROUS SULFATE 325 MG TABLET. PO SCH ×2 (08:02→17:03)
[2018-10-29] MEDS: POTASSIUM CHLORIDE 10 MEQ TABLET.ER. PO SCH (08:04)
[2018-10-29] MEDS: FLUoxetine HCL 20 MG CAPSULE PO SCH (08:05)
[2018-10-29] MEDS: FUROSEMIDE 40 MG TABLET. PO SCH (08:05)
[2018-10-29] MEDS: HYDROmorphone 4 MG TABLET PO SCH ×4 (08:05→21:10)
[2018-10-29] MEDS: buPROPion 75 MG TABLET. PO SCH ×3 (08:05→21:09)
[2018-10-29] MEDS: FENOFIBRATE 54 MG TABLET. PO SCH (08:05)
[2018-10-29] MEDS: METOPROLOL SUCC 24HR ER 25 MG TAB.ER.24H. PO SCH ×2 (08:06→21:09)
[2018-10-29] MEDS: LACTOBACILLUS RHAMNOSUS GG 1 CAPSULE. PO SCH ×2 (09:00→21:09)
[2018-10-29] MEDS: ASPIRIN CHEWABLE 81 MG TABLET. PO SCH (09:00)
--- NOTE | 2018-10-29 09:47 | PDOC ---
PROGRESS NOTES Chief Complaint Chief Complaint left sided pneumonia versus atelectasis History CHF, acute on chronic Leukocytosis in the background of pneumonia and recent steroid use History CABG 2016 smoker-trying to quit VIVEK possibly on CK D History of Present Illness History of Present Illness He is for bronch today But he seems more interested in pain medicines and asking for Xanax and all of which are all on his file Appreciate pulmonary Earlier entry: I provided him a copy of his 2 views chest x-ray which showed left-sided haziness vs atelectasis He was less interested in that-he was more focused on getting a regular tray instead of a cardiac diet Blood pressure so far good WBC 28 with no fevers, he was on steroids prednisone 20 by his PCP Cardiology pulmonary and renal all consulted by colleague on admission Creatinine 2.1-he does not know his baseline-he is not the best historian Plan: BRONCh TODAY continue antibiotics DuoNeb's cough medicine etc. He does not seem to be in [place] chf Avoid nephrotoxins Follow subspecialist input So far no PT OT needs Nicotine patch when necessary Smoking cessation done less than 30 minutes 1-1 Vitals Vitals Vital Signs Date Time Temp Pulse Resp B/P (MAP) Pulse Ox O2 Delivery O2 Flow Rate FiO2 10/29/18 08:06 79 105/51 10/29/18 08:00 Nasal Cannula 3.0 10/29/18 07:26 97 10/29/18 07:00 97.3 20 97.3 Physical Exam General: Alert, Oriented X3, Cooperative, No acute distress Heart: Regular rate (Sr no ectopies), Normal S1, Normal S2, Other (2/6 systolic murmur to LLS border) Lungs: Other (symmetrical chest expansion, no wheezing, coarse breath sounds) Abdomen: Soft, No tenderness Extremities: No cyanosis, No edema Skin: No breakdown, No significant lesion Labs LABS Laboratory Tests Test 10/28/18 11:00 10/29/18 05:15 Urine Collection Type Unknown Urine Color Yellow Urine Clarity Clear Urine pH 6.5 Urine Specific [place] <=1.005 Urine Protein Negative mg/dL (NEG-TRACE) Urine Glucose (UA) Negative mg/dL (NEG) Urine Ketones (Stick) Negative mg/dL (NEG) Urine Blood Negative (NEG) Urine Nitrite Negative (NEG) Urine Bilirubin Negative (NEG) Urine Urobilinogen Dipstick 0.2 mg/dL (0.2 mg/dL) Urine Leukocyte Esterase Negative (NEG) Urine RBC 0 /HPF (0-2) Urine WBC 0 /HPF (0-4) Urine Bacteria 0 /HPF (0-FEW) White Blood Count 24.5 x10^3/uL (4.0-11.0) Red Blood Count 4.35 x10^6/uL (4.30-5.70) Hemoglobin 10.7 g/dL (13.0-17.5) Hematocrit 33.7 % (39.0-53.0) Mean Corpuscular Volume 78 fL (79-100) Mean Corpuscular Hemoglobin 25 pg (25-35) Mean Corpuscular Hemoglobin Concent 32 g/dL (31-37) Red Cell Distribution Width 16.6 % (11.5-14.5) Platelet Count 291 x10^3/uL (140-400) Neutrophils (%) (Auto) 92 % (31-73) Lymphocytes (%) (Auto) 5 % (24-48) Monocytes (%) (Auto) 3 % (0-9) Eosinophils (%) (Auto) 0 % (0-3) Basophils (%) (Auto) 0 % (0-3) Neutrophils # (Auto) 22.4 x10^3uL (1.8-7.7) Lymphocytes # (Auto) 1.3 x10^3/uL (1.0-4.8) Monocytes # (Auto) 0.7 x10^3/uL (0.0-1.1) Eosinophils # (Auto) 0.0 x10^3/uL (0.0-0.7) Basophils # (Auto) 0.0 x10^3/uL (0.0-0.2) Sodium Level 138 mmol/L (136-145) Potassium Level 4.3 mmol/L (3.5-5.1) Chloride Level 101 mmol/L (98-107) Carbon Dioxide Level 27 mmol/L (21-32) Anion Gap 10 (6-14) Blood Urea Nitrogen 21 mg/dL (8-26) Creatinine 1.0 mg/dL (0.7-1.3) Estimated GFR (Cockcroft-Gault) 81.6 Glucose Level 150 mg/dL (70-99) Calcium Level 9.6 mg/dL (8.5-10.1) Review of Systems Review of Systems A 14 point ROS was completed with the following noted as positive: Other systems reviewed and negative. \CONSTITUTIONAL: No fever or chills EYES: No recent changes SKIN: No rash or itching CARDIOVASCULAR: No chest pain, syncope, palpitations, or edema RESPIRATORY: No SOB or cough GASTROINTESTINAL: No nausea, vomiting or abdominal pain NEUROLOGICAL: No headaches or weakness ENDOCRINE: No cold or heat intolerance GENITOURINARY: No urgency or frequency of urination MUSCULOSKELETAL: No back pain or joint pain LYMPHATICS: No enlarged lymph nodes PSYCHIATRIC: No anxiety or depression Assessment and Plan Assessmemt and Plan Problems Medical Problems: (1) Acute exacerbation of CHF (congestive heart failure) Status: Acute (2) Acute on chronic renal insufficiency Status: Acute (3) SIRS (systemic inflammatory response syndrome) Status: Acute Comment Review of Relevant I have reviewed the following items lexie (where applicable) has been applied. Labs Laboratory Tests Test 10/27/18 13:00 10/27/18 14:15 10/27/18 14:40 10/27/18 18:45 Sodium Level 135 mmol/L (136-145) Potassium Level 3.6 mmol/L (3.5-5.1) Chloride Level 98 mmol/L (98-107) Carbon Dioxide Level 23 mmol/L (21-32) Anion Gap 14 (6-14) Blood Urea Nitrogen 27 mg/dL (8-26) Creatinine 2.1 mg/dL (0.7-1.3) Estimated GFR (Cockcroft-Gault) 34.6 BUN/Creatinine Ratio 13 (6-20) Glucose Level 132 mg/dL (70-99) Lactic Acid Level 1.9 mmol/L (0.4-2.0) Calcium Level 9.2 mg/dL (8.5-10.1) Total Bilirubin 0.7 mg/dL (0.2-1.0) Aspartate Amino Transf (AST/SGOT) 50 U/L (15-37) Alanine Aminotransferase (ALT/SGPT) 25 U/L (16-63) Alkaline Phosphatase 97 U/L (46-116) Creatine Kinase 313 U/L (39-308) Troponin I Quantitative < 0.017 ng/mL (0.000-0.055) < 0.017 ng/mL (0.000-0.055) SK-Bnh-F-Type Natriuretic Peptide 1281 pg/mL (0-124) Total Protein 7.5 g/dL (6.4-8.2) Albumin 3.6 g/dL (3.4-5.0) Albumin/Globulin Ratio 0.9 (1.0-1.7) Lipase 46 U/L (73-393) White Blood Count 28.5 x10^3/uL (4.0-11.0) Red Blood Count 4.61 x10^6/uL (4.30-5.70) Hemoglobin 11.3 g/dL (13.0-17.5) Hematocrit 35.6 % (39.0-53.0) Mean Corpuscular Volume 77 fL (79-100) Mean Corpuscular Hemoglobin 25 pg (25-35) Mean Corpuscular Hemoglobin Concent 32 g/dL (31-37) Red Cell Distribution Width 16.8 % (11.5-14.5) Platelet Count 322 x10^3/uL (140-400) Neutrophils (%) (Auto) 87 % (31-73) Lymphocytes (%) (Auto) 10 % (24-48) Monocytes (%) (Auto) 2 % (0-9) Eosinophils (%) (Auto) 0 % (0-3) Basophils (%) (Auto) 1 % (0-3) Neutrophils # (Auto) 24.8 x10^3uL (1.8-7.7) Lymphocytes # (Auto) 3.0 x10^3/uL (1.0-4.8) Monocytes # (Auto) 0.5 x10^3/uL (0.0-1.1) Eosinophils # (Auto) 0.0 x10^3/uL (0.0-0.7) Basophils # (Auto) 0.2 x10^3/uL (0.0-0.2) Segmented Neutrophils % 74 % (35-66) Band Neutrophils % 15 % (0-9) Lymphocytes % 11 % (24-48) Toxic Granulation Slight Platelet Estimate Adequate (ADEQUATE) Polychromasia Slight O2 Saturation 97 % (92-99) Arterial Blood pH 7.38 (7.35-7.45) Arterial Blood pCO2 at Patient Temp 40 mmHg (35-46) Arterial Blood pO2 at Patient Temp 105 mmHg (75-108) Arterial Blood HCO3 23 mmol/L (21-28) Arterial Blood Base Excess -2 mmol/L (-3-3) FiO2 32 Test 10/27/18 19:45 10/27/18 21:50 10/28/18 08:55 10/28/18 11:00 Nasal Screen MRSA (PCR) Positive (Negative) Troponin I Quantitative < 0.017 ng/mL (0.000-0.055) Erythrocyte Sedimentation Rate 40 (0-15) Sodium Level 137 mmol/L (136-145) Potassium Level 4.0 mmol/L (3.5-5.1) Chloride Level 98 mmol/L (98-107) Carbon Dioxide Level 26 mmol/L (21-32) Anion Gap 13 (6-14) Blood Urea Nitrogen 24 mg/dL (8-26) Creatinine 1.2 mg/dL (0.7-1.3) Estimated GFR (Cockcroft-Gault) 66.1 Glucose Level 150 mg/dL (70-99) Calcium Level 9.6 mg/dL (8.5-10.1) Magnesium Level 1.6 mg/dL (1.8-2.4) Urine Collection Type Unknown Urine Color Yellow Urine Clarity Clear Urine pH 6.5 Urine Specific [place] <=1.005 Urine Protein Negative mg/dL (NEG-TRACE) Urine Glucose (UA) Negative mg/dL (NEG) Urine Ketones (Stick) Negative mg/dL (NEG) Urine Blood Negative (NEG) Urine Nitrite Negative (NEG) Urine Bilirubin Negative (NEG) Urine Urobilinogen Dipstick 0.2 mg/dL (0.2 mg/dL) Urine Leukocyte Esterase Negative (NEG) Urine RBC 0 /HPF (0-2) Urine WBC 0 /HPF (0-4) Urine Bacteria 0 /HPF (0-FEW) Test 10/29/18 05:15 White Blood Count 24.5 x10^3/uL (4.0-11.0) Red Blood Count 4.35 x10^6/uL (4.30-5.70) Hemoglobin 10.7 g/dL (13.0-17.5) Hematocrit 33.7 % (39.0-53.0) Mean Corpuscular Volume 78 fL (79-100) Mean Corpuscular Hemoglobin 25 pg (25-35) Mean Corpuscular Hemoglobin Concent 32 g/dL (31-37) Red Cell Distribution Width 16.6 % (11.5-14.5) Platelet Count 291 x10^3/uL (140-400) Neutrophils (%) (Auto) 92 % (31-73) Lymphocytes (%) (Auto) 5 % (24-48) Monocytes (%) (Auto) 3 % (0-9) Eosinophils (%) (Auto) 0 % (0-3) Basophils (%) (Auto) 0 % (0-3) Neutrophils # (Auto) 22.4 x10^3uL (1.8-7.7) Lymphocytes # (Auto) 1.3 x10^3/uL (1.0-4.8) Monocytes # (Auto) 0.7 x10^3/uL (0.0-1.1) Eosinophils # (Auto) 0.0 x10^3/uL (0.0-0.7) Basophils # (Auto) 0.0 x10^3/uL (0.0-0.2) Sodium Level 138 mmol/L (136-145) Potassium Level 4.3 mmol/L (3.5-5.1) Chloride Level 101 mmol/L (98-107) Carbon Dioxide Level 27 mmol/L (21-32) Anion Gap 10 (6-14) Blood Urea Nitrogen 21 mg/dL (8-26) Creatinine 1.0 mg/dL (0.7-1.3) Estimated GFR (Cockcroft-Gault) 81.6 Glucose Level 150 mg/dL (70-99) Calcium Level 9.6 mg/dL (8.5-10.1) Laboratory Tests Test 10/28/18 11:00 10/29/18 05:15 Urine Collection Type Unknown Urine Color Yellow Urine Clarity Clear Urine pH 6.5 Urine Specific [place] <=1.005 Urine Protein Negative mg/dL (NEG-TRACE) Urine Glucose (UA) Negative mg/dL (NEG) Urine Ketones (Stick) Negative mg/dL (NEG) Urine Blood Negative (NEG) Urine Nitrite Negative (NEG) Urine Bilirubin Negative (NEG) Urine Urobilinogen Dipstick 0.2 mg/dL (0.2 mg/dL) Urine Leukocyte Esterase Negative (NEG) Urine RBC 0 /HPF (0-2) Urine WBC 0 /HPF (0-4) Urine Bacteria 0 /HPF (0-FEW) White Blood Count 24.5 x10^3/uL (4.0-11.0) Red Blood Count 4.35 x10^6/uL (4.30-5.70) Hemoglobin 10.7 g/dL (13.0-17.5) Hematocrit 33.7 % (39.0-53.0) Mean Corpuscular Volume 78 fL (79-100) Mean Corpuscular Hemoglobin 25 pg (25-35) Mean Corpuscular Hemoglobin Concent 32 g/dL (31-37) Red Cell Distribution Width 16.6 % (11.5-14.5) Platelet Count 291 x10^3/uL (140-400) Neutrophils (%) (Auto) 92 % (31-73) Lymphocytes (%) (Auto) 5 % (24-48) Monocytes (%) (Auto) 3 % (0-9) Eosinophils (%) (Auto) 0 % (0-3) Basophils (%) (Auto) 0 % (0-3) Neutrophils # (Auto) 22.4 x10^3uL (1.8-7.7) Lymphocytes # (Auto) 1.3 x10^3/uL (1.0-4.8) Monocytes # (Auto) 0.7 x10^3/uL (0.0-1.1) Eosinophils # (Auto) 0.0 x10^3/uL (0.0-0.7) Basophils # (Auto) 0.0 x10^3/uL (0.0-0.2) Sodium Level 138 mmol/L (136-145) Potassium Level 4.3 mmol/L (3.5-5.1) Chloride Level 101 mmol/L (98-107) Carbon Dioxide Level 27 mmol/L (21-32) Anion Gap 10 (6-14) Blood Urea Nitrogen 21 mg/dL (8-26) Creatinine 1.0 mg/dL (0.7-1.3) Estimated GFR (Cockcroft-Gault) 81.6 Glucose Level 150 mg/dL (70-99) Calcium Level 9.6 mg/dL (8.5-10.1) Microbiology 10/27/18 Blood Culture - Preliminary, Resulted NO GROWTH AFTER 1 DAY Medications Current Medications Albuterol/ Ipratropium (Duoneb) 3 ml 1X ONCE NEB Last administered on 10/28/18 08:29; Start 10/27/18 at 13:45; Stop 10/27/18 at 13:46; Status DC Methylprednisolone Sodium Succinate (SOLU-Medrol 125MG VIAL) 125 mg 1X ONCE IV Last administered on 10/27/18 13:51; Start 10/27/18 at 13:45; Stop 10/27/18 at 13:46; Status DC Fentanyl Citrate (Fentanyl 2ml Vial) 50 mcg 1X ONCE IV Last administered on 10/27/18 15:08; Start 10/27/18 at 15:00; Stop 10/27/18 at 15:05; Status DC Piperacillin Sod/ Tazobactam Sod 3.375 gm/Sodium Chloride 50 ml @ 100 mls/hr 1X ONCE IV Last administered on 10/27/18 17:24; Start 10/27/18 at 16:45; Stop 10/27/18 at 17:14; Status DC Sodium Chloride 1,000 ml @ 1,000 mls/hr 1X ONCE IV Last administered on 10/27/18 17:33; Start 10/27/18 at 17:00; Stop 10/27/18 at 17:59; Status DC Aspirin (Children'S Aspirin) 81 mg DAILY PO Last administered on 10/28/18 09:30; Start 10/28/18 at 09:00 Baclofen (Lioresal) 10 mg PRN TID PRN PO MUSCLE SPASMS Last administered on 10/28/18 09:29; Start 10/27/18 at 20:45 Bupropion HCl (Wellbutrin) 75 mg TID PO Last administered on 10/29/18 08:05; Start 10/27/18 at 21:00 Ferrous Sulfate (Feosol) 325 mg BIDWMEALS PO Last administered on 10/29/18 08:02; Start 10/28/18 at 08:00 Fluoxetine HCl (PROzac) 20 mg DAILY PO Last administered on 10/29/18 08:05; Start 10/28/18 at 09:00 Furosemide (Lasix) 40 mg DAILY PO Last administered on 10/29/18 08:05; Start 10/28/18 at 09:00 Lactobacillus Rhamnosus (Culturelle) 1 cap BID PO Last administered on 4/25/19at 21:17; Start 10/27/18 at 21:00 Metoprolol Succinate (Toprol Xl) 25 mg BID PO Last administered on 10/29/18at 08:06; Start 10/27/18 at 21:00 Nitroglycerin (Nitrostat) 0.4 mg PRN Q5MIN PRN SL CHEST PAIN; Start 10/27/18 at 20:45 Potassium Chloride (Klor-Con) 10 meq DAILY PO Last administered on 10/29/18at 08:04; Start 10/28/18 at 09:00 Prednisone (Prednisone) 20 mg DAILY PO ; Start 10/28/18 at 09:00; Stop 10/28/18 at 09:00; Status DC Atorvastatin Calcium (Lipitor) 80 mg QHS PO Last administered on 10/28/18at 21:17; Start 10/27/18 at 21:00 Non-Formulary Medication (Budesonide/ Formoterol Fumarate (Symbicort 160-4.5 Mcg Inhaler)) 2 puff BID IH ; Start 10/27/18 at 21:00; Status UNV Buspirone HCl (Buspar) 7.5 mg TID PO ; Start 10/27/18 at 21:15; Status Cancel Fenofibrate (Lofibra) 54 mg DAILY PO Last administered on 10/29/18at 08:05; Start 10/28/18 at 09:00 Non-Formulary Medication (Gabapentin ) 3 tab BID PO ; Start 10/27/18 at 21:00; Stop 10/27/18 at 21:34; Status DC Hydromorphone HCl (Dilaudid) 2 mg Q6HRS PO Last administered on 10/28/18at 06:06; Start 10/28/18 at 00:00; Stop 10/28/18 at 10:59; Status DC Non-Formulary Medication (Levofloxacin (Levaquin)) 500 mg DAILY PO ; Start 10/28/18 at 09:00; Stop 10/28/18 at 09:00; Status DC Non-Formulary Medication (Melatonin ) 1 tab QHS PO ; Start 10/27/18 at 21:00; Status UNV Pantoprazole Sodium (Protonix) 40 mg DAILYAC PO Last administered on 10/28/18at 09:31; Start 10/28/18 at 07:30 Promethazine HCl (Phenergan) 25 mg PRN Q6HRS PRN PO NAUSEA/VOMITING; Start 10/27/18 at 21:15 Albuterol/ Ipratropium (Duoneb) 3 ml RTQID NEB Last administered on 10/29/18at 07:24; Start 10/28/18 at 08:00 Methylprednisolone Sodium Succinate (SOLU-Medrol 40MG VIAL) 60 mg Q8HRS IV Last administered on 10/29/18at 05:13; Start 10/27/18 at 22:00 Ceftriaxone Sodium (Rocephin) 1 gm Q24H IVP Last administered on 10/28/18at 21:27; Start 10/27/18 at 21:00 Budesonide (Pulmicort) 0.5 mg RTBID NEB Last administered on 10/29/18at 07:25; Start 10/28/18 at 08:00 Gabapentin (Neurontin) 600 mg BID PO Last administered on 10/29/18 08:02; Start 10/28/18 at 09:00 Nicotine (Nicoderm Cq 14mg) 1 patch PRN DAILY PRN TD SMOKING CESSATION Last administered on 10/28/18at 09:35; Start 10/28/18 at 03:00; Stop 10/29/18 at 07:50; Status DC Albuterol/ Ipratropium (Duoneb) 3 ml 1X ONCE NEB Last administered on 10/28/18at 04:30; Start 10/28/18 at 05:00; Stop 10/28/18 at 05:01; Status DC Albuterol/ Ipratropium (Duoneb) 3 ml STK-MED ONCE .ROUTE ; Start 10/28/18 at 04:26; Stop 10/28/18 at 04:27; Status DC Guaifenesin (Robitussin Dm) 10 ml PRN Q6HRS PRN PO COUGH; Start 10/28/18 at 08:30 Acetaminophen (Tylenol) 500 mg PRN Q6HRS PRN PO MILD PAIN / TEMP; Start at 08:30 Ondansetron HCl (Zofran) 4 mg PRN Q6HRS PRN IV NAUSEA/VOMITING; Start 10/28/18 at 08:30 Fentanyl Citrate (Fentanyl 2ml Vial) 50 mcg PRN Q2HR PRN IV PAIN; Start 10/28/18 at 08:30 Nicotine (Nicoderm Cq 21mg) 1 patch PRN DAILY PRN TD SMOKING CESSATION; Start 10/28/18 at 09:45 Oxycodone/ Acetaminophen (Percocet 10/325) 1 tab PRN Q6HRS PRN PO MODERATE PAIN Last administered on 10/28/18at 10:58; Start 10/28/18 at 10:45; Stop 10/28/18 at 15:47; Status DC Hydromorphone HCl (Dilaudid) 4 mg PRN Q6HRS PRN PO SEVERE PAIN Last administered on 10/28/18at 16:11; Start 10/28/18 at 10:45 Hydromorphone HCl (Dilaudid) 4 mg QID PO Last administered on 10/29/18at 08:05; Start 10/28/18 at 13:00 Magnesium Sulfate 50 ml @ 25 mls/hr 1X ONCE IV Last administered on 10/28/18at 14:28; Start 10/28/18 at 14:00; Stop 10/28/18 at 15:59; Status DC Alprazolam (Xanax) 0.25 mg PRN Q8HRS PRN PO ANXIETY / AGITATION Last administered on 10/28/18at 19:53; Start 10/28/18 at 19:45 Active Scripts Active Zithromax (Azithromycin) 250 Mg Tablet 1 Pkg PO UD Prednisone 20 Mg Tablet 20 Mg PO DAILY Culturelle (Lactobacillus Rhamnosus Gg) 1 Each Cap.sprink 1 Cap PO BID 14 Days Proair Hfa Inhaler (Albuterol Sulfate) 8.5 Gm Hfa.aer.ad 1 Puff INH PRN Q6HRS P RN Furosemide 40 Mg Tablet 40 Mg PO DAILY 30 Days Feosol (Ferrous Sulfate) 325 Mg Tablet 325 Mg PO BIDWMEALS 30 Days Reported Hydromorphone Hcl 4 Mg Tablet 4 Mg PO PRN Q6HRS PRN Aspirin 81 Mg Tab.chew 1 Tab PO DAILY Klor-Con 10 (Potassium Chloride) 10 Meq Tablet.er 1 Tab PO DAILY Hydromorphone ER (Hydromorphone HCl) 8 Mg Tab.er.24h 8 Mg PO DAILY Metoprolol Succinate ( Xl ) (Metoprolol Succinate) 25 Mg Tab.er.24h 25 Mg PO BID Atorvastatin Calcium 80 Mg Tablet 80 Mg PO HS Protonix (Pantoprazole Sodium) 20 Mg Tablet.dr 20 Mg PO BID Buspirone Hcl 7.5 Mg Tablet 7.5 Mg PO TID Bupropion Hcl 75 Mg Tablet 75 Mg PO TID Symbicort 160-4.5 Mcg Inhaler (Budesonide/Formoterol Fumarate) 10.2 Gm Hfa.aer.ad 2 Puff IH BID Baclofen 10 Mg Tablet 1 Tab PO PRN TID Melatonin 3 Mg Tablet 1 Tab PO QHS Nitrostat (Nitroglycerin) 0.4 Mg Tab.subl 0.4 Mg SL PRN Q5MIN PRN Promethazine Hcl 25 Mg Tablet 25 Mg PO Q6H PRN Fenofibrate (Fenofibrate Nanocrystallized) 48 Mg Tablet 48 Mg PO DAILY Fluoxetine Hcl 20 Mg Capsule 1 Cap PO DAILY Gabapentin 600 Mg Tablet 3 Tab PO BID Vitals/I & O Vital Sign - Last 24 Hours 10/28/18 10/28/18 10/28/18 10/28/18 10:58 11:00 12:00 12:36 Temp 98.0 98.0 Pulse 86 Resp 20 B/P (MAP) 117/59 (78) Pulse Ox 93 92 O2 Delivery Nasal Cannula Nasal Cannula Nasal Cannula Nasal Cannula O2 Flow Rate 2.0 3.5 2.0 3.0 10/28/18 10/28/18 10/28/18 10/28/18 15:00 16:28 19:27 20:00 Temp 98.3 97.6 98.3 97.6 Pulse 91 89 Resp 18 20 B/P (MAP) 115/53 (73) 115/58 (77) Pulse Ox 92 91 O2 Delivery Nasal Cannula Nasal Cannula Nasal Cannula Nasal Cannula O2 Flow Rate 3.5 3.0 2.0 3.0 10/28/18 10/28/18 10/28/18 10/29/18 20:02 21:17 22:18 02:22 Temp 98.0 97.5 98.0 97.5 Pulse 89 87 81 Resp 24 20 B/P (MAP) 115/58 150/60 (90) 103/43 (63) Pulse Ox 94 94 O2 Delivery Nasal Cannula Nasal Cannula Nasal Cannula O2 Flow Rate 2.0 4.0 4.0 10/29/18 10/29/18 10/29/18 10/29/18 07:00 07:26 08:00 08:06 Temp 97.3 97.3 Pulse 76 79 Resp 20 B/P (MAP) 105/51 (69) 105/51 Pulse Ox 94 97 O2 Delivery Nasal Cannula Nasal Cannula Nasal Cannula O2 Flow Rate 4.0 3.0 3.0 Intake and Output 10/28/18 10/28/18 10/29/18 15:00 23:00 07:00 Intake Total 250 ml 400 ml Output Total 425 ml Balance 250 ml -25 ml PAUL REICH MD Oct 29, 2018 09:47
[2018-10-29] MEDS: ALPRAZolam 0.25 MG TABLET PO PRN ×2 (10:07→18:15)
[2018-10-29] MEDS: HYDROmorphone 4 MG TABLET PO PRN (10:07)
[2018-10-29 10:40] VITALS: BP 122/59
--- NOTE | 2018-10-29 11:11 | PDOC ---
Renal-Progress Notes Subjective Notes Notes FEELING BETTER History of Present Illness Hx of present illness IMPROVED Vitals Vitals Vital Signs Date Time Temp Pulse Resp B/P (MAP) Pulse Ox O2 Delivery O2 Flow Rate FiO2 10/29/18 10:40 97.5 74 20 122/59 (80) 96 Nasal Cannula 4.0 97.5 Weight Weight [ ] I.O. Intake and Output Intake and Output 10/29/18 07:00 Intake Total 650 ml Output Total 425 ml Balance 225 ml Intake Oral 600 ml IV Total 50 ml Output Urine Total 425 ml Labs Labs Laboratory Tests Test 10/29/18 05:15 White Blood Count 24.5 x10^3/uL (4.0-11.0) Red Blood Count 4.35 x10^6/uL (4.30-5.70) Hemoglobin 10.7 g/dL (13.0-17.5) Hematocrit 33.7 % (39.0-53.0) Mean Corpuscular Volume 78 fL (79-100) Mean Corpuscular Hemoglobin 25 pg (25-35) Mean Corpuscular Hemoglobin Concent 32 g/dL (31-37) Red Cell Distribution Width 16.6 % (11.5-14.5) Platelet Count 291 x10^3/uL (140-400) Neutrophils (%) (Auto) 92 % (31-73) Lymphocytes (%) (Auto) 5 % (24-48) Monocytes (%) (Auto) 3 % (0-9) Eosinophils (%) (Auto) 0 % (0-3) Basophils (%) (Auto) 0 % (0-3) Neutrophils # (Auto) 22.4 x10^3uL (1.8-7.7) Lymphocytes # (Auto) 1.3 x10^3/uL (1.0-4.8) Monocytes # (Auto) 0.7 x10^3/uL (0.0-1.1) Eosinophils # (Auto) 0.0 x10^3/uL (0.0-0.7) Basophils # (Auto) 0.0 x10^3/uL (0.0-0.2) Sodium Level 138 mmol/L (136-145) Potassium Level 4.3 mmol/L (3.5-5.1) Chloride Level 101 mmol/L (98-107) Carbon Dioxide Level 27 mmol/L (21-32) Anion Gap 10 (6-14) Blood Urea Nitrogen 21 mg/dL (8-26) Creatinine 1.0 mg/dL (0.7-1.3) Estimated GFR (Cockcroft-Gault) 81.6 Glucose Level 150 mg/dL (70-99) Calcium Level 9.6 mg/dL (8.5-10.1) Micro Micro Microbiology 10/27/18 Blood Culture - Preliminary, Resulted NO GROWTH AFTER 1 DAY Review of Systems Constitutional: yes: alert, oriented Ears/Nose/Throat: Yes: no symptom reported Eyes: Yes: no symptom reported Pulmonary: Yes dyspnea Cardiovascular: Yes no symptom reported Gastrointestional: Yes: no symptom reported Genitourinary: Yes: no symptom reported Musculoskeletal: Yes: no symptom reported Skin: Yes no symptom reported Psychiatric/Neurological: Yes: no symptom reported Endocrine: Yes: no symptom reported Physical Exam General Appearance: no apparent distress Skin: warm Respiratory: decreased breath sounds Heart: S1S2 Abdomen: soft Genitourinary: bladder flat Extremities: pulses present Neurology: alert Musculoskeletal: low back pain, Osteoarthritis Assessment Assessment IMP VIVEK-RESOLVED PNEUMONIA ACUTE HYPOXIC RESP FAILURE HX OF CHF LEUCOCYTOSIS TOBACCOISM PLAN ANTIBIOTICS RENAL SONOGRAM WNL WILL SIGN OFF LING DELACRUZ MD Oct 29, 2018 11:10
--- NOTE | 2018-10-29 11:44 | PDOC ---
PULMONARY PROGRESS NOTES Subjective PT ABOUT THE SAME COUGH NON PRODUCTIVE Vitals Vital Signs Date Time Temp Pulse Resp B/P (MAP) Pulse Ox O2 Delivery O2 Flow Rate FiO2 10/29/18 10:40 97.5 74 20 122/59 (80) 96 Nasal Cannula 4.0 97.5 ROS: No Nausea, No Chest Pain, No Abdominal Pain, No Increase Cough General: Alert, No acute distress Lungs: Crackles Cardiovascular: S1, S2 Abdomen: Soft Neuro Exam: Alert Extremities: No Edema Skin: Warm Labs Laboratory Tests Test 10/27/18 13:00 10/27/18 14:15 10/27/18 14:40 10/27/18 18:45 Sodium Level 135 mmol/L (136-145) Potassium Level 3.6 mmol/L (3.5-5.1) Chloride Level 98 mmol/L (98-107) Carbon Dioxide Level 23 mmol/L (21-32) Anion Gap 14 (6-14) Blood Urea Nitrogen 27 mg/dL (8-26) Creatinine 2.1 mg/dL (0.7-1.3) Estimated GFR (Cockcroft-Gault) 34.6 BUN/Creatinine Ratio 13 (6-20) Glucose Level 132 mg/dL (70-99) Lactic Acid Level 1.9 mmol/L (0.4-2.0) Calcium Level 9.2 mg/dL (8.5-10.1) Total Bilirubin 0.7 mg/dL (0.2-1.0) Aspartate Amino Transf (AST/SGOT) 50 U/L (15-37) Alanine Aminotransferase (ALT/SGPT) 25 U/L (16-63) Alkaline Phosphatase 97 U/L (46-116) Creatine Kinase 313 U/L (39-308) Troponin I Quantitative < 0.017 ng/mL (0.000-0.055) < 0.017 ng/mL (0.000-0.055) IH-Mmk-O-Type Natriuretic Peptide 1281 pg/mL (0-124) Total Protein 7.5 g/dL (6.4-8.2) Albumin 3.6 g/dL (3.4-5.0) Albumin/Globulin Ratio 0.9 (1.0-1.7) Lipase 46 U/L (73-393) White Blood Count 28.5 x10^3/uL (4.0-11.0) Red Blood Count 4.61 x10^6/uL (4.30-5.70) Hemoglobin 11.3 g/dL (13.0-17.5) Hematocrit 35.6 % (39.0-53.0) Mean Corpuscular Volume 77 fL (79-100) Mean Corpuscular Hemoglobin 25 pg (25-35) Mean Corpuscular Hemoglobin Concent 32 g/dL (31-37) Red Cell Distribution Width 16.8 % (11.5-14.5) Platelet Count 322 x10^3/uL (140-400) Neutrophils (%) (Auto) 87 % (31-73) Lymphocytes (%) (Auto) 10 % (24-48) Monocytes (%) (Auto) 2 % (0-9) Eosinophils (%) (Auto) 0 % (0-3) Basophils (%) (Auto) 1 % (0-3) Neutrophils # (Auto) 24.8 x10^3uL (1.8-7.7) Lymphocytes # (Auto) 3.0 x10^3/uL (1.0-4.8) Monocytes # (Auto) 0.5 x10^3/uL (0.0-1.1) Eosinophils # (Auto) 0.0 x10^3/uL (0.0-0.7) Basophils # (Auto) 0.2 x10^3/uL (0.0-0.2) Segmented Neutrophils % 74 % (35-66) Band Neutrophils % 15 % (0-9) Lymphocytes % 11 % (24-48) Toxic Granulation Slight Platelet Estimate Adequate (ADEQUATE) Polychromasia Slight O2 Saturation 97 % (92-99) Arterial Blood pH 7.38 (7.35-7.45) Arterial Blood pCO2 at Patient Temp 40 mmHg (35-46) Arterial Blood pO2 at Patient Temp 105 mmHg (75-108) Arterial Blood HCO3 23 mmol/L (21-28) Arterial Blood Base Excess -2 mmol/L (-3-3) FiO2 32 Test 10/27/18 19:45 10/27/18 21:50 10/28/18 08:55 10/28/18 11:00 Nasal Screen MRSA (PCR) Positive (Negative) Troponin I Quantitative < 0.017 ng/mL (0.000-0.055) Erythrocyte Sedimentation Rate 40 (0-15) Sodium Level 137 mmol/L (136-145) Potassium Level 4.0 mmol/L (3.5-5.1) Chloride Level 98 mmol/L (98-107) Carbon Dioxide Level 26 mmol/L (21-32) Anion Gap 13 (6-14) Blood Urea Nitrogen 24 mg/dL (8-26) Creatinine 1.2 mg/dL (0.7-1.3) Estimated GFR (Cockcroft-Gault) 66.1 Glucose Level 150 mg/dL (70-99) Calcium Level 9.6 mg/dL (8.5-10.1) Magnesium Level 1.6 mg/dL (1.8-2.4) Urine Collection Type Unknown Urine Color Yellow Urine Clarity Clear Urine pH 6.5 Urine Specific [place] <=1.005 Urine Protein Negative mg/dL (NEG-TRACE) Urine Glucose (UA) Negative mg/dL (NEG) Urine Ketones (Stick) Negative mg/dL (NEG) Urine Blood Negative (NEG) Urine Nitrite Negative (NEG) Urine Bilirubin Negative (NEG) Urine Urobilinogen Dipstick 0.2 mg/dL (0.2 mg/dL) Urine Leukocyte Esterase Negative (NEG) Urine RBC 0 /HPF (0-2) Urine WBC 0 /HPF (0-4) Urine Bacteria 0 /HPF (0-FEW) Test 10/29/18 05:15 White Blood Count 24.5 x10^3/uL (4.0-11.0) Red Blood Count 4.35 x10^6/uL (4.30-5.70) Hemoglobin 10.7 g/dL (13.0-17.5) Hematocrit 33.7 % (39.0-53.0) Mean Corpuscular Volume 78 fL (79-100) Mean Corpuscular Hemoglobin 25 pg (25-35) Mean Corpuscular Hemoglobin Concent 32 g/dL (31-37) Red Cell Distribution Width 16.6 % (11.5-14.5) Platelet Count 291 x10^3/uL (140-400) Neutrophils (%) (Auto) 92 % (31-73) Lymphocytes (%) (Auto) 5 % (24-48) Monocytes (%) (Auto) 3 % (0-9) Eosinophils (%) (Auto) 0 % (0-3) Basophils (%) (Auto) 0 % (0-3) Neutrophils # (Auto) 22.4 x10^3uL (1.8-7.7) Lymphocytes # (Auto) 1.3 x10^3/uL (1.0-4.8) Monocytes # (Auto) 0.7 x10^3/uL (0.0-1.1) Eosinophils # (Auto) 0.0 x10^3/uL (0.0-0.7) Basophils # (Auto) 0.0 x10^3/uL (0.0-0.2) Sodium Level 138 mmol/L (136-145) Potassium Level 4.3 mmol/L (3.5-5.1) Chloride Level 101 mmol/L (98-107) Carbon Dioxide Level 27 mmol/L (21-32) Anion Gap 10 (6-14) Blood Urea Nitrogen 21 mg/dL (8-26) Creatinine 1.0 mg/dL (0.7-1.3) Estimated GFR (Cockcroft-Gault) 81.6 Glucose Level 150 mg/dL (70-99) Calcium Level 9.6 mg/dL (8.5-10.1) Laboratory Tests Test 10/29/18 05:15 White Blood Count 24.5 x10^3/uL (4.0-11.0) Red Blood Count 4.35 x10^6/uL (4.30-5.70) Hemoglobin 10.7 g/dL (13.0-17.5) Hematocrit 33.7 % (39.0-53.0) Mean Corpuscular Volume 78 fL (79-100) Mean Corpuscular Hemoglobin 25 pg (25-35) Mean Corpuscular Hemoglobin Concent 32 g/dL (31-37) Red Cell Distribution Width 16.6 % (11.5-14.5) Platelet Count 291 x10^3/uL (140-400) Neutrophils (%) (Auto) 92 % (31-73) Lymphocytes (%) (Auto) 5 % (24-48) Monocytes (%) (Auto) 3 % (0-9) Eosinophils (%) (Auto) 0 % (0-3) Basophils (%) (Auto) 0 % (0-3) Neutrophils # (Auto) 22.4 x10^3uL (1.8-7.7) Lymphocytes # (Auto) 1.3 x10^3/uL (1.0-4.8) Monocytes # (Auto) 0.7 x10^3/uL (0.0-1.1) Eosinophils # (Auto) 0.0 x10^3/uL (0.0-0.7) Basophils # (Auto) 0.0 x10^3/uL (0.0-0.2) Sodium Level 138 mmol/L (136-145) Potassium Level 4.3 mmol/L (3.5-5.1) Chloride Level 101 mmol/L (98-107) Carbon Dioxide Level 27 mmol/L (21-32) Anion Gap 10 (6-14) Blood Urea Nitrogen 21 mg/dL (8-26) Creatinine 1.0 mg/dL (0.7-1.3) Estimated GFR (Cockcroft-Gault) 81.6 Glucose Level 150 mg/dL (70-99) Calcium Level 9.6 mg/dL (8.5-10.1) Medications Active Scripts Medications Dose Route/Sig Max Daily Dose Days Date Category Hydromorphone Hcl 4 Mg Tablet 4 Mg PO PRN Q6HRS PRN 10/27/18 Reported Zithromax (Azithromycin) 250 Mg Tablet 1 Pkg PO UD 10/14/18 Rx Prednisone 20 Mg Tablet 20 Mg PO DAILY 06/27/18 Rx Culturelle (Lactobacillus Rhamnosus Gg) 1 Each Cap.sprink 1 Cap PO BID 14 06/27/18 Rx Aspirin 81 Mg Tab.chew 1 Tab PO DAILY 06/24/18 Reported Klor-Con 10 (Potassium Chloride) 10 Meq Tablet.er 1 Tab PO DAILY 06/21/18 Reported Proair Hfa Inhaler (Albuterol Sulfate) 8.5 Gm Hfa.aer.ad 1 Puff INH PRN Q6HRS PRN 05/08/18 Rx Hydromorphone ER (Hydromorphone HCl) 8 Mg Tab.er.24h 8 Mg PO DAILY 04/06/18 Reported Metoprolol Succinate ( Xl ) (Metoprolol Succinate) 25 Mg Tab.er.24h 25 Mg PO BID 04/06/18 Reported Atorvastatin Calcium 80 Mg Tablet 80 Mg PO HS 04/06/18 Reported Protonix (Pantoprazole Sodium) 20 Mg Tablet.dr 20 Mg PO BID 04/06/18 Reported Buspirone Hcl 7.5 Mg Tablet 7.5 Mg PO TID 04/06/18 Reported Bupropion Hcl 75 Mg Tablet 75 Mg PO TID 04/06/18 Reported Furosemide 40 Mg Tablet 40 Mg PO DAILY 30 12/25/17 Rx Feosol (Ferrous Sulfate) 325 Mg Tablet 325 Mg PO BIDWMEALS 30 12/25/17 Rx Symbicort 160-4.5 Mcg Inhaler (Budesonide/Formoterol Fumarate) 10.2 Gm Hfa.aer.ad 2 Puff IH BID 06/25/17 Reported Baclofen 10 Mg Tablet 1 Tab PO PRN TID 06/25/17 Reported Melatonin 3 Mg Tablet 1 Tab PO QHS 04/11/17 Reported Nitrostat (Nitroglycerin) 0.4 Mg Tab.subl 0.4 Mg SL PRN Q5MIN PRN 09/10/15 Reported Promethazine Hcl 25 Mg Tablet 25 Mg PO Q6H PRN 09/07/14 Reported Fenofibrate (Fenofibrate Nanocrystallized) 48 Mg Tablet 48 Mg PO DAILY 09/07/14 Reported Fluoxetine Hcl 20 Mg Capsule 1 Cap PO DAILY 09/07/14 Reported Gabapentin 600 Mg Tablet 3 Tab PO BID 09/07/14 Reported Impression . IMPRESSION: 1. Recurrent pulmonary infiltrates of unknown etiology. The patient has been treated in the past for presumptive bronchiolitis obliterans organizing pneumonia. 2. Respiratory insufficiency secondary to above. 3. Coronary artery disease with previous coronary artery bypass grafting. 4. Acute exacerbation of chronic obstructive pulmonary disease. 5. Possible pneumonia, gram negative. Plan . REVIEWED R/B/A TO BRONCH PT ACCEPTED FOLLOW CARD INPUT WILL NEED SENIOR LIVING STEROIDS IF BRONCH IS NEGATIVE BELINDA SCOTT MD Oct 29, 2018 11:44
[2018-10-29] MEDS ORDERED: LIDOCAINE 1% Multi-Dose 20 ML VIAL. INJ PRN (12:00)
[2018-10-29] MEDS ORDERED: LIDOCAINE 4% TOPICAL 50 ML SOLUTION. MM PRN (12:00)
[2018-10-29] MEDS ORDERED: LIDOCAINE 2% VISCOUS 100 ML BOTTLE. MM PRN (12:00)
[2018-10-29] MEDS ORDERED: IV RINGERS,LACTATED 1000ML 1,000 ML IV SCH (12:56)
[2018-10-29] MEDS ORDERED: PROPOFOL 40 ML IV ONE (13:25)
[2018-10-29 14:46] VITALS: BP 113/58
--- NOTE | 2018-10-29 15:17 | PDOC4 ---
PROCEDURE Procedure BROCNH NO ENDO LESION NO PURULENT SECRETION BELINDA SCOTT MD Oct 29, 2018 15:16
[2018-10-29 19:25] VITALS: BP 118/56
[2018-10-29] MEDS: cefTRIAXone IV Push 1 GM VIAL. IVP SCH (21:07)
[2018-10-29] MEDS: ATORVASTATIN CALCIUM 40 MG TABLET. PO SCH (21:08)
[2018-10-29 23:25] VITALS: BP 104/53
[2018-10-30 03:40] VITALS: BP 115/59
[2018-10-30] MEDS: methylPREDNISolone SOD SUCC PF 40 MG/ML VIAL. IV SCH (06:27)
[2018-10-30] MEDS: HYDROmorphone 4 MG TABLET PO PRN (06:29)
[2018-10-30] MEDS: ALPRAZolam 0.25 MG TABLET PO PRN (06:32)
[2018-10-30 07:36] VITALS: BP 124/59
[2018-10-30] MEDS: IPRATRPIUM/ALBUTEROL 0.5/2.5MG 3 ML NEBU. NEB SCH ×3 (07:37→15:30)
[2018-10-30] MEDS: BUDESONIDE 0.5 MG/2 ML NEBU. NEB SCH (07:37)
[2018-10-30] MEDS: METOPROLOL SUCC 24HR ER 25 MG TAB.ER.24H. PO SCH (08:21)
[2018-10-30] MEDS: buPROPion 75 MG TABLET. PO SCH ×2 (08:22→14:21)
[2018-10-30] MEDS: FENOFIBRATE 54 MG TABLET. PO SCH (08:22)
[2018-10-30] MEDS: FLUoxetine HCL 20 MG CAPSULE PO SCH (08:22)
[2018-10-30] MEDS: LACTOBACILLUS RHAMNOSUS GG 1 CAPSULE. PO SCH (08:22)
[2018-10-30] MEDS: ASPIRIN CHEWABLE 81 MG TABLET. PO SCH (08:22)
[2018-10-30] MEDS: POTASSIUM CHLORIDE 10 MEQ TABLET.ER. PO SCH (08:22)
[2018-10-30] MEDS: FERROUS SULFATE 325 MG TABLET. PO SCH (08:22)
[2018-10-30] MEDS: PANTOPRAZOLE 40 MG TABLET.DR. PO SCH (08:22)
[2018-10-30] MEDS: HYDROmorphone 4 MG TABLET PO SCH ×2 (08:22→14:21)
[2018-10-30] MEDS: GABAPENTIN 300 MG CAPSULE. PO SCH (08:22)
[2018-10-30] MEDS: FUROSEMIDE 40 MG TABLET. PO SCH (08:23)
[2018-10-30] MEDS: BACLOFEN 10 MG TABLET. PO PRN (08:26)
--- NOTE | 2018-10-30 09:27 | OP ---
DATE OF SURGERY: 10/29/2018 ATTENDING PHYSICIAN: Dr. Pak. PROCEDURE: Bronchoscopy, bronchoalveolar lavage. INDICATIONS: The patient with recurrent alveolar type of infiltrates previously treated with prednisone returns with increasing shortness of breath and abnormal chest x-ray, bilateral infiltrates, undergoing diagnostic bronchoscopy. Risks, benefits, and alternatives were reviewed with the patient, and he consented. SEDATION: Please see Anesthesia's notes. DESCRIPTION OF PROCEDURE: A timeout was performed prior to sedation. Vital signs and O2 saturation were maintained within normal limits throughout the procedure. The bronchoscope was passed through the right naris. The vocal cords were identified moving bilaterally without any dysfunction. The vocal cords were then anesthetized with a total of 5 mL of 4% lidocaine. The bronchoscope was passed through the vocal cords into the proximal trachea, which was normal. The distal trachea was likewise normal. The right and left segments and subsegments were visualized. There were no endobronchial lesions, no purulent secretions. The scope was wedged into the right lower lobe segment and a bronchoalveolar lavage was performed, the return was clear. IMPRESSION: 1. Normal vocal cords. 2. No endobronchial lesion. 3. No purulent secretion. PLAN: We will await the BAL results. BELINDA SCOTT MD DR: [email or web address] JOB#: [id number] / [id number]
--- NOTE | 2018-10-30 10:13 | PDOC ---
PULMONARY PROGRESS NOTES Subjective PT ABOUT THE SAME COUGH NON PRODUCTIVE Vitals Vital Signs Date Time Temp Pulse Resp B/P (MAP) Pulse Ox O2 Delivery O2 Flow Rate FiO2 10/30/18 08:21 124/59 10/30/18 07:54 Nasal Cannula 3.0 10/30/18 07:37 97 10/30/18 07:36 97.6 66 20 97.6 ROS: No Nausea, No Chest Pain, No Abdominal Pain, No Increase Cough General: Alert, No acute distress Lungs: Crackles Cardiovascular: S1, S2 Abdomen: Soft Neuro Exam: Alert Extremities: No Edema Skin: Warm Labs Laboratory Tests Test 10/28/18 11:00 10/29/18 05:15 Urine Collection Type Unknown Urine Color Yellow Urine Clarity Clear Urine pH 6.5 Urine Specific [place] <=1.005 Urine Protein Negative mg/dL (NEG-TRACE) Urine Glucose (UA) Negative mg/dL (NEG) Urine Ketones (Stick) Negative mg/dL (NEG) Urine Blood Negative (NEG) Urine Nitrite Negative (NEG) Urine Bilirubin Negative (NEG) Urine Urobilinogen Dipstick 0.2 mg/dL (0.2 mg/dL) Urine Leukocyte Esterase Negative (NEG) Urine RBC 0 /HPF (0-2) Urine WBC 0 /HPF (0-4) Urine Bacteria 0 /HPF (0-FEW) White Blood Count 24.5 x10^3/uL (4.0-11.0) Red Blood Count 4.35 x10^6/uL (4.30-5.70) Hemoglobin 10.7 g/dL (13.0-17.5) Hematocrit 33.7 % (39.0-53.0) Mean Corpuscular Volume 78 fL (79-100) Mean Corpuscular Hemoglobin 25 pg (25-35) Mean Corpuscular Hemoglobin Concent 32 g/dL (31-37) Red Cell Distribution Width 16.6 % (11.5-14.5) Platelet Count 291 x10^3/uL (140-400) Neutrophils (%) (Auto) 92 % (31-73) Lymphocytes (%) (Auto) 5 % (24-48) Monocytes (%) (Auto) 3 % (0-9) Eosinophils (%) (Auto) 0 % (0-3) Basophils (%) (Auto) 0 % (0-3) Neutrophils # (Auto) 22.4 x10^3uL (1.8-7.7) Lymphocytes # (Auto) 1.3 x10^3/uL (1.0-4.8) Monocytes # (Auto) 0.7 x10^3/uL (0.0-1.1) Eosinophils # (Auto) 0.0 x10^3/uL (0.0-0.7) Basophils # (Auto) 0.0 x10^3/uL (0.0-0.2) Sodium Level 138 mmol/L (136-145) Potassium Level 4.3 mmol/L (3.5-5.1) Chloride Level 101 mmol/L (98-107) Carbon Dioxide Level 27 mmol/L (21-32) Anion Gap 10 (6-14) Blood Urea Nitrogen 21 mg/dL (8-26) Creatinine 1.0 mg/dL (0.7-1.3) Estimated GFR (Cockcroft-Gault) 81.6 Glucose Level 150 mg/dL (70-99) Calcium Level 9.6 mg/dL (8.5-10.1) Medications Active Scripts Medications Dose Route/Sig Max Daily Dose Days Date Category Hydromorphone Hcl 4 Mg Tablet 4 Mg PO PRN Q6HRS PRN 10/27/18 Reported Zithromax (Azithromycin) 250 Mg Tablet 1 Pkg PO UD 10/14/18 Rx Prednisone 20 Mg Tablet 20 Mg PO DAILY 06/27/18 Rx Culturelle (Lactobacillus Rhamnosus Gg) 1 Each Cap.sprink 1 Cap PO BID 14 06/27/18 Rx Aspirin 81 Mg Tab.chew 1 Tab PO DAILY 06/24/18 Reported Klor-Con 10 (Potassium Chloride) 10 Meq Tablet.er 1 Tab PO DAILY 06/21/18 Reported Proair Hfa Inhaler (Albuterol Sulfate) 8.5 Gm Hfa.aer.ad 1 Puff INH PRN Q6HRS PRN 05/08/18 Rx Hydromorphone ER (Hydromorphone HCl) 8 Mg Tab.er.24h 8 Mg PO DAILY 04/06/18 Reported Metoprolol Succinate ( Xl ) (Metoprolol Succinate) 25 Mg Tab.er.24h 25 Mg PO BID 04/06/18 Reported Atorvastatin Calcium 80 Mg Tablet 80 Mg PO HS 10/2/18 Reported Protonix (Pantoprazole Sodium) 20 Mg Tablet.dr 20 Mg PO BID 04/06/18 Reported Buspirone Hcl 7.5 Mg Tablet 7.5 Mg PO TID 04/06/18 Reported Bupropion Hcl 75 Mg Tablet 75 Mg PO TID 04/06/18 Reported Furosemide 40 Mg Tablet 40 Mg PO DAILY 30 12/25/17 Rx Feosol (Ferrous Sulfate) 325 Mg Tablet 325 Mg PO BIDWMEALS 30 12/25/17 Rx Symbicort 160-4.5 Mcg Inhaler (Budesonide/Formoterol Fumarate) 10.2 Gm Hfa.aer.ad 2 Puff IH BID 06/25/17 Reported Baclofen 10 Mg Tablet 1 Tab PO PRN TID 06/25/17 Reported Melatonin 3 Mg Tablet 1 Tab PO QHS 04/11/17 Reported Nitrostat (Nitroglycerin) 0.4 Mg Tab.subl 0.4 Mg SL PRN Q5MIN PRN 09/10/15 Reported Promethazine Hcl 25 Mg Tablet 25 Mg PO Q6H PRN 09/07/14 Reported Fenofibrate (Fenofibrate Nanocrystallized) 48 Mg Tablet 48 Mg PO DAILY 09/07/14 Reported Fluoxetine Hcl 20 Mg Capsule 1 Cap PO DAILY 09/07/14 Reported Gabapentin 600 Mg Tablet 3 Tab PO BID 09/07/14 Reported Impression . IMPRESSION: 1. Recurrent pulmonary infiltrates of unknown etiology. The patient has been treated in the past for presumptive bronchiolitis obliterans organizing pneumonia. 2. Respiratory insufficiency secondary to above. 3. Coronary artery disease with previous coronary artery bypass grafting. 4. Acute exacerbation of chronic obstructive pulmonary disease. 5. Possible pneumonia, gram negative. 6. S/P BRONCH 10/29 7. POSSIBLE BOOP bal BRONCHIAL GRAM STAIN Final WBCS MANY GRAM POSITIVE COCCI OCCASIONAL Plan . ADD COVERAGE FOR MRSA WITH DOXY FOR NOW HOME TODAY PRED 30 FOLLOW UP IN DECEMBER FINAL CULTURES PENDING ON BAL BELINDA SCOTT MD Oct 30, 2018 10:13
[2018-10-30] MEDS ORDERED: LINEZOLID 600 MG TABLET PO SCH (11:00)
[2018-10-30 11:06] VITALS: BP 142/65
--- NOTE | 2018-10-30 11:13 | PDOC ---
PROGRESS NOTES Chief Complaint Chief Complaint left sided pneumonia versus atelectasis History CHF, acute on chronic Leukocytosis in the background of pneumonia and recent steroid use History CABG 2016 smoker-trying to quit VIVEK possibly on CK D History of Present Illness History of Present Illness Patient sitting upright on bed, asking if he gets to go home today. On IV abx currently, had bronch yesterday. Vitals Vitals Vital Signs Date Time Temp Pulse Resp B/P (MAP) Pulse Ox O2 Delivery O2 Flow Rate FiO2 10/30/18 08:21 124/59 10/30/18 07:54 Nasal Cannula 3.0 10/30/18 07:37 97 10/30/18 07:36 97.6 66 20 97.6 Physical Exam General: Alert, Oriented X3, Cooperative, No acute distress Heart: Regular rate (Sr no ectopies), Normal S1, Normal S2, Other (2/6 systolic murmur to LLS border) Lungs: Crackles Abdomen: Soft, No tenderness Extremities: No cyanosis, No edema Skin: No breakdown, No significant lesion Review of Systems Review of Systems denies CP, nonproductive cough Assessment and Plan Assessmemt and Plan Problems Medical Problems: (1) Acute exacerbation of CHF (congestive heart failure) Status: Acute (2) Acute on chronic renal insufficiency Status: Acute (3) SIRS (systemic inflammatory response syndrome) Status: Acute Assessment: L sided pneumonia Acute exacerbation of COPD Leukocytosis - recent steroids, pneumonia VIVEK - present on admission, Cr 2.1 now 1.0 CHF CAD, history of, s/p CABG 2016 Tobaccoism Plan: Telemetry Bronch yesterday - WBC, GPC Pulmonology: Add MRSA coverage - appreciate recs Antibiotics: Rocephin (10/27-) Zyvox (10/30 - ) Micro: BCx (10/27) - NGTD Bronch wash (10/29): WBC, GPC Cardiology: ARB/ACEi held with elevated Cr, will need lasix resumed at discharge Nephrology: VIVEK resolved, renal US normal - signed off Counselled on smoking cessation Pain management Nicotine patch prn Home meds DVT ppx Dispo: await subspecialty input, discharge when ok with pulmonology. Comment Review of Relevant I have reviewed the following items lexie (where applicable) has been applied. Labs Laboratory Tests Test 10/28/18 11:00 10/29/18 05:15 Urine Collection Type Unknown Urine Color Yellow Urine Clarity Clear Urine pH 6.5 Urine Specific [place] <=1.005 Urine Protein Negative mg/dL (NEG-TRACE) Urine Glucose (UA) Negative mg/dL (NEG) Urine Ketones (Stick) Negative mg/dL (NEG) Urine Blood Negative (NEG) Urine Nitrite Negative (NEG) Urine Bilirubin Negative (NEG) Urine Urobilinogen Dipstick 0.2 mg/dL (0.2 mg/dL) Urine Leukocyte Esterase Negative (NEG) Urine RBC 0 /HPF (0-2) Urine WBC 0 /HPF (0-4) Urine Bacteria 0 /HPF (0-FEW) White Blood Count 24.5 x10^3/uL (4.0-11.0) Red Blood Count 4.35 x10^6/uL (4.30-5.70) Hemoglobin 10.7 g/dL (13.0-17.5) Hematocrit 33.7 % (39.0-53.0) Mean Corpuscular Volume 78 fL (79-100) Mean Corpuscular Hemoglobin 25 pg (25-35) Mean Corpuscular Hemoglobin Concent 32 g/dL (31-37) Red Cell Distribution Width 16.6 % (11.5-14.5) Platelet Count 291 x10^3/uL (140-400) Neutrophils (%) (Auto) 92 % (31-73) Lymphocytes (%) (Auto) 5 % (24-48) Monocytes (%) (Auto) 3 % (0-9) Eosinophils (%) (Auto) 0 % (0-3) Basophils (%) (Auto) 0 % (0-3) Neutrophils # (Auto) 22.4 x10^3uL (1.8-7.7) Lymphocytes # (Auto) 1.3 x10^3/uL (1.0-4.8) Monocytes # (Auto) 0.7 x10^3/uL (0.0-1.1) Eosinophils # (Auto) 0.0 x10^3/uL (0.0-0.7) Basophils # (Auto) 0.0 x10^3/uL (0.0-0.2) Sodium Level 138 mmol/L (136-145) Potassium Level 4.3 mmol/L (3.5-5.1) Chloride Level 101 mmol/L (98-107) Carbon Dioxide Level 27 mmol/L (21-32) Anion Gap 10 (6-14) Blood Urea Nitrogen 21 mg/dL (8-26) Creatinine 1.0 mg/dL (0.7-1.3) Estimated GFR (Cockcroft-Gault) 81.6 Glucose Level 150 mg/dL (70-99) Calcium Level 9.6 mg/dL (8.5-10.1) Microbiology 10/27/18 Blood Culture - Preliminary, Resulted NO GROWTH AFTER 2 DAYS 10/29/18 - Final, Complete Medications Current Medications Albuterol/ Ipratropium (Duoneb) 3 ml 1X ONCE NEB Last administered on 10/28/18 08:29; Start 10/27/18 at 13:45; Stop 10/27/18 at 13:46; Status DC Methylprednisolone Sodium Succinate (SOLU-Medrol 125MG VIAL) 125 mg 1X ONCE IV Last administered on 10/27/18at 13:51; Start 10/27/18 at 13:45; Stop 10/27/18 at 13:46; Status DC Fentanyl Citrate (Fentanyl 2ml Vial) 50 mcg 1X ONCE IV Last administered on 10/27/18at 15:08; Start 10/27/18 at 15:00; Stop 10/27/18 at 15:05; Status DC Piperacillin Sod/ Tazobactam Sod 3.375 gm/Sodium Chloride 50 ml @ 100 mls/hr 1X ONCE IV Last administered on 10/27/18at 17:24; Start 10/27/18 at 16:45; Stop 10/27/18 at 17:14; Status DC Sodium Chloride 1,000 ml @ 1,000 mls/hr 1X ONCE IV Last administered on 10/27/18at 17:33; Start 10/27/18 at 17:00; Stop 10/27/18 at 17:59; Status DC Aspirin (Children'S Aspirin) 81 mg DAILY PO Last administered on 10/30/18at 08:22; Start 10/28/18 at 09:00 Baclofen (Lioresal) 10 mg PRN TID PRN PO MUSCLE SPASMS Last administered on 10/30/18 08:26; Start 10/27/18 at 20:45 Bupropion HCl (Wellbutrin) 75 mg TID PO Last administered on 10/30/18 08:22; Start 10/27/18 at 21:00 Ferrous Sulfate (Feosol) 325 mg BIDWMEALS PO Last administered on 10/30/18 08:22; Start 10/28/18 at 08:00 Fluoxetine HCl (PROzac) 20 mg DAILY PO Last administered on 10/30/18 08:22; Start 10/28/18 at 09:00 Furosemide (Lasix) 40 mg DAILY PO Last administered on 10/30/18 08:23; Start 10/28/18 at 09:00 Lactobacillus Rhamnosus (Culturelle) 1 cap BID PO Last administered on 10/30/18 08:22; Start 10/27/18 at 21:00 Metoprolol Succinate (Toprol Xl) 25 mg BID PO Last administered on 10/30/18 08:21; Start 10/27/18 at 21:00 Nitroglycerin (Nitrostat) 0.4 mg PRN Q5MIN PRN SL CHEST PAIN; Start 10/27/18 at 20:45 Potassium Chloride (Klor-Con) 10 meq DAILY PO Last administered on 10/30/18 08:22; Start 10/28/18 at 09:00 Prednisone (Prednisone) 20 mg DAILY PO ; Start 10/28/18 at 09:00; Stop 10/28/18 at 09:00; Status DC Atorvastatin Calcium (Lipitor) 80 mg QHS PO Last administered on 10/29/18 21:08; Start 10/27/18 at 21:00 Non-Formulary Medication (Budesonide/ Formoterol Fumarate (Symbicort 160-4.5 Mcg Inhaler)) 2 puff BID IH ; Start 10/27/18 at 21:00; Status UNV Buspirone HCl (Buspar) 7.5 mg TID PO ; Start 10/27/18 at 21:15; Status Cancel Fenofibrate (Lofibra) 54 mg DAILY PO Last administered on 10/30/18 08:22; Start 10/28/18 at 09:00 Non-Formulary Medication (Gabapentin ) 3 tab BID PO ; Start 10/27/18 at 21:00; Stop 10/27/18 at 21:34; Status DC Hydromorphone HCl (Dilaudid) 2 mg Q6HRS PO Last administered on 10/28/18 06:06; Start 10/28/18 at 00:00; Stop 10/28/18 at 10:59; Status DC Non-Formulary Medication (Levofloxacin (Levaquin)) 500 mg DAILY PO ; Start 10/28/18 at 09:00; Stop 10/28/18 at 09:00; Status DC Non-Formulary Medication (Melatonin ) 1 tab QHS PO ; Start 10/27/18 at 21:00; Status UNV Pantoprazole Sodium (Protonix) 40 mg DAILYAC PO Last administered on 10/30/18 08:22; Start 10/28/18 at 07:30 Promethazine HCl (Phenergan) 25 mg PRN Q6HRS PRN PO NAUSEA/VOMITING; Start 10/27/18 at 21:15 Albuterol/ Ipratropium (Duoneb) 3 ml RTQID NEB Last administered on 10/30/18 07:37; Start 10/28/18 at 08:00 Methylprednisolone Sodium Succinate (SOLU-Medrol 40MG VIAL) 60 mg Q8HRS IV Last administered on 10/30/18 06:27; Start 10/27/18 at 22:00 Ceftriaxone Sodium (Rocephin) 1 gm Q24H IVP Last administered on 10/29/18 21:07; Start 10/27/18 at 21:00 Budesonide (Pulmicort) 0.5 mg RTBID NEB Last administered on 10/30/18 07:37; Start 10/28/18 at 08:00 Gabapentin (Neurontin) 600 mg BID PO Last administered on 10/30/18 08:22; Start 10/28/18 at 09:00 Nicotine (Nicoderm Cq 14mg) 1 patch PRN DAILY PRN TD SMOKING CESSATION Last administered on 10/28/18at 09:35; Start 10/28/18 at 03:00; Stop 10/29/18 at 07: 50; Status DC Albuterol/ Ipratropium (Duoneb) 3 ml 1X ONCE NEB Last administered on 10/28/18 04:30; Start 10/28/18 at 05:00; Stop 10/28/18 at 05:01; Status DC Albuterol/ Ipratropium (Duoneb) 3 ml STK-MED ONCE .ROUTE ; Start 10/28/18 at 04:26; Stop 10/28/18 at 04:27; Status DC Guaifenesin (Robitussin Dm) 10 ml PRN Q6HRS PRN PO COUGH Last administered on 10/29/18at 22:44; Start 10/28/18 at 08:30 Acetaminophen (Tylenol) 500 mg PRN Q6HRS PRN PO MILD PAIN / TEMP; Start 10/28/18 at 08:30 Ondansetron HCl (Zofran) 4 mg PRN Q6HRS PRN IV NAUSEA/VOMITING; Start 10/28/18 at 08:30 Fentanyl Citrate (Fentanyl 2ml Vial) 50 mcg PRN Q2HR PRN IV PAIN; Start 10/28/18 at 08:30 Nicotine (Nicoderm Cq 21mg) 1 patch PRN DAILY PRN TD SMOKING CESSATION Last administered on 10/29/18at 14:57; Start 10/28/18 at 09:45 Oxycodone/ Acetaminophen (Percocet 10/325) 1 tab PRN Q6HRS PRN PO MODERATE PAIN Last administered on 10/28/18at 10:58; Start 10/28/18 at 10:45; Stop 10/28/18 at 15:47; Status DC Hydromorphone HCl (Dilaudid) 4 mg PRN Q6HRS PRN PO SEVERE PAIN Last administered on 10/30/18at 06:29; Start 10/28/18 at 10:45 Hydromorphone HCl (Dilaudid) 4 mg QID PO Last administered on 10/30/18at 08:22; Start 10/28/18 at 13:00 Magnesium Sulfate 50 ml @ 25 mls/hr 1X ONCE IV Last administered on 10/28/18at 14:28; Start 10/28/18 at 14:00; Stop 10/28/18 at 15:59; Status DC Alprazolam (Xanax) 0.25 mg PRN Q8HRS PRN PO ANXIETY / AGITATION Last administered on 10/30/18at 06:32; Start 10/28/18 at 19:45 Lidocaine HCl (Lidocaine 2% Viscous) 100 ml PRN 1X PRN MM MOUTH PAIN; Start 10/29/18 at 12:00; Stop 10/30/18 at 11:59 Lidocaine HCl (Lidocaine 1% 20ml Vial) 20 ml PRN 1X PRN INJ SEE COMMENTS; Start 10/29/18 at 12:00; Stop 10/30/18 at 11:59 Lidocaine HCl 50 ml PRN 1X PRN MM SEE COMMENTS; Start 10/29/18 at 12:00; Stop 10/30/18 at 11:59 Ringer's Solution 1,000 ml @ 50 mls/hr Q20H IV Last administered on 10/29/18at 12:56; Start 10/29/18 at 12:56; Stop 10/30/18 at 00:55; Status DC Propofol 40 ml @ As Directed STK-MED ONCE IV ; Start 10/29/18 at 13:25; Stop 10/29/18 at 13:26; Status DC Linezolid (Zyvox) 600 mg BID PO ; Start 10/30/18 at 11:00 Active Scripts Active Zithromax (Azithromycin) 250 Mg Tablet 1 Pkg PO UD Prednisone 20 Mg Tablet 20 Mg PO DAILY Culturelle (Lactobacillus Rhamnosus Gg) 1 Each Cap.sprink 1 Cap PO BID 14 Days Proair Hfa Inhaler (Albuterol Sulfate) 8.5 Gm Hfa.aer.ad 1 Puff INH PRN Q6HRS PRN Furosemide 40 Mg Tablet 40 Mg PO DAILY 30 Days Feosol (Ferrous Sulfate) 325 Mg Tablet 325 Mg PO BIDWMEALS 30 Days Reported Hydromorphone Hcl 4 Mg Tablet 4 Mg PO PRN Q6HRS PRN Aspirin 81 Mg Tab.chew 1 Tab PO DAILY Klor-Con 10 (Potassium Chloride) 10 Meq Tablet.er 1 Tab PO DAILY Hydromorphone ER (Hydromorphone HCl) 8 Mg Tab.er.24h 8 Mg PO DAILY Metoprolol Succinate ( Xl ) (Metoprolol Succinate) 25 Mg Tab.er.24h 25 Mg PO BID Atorvastatin Calcium 80 Mg Tablet 80 Mg PO HS Protonix (Pantoprazole Sodium) 20 Mg Tablet.dr 20 Mg PO BID Buspirone Hcl 7.5 Mg Tablet 7.5 Mg PO TID Bupropion Hcl 75 Mg Tablet 75 Mg PO TID Symbicort 160-4.5 Mcg Inhaler (Budesonide/Formoterol Fumarate) 10.2 Gm Hfa.aer.ad 2 Puff IH BID Baclofen 10 Mg Tablet 1 Tab PO PRN TID Melatonin 3 Mg Tablet 1 Tab PO QHS Nitrostat (Nitroglycerin) 0.4 Mg Tab.subl 0.4 Mg SL PRN Q5MIN PRN Promethazine Hcl 25 Mg Tablet 25 Mg PO Q6H PRN Fenofibrate (Fenofibrate Nanocrystallized) 48 Mg Tablet 48 Mg PO DAILY Fluoxetine Hcl 20 Mg Capsule 1 Cap PO DAILY Gabapentin 600 Mg Tablet 3 Tab PO BID Vitals/I & O Vital Sign - Last 24 Hours 10/29/18 10/29/18 10/29/18 10/29/18 12:58 13:00 13:43 13:58 Temp 97.6 97.6 97 97.6 97.6 97.0 Pulse 76 76 80 Resp 17 20 B/P (MAP) 84/52 90/50 Pulse Ox 95 95 95 98 O2 Delivery Oxy Mask Nasal Cannula Simple Mask O2 Flow Rate 10.0 15 15 10/29/18 10/29/18 10/29/18 10/29/18 14:14 14:33 14:46 16:36 Temp 97.3 97.3 Pulse 81 89 75 Resp 20 22 20 B/P (MAP) 90/50 107/57 113/58 (76) Pulse Ox 92 92 92 95 O2 Delivery Nasal Cannula Nasal Cannula Nasal Cannula Nasal Cannula Simple Mask Simple Mask O2 Flow Rate 3 3 4.0 3.0 10/29/18 10/29/18 10/29/18 10/29/18 19:25 20:00 21:09 23:25 Temp 97.8 97.7 97.8 97.7 Pulse 81 81 75 Resp 25 B/P (MAP) 118/56 (76) 118/56 104/53 (70) Pulse Ox 96 97 O2 Delivery Nasal Cannula Nasal Cannula Nasal Cannula O2 Flow Rate 3.0 3.0 3.0 10/30/18 10/30/18 10/30/18 10/30/18 03:40 07:36 07:37 07:54 Temp 97.7 97.6 97.7 97.6 Pulse 72 66 Resp 20 20 B/P (MAP) 115/59 (77) 124/59 (80) Pulse Ox 96 98 97 O2 Delivery Nasal Cannula Nasal Cannula Nasal Cannula Nasal Cannula O2 Flow Rate 3.0 3.0 3.0 3.0 10/30/18 08:21 B/P (MAP) 124/59 Intake and Output 4/26/19 4/26/19 4/27/19 14:59 22:59 06:59 Intake Total 720 ml 100 ml Output Total 450 ml 400 ml 200 ml Balance -450 ml 320 ml -100 ml FRANNY MORRIS III DO Oct 30, 2018 11:13
[2018-10-30] MEDS ORDERED: PRED20TA PO (14:54)
[2018-10-30] MEDS ORDERED: DOXY100C2 PO (14:55)
[2018-10-30 15:03] VITALS: BP 131/61
--- NOTE | 2018-10-30 15:55 | NUR ---
Pt discharged to home with . All pt discharge instructions, eduction, and scripts reviewed with pt. Pt states understanding. IV d/c'd without complications. Tele monitor d/c'd prior. Pt left discharge packet at bedside, voicemail left with listed phone number to come back for discharge paperwork.
--- NOTE | 2018-10-30 21:06 | DS ---
DATE OF DISCHARGE: 10/30/2018 ADMISSION DIAGNOSES: 1. Congestive heart failure. 2. Chronic obstructive pulmonary disease. DISCHARGE DIAGNOSES: 1. Resolving congestive heart failure. 2. Resolving chronic obstructive pulmonary disease. 3. 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 4. Status post bronchoscopy. CONSULTS: Dr. Betancourt and Dr. Jennings. PROCEDURES: Bronchoscopy. HOSPITAL COURSE: The patient is a pleasant middle-aged male, who presented with shortness of breath, was noted to be in heart failure. He has [id number] systolic and diastolic heart failure and he also smokes, so he has COPD. He was admitted. We gave him steroids, breathing treatments, oxygen, and antibiotics. The above consults were obtained. He was taken for bronchoscopy yesterday. Today, I saw him and I examined him. His heart tones were normal. His lungs were clear. He was in good spirits, requesting discharge. I told the nurse he can go if the other consultants were okay with that. Dr. Betancourt told me that she is okay and we plan to discharge on p.o. antibiotics and steroid taper. DISPOSITION: Home. ACTIVITY: As tolerated. DIET: Low sodium. MEDICATIONS: We resumed his home medications and put him on a prednisone taper and Augmentin. TOTAL TIME: 32 minutes. FRANNY MORRIS DO DR: JOSE/viki JOB#: [id number] / [id number]
[2018-11-22] MEDS ORDERED: AMOX1TAB58 PO (12:30)
[2018-11-22] MEDS ORDERED: LINE600T PO (12:30)
[2018-11-22] MEDS ORDERED: IPRA3AMP29 NEB (12:30)
[2018-11-22] MEDS ORDERED: Nicotine 14MG TD (12:30)
== END 2018-10-30 16:17 | disposition home or self-care (01) | DRG 871 ==
LOC: ER 12:23 → 2 SOUTH 14:18
PROVIDERS: ADMIT Internal Medicine; ATTEND Internal Medicine
PROC: 0B9C8ZX Drainage of Right Upper Lung Lobe, Via Natural or Artificial Opening Endoscopic, Diagnostic (ICD-10-PCS; principal; 2018-10-29 13:00)
DX: A41.9 Sepsis, unspecified organism (principal); J15.6 Pneumonia due to other Gram-negative bacteria; I50.43 Acute on chronic combined systolic (congestive) and diastolic (congestive) heart failure; J96.01 Acute respiratory failure with hypoxia; E87.1 Hypo-osmolality and hyponatremia; N17.9 Acute kidney failure, unspecified; I13.0 Hypertensive heart and chronic kidney disease with heart failure and stage 1 through stage 4 chronic kidney disease, or unspecified chronic kidney disease; J44.0 Chronic obstructive pulmonary disease with (acute) lower respiratory infection; J44.1 Chronic obstructive pulmonary disease with (acute) exacerbation; F11.20 Opioid dependence, uncomplicated; D64.9 Anemia, unspecified; F41.9 Anxiety disorder, unspecified; E78.5 Hyperlipidemia, unspecified; F17.210 Nicotine dependence, cigarettes, uncomplicated; G89.4 Chronic pain syndrome; I25.10 Atherosclerotic heart disease of native coronary artery without angina pectoris; K21.9 Gastro-esophageal reflux disease without esophagitis; N18.9 Chronic kidney disease, unspecified; Y95 Nosocomial condition; Z79.891 Long term (current) use of opiate analgesic; Z82.49 Family history of ischemic heart disease and other diseases of the circulatory system; Z95.1 Presence of aortocoronary bypass graft; Z95.5 Presence of coronary angioplasty implant and graft; Z99.81 Dependence on supplemental oxygen; Z87.01 Personal history of pneumonia (recurrent); Z88.8 Allergy status to other drugs, medicaments and biological substances; Z79.899 Other long term (current) drug therapy; Z71.6 Tobacco abuse counseling
CPT/HCPCS: 31622; 36415; 36600; 71046; 76770; 80048; 80053; 81001; 82550; 82805; 83605; 83690; 83735; 83880; 84484; 85007; 85025; 85651; 86713; 87040; 87070; 87102; 87116; 87186; 87205; 87641; 88112; 88312; 93005; 94640; 94760; 96374; 99291; J0696; J2543; J2704; J2920; J2930; J3010; J3475; J7030; J7120; J7620; J7626

== ENCOUNTER 2018-11-19 09:17 | Inpatient (IN) | payer MEDICARE, MEDICAID ==
[~2018-11-19] VITALS: Ht 175.3 cm; Wt 91.7 kg
[~2018-11-19 09:17] MED LIST changes: +DOXY100C2 PO
[2018-11-19] MEDS ORDERED: diazePAM 5 MG TABLET PO ONE (10:30)
[2018-11-19] MEDS ORDERED: IPRATRPIUM/ALBUTEROL 0.5/2.5MG 3 ML NEBU. NEB ONE (10:30)
[2018-11-19] MEDS ORDERED: fentaNYL PF VIAL 100 MCG/2 ML VIAL IV ONE (10:30)
[2018-11-19] MEDS ORDERED: methylPREDNISolone SOD SUCC PF 125 MG/2 ML VIAL. IV ONE (10:30)
--- NOTE | 2018-11-19 10:33 | PHYS DOC ---
Past Medical History Past Medical History: Anemia, CAD, CHF, COPD, Pneumonia, Other Additional Past Medical Histor: chronic back pain Past Surgical History: Angioplasty, Coronary Bypass Surgery, Other Additional Past Surgical Histo: 3X bypass,BACK SURGERY Additional Information: 0.5 PPD Alcohol Use: None Drug Use: None Adult General Chief Complaint Chief Complaint: SHORTNESS OF BREATH HPI HPI Patient is a 43 year old male with history of CAD, CABG, CHF, COPD, uses oxygen at home, chronic back pain who presents to the ED today complaining of cough and shortness of breath for the last 1 week. Patient states his shortness of breath is worse on activities or exertion. He is also complaining of subjective fevers. Patient is also complaining of mild to moderate chronic left low back pain radiating to the left lower extremity. Patient denies any known injury. Denies any loss of bowel bladder function. Denies any numbness or tingling to bilateral lower extremities. States his back pain is worse on activity. He is also complaining of being on 3 psychiatric medications and requesting we switched the medications around. Patient was informed we do not alter psychiatric medications unnecessarily in the emergency room. He needs to follow-up with his primary care doctor or psychiatric for this. Patient denies any suicidal or homicidal ideations. Denies any chest pain. Review of Systems Review of Systems Constitutional: Denies fever or chills [] Eyes: Denies change in visual acuity, redness, or eye pain [] HENT: Denies nasal congestion or sore throat [] Respiratory: Reports cough and shortness of breath [] Cardiovascular: Denies any chest pain GI: Denies abdominal pain, nausea, vomiting, bloody stools or diarrhea [] : Denies dysuria or hematuria [] Musculoskeletal: Reports chronic low back pain, denies joint pain [] Integument: Denies rash or skin lesions [] Neurologic: Denies headache, focal weakness or sensory changes [] Psych: Request for psychiatric this medication adjustment All other systems were reviewed and found to be within normal limits, except as documented in this note. Current Medications Current Medications Current Medications Medications (Trade) Dose Ordered Sig/Josi Start Time Stop Time Status Last Admin Dose Admin Albuterol/ Ipratropium (Duoneb) 3 ml 1X ONCE 11/19/18 10:30 11/19/18 10:31 DC 11/19/18 10:49 3 ML Ceftriaxone Sodium (Rocephin) 1 gm 1X ONCE 11/19/18 12:30 11/19/18 12:31 DC 11/19/18 12:34 1 GM Diazepam (Valium) 5 mg 1X ONCE 11/19/18 10:30 11/19/18 10:31 DC 11/19/18 10:56 5 MG Fentanyl Citrate (Fentanyl 2ml Vial) 50 mcg PRN Q1HR PRN 11/19/18 12:15 11/20/18 12:14 11/19/18 14:28 50 MCG Methylprednisolone Sodium Succinate (SOLU-Medrol 125MG VIAL) 125 mg 1X ONCE 11/19/18 10:30 11/19/18 10:31 DC 11/19/18 10:56 125 MG Ondansetron HCl (Zofran) 4 mg PRN Q8HRS PRN 11/19/18 12:15 11/20/18 12:14 Sodium Chloride 1,000 ml @ 2,130 mls/hr Q29M 11/19/18 12:30 11/19/18 13:30 DC 11/19/18 14:43 2,130 MLS/HR Allergies Allergies Allergies Coded Allergies Type Severity Reaction Last Updated Verified morphine Allergy Intermediate rash 12/21/17 Yes vancomycin Allergy Intermediate Rash 04/06/18 Yes I S O L A T I O N *CONTACT* Allergy Unknown 04/09/18 Yes ketorolac Adverse Reaction Intermediate nausea and vomiting 12/21/17 Yes moxifloxacin Adverse Reaction Intermediate Nausea and Vomiting 12/21/17 Yes tramadol Adverse Reaction Intermediate nausea and vomiting 12/21/17 Yes Physical Exam Physical Exam Constitutional: Well developed, well nourished, no acute distress, non-toxic appearance. [] HENT: Normocephalic, atraumatic, bilateral external ears normal, oropharynx moist, no oral exudates, nose normal. [] Eyes: PERRLA, EOMI, conjunctiva normal, no discharge. [] Neck: Normal range of motion, no tenderness, supple, no stridor. [] Cardiovascular: Old healed surgical incision noted midline chest. Heart rate regular rhythm, no murmur [] Lungs & Thorax: Bilateral breath sounds clear to auscultation [] Abdomen: Bowel sounds normal, soft, no tenderness, no masses, no pulsatile masses. [] Skin: Warm, dry, no erythema, no rash. [] Back: Old healed surgical incisions noted midline entire spine, old healed surgical incision noted on the left lower lumbar spine. No tenderness, no CVA tenderness. [] Extremities: No tenderness, no cyanosis, no clubbing, ROM intact, no edema. [] Neurologic: Alert and oriented X 3, normal motor function, normal sensory f unction, no focal deficits noted. [] Psychologic: Affect normal, judgement normal, mood normal. [] Current Patient Data Vital Signs Vital Signs Date Time Temp Pulse Resp B/P (MAP) Pulse Ox O2 Delivery O2 Flow Rate FiO2 11/19/18 13:16 80 119/64 (82) Room Air 11/19/18 11:26 20 96 11/19/18 09:50 98.1 98.1 Lab Values Laboratory Tests Test 11/19/18 10:13 11/19/18 11:15 Urine Collection Type Void Urine Color Yellow Urine Clarity Clear Urine pH 6.5 Urine Specific [place] <=1.005 Urine Protein Negative mg/dL (NEG-TRACE) Urine Glucose (UA) Negative mg/dL (NEG) Urine Ketones (Stick) Negative mg/dL (NEG) Urine Blood Negative (NEG) Urine Nitrite Negative (NEG) Urine Bilirubin Negative (NEG) Urine Urobilinogen Dipstick 0.2 mg/dL (0.2 mg/dL) Urine Leukocyte Esterase Negative (NEG) Urine RBC 0 /HPF (0-2) Urine WBC Rare /HPF (0-4) Urine Bacteria 0 /HPF (0-FEW) Urine Opiates Screen Pos (NEG) Urine Methadone Screen Neg (NEG) Urine Barbiturates Neg (NEG) Urine Phencyclidine Screen Neg (NEG) Urine Amphetamine/Methamphetamine Neg (NEG) Urine Benzodiazepines Screen Neg (NEG) Urine Cocaine Screen Neg (NEG) Urine Cannabinoids Screen Neg (NEG) Urine Ethyl Alcohol Neg (NEG) White Blood Count 14.9 x10^3/uL (4.0-11.0) H Red Blood Count 5.11 x10^6/uL (4.30-5.70) Hemoglobin 12.4 g/dL (13.0-17.5) L Hematocrit 39.7 % (39.0-53.0) Mean Corpuscular Volume 78 fL (79-100) L Mean Corpuscular Hemoglobin 24 pg (25-35) L Mean Corpuscular Hemoglobin Concent 31 g/dL (31-37) Red Cell Distribution Width 19.1 % (11.5-14.5) H Platelet Count 307 x10^3/uL (140-400) Neutrophils (%) (Auto) 78 % (31-73) H Lymphocytes (%) (Auto) 18 % (24-48) L Monocytes (%) (Auto) 4 % (0-9) Eosinophils (%) (Auto) 1 % (0-3) Basophils (%) (Auto) 1 % (0-3) Neutrophils # (Auto) 11.6 x10^3uL (1.8-7.7) H Lymphocytes # (Auto) 2.6 x10^3/uL (1.0-4.8) Monocytes # (Auto) 0.5 x10^3/uL (0.0-1.1) Eosinophils # (Auto) 0.1 x10^3/uL (0.0-0.7) Basophils # (Auto) 0.1 x10^3/uL (0.0-0.2) Sodium Level 138 mmol/L (136-145) Potassium Level 4.2 mmol/L (3.5-5.1) Chloride Level 98 mmol/L (98-107) Carbon Dioxide Level 28 mmol/L (21-32) Anion Gap 12 (6-14) Blood Urea Nitrogen 17 mg/dL (8-26) Creatinine 1.0 mg/dL (0.7-1.3) Estimated GFR (Cockcroft-Gault) 81.6 BUN/Creatinine Ratio 17 (6-20) Glucose Level 120 mg/dL (70-99) H Lactic Acid Level 2.2 mmol/L (0.4-2.0) H Calcium Level 10.0 mg/dL (8.5-10.1) Magnesium Level 1.8 mg/dL (1.8-2.4) Total Bilirubin 0.4 mg/dL (0.2-1.0) Aspartate Amino Transferase (AST) 18 U/L (15-37) Alanine Aminotransferase (ALT) 36 U/L (16-63) Alkaline Phosphatase 98 U/L (46-116) Creatine Kinase 136 U/L (39-308) Creatine Kinase MB (Mass) 3.6 ng/mL (0.0-3.6) Creatine Kinase MB Relative Index 2.6 % (0-4) Troponin I Quantitative < 0.017 ng/mL (0.000-0.055) LY-Ygd-D-Type Natriuretic Peptide 333 pg/mL (0-124) H Total Protein 7.6 g/dL (6.4-8.2) Albumin 4.1 g/dL (3.4-5.0) Albumin/Globulin Ratio 1.2 (1.0-1.7) Triglycerides Level 154 mg/dL (0-150) H Cholesterol Level 159 mg/dL (0-200) LDL Cholesterol, Calculated 81 mg/dL (0-100) VLDL Cholesterol, Calculated 31 mg/dL (0-40) Non-HDL Cholesterol Calculated 112 mg/dL (0-129) HDL Cholesterol 47 mg/dL (40-60) Cholesterol/HDL Ratio 3.4 Thyroid Stimulating Hormone (TSH) 2.049 uIU/mL (0.358-3.74) Laboratory Tests 11/19/18 11:15 Laboratory Tests 11/19/18 11:15 EKG EKG Interpreted by Dr. Topete sinus rhythm, HR 74 inverted T waves on leads I, V4, V5, V6, III no STEMI-this are new compared to EKG done one 10/27/2018[] Radiology/Procedures Radiology/Procedures []PROCEDURE: CHEST PA & LATERAL Chest, PA and Lateral: Technique: PA and lateral views of the chest were obtained. History: Shortness of breath. Comparison: 10/27/2018. Findings: Mild cardiomegaly. Prominent appearing bilateral interstitial lung markings slightly decreased from prior exam likely congestive changes or interstitial infiltrates. Median sternotomy wires identified. Moderate degenerative changes thoracic spine. IMPRESSION: Prominent appearing interstitial lung markings identified in the bilateral lungs slightly decreased from prior exam likely interstitial infiltrates or congestive changes. Electronically signed by: Gopal Mejias MD (11/19/2018 10:50 AM) [facility] DICTATED and SIGNED BY: GOPAL MEJIAS MD DATE: 11/19/18 1056 Course & Med Decision Making Course & Med Decision Making Pertinent Labs and Imaging studies reviewed. (See chart for details) This is a 43-year-old male patient presenting to the ED today complaining of shortness of breath, coughing, symptoms for the last 1 week, patient is also complaining of chronic low back pain, no known injury. Patient is also requesting we switch his psychiatric medications around. He was informed he can follow-up with his own psychiatrist for this. EKG was noted for inverted T waves, this are new. Spoke to [employer] [facility] [employer] thermodynamics teacher CRYSTAL MOUNTER who will follow-up with patient. CBC with a WBC of 14.9, CMP with no acute findings, urine analysis is negative for infection, chest x-ray noted for interstitial infiltrates or congestive changes. Lactic 2.2. Blood cultures and be ordered when patient arrived to the ED. IV fluids weight-based 30 mg per KG using patient's regular weight ordered. Patient was given Rocephin. Reassessed patient after IV fluids started. Refill less than 2 seconds. Skin pink and mucous membranes are moist. Patient has threatened to walk out of the ED and go home multiple times most of it relating to pain medication request or food. Spoke with Dr. Hernandez who accepted patient for admission Dragon Disclaimer Dragon Disclaimer This electronic medical record was generated, in whole or in part, using a voice recognition dictation system. Departure Departure Impression: Primary Impression: Back pain Additional Impressions: Elevated lactic acid level COPD exacerbation Narcotic dependence Abnormal EKG Disposition: ADMITTED INPATIENT Condition: STABLE Referrals: OLIVIA FERRERA DO (PCP) Problem Qualifiers Primary Impression: Back pain Back pain location: low back pain Chronicity: chronic Back pain laterality: left Sciatica presence: without sciatica Qualified Codes: M54.5 - Low back pain; G89.29 - Other chronic pain FANTA LYNCH APRN November 19, 2018 10:33
[2018-11-19 10:44] LABS: BILIRUBIN,URINE NEGATIVE (NEG); CLARITY,URINE CLEAR; COLOR,URINE YELLOW; NITRITE,URINE NEGATIVE (NEG); PH,URINE 6.5; PROTEIN,URINE NEGATIVE (NEG-TRACE); UROBILINOGEN,URINE 0.2 mg/dL (0.2 mg/dL)
[2018-11-19 10:51] LABS: AMPHETAMINE/METHAMPHETAMINE NEG (NEG); BACTERIA,URINE 0 /HPF (0-FEW); BARBITURATES NEG (NEG); BENZODIAZEPINES NEG (NEG); CANNABINOIDS NEG (NEG); COCAINE NEG (NEG); METHADONE NEG (NEG); OPIATES POS (NEG); PHENCYCLIDINE NEG (NEG); RBC,URINE 0 /HPF (0-2); WBC,URINE RARE /HPF (0-4)
--- NOTE | 2018-11-19 10:53 | RAD ---
Chest, PA and Lateral: Technique: PA and lateral views of the chest were obtained. History: Shortness of breath. Comparison: 10/27/2018. Findings: Mild cardiomegaly. Prominent appearing bilateral interstitial lung markings slightly decreased from prior exam likely congestive changes or interstitial infiltrates. Median sternotomy wires identified. Moderate degenerative changes thoracic spine. IMPRESSION: Prominent appearing interstitial lung markings identified in the bilateral lungs slightly decreased from prior exam likely interstitial infiltrates or congestive changes. Electronically signed by: Gopal Mejias MD (11/19/2018 10:50 AM) [place] [id number]
--- NOTE | 2018-11-19 11:27 | PDOC1 ---
History and Physical Date of Admission Date of Admission DATE: 11/19/18 TIME: 11:27 Identification/Chief Complaint Chief Complaint SEEN IN ER, presents to the ED today complaining of cough and shortness of breath for the last 1 week. Patient states his shortness of breath is worse on activities or exertion. also complaining of subjective fevers. Patient is also complaining of mild to moderate chronic left low back pain radiating to the left lower extremity. Patient denies any known injury. Denies any loss of bowel bladder function. Denies any numbness or tingling to bilateral lower extremities. States his back pain is worse on activity. He is also complaining of being on 3 psychiatric medications and requesting we switched the medications Past Medical History Past Medical History Past Medical History Past Medical History: Anemia, CAD, CHF, COPD, Pneumonia, Other Additional Past Medical Histor: chronic back pain Past Surgical History: Angioplasty, Coronary Bypass Surgery, Other Additional Past Surgical Histo: 3X bypass,BACK SURGERY Additional Information: 0.5 PPD Alcohol Use: None Drug Use: None family hx obesity Cardiovascular: CAD, HTN, NC, Hyperlipidemia Pulmonary: COPD, Pneumonia CENTRAL NERVOUS SYSTEM: Carpal Tunnel Syndrome GI: GERD Heme/Onc: No pertinent hx Hepatobiliary: No pertinent hx Psych: Anxiety Musculoskeletal: low back pain, Osteoarthritis Infectious disease: No pertinent hx Renal/: No pertinent hx Endocrine: Other Past Surgical History Past Surgical History: CABG, Other Family History Family History: Coronary Artery Disease, High Cholestrol, Hypertension Social History Smoke: <1 pack per day ALCOHOL: occassional Drugs: None Current Medications Current Medications Current Medications Albuterol/ Ipratropium (Duoneb) 3 ml 1X ONCE NEB Last administered on 11/19/18at 10:49; Start 11/19/18 at 10:30; Stop 11/19/18 at 10:31; Status DC Methylprednisolone Sodium Succinate (SOLU-Medrol 125MG VIAL) 125 mg 1X ONCE IV Last administered on 11/19/18at 10:56; Start 11/19/18 at 10:30; Stop 11/19/18 at 10:31; Status DC Fentanyl Citrate (Fentanyl 2ml Vial) 50 mcg 1X ONCE IV Last administered on 11/19/18at 10:56; Start 11/19/18 at 10:30; Stop 11/19/18 at 10:31; Status DC Diazepam (Valium) 5 mg 1X ONCE PO Last administered on 11/19/18at 10:56; Start 11/19/18 at 10:30; Stop 11/19/18 at 10:31; Status DC Active Scripts Active Culturelle (Lactobacillus Rhamnosus Gg) 1 Each Cap.sprink 1 Cap PO BID 14 Days Proair Hfa Inhaler (Albuterol Sulfate) 8.5 Gm Hfa.aer.ad 1 Puff INH PRN Q6HRS PRN Furosemide 40 Mg Tablet 40 Mg PO DAILY 30 Days Feosol (Ferrous Sulfate) 325 Mg Tablet 325 Mg PO BIDWMEALS 30 Days Reported Doxycycline Hyclate 100 Mg Capsule 1 Cap PO BID 14 Days Prednisone 20 Mg Tablet 30 Mg PO DAILY 90 Days Hydromorphone Hcl 4 Mg Tablet 4 Mg PO PRN Q6HRS PRN Aspirin 81 Mg Tab.chew 1 Tab PO DAILY Klor-Con 10 (Potassium Chloride) 10 Meq Tablet.er 1 Tab PO DAILY Hydromorphone ER (Hydromorphone HCl) 8 Mg Tab.er.24h 8 Mg PO DAILY Metoprolol Succinate ( Xl ) (Metoprolol Succinate) 25 Mg Tab.er.24h 25 Mg PO BID Atorvastatin Calcium 80 Mg Tablet 80 Mg PO HS Protonix (Pantoprazole Sodium) 20 Mg Tablet.dr 20 Mg PO BID Buspirone Hcl 7.5 Mg Tablet 7.5 Mg PO TID Bupropion Hcl 75 Mg Tablet 75 Mg PO TID Symbicort 160-4.5 Mcg Inhaler (Budesonide/Formoterol Fumarate) 10.2 Gm H fa.aer.ad 2 Puff IH BID Baclofen 10 Mg Tablet 1 Tab PO PRN TID Melatonin 3 Mg Tablet 1 Tab PO QHS Nitrostat (Nitroglycerin) 0.4 Mg Tab.subl 0.4 Mg SL PRN Q5MIN PRN Promethazine Hcl 25 Mg Tablet 25 Mg PO Q6H PRN Fenofibrate (Fenofibrate Nanocrystallized) 48 Mg Tablet 48 Mg PO DAILY Fluoxetine Hcl 20 Mg Capsule 1 Cap PO DAILY Gabapentin 600 Mg Tablet 3 Tab PO BID Allergies Allergies: Coded Allergies: morphine (Verified Allergy, Intermediate, rash, 12/21/17) Tolerates oxycodone vancomycin (Verified Allergy, Intermediate, Rash, 04/06/18) I S O L A T I O N *CONTACT* (Verified Allergy, Unknown, 04/09/18) +MRSA nares 10/02/18 ketorolac (Verified Adverse Reaction, Intermediate, nausea and vomiting, 12/21/17) moxifloxacin (Verified Adverse Reaction, Intermediate, Nausea and Vomiting, 12/21/17) tramadol (Verified Adverse Reaction, Intermediate, nausea and vomiting, 12/21/17) ROS Review of System Review of Systems Review of Systems Constitutional: Denies fever or chills [] Eyes: Denies change in visual acuity, redness, or eye pain [] HENT: Denies nasal congestion or sore throat [] Respiratory: Reports cough and shortness of breath [] Cardiovascular: Denies any chest pain GI: Denies abdominal pain, nausea, vomiting, bloody stools or diarrhea [] : Denies dysuria or hematuria [] Musculoskeletal: Reports chronic low back pain, denies joint pain [] Integument: Denies rash or skin lesions [] Neurologic: Denies headache, focal weakness or sensory changes [] Psych: Request for psychiatric this medication adjustment 14 pt systems were reviewed and found to be within normal limits, except as documented Physical Exam Physical Exam Physical Exam Physical Exam Constitutional: Well developed, well nourished, no acute distress, non-toxic appearance. [] HENT: Normocephalic, atraumatic, bilateral external ears normal, oropharynx moist, no oral exudates, nose normal. [] Eyes: PERRLA, EOMI, conjunctiva normal, no discharge. [] Neck: Normal range of motion, no tenderness, supple, no stridor. [] Cardiovascular: Old healed surgical incision noted midline chest. Heart rate regular rhythm, no murmur [] Lungs & Thorax: Bilateral breath sounds clear to auscultation [] Abdomen: Bowel sounds normal, soft, no tenderness, no masses, no pulsatile masses. [] Skin: Warm, dry, no erythema, no rash. [] Back: Old healed surgical incisions noted midline entire spine, old healed surgical incision noted on the left lower lumbar spine. No tenderness, no CVA tenderness. [] Extremities: No tenderness, no cyanosis, no clubbing, ROM intact, no edema. [] Neurologic: Alert and oriented X 3, normal motor function, normal sensory function, no focal deficits noted. [] Psychologic: Affect normal, judgement normal, mood normal. [] General: Oriented X3, Cooperative, No acute distress HEENT: Atraumatic, PERRLA, EOMI Abdomen: Normal bowel sounds, Soft Rectal Exam: not examined Neuro: Normal speech, Cranial nerves 3-12 NL Psych/Mental Status: Mental status NL, Mood NL Vitals Vitals Vital Signs Date Time Temp Pulse Resp B/P (MAP) Pulse Ox O2 Delivery O2 Flow Rate FiO2 11/19/18 10:56 20 97 Room Air 11/19/18 09:50 98.1 81 149/79 (102) 98.1 Labs Labs Laboratory Tests Test 11/19/18 10:13 Urine Collection Type Void Urine Color Yellow Urine Clarity Clear Urine pH 6.5 Urine Specific [place] <=1.005 Urine Protein Negative mg/dL (NEG-TRACE) Urine Glucose (UA) Negative mg/dL (NEG) Urine Ketones (Stick) Negative mg/dL (NEG) Urine Blood Negative (NEG) Urine Nitrite Negative (NEG) Urine Bilirubin Negative (NEG) Urine Urobilinogen Dipstick 0.2 mg/dL (0.2 mg/dL) Urine Leukocyte Esterase Negative (NEG) Urine RBC 0 /HPF (0-2) Urine WBC Rare /HPF (0-4) Urine Bacteria 0 /HPF (0-FEW) Urine Opiates Screen Pos (NEG) Urine Methadone Screen Neg (NEG) Urine Barbiturates Neg (NEG) Urine Phencyclidine Screen Neg (NEG) Urine Amphetamine/Methamphetamine Neg (NEG) Urine Benzodiazepines Screen Neg (NEG) Urine Cocaine Screen Neg (NEG) Urine Cannabinoids Screen Neg (NEG) Urine Ethyl Alcohol Neg (NEG) Laboratory Tests Test 11/19/18 10:13 Urine Collection Type Void Urine Color Yellow Urine Clarity Clear Urine pH 6.5 Urine Specific [place] <=1.005 Urine Protein Negative mg/dL (NEG-TRACE) Urine Glucose (UA) Negative mg/dL (NEG) Urine Ketones (Stick) Negative mg/dL (NEG) Urine Blood Negative (NEG) Urine Nitrite Negative (NEG) Urine Bilirubin Negative (NEG) Urine Urobilinogen Dipstick 0.2 mg/dL (0.2 mg/dL) Urine Leukocyte Esterase Negative (NEG) Urine RBC 0 /HPF (0-2) Urine WBC Rare /HPF (0-4) Urine Bacteria 0 /HPF (0-FEW) Urine Opiates Screen Pos (NEG) Urine Methadone Screen Neg (NEG) Urine Barbiturates Neg (NEG) Urine Phencyclidine Screen Neg (NEG) Urine Amphetamine/Methamphetamine Neg (NEG) Urine Benzodiazepines Screen Neg (NEG) Urine Cocaine Screen Neg (NEG) Urine Cannabinoids Screen Neg (NEG) Urine Ethyl Alcohol Neg (NEG) Images Images STATUS: REG ER ORD. PHYSICIAN: FANTA LYNCH APRN REASON: SOA PROCEDURE: CHEST PA & LATERAL Chest, PA and Lateral: Technique: PA and lateral views of the chest were obtained. History: Shortness of breath. Comparison: 10/27/2018. Findings: Mild cardiomegaly. Prominent appearing bilateral interstitial lung markings slightly decreased from prior exam likely congestive changes or interstitial infiltrates. Median sternotomy wires identified. Moderate degenerative changes thoracic spine. IMPRESSION: Prominent appearing interstitial lung markings identified in the bilateral lungs slightly decreased from prior exam likely interstitial infiltrates or congestive changes. Electronically signed by: Gopal Damon MD (11/19/2018 10:50 AM) [facility] DICTATED and SIGNED BY: GOPAL DAMON MD DATE: 11/19/18 1050 VTE Prophylaxis Ordered VTE Prophylaxis Devices: Yes VTE Pharmacological Prophylaxi: Yes Assessment/Plan Assessment/Plan IMPRESSION 1. Congestive heart failure., ACUTE EXAC 2. Chronic obstructive pulmonary disease. 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 4. Status post bronchoscopy.10/22 5. CAD; past CABG 2015 and PCI/stent to RCA and OM 2014. CP free 6. HTN: controlled 7. Hyperlipidemia 8. lactic acidosis/ SIRS plan cardiology consult pulm consult cvc admit smoking cessation needed, education provided duonetre qid home meds cxr dvt prophylaxis gi prophylaxis DOXY IV Zosyn per pharmacy 58 min pt exam, chart review, > 50% of time spent with exam, chart review, pt care coordination ANTHONY SUN MD November 19, 2018 11:27
[2018-11-19 11:39] LABS: BASO # 0.1 x10^3/uL (0.0-0.2); BASO % 1 % (0-3); EOS # 0.1 x10^3/uL (0.0-0.7); EOS % 1 % (0-3); HEMATOCRIT 39.7 % (39.0-53.0); HEMOGLOBIN 12.4 g/dL (13.0-17.5); LYMPH # 2.6 x10^3/uL (1.0-4.8); LYMPH % 18 % (24-48); MEAN CORPUSCULAR HEMOGLOBIN 24 pg (25-35); MEAN CORPUSCULAR HGB CONC 31 g/dL (31-37); MEAN CORPUSCULAR VOLUME 78 fL (79-100); MONO # 0.5 x10^3/uL (0.0-1.1); MONO % 4 % (0-9); NEUT # 11.6 x10^3uL (1.8-7.7); NEUT % 78 % (31-73); PLATELET COUNT 307 x10^3/uL (140-400); RED BLOOD COUNT 5.11 x10^6/uL (4.30-5.70); RED CELL DISTRIBUTION WIDTH 19.1 % (11.5-14.5); WHITE BLOOD COUNT 14.9 x10^3/uL (4.0-11.0)
[2018-11-19 12:08] LABS: GFR 81.6; POTASSIUM 4.2 mmol/L (3.5-5.1)
[2018-11-19 12:15] LABS: ALBUMIN 4.1 g/dL (3.4-5.0); ALBUMIN/GLOBULIN RATIO 1.2 (1.0-1.7); MAGNESIUM 1.8 mg/dL (1.8-2.4); TOTAL BILIRUBIN 0.4 mg/dL (0.2-1.0); TOTAL PROTEIN 7.6 g/dL (6.4-8.2)
[2018-11-19] MEDS ORDERED: ONDANSETRON PF 4 MG/2 ML VIAL. IV PRN (12:15)
[2018-11-19] MEDS ORDERED: cefTRIAXone IV Push 1 GM VIAL. IVP ONE (12:30)
[2018-11-19] MEDS: IV NORMAL SALINE 1000ML BAG 1,000 ML IV SCH ×3 (12:34→15:58)
--- NOTE | 2018-11-19 12:34 | PDOC2 ---
JOSIE MCNEAL ESTIMATOR [employer]OXES 11/19/18 1234: CARDIAC CONSULT DATE OF CONSULT Date of Consult DATE: 11/19/18 TIME: 12:18 REASON FOR CONSULT Reason for Consult: Abnormal EKG SOURCE Source: Chart review, Patient HISTORY OF PRESENT ILLNESS HISTORY OF PRESENT ILLNESS This is a 43 yo male admitted for complains of SOA worse in the last week particularly with exertion also with nonproductive cough. This was noted by his while he was heading to the car. He has never been tested for KIMBERLY. He was told that he snores a lot and feels fatigue mid day for the most part. No SOA at rest also no changes to his activity tolerance. His convinced him to come to ED. Pt was here end of October had bronchoscopy and treated for pneumonia, AECOPD. 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 He continues to smoke tobacco 1ppd. He presently is not in distress. Has chills and low back pain going to his LLE but no chest pain, palpitations. No nausea or diaphoresis. Consult is abnormal EKG. He has CABG in [address] Perry, his quality control tester at [place]. Verbalized compliance with his medications PAST MEDICAL HISTORY Past Medical History Cardiovascular: CAD, HTN, SC, Hyperlipidemia Pulmonary: COPD, Pneumonia CENTRAL NERVOUS SYSTEM: Carpal Tunnel Syndrome GI: GERD Heme/Onc: anemia Hepatobiliary: No pertinent hx Psych: Anxiety Musculoskeletal: low back pain, Osteoarthritis Infectious disease: No pertinent hx Renal/: No pertinent hx Endocrine: none PAST SURGICAL HISTORY Past Surgical History CABG, Other (back surgery for scoliosis repair), PCI/stent FAMILY HISTORY Family History Coronary Artery Disease SOCIAL HISTORY Smoke: 1 pack per day ALCOHOL: none Drugs: None Lives: with Family CURRENT MEDICATIONS CURRENT MEDICATIONS Current Medications Medications (Trade) Dose Ordered Sig/Josi Route PRN Reason Start Time Stop Time Status Last Admin Dose Admin Albuterol/ Ipratropium (Duoneb) 3 ml 1X ONCE NEB 11/19/18 10:30 11/19/18 10:31 DC 11/19/18 10:49 Methylprednisolone Sodium Succinate (SOLU-Medrol 125MG VIAL) 125 mg 1X ONCE IV 11/19/18 10:30 11/19/18 10:31 DC 11/19/18 10:56 Fentanyl Citrate (Fentanyl 2ml Vial) 50 mcg 1X ONCE IV 11/19/18 10:30 11/19/18 10:31 DC 11/19/18 10:56 Diazepam (Valium) 5 mg 1X ONCE PO 11/19/18 10:30 11/19/18 10:31 DC 11/19/18 10:56 ALLERGIES ALLERGIES: Coded Allergies: morphine (Verified Allergy, Intermediate, rash, 12/21/17) Tolerates oxycodone vancomycin (Verified Allergy, Intermediate, Rash, 04/06/18) I S O L A T I O N *CONTACT* (Verified Allergy, Unknown, 04/09/18) +MRSA nares 04/06/18 ketorolac (Verified Adverse Reaction, Intermediate, nausea and vomiting, 12/21/17) moxifloxacin (Verified Adverse Reaction, Intermediate, Nausea and Vomiting, 12/21/17) tramadol (Verified Adverse Reaction, Intermediate, nausea and vomiting, 12/21/17) ROS Review of System 14 point ROS evaluated with pertinent positives noted per HPI PHYSICAL EXAM General: Alert, Oriented X3, Cooperative, No acute distress HEENT: Atraumatic, Mucous membr. moist/pink Lungs: Clear to auscultation, Normal air movement Heart: Regular rate (SR), Normal S1, Normal S2, No murmurs Abdomen: Soft, No tenderness Extremities: No cyanosis, No edema Skin: No breakdown, No significant lesion Neuro: Normal speech, Sensation intact Psych/Mental Status: Mental status NL, Mood NL MUSCULOSKELETAL: Osteoarthritic changes both hands VITALS VITALS Vital Signs Date Time Temp Pulse Resp B/P (MAP) Pulse Ox O2 Delivery O2 Flow Rate FiO2 11/19/18 10:56 20 97 Room Air 11/19/18 09:50 98.1 81 149/79 (102) 98.1 LABS Lab: Laboratory Tests Test 11/19/18 10:13 11/19/18 11:15 Urine Collection Type Void Urine Color Yellow Urine Clarity Clear Urine pH 6.5 Urine Specific [place] <=1.005 Urine Protein Negative mg/dL (NEG-TRACE) Urine Glucose (UA) Negative mg/dL (NEG) Urine Ketones (Stick) Negative mg/dL (NEG) Urine Blood Negative (NEG) Urine Nitrite Negative (NEG) Urine Bilirubin Negative (NEG) Urine Urobilinogen Dipstick 0.2 mg/dL (0.2 mg/dL) Urine Leukocyte Esterase Negative (NEG) Urine RBC 0 /HPF (0-2) Urine WBC Rare /HPF (0-4) Urine Bacteria 0 /HPF (0-FEW) Urine Opiates Screen Pos (NEG) Urine Methadone Screen Neg (NEG) Urine Barbiturates Neg (NEG) Urine Phencyclidine Screen Neg (NEG) Urine Amphetamine/Methamphetamine Neg (NEG) Urine Benzodiazepines Screen Neg (NEG) Urine Cocaine Screen Neg (NEG) Urine Cannabinoids Screen Neg (NEG) Urine Ethyl Alcohol Neg (NEG) White Blood Count 14.9 x10^3/uL (4.0-11.0) Red Blood Count 5.11 x10^6/uL (4.30-5.70) Hemoglobin 12.4 g/dL (13.0-17.5) Hematocrit 39.7 % (39.0-53.0) Mean Corpuscular Volume 78 fL (79-100) Mean Corpuscular Hemoglobin 24 pg (25-35) Mean Corpuscular Hemoglobin Concent 31 g/dL (31-37) Red Cell Distribution Width 19.1 % (11.5-14.5) Platelet Count 307 x10^3/uL (140-400) Neutrophils (%) (Auto) 78 % (31-73) Lymphocytes (%) (Auto) 18 % (24-48) Monocytes (%) (Auto) 4 % (0-9) Eosinophils (%) (Auto) 1 % (0-3) Basophils (%) (Auto) 1 % (0-3) Neutrophils # (Auto) 11.6 x10^3uL (1.8-7.7) Lymphocytes # (Auto) 2.6 x10^3/uL (1.0-4.8) Monocytes # (Auto) 0.5 x10^3/uL (0.0-1.1) Eosinophils # (Auto) 0.1 x10^3/uL (0.0-0.7) Basophils # (Auto) 0.1 x10^3/uL (0.0-0.2) Sodium Level 138 mmol/L (136-145) Potassium Level 4.2 mmol/L (3.5-5.1) Chloride Level 98 mmol/L (98-107) Carbon Dioxide Level 28 mmol/L (21-32) Anion Gap 12 (6-14) Blood Urea Nitrogen 17 mg/dL (8-26) Creatinine 1.0 mg/dL (0.7-1.3) Estimated GFR (Cockcroft-Gault) 81.6 BUN/Creatinine Ratio 17 (6-20) Glucose Level 120 mg/dL (70-99) Lactic Acid Level 2.2 mmol/L (0.4-2.0) Calcium Level 10.0 mg/dL (8.5-10.1) Magnesium Level 1.8 mg/dL (1.8-2.4) Total Bilirubin 0.4 mg/dL (0.2-1.0) Aspartate Amino Transf (AST/SGOT) 18 U/L (15-37) Alanine Aminotransferase (ALT/SGPT) 36 U/L (16-63) Alkaline Phosphatase 98 U/L (46-116) Total Protein 7.6 g/dL (6.4-8.2) Albumin 4.1 g/dL (3.4-5.0) Albumin/Globulin Ratio 1.2 (1.0-1.7) Thyroid Stimulating Hormone (TSH) 2.049 uIU/mL (0.358-3.74) ECHOCARDIOGRAM ECHOCARDIOGRAM <Conclusion> The left ventricle is normal size. The left ventricular systolic function is normal and the ejection fraction is within normal range. The Ejection Fraction is 55-60%. There is borderline concentric left ventricular hypertrophy. There is no significant aortic valvular stenosis. Doppler and Color Flow revealed no significant aortic regurgitation. Doppler and Color-flow revealed trace mitral regurgitation. Doppler and Color Flow revealed trace tricuspid regurgitation. DATE: 04/06/18 1241 STRESS TEST STRESS TEST Conclusion 1. Severe two vessel coronary artery disease as described above 2. Successful PCI/stents placement to right coronary artery and also the obtuse marginal branch of left circumflex artery Recommendations 1. Aspirin 325 mg daily 2. Plavix 75 mg daily for preferably one year 3. Cardiovascular risk factor modification DATE: 09/08/14 1420 ASSESSMENT/PLAN ASSESSMENT/PLAN 1. Leukocytosis/Dyspnea:; mainly with exertion, multifactorial with continued smoking and possible recurrent pneumonia 2. Abnormal EKG: no CP but with inferolateral assymetrical T wave inversions with LVH, likely strain 3. Chronic diastolic CHF: compensated 4. CAD; past CABG 2015 and PCI/stent to RCA and OM 2014. CP free 5. HTN: controlled 6. HLP 7. COPD with continued heavy tobaccoism Recommendations 1. Continue secondary prevention 2. TTE. Trend troponin. Check lipids 3. Smoking cessation 4. will need outpt KIMBERLY w/u 5. Pending tests, ischemic workup potentially MPI as an outpt. 6. follow up with his quality control tester at [place]. BHARGAVI TOLBERT MD 11/19/18 9240: CARDIAC CONSULT ASSESSMENT/PLAN ASSESSMENT/PLAN Patient seen and examined. Agree with WILDERNESS GUIDE's assessment and plan. Abnormal EKG findings most probably secondary to LVH with repolarization abnormalities CAD status clinically stable Chronic diastolic heart failure well compensated Patient is presently scheduled for stress test next month with primary quality control tester No further workup is indicated from our standpoint Thank you for your consultation JOSIE MCNEAL APRN November 19, 2018 12:34 BHARGAVI TOLBERT MD November 19, 2018 17:57
--- NOTE | 2018-11-19 12:47 | EKG ---
[facility] [address] [place] [address] Test Date: 2018-11-19 Test Time: 09:57:29 Pat Name: EMELIA AGUIAR Department: Room: Gender: M Psych Assistant: : 1975 Requested By: FANTA LYNCH Order Number: [id number] Reading MD: Lasha Serrato Measurements Intervals [place] Rate: 74 P: 51 DE: 138 QRS: 36 QRSD: 102 T: 28 QT: 366 QTc: 411 Interpretive Statements SINUS RHYTHM LEFT ATRIAL ABNORMALITY LVH WITH REPOLARIZATION ABNORMALITY ABNORMAL ECG Electronically Signed On 12-10-2018 12:28:38 CDT by Lasha Serrato
[2018-11-19 13:43] LABS: CHOLESTEROL/HDL RATIO 3.4
[2018-11-19] MEDS ORDERED: NITROGLYCERIN SUBLINGUAL 0.4 MG BOTTLE OF 25. SL PRN (13:45)
[2018-11-19] MEDS ORDERED: ALBUTEROL SULFATE 2.5 MG/3 ML NEBU. INH PRN (13:45)
[2018-11-19] MEDS ORDERED: PIP/TAZO PER PHARMACY MC PRN (13:45)
[2018-11-19] MEDS ORDERED: PROMETHAZINE 12.5 MG TABLET. PO PRN (14:00)
[2018-11-19] MEDS: fentaNYL PF VIAL 100 MCG/2 ML VIAL IV PRN ×2 (14:28→22:36)
[2018-11-19] MEDS: busPIRone 5 MG TABLET. PO SCH ×2 (14:32→22:04)
[2018-11-19] MEDS: buPROPion 75 MG TABLET. PO SCH ×2 (14:32→22:08)
[2018-11-19 14:50] VITALS: BP 131/62
[2018-11-19] MEDS: NICOTINE 14MG PATCH. TD PRN (16:14)
[2018-11-19] MEDS: ALBUTEROL SULFATE 2.5 MG/3 ML NEBU. NEB SCH ×2 (16:19→20:00)
--- NOTE | 2018-11-19 16:30 | NUR ---
Dr. Hernandez notified of positive severe sepsis screen and critical lactic acid. Orders received. Will continue to monitor.
[2018-11-19] MEDS: LINEZOLID 600 MG TABLET PO SCH (17:30)
[2018-11-19] MEDS: FERROUS SULFATE 325 MG TABLET. PO SCH (17:31)
[2018-11-19] MEDS: PIPERACILLIN/TAZOBACTAM 3.375 GM in IV NORMAL SALINE 50ML 50 ML IV SCH (17:31)
[2018-11-19 19:25] VITALS: BP 101/52
[2018-11-19] MEDS ORDERED: PRED5DRO16 EACHEYE (19:53)
[2018-11-19] MEDS: BUDESONIDE 0.5 MG/2 ML NEBU. NEB SCH (20:00)
[2018-11-19] MEDS ORDERED: NON FORMULARY ITEM (Melatonin 1 TAB) PO SCH (21:00)
[2018-11-19] MEDS: DOXYCYCLINE HYCLATE 100 MG TABLET PO SCH (22:05)
[2018-11-19] MEDS: ATORVASTATIN CALCIUM 40 MG TABLET. PO SCH (22:05)
[2018-11-19] MEDS: GABAPENTIN 300 MG CAPSULE. PO SCH (22:06)
[2018-11-19] MEDS: METOPROLOL SUCC 24HR ER 25 MG TAB.ER.24H. PO SCH (22:07)
[2018-11-19] MEDS: LACTOBACILLUS RHAMNOSUS GG 1 CAPSULE. PO SCH (22:07)
[2018-11-19] MEDS: BACLOFEN 10 MG TABLET. PO PRN (22:36)
[2018-11-19 23:00] VITALS: BP 127/56
[2018-11-20] MEDS: PIPERACILLIN/TAZOBACTAM 3.375 GM in IV NORMAL SALINE 50ML 50 ML IV SCH ×4 (01:30→17:57)
[2018-11-20 03:25] VITALS: BP 119/56
[2018-11-20 07:00] VITALS: BP 112/59
[2018-11-20 07:42] LABS: BASO # 0.1 x10^3/uL (0.0-0.2); BASO % 1 % (0-3); EOS % 0 % (0-3); HEMATOCRIT 33.5 % (39.0-53.0); HEMOGLOBIN 10.9 g/dL (13.0-17.5); LYMPH # 1.8 x10^3/uL (1.0-4.8); LYMPH % 10 % (24-48); MEAN CORPUSCULAR HEMOGLOBIN 25 pg (25-35); MEAN CORPUSCULAR HGB CONC 32 g/dL (31-37); MEAN CORPUSCULAR VOLUME 78 fL (79-100); MONO # 0.9 x10^3/uL (0.0-1.1); MONO % 5 % (0-9); NEUT # 14.6 x10^3uL (1.8-7.7); NEUT % 84 % (31-73); PLATELET COUNT 244 x10^3/uL (140-400); RED BLOOD COUNT 4.31 x10^6/uL (4.30-5.70); WHITE BLOOD COUNT 17.5 x10^3/uL (4.0-11.0)
[2018-11-20 07:51] LABS: GFR 81.6; POTASSIUM 3.6 mmol/L (3.5-5.1)
--- NOTE | 2018-11-20 07:57 | PDOC ---
Provider Note Provider Note [id number] ae of copd acute diastolic chf acue bronchitis vs pneumonia ?sepsis see orders ALFRED CHEN MD November 20, 2018 07:56
[2018-11-20] MEDS: IPRATRPIUM/ALBUTEROL 0.5/2.5MG 3 ML NEBU. NEB SCH ×5 (08:00→19:53)
[2018-11-20] MEDS ORDERED: BUDESONIDE 0.5 MG/2 ML NEBU. NEB SCH (08:00)
[2018-11-20] MEDS: BUDESONIDE 0.5 MG/2 ML NEBU. NEB SCH ×2 (08:02→19:54)
--- NOTE | 2018-11-20 08:38 | CONS ---
DATE OF CONSULTATION: 11/20/2018 I was asked to see this 43-year-old gentleman for acute exacerbation of COPD. HISTORY OF PRESENT ILLNESS: He has history of 13-[id number]-ubma smoking, continues to smoke about 1 pack per day. He presented to the Emergency Room with increased shortness of breath, wheezing and chest tightness. He denies chest pain. He has had back pain, is on Dilaudid every 4 hours. He has occasional cough with small amount of sputum production. He is on oxygen 3 liters per minute via nasal cannula. He does not know if he has had a sleep study. He denies runny nose or gastroesophageal reflux symptoms. PAST MEDICAL HISTORY: Coronary artery disease, status post CABG in 2016; diastolic CHF; hypertension; hyperlipidemia; COPD. ALLERGIES: KETOROLAC, MORPHINE, MOXIFLOXACIN, TRAMADOL, VANCOMYCIN. MEDICATIONS: Currently, he is on doxycycline, Zosyn, albuterol, Lasix, potassium, aspirin, gabapentin, Dilaudid, Lipitor, Toprol-XL, nicotine patch and BuSpar. SOCIAL HISTORY: History of 86-mica-mfpk smoking, continues to smoke. FAMILY HISTORY: Hypertension. REVIEW OF SYSTEMS: As mentioned as above. He has snoring and excessive daytime sleepiness. Other systems are otherwise negative. PHYSICAL EXAMINATION: GENERAL: This is an obese gentleman. VITAL SIGNS: His O2 saturation is 96%, heart rate 83, blood pressure 119/56, temperature 97.8, respiratory rate 20. HEENT: Normocephalic, atraumatic. Pupils equal, round, reactive to light. Throat is clear. There is shallow oropharynx. Nose is clear. NECK: Positive JVD. No lymphadenopathy. CARDIOVASCULAR: Regular rate and rhythm. PMI is nondisplaced. CHEST: Inspection is normal. LUNGS: There are a few bibasilar crackles, end-expiratory wheezing with forced exhalation, dullness at the bases. ABDOMEN: Soft and obese. Bowel sounds are good. There is no mass. EXTREMITIES: There is no edema. LYMPHATICS: There is no lymphadenopathy. NEUROLOGIC: Alert and oriented. SKIN: Chronic changes. LABORATORY DATA: I reviewed the following lab data: Chest x-ray shows cardiomegaly; bilateral infiltrate, improved. WBC 14.9, hemoglobin 12.4, platelets 307. Sodium 138, potassium 3.6, chloride 102, CO2 27, glucose 141, BUN 24, creatinine 1. Lactic acid 4. Troponin less than 0.01. His urine drug screen is positive for opioid. IMPRESSION: 1. Dyspnea, multifactorial in etiology including acute exacerbation of chronic obstructive pulmonary disease, acute bronchitis versus pneumonia, acute diastolic congestive heart failure versus others. 2. Abnormal chest x-ray. 3. Acute exacerbation of chronic obstructive pulmonary disease. 4. Acute bronchitis versus pneumonia. 5. Acute diastolic congestive heart failure. 6. Coronary artery disease. 7. Tobacco habituation. 8. Snoring and excessive daytime sleepiness, probable obstructive sleep apnea-hypopnea syndrome. 9. Leukocytosis, elevated lactic acid? sepsis. RECOMMENDATIONS: 1. Titrate FiO2 to keep O2 saturation 92%. 2. Change albuterol to albuterol/Atrovent q.i.d. 3. Add inhaled corticosteroid. He may require systemic steroid. 4. Agree with Lasix and potassium. Monitor potassium and creatinine. 5. I have discussed obstructive sleep apnea-hypopnea syndrome, the importance of diagnosis and treatment, if untreated increased cardiovascular and [facility] morbidity or mortality. I do recommend a sleep study as an outpatient. 6. I have advised him to stop smoking forever. 7. Start Lovenox for DVT prophylaxis. 8. Continue antibiotic. 9. Check procalcitonin. 10. Avoid narcotics The findings and recommendations were discussed with the patient. He understood and agreed to proceed with the plan. I have answered all of his questions. Thank you very much for allowing me to participate in care of this very nice gentleman. ALFRED CHEN M.D. : DINAH/viki JOB#: [id number] / [id number] JEFE
[2018-11-20] MEDS: ENOXAPARIN 40 MG/0.4 ML SYRINGE. SQ SCH (09:00)
[2018-11-20] MEDS: FUROSEMIDE 40 MG TABLET. PO SCH (09:00)
[2018-11-20] MEDS: buPROPion 75 MG TABLET. PO SCH ×3 (09:07→21:44)
[2018-11-20] MEDS: FENOFIBRATE 54 MG TABLET. PO SCH (09:07)
[2018-11-20] MEDS: busPIRone 5 MG TABLET. PO SCH ×3 (09:07→21:00)
[2018-11-20] MEDS: POTASSIUM CHLORIDE 10 MEQ TABLET.ER. PO SCH (09:08)
[2018-11-20] MEDS: FERROUS SULFATE 325 MG TABLET. PO SCH ×2 (09:08→17:56)
[2018-11-20] MEDS: LINEZOLID 600 MG TABLET PO SCH (09:08)
[2018-11-20] MEDS: FLUoxetine HCL 20 MG CAPSULE PO SCH (09:08)
[2018-11-20] MEDS: DOXYCYCLINE HYCLATE 100 MG TABLET PO SCH ×2 (09:09→21:44)
[2018-11-20] MEDS: LACTOBACILLUS RHAMNOSUS GG 1 CAPSULE. PO SCH ×2 (09:09→21:44)
[2018-11-20] MEDS: ASPIRIN CHEWABLE 81 MG TABLET. PO SCH (09:09)
[2018-11-20] MEDS: PANTOPRAZOLE 40 MG TABLET.DR. PO SCH (09:09)
[2018-11-20] MEDS: HYDROmorphone 4 MG TABLET PO SCH (09:10)
[2018-11-20] MEDS: METOPROLOL SUCC 24HR ER 25 MG TAB.ER.24H. PO SCH ×2 (09:13→21:44)
[2018-11-20] MEDS: GABAPENTIN 300 MG CAPSULE. PO SCH ×2 (09:13→21:43)
[2018-11-20] MEDS: NICOTINE 14MG PATCH. TD PRN (09:33)
[2018-11-20 10:05] LABS: % BANDS 2 % (0-9); % LYMPHS 7 % (24-48); % METAS 2 % (0-0); % MONOS 7 % (0-10); % SEGS 82 % (35-66); ANISOCYTOSIS SLIGHT; PLT ESTIMATE ADEQUATE (ADEQUATE)
--- NOTE | 2018-11-20 10:11 | PDOC ---
PROGRESS NOTES History of Present Illness History of Present Illness VTE Prophylaxis Ordered VTE Prophylaxis Devices: Yes VTE Pharmacological Prophylaxi: Yes Assessment/Plan Assessment/Plan IMPRESSION 1. Congestive heart failure., ACUTE EXAC 2. Chronic obstructive pulmonary disease. 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 4. Status post bronchoscopy.10/22 5. CAD; past CABG 2015 and PCI/stent to RCA and OM 2014. CP free 6. HTN: controlled 7. Hyperlipidemia 8. 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 44 min pt exam, chart review, > 50% of time spent with exam, chart review, pt care coordination Vitals Vitals Vital Signs Date Time Temp Pulse Resp B/P (MAP) Pulse Ox O2 Delivery O2 Flow Rate FiO2 11/20/18 09:13 85 151/78 11/20/18 08:04 99 11/20/18 07:00 97.7 20 Room Air 97.7 Physical Exam General: Alert, Oriented X3, Cooperative, No acute distress Heart: Regular rate (SR), Normal S1, Normal S2, No murmurs Lungs: Crackles Abdomen: Normal bowel sounds, Soft Extremities: No cyanosis, No edema Skin: No breakdown, No significant lesion Labs LABS #: [id number] CECILY: 11/19/18 STATUS: RES REQ #: [id number] RECD: 11/19/[address]: FANTA LYNCH APRN SOURCE: BLOOD ENTR: 11/19/18-[address]: OLIVIA FERRERA DO [facility]: ORDERED: BCULT Procedure Result BLOOD CULTURE Preliminary NO GROWTH AFTER 1 DAY ------ Laboratory Tests Test 11/19/18 10:13 11/19/18 11:15 11/19/18 15:28 11/19/18 16:50 Urine Collection Type Void Urine Color Yellow Urine Clarity Clear Urine pH 6.5 Urine Specific Benld <=1.005 Urine Protein Negative mg/dL (NEG-TRACE) Urine Glucose (UA) Negative mg/dL (NEG) Urine Ketones (Stick) Negative mg/dL (NEG) Urine Blood Negative (NEG) Urine Nitrite Negative (NEG) Urine Bilirubin Negative (NEG) Urine Urobilinogen Dipstick 0.2 mg/dL (0.2 mg/dL) Urine Leukocyte Esterase Negative (NEG) Urine RBC 0 /HPF (0-2) Urine WBC Rare /HPF (0-4) Urine Bacteria 0 /HPF (0-FEW) Urine Opiates Screen Pos (NEG) Urine Methadone Screen Neg (NEG) Urine Barbiturates Neg (NEG) Urine Phencyclidine Screen Neg (NEG) Urine Amphetamine/Methamphetamine Neg (NEG) Urine Benzodiazepines Screen Neg (NEG) Urine Cocaine Screen Neg (NEG) Urine Cannabinoids Screen Neg (NEG) Urine Ethyl Alcohol Neg (NEG) White Blood Count 14.9 x10^3/uL (4.0-11.0) Red Blood Count 5.11 x10^6/uL (4.30-5.70) Hemoglobin 12.4 g/dL (13.0-17.5) Hematocrit 39.7 % (39.0-53.0) Mean Corpuscular Volume 78 fL (79-100) Mean Corpuscular Hemoglobin 24 pg (25-35) Mean Corpuscular Hemoglobin Concent 31 g/dL (31-37) Red Cell Distribution Width 19.1 % (11.5-14.5) Platelet Count 307 x10^3/uL (140-400) Neutrophils (%) (Auto) 78 % (31-73) Lymphocytes (%) (Auto) 18 % (24-48) Monocytes (%) (Auto) 4 % (0-9) Eosinophils (%) (Auto) 1 % (0-3) Basophils (%) (Auto) 1 % (0-3) Neutrophils # (Auto) 11.6 x10^3uL (1.8-7.7) Lymphocytes # (Auto) 2.6 x10^3/uL (1.0-4.8) Monocytes # (Auto) 0.5 x10^3/uL (0.0-1.1) Eosinophils # (Auto) 0.1 x10^3/uL (0.0-0.7) Basophils # (Auto) 0.1 x10^3/uL (0.0-0.2) Sodium Level 138 mmol/L (136-145) Potassium Level 4.2 mmol/L (3.5-5.1) Chloride Level 98 mmol/L (98-107) Carbon Dioxide Level 28 mmol/L (21-32) Anion Gap 12 (6-14) Blood Urea Nitrogen 17 mg/dL (8-26) Creatinine 1.0 mg/dL (0.7-1.3) Estimated GFR (Cockcroft-Gault) 81.6 BUN/Creatinine Ratio 17 (6-20) Glucose Level 120 mg/dL (70-99) Lactic Acid Level 2.2 mmol/L (0.4-2.0) 4.4 mmol/L (0.4-2.0) Calcium Level 10.0 mg/dL (8.5-10.1) Magnesium Level 1.8 mg/dL (1.8-2.4) Total Bilirubin 0.4 mg/dL (0.2-1.0) Aspartate Amino Transf (AST/SGOT) 18 U/L (15-37) Alanine Aminotransferase (ALT/SGPT) 36 U/L (16-63) Alkaline Phosphatase 98 U/L (46-116) Creatine Kinase 136 U/L (39-308) Creatine Kinase MB (Mass) 3.6 ng/mL (0.0-3.6) Creatine Kinase MB Relative Index 2.6 % (0-4) Troponin I Quantitative < 0.017 ng/mL (0.000-0.055) < 0.017 ng/mL (0.000-0.055) UD-Ghn-C-Type Natriuretic Peptide 333 pg/mL (0-124) Total Protein 7.6 g/dL (6.4-8.2) Albumin 4.1 g/dL (3.4-5.0) Albumin/Globulin Ratio 1.2 (1.0-1.7) Triglycerides Level 154 mg/dL (0-150) Cholesterol Level 159 mg/dL (0-200) LDL Cholesterol, Calculated 81 mg/dL (0-100) VLDL Cholesterol, Calculated 31 mg/dL (0-40) Non-HDL Cholesterol Calculated 112 mg/dL (0-129) HDL Cholesterol 47 mg/dL (40-60) Cholesterol/HDL Ratio 3.4 Thyroid Stimulating Hormone (TSH) 2.049 uIU/mL (0.358-3.74) Test 11/19/18 23:40 11/20/18 07:30 Lactic Acid Level 4.0 mmol/L (0.4-2.0) Troponin I Quantitative < 0.017 ng/mL (0.000-0.055) White Blood Count 17.5 x10^3/uL (4.0-11.0) Red Blood Count 4.31 x10^6/uL (4.30-5.70) Hemoglobin 10.9 g/dL (13.0-17.5) Hematocrit 33.5 % (39.0-53.0) Mean Corpuscular Volume 78 fL (79-100) Mean Corpuscular Hemoglobin 25 pg (25-35) Mean Corpuscular Hemoglobin Concent 32 g/dL (31-37) Red Cell Distribution Width 19.0 % (11.5-14.5) Platelet Count 244 x10^3/uL (140-400) Neutrophils (%) (Auto) 84 % (31-73) Lymphocytes (%) (Auto) 10 % (24-48) Monocytes (%) (Auto) 5 % (0-9) Eosinophils (%) (Auto) 0 % (0-3) Basophils (%) (Auto) 1 % (0-3) Neutrophils # (Auto) 14.6 x10^3uL (1.8-7.7) Lymphocytes # (Auto) 1.8 x10^3/uL (1.0-4.8) Monocytes # (Auto) 0.9 x10^3/uL (0.0-1.1) Eosinophils # (Auto) 0.0 x10^3/uL (0.0-0.7) Basophils # (Auto) 0.1 x10^3/uL (0.0-0.2) Segmented Neutrophils % 82 % (35-66) Band Neutrophils % 2 % (0-9) Lymphocytes % 7 % (24-48) Monocytes % 7 % (0-10) Metamyelocytes % 2 % (0-0) Platelet Estimate Adequate (ADEQUATE) Anisocytosis Slight Sodium Level 138 mmol/L (136-145) Potassium Level 3.6 mmol/L (3.5-5.1) Chloride Level 102 mmol/L (98-107) Carbon Dioxide Level 27 mmol/L (21-32) Anion Gap 9 (6-14) Blood Urea Nitrogen 24 mg/dL (8-26) Creatinine 1.0 mg/dL (0.7-1.3) Estimated GFR (Cockcroft-Gault) 81.6 Glucose Level 141 mg/dL (70-99) Calcium Level 9.0 mg/dL (8.5-10.1) Assessment and Plan Assessmemt and Plan Problems Medical Problems: (1) Abnormal EKG Status: Acute (2) COPD exacerbation Status: Acute (3) Elevated lactic acid level Status: Acute (4) Narcotic dependence Status: Acute Comment Review of Relevant I have reviewed the following items lexie (where applicable) has been applied. Labs Laboratory Tests Test 11/19/18 10:13 11/19/18 11:15 11/19/18 15:28 11/19/18 16:50 Urine Collection Type Void Urine Color Yellow Urine Clarity Clear Urine pH 6.5 Urine Specific Benld <=1.005 Urine Protein Negative mg/dL (NEG-TRACE) Urine Glucose (UA) Negative mg/dL (NEG) Urine Ketones (Stick) Negative mg/dL (NEG) Urine Blood Negative (NEG) Urine Nitrite Negative (NEG) Urine Bilirubin Negative (NEG) Urine Urobilinogen Dipstick 0.2 mg/dL (0.2 mg/dL) Urine Leukocyte Esterase Negative (NEG) Urine RBC 0 /HPF (0-2) Urine WBC Rare /HPF (0-4) Urine Bacteria 0 /HPF (0-FEW) Urine Opiates Screen Pos (NEG) Urine Methadone Screen Neg (NEG) Urine Barbiturates Neg (NEG) Urine Phencyclidine Screen Neg (NEG) Urine Amphetamine/Methamphetamine Neg (NEG) Urine Benzodiazepines Screen Neg (NEG) Urine Cocaine Screen Neg (NEG) Urine Cannabinoids Screen Neg (NEG) Urine Ethyl Alcohol Neg (NEG) White Blood Count 14.9 x10^3/uL (4.0-11.0) Red Blood Count 5.11 x10^6/uL (4.30-5.70) Hemoglobin 12.4 g/dL (13.0-17.5) Hematocrit 39.7 % (39.0-53.0) Mean Corpuscular Volume 78 fL (79-100) Mean Corpuscular Hemoglobin 24 pg (25-35) Mean Corpuscular Hemoglobin Concent 31 g/dL (31-37) Red Cell Distribution Width 19.1 % (11.5-14.5) Platelet Count 307 x10^3/uL (140-400) Neutrophils (%) (Auto) 78 % (31-73) Lymphocytes (%) (Auto) 18 % (24-48) Monocytes (%) (Auto) 4 % (0-9) Eosinophils (%) (Auto) 1 % (0-3) Basophils (%) (Auto) 1 % (0-3) Neutrophils # (Auto) 11.6 x10^3uL (1.8-7.7) Lymphocytes # (Auto) 2.6 x10^3/uL (1.0-4.8) Monocytes # (Auto) 0.5 x10^3/uL (0.0-1.1) Eosinophils # (Auto) 0.1 x10^3/uL (0.0-0.7) Basophils # (Auto) 0.1 x10^3/uL (0.0-0.2) Sodium Level 138 mmol/L (136-145) Potassium Level 4.2 mmol/L (3.5-5.1) Chloride Level 98 mmol/L (98-107) Carbon Dioxide Level 28 mmol/L (21-32) Anion Gap 12 (6-14) Blood Urea Nitrogen 17 mg/dL (8-26) Creatinine 1.0 mg/dL (0.7-1.3) Estimated GFR (Cockcroft-Gault) 81.6 BUN/Creatinine Ratio 17 (6-20) Glucose Level 120 mg/dL (70-99) Lactic Acid Level 2.2 mmol/L (0.4-2.0) 4.4 mmol/L (0.4-2.0) Calcium Level 10.0 mg/dL (8.5-10.1) Magnesium Level 1.8 mg/dL (1.8-2.4) Total Bilirubin 0.4 mg/dL (0.2-1.0) Aspartate Amino Transf (AST/SGOT) 18 U/L (15-37) Alanine Aminotransferase (ALT/SGPT) 36 U/L (16-63) Alkaline Phosphatase 98 U/L (46-116) Creatine Kinase 136 U/L (39-308) Creatine Kinase MB (Mass) 3.6 ng/mL (0.0-3.6) Creatine Kinase MB Relative Index 2.6 % (0-4) Troponin I Quantitative < 0.017 ng/mL (0.000-0.055) < 0.017 ng/mL (0.000-0.055) OS-Nya-G-Type Natriuretic Peptide 333 pg/mL (0-124) Total Protein 7.6 g/dL (6.4-8.2) Albumin 4.1 g/dL (3.4-5.0) Albumin/Globulin Ratio 1.2 (1.0-1.7) Triglycerides Level 154 mg/dL (0-150) Cholesterol Level 159 mg/dL (0-200) LDL Cholesterol, Calculated 81 mg/dL (0-100) VLDL Cholesterol, Calculated 31 mg/dL (0-40) Non-HDL Cholesterol Calculated 112 mg/dL (0-129) HDL Cholesterol 47 mg/dL (40-60) Cholesterol/HDL Ratio 3.4 Thyroid Stimulating Hormone (TSH) 2.049 uIU/mL (0.358-3.74) Test 11/19/18 23:40 11/20/18 07:30 Lactic Acid Level 4.0 mmol/L (0.4-2.0) Troponin I Quantitative < 0.017 ng/mL (0.000-0.055) White Blood Count 17.5 x10^3/uL (4.0-11.0) Red Blood Count 4.31 x10^6/uL (4.30-5.70) Hemoglobin 10.9 g/dL (13.0-17.5) Hematocrit 33.5 % (39.0-53.0) Mean Corpuscular Volume 78 fL (79-100) Mean Corpuscular Hemoglobin 25 pg (25-35) Mean Corpuscular Hemoglobin Concent 32 g/dL (31-37) Red Cell Distribution Width 19.0 % (11.5-14.5) Platelet Count 244 x10^3/uL (140-400) Neutrophils (%) (Auto) 84 % (31-73) Lymphocytes (%) (Auto) 10 % (24-48) Monocytes (%) (Auto) 5 % (0-9) Eosinophils (%) (Auto) 0 % (0-3) Basophils (%) (Auto) 1 % (0-3) Neutrophils # (Auto) 14.6 x10^3uL (1.8-7.7) Lymphocytes # (Auto) 1.8 x10^3/uL (1.0-4.8) Monocytes # (Auto) 0.9 x10^3/uL (0.0-1.1) Eosinophils # (Auto) 0.0 x10^3/uL (0.0-0.7) Basophils # (Auto) 0.1 x10^3/uL (0.0-0.2) Segmented Neutrophils % 82 % (35-66) Band Neutrophils % 2 % (0-9) Lymphocytes % 7 % (24-48) Monocytes % 7 % (0-10) Metamyelocytes % 2 % (0-0) Platelet Estimate Adequate (ADEQUATE) Anisocytosis Slight Sodium Level 138 mmol/L (136-145) Potassium Level 3.6 mmol/L (3.5-5.1) Chloride Level 102 mmol/L (98-107) Carbon Dioxide Level 27 mmol/L (21-32) Anion Gap 9 (6-14) Blood Urea Nitrogen 24 mg/dL (8-26) Creatinine 1.0 mg/dL (0.7-1.3) Estimated GFR (Cockcroft-Gault) 81.6 Glucose Level 141 mg/dL (70-99) Calcium Level 9.0 mg/dL (8.5-10.1) Laboratory Tests Test 11/19/18 10:13 11/19/18 11:15 11/19/18 15:28 11/19/18 16:50 Urine Collection Type Void Urine Color Yellow Urine Clarity Clear Urine pH 6.5 Urine Specific Benld <=1.005 Urine Protein Negative mg/dL (NEG-TRACE) Urine Glucose (UA) Negative mg/dL (NEG) Urine Ketones (Stick) Negative mg/dL (NEG) Urine Blood Negative (NEG) Urine Nitrite Negative (NEG) Urine Bilirubin Negative (NEG) Urine Urobilinogen Dipstick 0.2 mg/dL (0.2 mg/dL) Urine Leukocyte Esterase Negative (NEG) Urine RBC 0 /HPF (0-2) Urine WBC Rare /HPF (0-4) Urine Bacteria 0 /HPF (0-FEW) Urine Opiates Screen Pos (NEG) Urine Methadone Screen Neg (NEG) Urine Barbiturates Neg (NEG) Urine Phencyclidine Screen Neg (NEG) Urine Amphetamine/Methamphetamine Neg (NEG) Urine Benzodiazepines Screen Neg (NEG) Urine Cocaine Screen Neg (NEG) Urine Cannabinoids Screen Neg (NEG) Urine Ethyl Alcohol Neg (NEG) White Blood Count 14.9 x10^3/uL (4.0-11.0) Red Blood Count 5.11 x10^6/uL (4.30-5.70) Hemoglobin 12.4 g/dL (13.0-17.5) Hematocrit 39.7 % (39.0-53.0) Mean Corpuscular Volume 78 fL (79-100) Mean Corpuscular Hemoglobin 24 pg (25-35) Mean Corpuscular Hemoglobin Concent 31 g/dL (31-37) Red Cell Distribution Width 19.1 % (11.5-14.5) Platelet Count 307 x10^3/uL (140-400) Neutrophils (%) (Auto) 78 % (31-73) Lymphocytes (%) (Auto) 18 % (24-48) Monocytes (%) (Auto) 4 % (0-9) Eosinophils (%) (Auto) 1 % (0-3) Basophils (%) (Auto) 1 % (0-3) Neutrophils # (Auto) 11.6 x10^3uL (1.8-7.7) Lymphocytes # (Auto) 2.6 x10^3/uL (1.0-4.8) Monocytes # (Auto) 0.5 x10^3/uL (0.0-1.1) Eosinophils # (Auto) 0.1 x10^3/uL (0.0-0.7) Basophils # (Auto) 0.1 x10^3/uL (0.0-0.2) Sodium Level 138 mmol/L (136-145) Potassium Level 4.2 mmol/L (3.5-5.1) Chloride Level 98 mmol/L (98-107) Carbon Dioxide Level 28 mmol/L (21-32) Anion Gap 12 (6-14) Blood Urea Nitrogen 17 mg/dL (8-26) Creatinine 1.0 mg/dL (0.7-1.3) Estimated GFR (Cockcroft-Gault) 81.6 BUN/Creatinine Ratio 17 (6-20) Glucose Level 120 mg/dL (70-99) Lactic Acid Level 2.2 mmol/L (0.4-2.0) 4.4 mmol/L (0.4-2.0) Calcium Level 10.0 mg/dL (8.5-10.1) Magnesium Level 1.8 mg/dL (1.8-2.4) Total Bilirubin 0.4 mg/dL (0.2-1.0) Aspartate Amino Transf (AST/SGOT) 18 U/L (15-37) Alanine Aminotransferase (ALT/SGPT) 36 U/L (16-63) Alkaline Phosphatase 98 U/L (46-116) Creatine Kinase 136 U/L (39-308) Creatine Kinase MB (Mass) 3.6 ng/mL (0.0-3.6) Creatine Kinase MB Relative Index 2.6 % (0-4) Troponin I Quantitative < 0.017 ng/mL (0.000-0.055) < 0.017 ng/mL (0.000-0.055) MG-Oyq-F-Type Natriuretic Peptide 333 pg/mL (0-124) Total Protein 7.6 g/dL (6.4-8.2) Albumin 4.1 g/dL (3.4-5.0) Albumin/Globulin Ratio 1.2 (1.0-1.7) Triglycerides Level 154 mg/dL (0-150) Cholesterol Level 159 mg/dL (0-200) LDL Cholesterol, Calculated 81 mg/dL (0-100) VLDL Cholesterol, Calculated 31 mg/dL (0-40) Non-HDL Cholesterol Calculated 112 mg/dL (0-129) HDL Cholesterol 47 mg/dL (40-60) Cholesterol/HDL Ratio 3.4 Thyroid Stimulating Hormone (TSH) 2.049 uIU/mL (0.358-3.74) Test 11/19/18 23:40 11/20/18 07:30 Lactic Acid Level 4.0 mmol/L (0.4-2.0) Troponin I Quantitative < 0.017 ng/mL (0.000-0.055) White Blood Count 17.5 x10^3/uL (4.0-11.0) Red Blood Count 4.31 x10^6/uL (4.30-5.70) Hemoglobin 10.9 g/dL (13.0-17.5) Hematocrit 33.5 % (39.0-53.0) Mean Corpuscular Volume 78 fL (79-100) Mean Corpuscular Hemoglobin 25 pg (25-35) Mean Corpuscular Hemoglobin Concent 32 g/dL (31-37) Red Cell Distribution Width 19.0 % (11.5-14.5) Platelet Count 244 x10^3/uL (140-400) Neutrophils (%) (Auto) 84 % (31-73) Lymphocytes (%) (Auto) 10 % (24-48) Monocytes (%) (Auto) 5 % (0-9) Eosinophils (%) (Auto) 0 % (0-3) Basophils (%) (Auto) 1 % (0-3) Neutrophils # (Auto) 14.6 x10^3uL (1.8-7.7) Lymphocytes # (Auto) 1.8 x10^3/uL (1.0-4.8) Monocytes # (Auto) 0.9 x10^3/uL (0.0-1.1) Eosinophils # (Auto) 0.0 x10^3/uL (0.0-0.7) Basophils # (Auto) 0.1 x10^3/uL (0.0-0.2) Segmented Neutrophils % 82 % (35-66) Band Neutrophils % 2 % (0-9) Lymphocytes % 7 % (24-48) Monocytes % 7 % (0-10) Metamyelocytes % 2 % (0-0) Platelet Estimate Adequate (ADEQUATE) Anisocytosis Slight Sodium Level 138 mmol/L (136-145) Potassium Level 3.6 mmol/L (3.5-5.1) Chloride Level 102 mmol/L (98-107) Carbon Dioxide Level 27 mmol/L (21-32) Anion Gap 9 (6-14) Blood Urea Nitrogen 24 mg/dL (8-26) Creatinine 1.0 mg/dL (0.7-1.3) Estimated GFR (Cockcroft-Gault) 81.6 Glucose Level 141 mg/dL (70-99) Calcium Level 9.0 mg/dL (8.5-10.1) Medications Current Medications Albuterol/ Ipratropium (Duoneb) 3 ml 1X ONCE NEB Last administered on 11/19/18at 10:49; Start 11/19/18 at 10:30; Stop 11/19/18 at 10:31; Status DC Methylprednisolone Sodium Succinate (SOLU-Medrol 125MG VIAL) 125 mg 1X ONCE IV Last administered on 11/19/18at 10:56; Start 11/19/18 at 10:30; Stop 11/19/18 at 10:31; Status DC Fentanyl Citrate (Fentanyl 2ml Vial) 50 mcg 1X ONCE IV Last administered on 11/19/18at 10:56; Start 11/19/18 at 10:30; Stop 11/19/18 at 10:31; Status DC Diazepam (Valium) 5 mg 1X ONCE PO Last administered on 11/19/18at 10:56; Start 11/19/18 at 10:30; Stop 11/19/18 at 10:31; Status DC Sodium Chloride 1,000 ml @ 2,130 mls/hr Q29M IV Last administered on 11/19/18at 15:58; Start 11/19/18 at 12:30; Stop 11/19/18 at 13:30; Status DC Ceftriaxone Sodium (Rocephin) 1 gm 1X ONCE IVP Last administered on 11/19/18at 12:34; Start 11/19/18 at 12:30; Stop 11/19/18 at 12:31; Status DC Ondansetron HCl (Zofran) 4 mg PRN Q8HRS PRN IV NAUSEA/VOMITING; Start 11/19/18 at 12:15; Stop 11/20/18 at 12:14 Fentanyl Citrate (Fentanyl 2ml Vial) 50 mcg PRN Q1HR PRN IV PAIN Last administered on 11/19/18 22:36; Start 11/19/18 at 12:15; Stop 11/20/18 at 12:14 Albuterol Sulfate (Ventolin Neb Soln) 2.5 mg PRN Q6HRS PRN INH SHORTNESS OF BREATH Last administered on 11/20/18 08:02; Start 11/19/18 at 13:45 Aspirin (Children'S Aspirin) 81 mg DAILY PO Last administered on 11/20/18 09:09; Start 11/20/18 at 09:00 Baclofen (Lioresal) 10 mg PRN TID PRN PO MUSCLE SPASTICITY Last administered on 11/19/18 22:36; Start 11/19/18 at 13:45 Bupropion HCl (Wellbutrin) 75 mg TID PO Last administered on 11/20/18 09:07; Start 11/19/18 at 14:00 Ferrous Sulfate (Feosol) 325 mg BIDWMEALS PO Last administered on 11/20/18 09:08; Start 11/19/18 at 17:00 Fluoxetine HCl (PROzac) 20 mg DAILY PO Last administered on 11/20/18 09:08; Start 11/20/18 at 09:00 Furosemide (Lasix) 40 mg DAILY PO ; Start 11/20/18 at 09:00 Lactobacillus Rhamnosus (Culturelle) 1 cap BID PO Last administered on 11/20/18at 09:09; Start 11/19/18 at 21:00 Metoprolol Succinate (Toprol Xl) 25 mg BID PO Last administered on 11/20/18at 09:13; Start 11/19/18 at 21:00 Nitroglycerin (Nitrostat) 0.4 mg PRN Q5MIN PRN SL CHEST PAIN; Start 11/19/18 at 13:45 Potassium Chloride (Klor-Con) 10 meq DAILY PO Last administered on 11/20/18at 09:08; Start 11/20/18 at 09:00 Atorvastatin Calcium (Lipitor) 80 mg QHS PO Last administered on 11/19/18at 22:05; Start 11/19/18 at 21:00 Albuterol Sulfate (Ventolin Neb Soln) 2.5 mg RTQID NEB Last administered on 11/19/18at 20:00; Start 11/19/18 at 16:00; Stop 11/20/18 at 07:48; Status DC Buspirone HCl (Buspar) 7.5 mg TID PO Last administered on 11/20/18at 09:07; Start 11/19/18 at 14:00 Doxycycline Hyclate (Vibra-Tab) 100 mg BID PO Last administered on 11/20/18at 09:09; Start 11/19/18 at 21:00 Fenofibrate (Lofibra) 54 mg DAILY PO Last administered on 11/20/18at 09:07; Start 11/20/18 at 09:00 Gabapentin (Neurontin) 1,800 mg BID PO Last administered on 11/20/18at 09:13; Start 11/19/18 at 21:00 Hydromorphone HCl (Dilaudid) 4 mg PRN Q6HRS PRN PO PAIN; Start 11/19/18 at 13:45 Hydromorphone HCl (Dilaudid) 8 mg DAILY PO Last administered on 11/20/18at 09:10; Start 11/20/18 at 09:00 Non-Formulary Medication (Melatonin ) 1 tab QHS PO ; Start 11/19/18 at 21:00; Status UNV Pantoprazole Sodium (Protonix) 40 mg DAILYAC PO Last administered on 11/20/18at 09:09; Start 11/20/18 at 07:30 Promethazine HCl (Phenergan) 25 mg PRN Q6HRS PRN PO NAUSEA/VOMITING; Start 11/19/18 at 14:00 Piperacillin Sod/ Tazobactam Sod (Zosyn Per Pharmacy) 1 each PRN DAILY PRN MC SEE COMMENTS; Start 11/19/18 at 13:45 Budesonide (Pulmicort) 0.5 mg RTBID NEB Last administered on 11/20/18at 08:02; Start 11/19/18 at 20:00 Piperacillin Sod/ Tazobactam Sod 3.375 gm/Sodium Chloride 50 ml @ 100 mls/hr Q6HRS IV Last administered on 11/20/18at 06:05; Start 11/19/18 at 18:00 Nicotine (Nicoderm Cq 14mg) 1 patch PRN DAILY PRN TD SMOKING CESSATION Last administered on 11/20/18at 09:33; Start 11/19/18 at 15:45 Linezolid (Zyvox) 600 mg BID PO Last administered on 11/20/18at 09:08; Start 11/19/18 at 18:00 Non-Formulary Medication (Prednisolone Acetate ) 1 drop QID EACHEYE ; Start 11/19/18 at 21:00 Albuterol/ Ipratropium (Duoneb) 3 ml RTQID NEB ; Start 11/20/18 at 08:00 Budesonide (Pulmicort) 0.5 mg RTBID NEB ; Start 11/20/18 at 08:00; Status UNV Enoxaparin Sodium (Lovenox 40mg Syringe) 40 mg Q24H SQ ; Start 11/20/18 at 09:00 Non-Formulary Medication 1 ea QID OU ; Start 11/20/18 at 13:00 Active Scripts Active Culturelle (Lactobacillus Rhamnosus Gg) 1 Each Cap.sprink 1 Cap PO BID 14 Days Proair Hfa Inhaler (Albuterol Sulfate) 8.5 Gm Hfa.aer.ad 1 Puff INH PRN Q6HRS PRN Furosemide 40 Mg Tablet 40 Mg PO DAILY 30 Days Feosol (Ferrous Sulfate) 325 Mg Tablet 325 Mg PO BIDWMEALS 30 Days Reported Prednisolone Acetate 5 Ml Drops.susp 1 Drop EACHEYE QID Doxycycline Hyclate 100 Mg Capsule 1 Cap PO BID 14 Days Prednisone 20 Mg Tablet 30 Mg PO DAILY 90 Days Hydromorphone Hcl 4 Mg Tablet 4 Mg PO PRN Q6HRS PRN Aspirin 81 Mg Tab.chew 1 Tab PO DAILY Klor-Con 10 (Potassium Chloride) 10 Meq Tablet.er 1 Tab PO DAILY Hydromorphone ER (Hydromorphone HCl) 8 Mg Tab.er.24h 8 Mg PO DAILY Metoprolol Succinate ( Xl ) (Metoprolol Succinate) 25 Mg Tab.er.24h 25 Mg PO BID Atorvastatin Calcium 80 Mg Tablet 80 Mg PO HS Protonix (Pantoprazole Sodium) 20 Mg Tablet.dr 20 Mg PO BID Buspirone Hcl 7.5 Mg Tablet 7.5 Mg PO TID Bupropion Hcl 75 Mg Tablet 75 Mg PO TID Symbicort 160-4.5 Mcg Inhaler (Budesonide/Formoterol Fumarate) 10.2 Gm Hfa.aer.ad 2 Puff IH BID Baclofen 10 Mg Tablet 1 Tab PO PRN TID Melatonin 3 Mg Tablet 1 Tab PO QHS Nitrostat (Nitroglycerin) 0.4 Mg Tab.subl 0.4 Mg SL PRN Q5MIN PRN Promethazine Hcl 25 Mg Tablet 25 Mg PO Q6H PRN Fenofibrate (Fenofibrate Nanocrystallized) 48 Mg Tablet 48 Mg PO DAILY Fluoxetine Hcl 20 Mg Capsule 1 Cap PO DAILY Gabapentin 600 Mg Tablet 3 Tab PO BID Vitals/I & O Vital Sign - Last 24 Hours 11/19/18 11/19/18 11/19/18 11/19/18 10:18 10:51 10:56 11:26 Pulse 83 Resp 20 20 B/P (MAP) 146/74 (98) Pulse Ox 96 94 97 96 O2 Delivery Room Air Room Air Room Air Room Air 11/19/18 11/19/18 11/19/18 11/19/18 12:46 13:16 13:46 14:28 Pulse 80 80 76 Resp 26 16 B/P (MAP) 121/56 (77) 119/64 (82) 118/56 (76) O2 Delivery Room Air Room Air Room Air Room Air 11/19/18 11/19/18 11/19/18 11/19/18 14:50 14:58 16:20 19:25 Temp 98.1 98.1 98.1 98.1 Pulse 79 100 Resp 18 16 24 B/P (MAP) 131/62 (85) 101/52 (68) Pulse Ox 97 94 92 O2 Delivery Room Air Room Air Room Air Room Air 11/19/18 11/19/18 11/20/18 11/20/18 22:07 23:00 03:25 07:00 Temp 98.1 97.8 97.7 98.1 97.8 97.7 Pulse 100 96 83 75 Resp 22 21 20 B/P (MAP) 101/52 127/56 (79) 119/56 (77) 112/59 (76) Pulse Ox 95 96 95 O2 Delivery Room Air Room Air Room Air 11/20/18 11/20/18 11/20/18 08:04 08:04 09:13 Pulse 85 B/P (MAP) 151/78 Pulse Ox 99 99 Intake and Output 11/19/18 11/19/18 11/20/18 14:59 22:59 06:59 Intake Total 1000 ml 1680 ml 150 ml Output Total 1300 ml 0 ml Balance -300 ml 1680 ml 150 ml ANTHONY SUN MD November 20, 2018 10:11
[2018-11-20 11:00] VITALS: BP 154/71
[2018-11-20] MEDS: DIFLUPREDNATE OU SCH ×3 (11:21→21:00)
--- NOTE | 2018-11-20 12:52 | PDOC ---
Infectious Disease Note Vital Sign Vital Signs Vital Signs Date Time Temp Pulse Resp B/P (MAP) Pulse Ox O2 Delivery O2 Flow Rate FiO2 11/20/18 11:51 99 11/20/18 11:00 98.2 83 20 154/71 (98) Room Air 98.2 Labs Lab Laboratory Tests Test 11/19/18 15:28 11/19/18 16:50 11/19/18 23:40 11/20/18 07:30 Lactic Acid Level 4.4 mmol/L (0.4-2.0) 4.0 mmol/L (0.4-2.0) Troponin I Quantitative < 0.017 ng/mL (0.000-0.055) < 0.017 ng/mL (0.000-0.055) White Blood Count 17.5 x10^3/uL (4.0-11.0) Red Blood Count 4.31 x10^6/uL (4.30-5.70) Hemoglobin 10.9 g/dL (13.0-17.5) Hematocrit 33.5 % (39.0-53.0) Mean Corpuscular Volume 78 fL (79-100) Mean Corpuscular Hemoglobin 25 pg (25-35) Mean Corpuscular Hemoglobin Concent 32 g/dL (31-37) Red Cell Distribution Width 19.0 % (11.5-14.5) Platelet Count 244 x10^3/uL (140-400) Neutrophils (%) (Auto) 84 % (31-73) Lymphocytes (%) (Auto) 10 % (24-48) Monocytes (%) (Auto) 5 % (0-9) Eosinophils (%) (Auto) 0 % (0-3) Basophils (%) (Auto) 1 % (0-3) Neutrophils # (Auto) 14.6 x10^3uL (1.8-7.7) Lymphocytes # (Auto) 1.8 x10^3/uL (1.0-4.8) Monocytes # (Auto) 0.9 x10^3/uL (0.0-1.1) Eosinophils # (Auto) 0.0 x10^3/uL (0.0-0.7) Basophils # (Auto) 0.1 x10^3/uL (0.0-0.2) Segmented Neutrophils % 82 % (35-66) Band Neutrophils % 2 % (0-9) Lymphocytes % 7 % (24-48) Monocytes % 7 % (0-10) Metamyelocytes % 2 % (0-0) Platelet Estimate Adequate (ADEQUATE) Anisocytosis Slight Sodium Level 138 mmol/L (136-145) Potassium Level 3.6 mmol/L (3.5-5.1) Chloride Level 102 mmol/L (98-107) Carbon Dioxide Level 27 mmol/L (21-32) Anion Gap 9 (6-14) Blood Urea Nitrogen 24 mg/dL (8-26) Creatinine 1.0 mg/dL (0.7-1.3) Estimated GFR (Cockcroft-Gault) 81.6 Glucose Level 141 mg/dL (70-99) Calcium Level 9.0 mg/dL (8.5-10.1) Procalcitonin < 0.10 ng/mL (0.00-0.10) IMPRESSION: Prominent appearing interstitial lung markings identified in the bilateral lungs slightly decreased from prior exam likely interstitial infiltrates or congestive changes. Micro Microbiology 11/19/18 Blood Culture - Preliminary, Resulted NO GROWTH AFTER 1 DAY Objective Assessment Lactic acidosis Leukocytosis, in part reactive steroids Allergy vanc w/ rash; and moxifloxacin AECOPD Recent h/o MRSA pneumonia, discharged 10/30 on doxycycline h/o presumptive BOOP CAD Chronic HF Plan Plan of Care Zyvox, Zosyn and Doxy Monitor labs and temp f/u BC Contact isolation for MRSA Supportive care D/w D/w nursing Thank you [phone] Patient seen, examined, I agree with above assessment and plan . Will add labs for am including bc f/u cults UA neg CXR reviewed MATILDA NOVA APRN November 20, 2018 12:52 AMADOR ALMAZAN MD November 20, 2018 15:21
--- NOTE | 2018-11-20 13:45 | CONS ---
DATE OF CONSULTATION: 11/20/2018 REFERRING PHYSICIAN: Dr. Hernandez. REASON FOR CONSULTATION: Sepsis. HISTORY OF PRESENT ILLNESS: This patient is a 43-year-old male with a history of COPD, on home oxygen as needed; chronic heart failure and coronary artery disease who presented to the ER with complaints of cough, shortness of air with activities and subjective fevers for 1 week duration. He had elevated white blood cell count of 14,900 with a lactic acid of 4.4. Chest x-ray showed prominent appearing interstitial lung markings identified in the bilateral lungs, slightly decreased from prior exam, likely interstitial infiltrates or congestive changes. Blood cultures have been ordered. He is currently on Zyvox, Zosyn and doxycycline. The patient was recently admitted to the hospital last month for pneumonia. He had undergone a bronchoscopy with BAL on 10/29. Culture grew MRSA (sensitive to tetracycline). He was discharged on the , on doxycycline. The patient says he was taking the antibiotic faithfully. He says he has a feeling less short of air. His cough is better and he is off oxygen. He is wanting to go home. He reports having some sinus pressure without headache or sore throat. He continues to smoke. PAST MEDICAL HISTORY: COPD, home oxygen p.r.n., chronic heart failure, coronary artery disease, peripheral neuropathy, myocardial infarction, hyperlipidemia, hypertension, GERD, arthritis, scoliosis, chronic back pain, carpal tunnel syndrome and osteoarthritis, history of presumptive BOOP. PAST SURGICAL HISTORY: Coronary artery bypass graft, coronary stents. SOCIAL HISTORY: The patient is and lives at home. He is a current smoker. FAMILY HISTORY: Positive for coronary artery disease, hyperlipidemia and hypertension. ALLERGIES: VANCOMYCIN CAUSING RASH, MOXIFLOXACIN, MORPHINE, KETOROLAC. MEDICATIONS: Zyvox, Zosyn, doxycycline, one-time dose of ceftriaxone on 11/19, probiotics, one-time dose of methylprednisolone on 11/19. Other medications are available and have been reviewed on the SEP. REVIEW OF SYSTEMS: Per HPI, otherwise all other review of systems are negative. PHYSICAL EXAMINATION: VITAL SIGNS: Temperature is 98.2, blood pressure 154/71, heart rate 83, respiratory rate 20, pulse oximetry is 99% on room air. BMI 29. GENERAL: The patient is sitting upright in bed, alert, in no apparent distress. HEENT: Pupils equally round, reactive. Normal conjunctivae. Oral cavity: Pharynx pink and moist. Negative sinus tenderness. NECK: Supple. LUNGS: Soft wheeze, nonlabored. HEART: S1 and S2. ABDOMEN: Soft and nontender with bowel sounds present. EXTREMITIES: No gross edema or cyanosis. SKIN: Warm without generalized rash. NEUROLOGIC: Alert and oriented x 3. LABORATORY DATA: Today's WBC 17.5 from 14.9 on admission, hemoglobin 10.9, platelets 244,000; segs 82%, bands 2%. Electrolytes are unremarkable. Creatinine 1.0, BUN 24, glucose 141. Lactic acid . Troponin less than 0.017. Urine toxicology positive for opiates. Urinalysis unremarkable for infection. Blood cultures pending. Chest x-ray per HPI. IMPRESSION: 1. Lactic acidosis. 2. Leukocytosis in part reactive steroids. 3. Allergy to VANCOMYCIN WITH RASH AND MOXIFLOXACIN. 4. Acute exacerbation of chronic obstructive pulmonary disease. 5. Recent history of methicillin resistant Staphylococcus aureus pneumonia, discharged on 10/30 on doxycycline. 6. Presumptive bronchiolitis obliterans organizing pneumonia. 7. Coronary artery disease. 8. Chronic heart failure. PLAN: 1. Continue Zyvox, Zosyn and doxycycline. 2. Leukocytosis. 3. Continue to monitor laboratory values and temperature. We will follow up on the cultures. Supportive care discussed with and nursing. Thank you, Dr. Hernandez, for asking us to participate in this patient's care. Should you have further questions or concerns, please call. AMADOR ALMAZAN MD DR: PEEWEE/viki JOB#: [id number] / [id number]
[2018-11-20] MEDS ORDERED: ALPR0.5T6 PO (14:54)
[2018-11-20 15:00] VITALS: BP 98/51
[2018-11-20] MEDS: FLUTICASONE 50MCG/NASAL SPRAY 16GM BOTTLE. NS SCH ×2 (16:01→21:47)
[2018-11-20] MEDS: ALPRAZolam 0.5 MG TABLET PO PRN ×2 (16:01→21:45)
[2018-11-20] MEDS: IV NORMAL SALINE 1000ML BAG 1,000 ML IV SCH ×2 (16:16→21:51)
[2018-11-20] MEDS ORDERED: IV NORMAL SALINE 500ML BAG 500 ML IV PRN (16:30)
[2018-11-20 17:21] LABS: PROTHROMBIN TIME PATIENT 12.4 SEC (11.7-14.0)
[2018-11-20 17:32] LABS: FIBRINOGEN 311 mg/dL (200-440)
[2018-11-20 17:38] LABS: D-DIMER < 0.27 ug/mlFEU (0.00-0.50)
[2018-11-20] MEDS: HYDROmorphone 4 MG TABLET PO PRN (17:56)
[2018-11-20] MEDS: BACLOFEN 10 MG TABLET. PO PRN ×2 (17:56→21:42)
[2018-11-20 19:20] VITALS: BP 106/55
[2018-11-20] MEDS: ATORVASTATIN CALCIUM 40 MG TABLET. PO SCH (21:42)
[2018-11-20 23:00] VITALS: BP 101/55
[2018-11-21] VITALS (7 sets, daily range): BP systolic 104–149; BP diastolic 50–82
[2018-11-21] MEDS: HYDROmorphone 4 MG TABLET PO PRN ×2 (00:15→18:15)
[2018-11-21] MEDS: PIPERACILLIN/TAZOBACTAM 3.375 GM in IV NORMAL SALINE 50ML 50 ML IV SCH ×4 (00:38→18:06)
[2018-11-21] MEDS: IV NORMAL SALINE 1000ML BAG 1,000 ML IV SCH (03:02)
[2018-11-21 05:13] LABS: BASO # 0.1 x10^3/uL (0.0-0.2); BASO % 1 % (0-3); EOS # 0.1 x10^3/uL (0.0-0.7); EOS % 1 % (0-3); HEMATOCRIT 35.4 % (39.0-53.0); LYMPH # 3.1 x10^3/uL (1.0-4.8); LYMPH % 26 % (24-48); MEAN CORPUSCULAR HEMOGLOBIN 25 pg (25-35); MEAN CORPUSCULAR HGB CONC 31 g/dL (31-37); MEAN CORPUSCULAR VOLUME 80 fL (79-100); MONO # 0.6 x10^3/uL (0.0-1.1); MONO % 5 % (0-9); NEUT # 8.2 x10^3uL (1.8-7.7); NEUT % 67 % (31-73); PLATELET COUNT 222 x10^3/uL (140-400); RED CELL DISTRIBUTION WIDTH 19.6 % (11.5-14.5); WHITE BLOOD COUNT 12.3 x10^3/uL (4.0-11.0)
[2018-11-21 05:48] LABS: ALBUMIN 3.1 g/dL (3.4-5.0); ALBUMIN/GLOBULIN RATIO 1.2 (1.0-1.7); CALCIUM 9.2 mg/dL (8.5-10.1); CREATININE 0.9 mg/dL (0.7-1.3); GFR 92.1; POTASSIUM 3.5 mmol/L (3.5-5.1); TOTAL BILIRUBIN 0.1 mg/dL (0.2-1.0); TOTAL PROTEIN 5.6 g/dL (6.4-8.2)
--- NOTE | 2018-11-21 07:36 | PDOC ---
PULMONARY PROGRESS NOTES Subjective sob cough better, is tired, Vitals Vital Signs Date Time Temp Pulse Resp B/P (MAP) Pulse Ox O2 Delivery O2 Flow Rate FiO2 11/21/18 03:00 97.7 73 20 124/62 (82) 96 Room Air 97.7 ROS: No Nausea General: Alert, No acute distress HEENT: Other (nc at perrl nose clear, shallow oropharynx) Lungs: Crackles Cardiovascular: S1, S2 Abdomen: Soft Neuro Exam: Alert Extremities: No Edema Skin: Warm Labs Laboratory Tests Test 11/19/18 10:13 11/19/18 11:15 11/19/18 15:28 11/19/18 16:50 Urine Collection Type Void Urine Color Yellow Urine Clarity Clear Urine pH 6.5 Urine Specific [place] <=1.005 Urine Protein Negative mg/dL (NEG-TRACE) Urine Glucose (UA) Negative mg/dL (NEG) Urine Ketones (Stick) Negative mg/dL (NEG) Urine Blood Negative (NEG) Urine Nitrite Negative (NEG) Urine Bilirubin Negative (NEG) Urine Urobilinogen Dipstick 0.2 mg/dL (0.2 mg/dL) Urine Leukocyte Esterase Negative (NEG) Urine RBC 0 /HPF (0-2) Urine WBC Rare /HPF (0-4) Urine Bacteria 0 /HPF (0-FEW) Urine Opiates Screen Pos (NEG) Urine Methadone Screen Neg (NEG) Urine Barbiturates Neg (NEG) Urine Phencyclidine Screen Neg (NEG) Urine Amphetamine/Methamphetamine Neg (NEG) Urine Benzodiazepines Screen Neg (NEG) Urine Cocaine Screen Neg (NEG) Urine Cannabinoids Screen Neg (NEG) Urine Ethyl Alcohol Neg (NEG) White Blood Count 14.9 x10^3/uL (4.0-11.0) Red Blood Count 5.11 x10^6/uL (4.30-5.70) Hemoglobin 12.4 g/dL (13.0-17.5) Hematocrit 39.7 % (39.0-53.0) Mean Corpuscular Volume 78 fL (79-100) Mean Corpuscular Hemoglobin 24 pg (25-35) Mean Corpuscular Hemoglobin Concent 31 g/dL (31-37) Red Cell Distribution Width 19.1 % (11.5-14.5) Platelet Count 307 x10^3/uL (140-400) Neutrophils (%) (Auto) 78 % (31-73) Lymphocytes (%) (Auto) 18 % (24-48) Monocytes (%) (Auto) 4 % (0-9) Eosinophils (%) (Auto) 1 % (0-3) Basophils (%) (Auto) 1 % (0-3) Neutrophils # (Auto) 11.6 x10^3uL (1.8-7.7) Lymphocytes # (Auto) 2.6 x10^3/uL (1.0-4.8) Monocytes # (Auto) 0.5 x10^3/uL (0.0-1.1) Eosinophils # (Auto) 0.1 x10^3/uL (0.0-0.7) Basophils # (Auto) 0.1 x10^3/uL (0.0-0.2) Sodium Level 138 mmol/L (136-145) Potassium Level 4.2 mmol/L (3.5-5.1) Chloride Level 98 mmol/L (98-107) Carbon Dioxide Level 28 mmol/L (21-32) Anion Gap 12 (6-14) Blood Urea Nitrogen 17 mg/dL (8-26) Creatinine 1.0 mg/dL (0.7-1.3) Estimated GFR (Cockcroft-Gault) 81.6 BUN/Creatinine Ratio 17 (6-20) Glucose Level 120 mg/dL (70-99) Lactic Acid Level 2.2 mmol/L (0.4-2.0) 4.4 mmol/L (0.4-2.0) Calcium Level 10.0 mg/dL (8.5-10.1) Magnesium Level 1.8 mg/dL (1.8-2.4) Total Bilirubin 0.4 mg/dL (0.2-1.0) Aspartate Amino Transf (AST/SGOT) 18 U/L (15-37) Alanine Aminotransferase (ALT/SGPT) 36 U/L (16-63) Alkaline Phosphatase 98 U/L (46-116) Creatine Kinase 136 U/L (39-308) Creatine Kinase MB (Mass) 3.6 ng/mL (0.0-3.6) Creatine Kinase MB Relative Index 2.6 % (0-4) Troponin I Quantitative < 0.017 ng/mL (0.000-0.055) < 0.017 ng/mL (0.000-0.055) YT-Kuq-A-Type Natriuretic Peptide 333 pg/mL (0-124) Total Protein 7.6 g/dL (6.4-8.2) Albumin 4.1 g/dL (3.4-5.0) Albumin/Globulin Ratio 1.2 (1.0-1.7) Triglycerides Level 154 mg/dL (0-150) Cholesterol Level 159 mg/dL (0-200) LDL Cholesterol, Calculated 81 mg/dL (0-100) VLDL Cholesterol, Calculated 31 mg/dL (0-40) Non-HDL Cholesterol Calculated 112 mg/dL (0-129) HDL Cholesterol 47 mg/dL (40-60) Cholesterol/HDL Ratio 3.4 Thyroid Stimulating Hormone (TSH) 2.049 uIU/mL (0.358-3.74) Test 11/19/18 17:25 11/19/18 23:40 11/20/18 07:30 11/20/18 16:55 Nasal Screen MRSA (PCR) Positive (Negative) Lactic Acid Level 4.0 mmol/L (0.4-2.0) 3.0 mmol/L (0.4-2.0) Troponin I Quantitative < 0.017 ng/mL (0.000-0.055) White Blood Count 17.5 x10^3/uL (4.0-11.0) Red Blood Count 4.31 x10^6/uL (4.30-5.70) Hemoglobin 10.9 g/dL (13.0-17.5) Hematocrit 33.5 % (39.0-53.0) Mean Corpuscular Volume 78 fL (79-100) Mean Corpuscular Hemoglobin 25 pg (25-35) Mean Corpuscular Hemoglobin Concent 32 g/dL (31-37) Red Cell Distribution Width 19.0 % (11.5-14.5) Platelet Count 244 x10^3/uL (140-400) Neutrophils (%) (Auto) 84 % (31-73) Lymphocytes (%) (Auto) 10 % (24-48) Monocytes (%) (Auto) 5 % (0-9) Eosinophils (%) (Auto) 0 % (0-3) Basophils (%) (Auto) 1 % (0-3) Neutrophils # (Auto) 14.6 x10^3uL (1.8-7.7) Lymphocytes # (Auto) 1.8 x10^3/uL (1.0-4.8) Monocytes # (Auto) 0.9 x10^3/uL (0.0-1.1) Eosinophils # (Auto) 0.0 x10^3/uL (0.0-0.7) Basophils # (Auto) 0.1 x10^3/uL (0.0-0.2) Segmented Neutrophils % 82 % (35-66) Band Neutrophils % 2 % (0-9) Lymphocytes % 7 % (24-48) Monocytes % 7 % (0-10) Metamyelocytes % 2 % (0-0) Platelet Estimate Adequate (ADEQUATE) Anisocytosis Slight Sodium Level 138 mmol/L (136-145) Potassium Level 3.6 mmol/L (3.5-5.1) Chloride Level 102 mmol/L (98-107) Carbon Dioxide Level 27 mmol/L (21-32) Anion Gap 9 (6-14) Blood Urea Nitrogen 24 mg/dL (8-26) Creatinine 1.0 mg/dL (0.7-1.3) Estimated GFR (Cockcroft-Gault) 81.6 Glucose Level 141 mg/dL (70-99) Calcium Level 9.0 mg/dL (8.5-10.1) Procalcitonin < 0.10 ng/mL (0.00-0.10) < 0.10 ng/mL (0.00-0.10) Prothrombin Time 12.4 SEC (11.7-14.0) Prothromb Time International Ratio 1.0 (0.8-1.1) Fibrinogen 311 mg/dL (200-440) D-Dimer (Maryse) < 0.27 ug/mlFEU Test 11/21/18 05:00 White Blood Count 12.3 x10^3/uL (4.0-11.0) Red Blood Count 4.40 x10^6/uL (4.30-5.70) Hemoglobin 11.0 g/dL (13.0-17.5) Hematocrit 35.4 % (39.0-53.0) Mean Corpuscular Volume 80 fL (79-100) Mean Corpuscular Hemoglobin 25 pg (25-35) Mean Corpuscular Hemoglobin Concent 31 g/dL (31-37) Red Cell Distribution Width 19.6 % (11.5-14.5) Platelet Count 222 x10^3/uL (140-400) Neutrophils (%) (Auto) 67 % (31-73) Lymphocytes (%) (Auto) 26 % (24-48) Monocytes (%) (Auto) 5 % (0-9) Eosinophils (%) (Auto) 1 % (0-3) Basophils (%) (Auto) 1 % (0-3) Neutrophils # (Auto) 8.2 x10^3uL (1.8-7.7) Lymphocytes # (Auto) 3.1 x10^3/uL (1.0-4.8) Monocytes # (Auto) 0.6 x10^3/uL (0.0-1.1) Eosinophils # (Auto) 0.1 x10^3/uL (0.0-0.7) Basophils # (Auto) 0.1 x10^3/uL (0.0-0.2) Sodium Level 138 mmol/L (136-145) Potassium Level 3.5 mmol/L (3.5-5.1) Chloride Level 103 mmol/L (98-107) Carbon Dioxide Level 21 mmol/L (21-32) Anion Gap 14 (6-14) Blood Urea Nitrogen 20 mg/dL (8-26) Creatinine 0.9 mg/dL (0.7-1.3) Estimated GFR (Cockcroft-Gault) 92.1 BUN/Creatinine Ratio 22 (6-20) Glucose Level 133 mg/dL (70-99) Calcium Level 9.2 mg/dL (8.5-10.1) Total Bilirubin 0.1 mg/dL (0.2-1.0) Aspartate Amino Transf (AST/SGOT) 19 U/L (15-37) Alanine Aminotransferase (ALT/SGPT) 28 U/L (16-63) Alkaline Phosphatase 82 U/L (46-116) Total Protein 5.6 g/dL (6.4-8.2) Albumin 3.1 g/dL (3.4-5.0) Albumin/Globulin Ratio 1.2 (1.0-1.7) Laboratory Tests Test 11/20/18 16:55 5/19/19 05:00 Prothrombin Time 12.4 SEC (11.7-14.0) Prothromb Time International Ratio 1.0 (0.8-1.1) Fibrinogen 311 mg/dL (200-440) D-Dimer (Maryse) < 0.27 ug/mlFEU Lactic Acid Level 3.0 mmol/L (0.4-2.0) Procalcitonin < 0.10 ng/mL (0.00-0.10) White Blood Count 12.3 x10^3/uL (4.0-11.0) Red Blood Count 4.40 x10^6/uL (4.30-5.70) Hemoglobin 11.0 g/dL (13.0-17.5) Hematocrit 35.4 % (39.0-53.0) Mean Corpuscular Volume 80 fL (79-100) Mean Corpuscular Hemoglobin 25 pg (25-35) Mean Corpuscular Hemoglobin Concent 31 g/dL (31-37) Red Cell Distribution Width 19.6 % (11.5-14.5) Platelet Count 222 x10^3/uL (140-400) Neutrophils (%) (Auto) 67 % (31-73) Lymphocytes (%) (Auto) 26 % (24-48) Monocytes (%) (Auto) 5 % (0-9) Eosinophils (%) (Auto) 1 % (0-3) Basophils (%) (Auto) 1 % (0-3) Neutrophils # (Auto) 8.2 x10^3uL (1.8-7.7) Lymphocytes # (Auto) 3.1 x10^3/uL (1.0-4.8) Monocytes # (Auto) 0.6 x10^3/uL (0.0-1.1) Eosinophils # (Auto) 0.1 x10^3/uL (0.0-0.7) Basophils # (Auto) 0.1 x10^3/uL (0.0-0.2) Sodium Level 138 mmol/L (136-145) Potassium Level 3.5 mmol/L (3.5-5.1) Chloride Level 103 mmol/L (98-107) Carbon Dioxide Level 21 mmol/L (21-32) Anion Gap 14 (6-14) Blood Urea Nitrogen 20 mg/dL (8-26) Creatinine 0.9 mg/dL (0.7-1.3) Estimated GFR (Cockcroft-Gault) 92.1 BUN/Creatinine Ratio 22 (6-20) Glucose Level 133 mg/dL (70-99) Calcium Level 9.2 mg/dL (8.5-10.1) Total Bilirubin 0.1 mg/dL (0.2-1.0) Aspartate Amino Transf (AST/SGOT) 19 U/L (15-37) Alanine Aminotransferase (ALT/SGPT) 28 U/L (16-63) Alkaline Phosphatase 82 U/L (46-116) Total Protein 5.6 g/dL (6.4-8.2) Albumin 3.1 g/dL (3.4-5.0) Albumin/Globulin Ratio 1.2 (1.0-1.7) Medications Active Scripts Medications Dose Route/Sig Max Daily Dose Days Date Category Alprazolam 0.5 Mg Tablet 0.5 Mg PO PRN BID PRN 11/20/18 Reported Prednisolone Acetate 5 Ml Drops.susp 1 Drop EACHEYE QID 11/19/18 Reported Doxycycline Hyclate 100 Mg Capsule 1 Cap PO BID 14 10/30/18 Reported Prednisone 20 Mg Tablet 30 Mg PO DAILY 90 10/30/18 Reported Hydromorphone Hcl 4 Mg Tablet 4 Mg PO PRN Q6HRS PRN 10/27/18 Reported Culturelle (Lactobacillus Rhamnosus Gg) 1 Each Cap.sprink 1 Cap PO BID 14 06/27/18 Rx Aspirin 81 Mg Tab.chew 1 Tab PO DAILY 06/24/18 Reported Klor-Con 10 (Potassium Chloride) 10 Meq Tablet.er 1 Tab PO DAILY 06/21/18 Reported Proair Hfa Inhaler (Albuterol Sulfate) 8.5 Gm Hfa.aer.ad 1 Puff INH PRN Q6HRS PRN 05/08/18 Rx Hydromorphone ER (Hydromorphone HCl) 8 Mg Tab.er.24h 8 Mg PO DAILY 04/06/18 Reported Metoprolol Succinate ( Xl ) (Metoprolol Succinate) 25 Mg Tab.er.24h 25 Mg PO BID 04/06/18 Reported Atorvastatin Calcium 80 Mg Tablet 80 Mg PO HS 04/06/18 Reported Protonix (Pantoprazole Sodium) 20 Mg Tablet.dr 20 Mg PO BID 04/06/18 Reported Buspirone Hcl 7.5 Mg Tablet 7.5 Mg PO TID 04/06/18 Reported Bupropion Hcl 75 Mg Tablet 75 Mg PO TID 04/06/18 Reported Furosemide 40 Mg Tablet 40 Mg PO DAILY 30 12/25/17 Rx Feosol (Ferrous Sulfate) 325 Mg Tablet 325 Mg PO BIDWMEALS 30 12/25/17 Rx Symbicort 160-4.5 Mcg Inhaler (Budesonide/Formoterol Fumarate) 10.2 Gm Hfa.aer.ad 2 Puff IH BID 06/25/17 Reported Baclofen 10 Mg Tablet 1 Tab PO PRN TID 06/25/17 Reported Melatonin 3 Mg Tablet 1 Tab PO QHS 04/11/17 Reported Nitrostat (Nitroglycerin) 0.4 Mg Tab.subl 0.4 Mg SL PRN Q5MIN PRN 09/10/15 Reported Promethazine Hcl 25 Mg Tablet 25 Mg PO Q6H PRN 09/07/14 Reported Fenofibrate (Fenofibrate Nanocrystallized) 48 Mg Tablet 48 Mg PO DAILY 09/07/14 Reported Fluoxetine Hcl 20 Mg Capsule 1 Cap PO DAILY 09/07/14 Reported Gabapentin 600 Mg Tablet 3 Tab PO BID 09/07/14 Reported Impression . IMPRESSION: 1. Dyspnea, multifactorial in etiology including acute exacerbation of chronic obstructive pulmonary disease, acute bronchitis versus pneumonia, acute diastolic congestive heart failure versus others. 2. Abnormal chest x-ray. 3. Acute exacerbation of chronic obstructive pulmonary disease. 4. Acute bronchitis versus pneumonia. 5. Acute diastolic congestive heart failure. 6. Coronary artery disease. 7. Tobacco habituation. 8. Snoring and excessive daytime sleepiness, probable obstructive sleep apnea-hypopnea syndrome. 9. Leukocytosis, elevated lactic acid? sepsis. Plan . RECOMMENDATIONS: 1. Titrate FiO2 to keep O2 saturation 92%. 2. albuterol/Atrovent q.i.d. 3. ICS. 4. Agree with Lasix and potassium. Monitor potassium and creatinine. 5. I have discussed obstructive sleep apnea-hypopnea syndrome, the importance of diagnosis and treatment, if untreated increased cardiovascular and [employer] morbidity or mortality. I do recommend a sleep study as an outpatient. 6. I have advised him to stop smoking forever. 7. Lovenox for DVT prophylaxis. 8. antibiotic per id. [place] almazan 9. procalcitonin, nl. 10. Avoid narcotics discussed w pt rn ALFRED CHEN MD November 21, 2018 07:36
[2018-11-21] MEDS: BUDESONIDE 0.5 MG/2 ML NEBU. NEB SCH ×2 (07:49→20:00)
[2018-11-21] MEDS: IPRATRPIUM/ALBUTEROL 0.5/2.5MG 3 ML NEBU. NEB SCH ×4 (07:49→20:00)
[2018-11-21] MEDS: FUROSEMIDE 40 MG TABLET. PO SCH (09:00)
[2018-11-21] MEDS: ENOXAPARIN 40 MG/0.4 ML SYRINGE. SQ SCH (09:00)
[2018-11-21] MEDS: GABAPENTIN 300 MG CAPSULE. PO SCH ×2 (09:00→21:13)
[2018-11-21] MEDS: FLUoxetine HCL 20 MG CAPSULE PO SCH (09:01)
[2018-11-21] MEDS: PANTOPRAZOLE 40 MG TABLET.DR. PO SCH (09:01)
[2018-11-21] MEDS: DOXYCYCLINE HYCLATE 100 MG TABLET PO SCH ×2 (09:01→21:13)
[2018-11-21] MEDS: POTASSIUM CHLORIDE 10 MEQ TABLET.ER. PO SCH (09:01)
[2018-11-21] MEDS: busPIRone 5 MG TABLET. PO SCH ×3 (09:02→21:12)
[2018-11-21] MEDS: LACTOBACILLUS RHAMNOSUS GG 1 CAPSULE. PO SCH ×2 (09:02→21:12)
[2018-11-21] MEDS: ASPIRIN CHEWABLE 81 MG TABLET. PO SCH (09:03)
[2018-11-21] MEDS: FERROUS SULFATE 325 MG TABLET. PO SCH ×2 (09:03→18:06)
[2018-11-21] MEDS: HYDROmorphone 4 MG TABLET PO SCH (09:03)
[2018-11-21] MEDS: buPROPion 75 MG TABLET. PO SCH ×3 (09:03→21:13)
[2018-11-21] MEDS: METOPROLOL SUCC 24HR ER 25 MG TAB.ER.24H. PO SCH ×2 (09:06→21:13)
[2018-11-21] MEDS: FLUTICASONE 50MCG/NASAL SPRAY 16GM BOTTLE. NS SCH ×3 (09:07→21:14)
[2018-11-21] MEDS: DIFLUPREDNATE OU SCH ×5 (09:10→21:14)
[2018-11-21] MEDS: BACLOFEN 10 MG TABLET. PO PRN (09:14)
[2018-11-21] MEDS: FENOFIBRATE 54 MG TABLET. PO SCH (09:14)
[2018-11-21] MEDS: NICOTINE 14MG PATCH. TD PRN (09:18)
--- NOTE | 2018-11-21 09:33 | PDOC ---
PROGRESS NOTES History of Present Illness History of Present Illness VTE Prophylaxis Ordered VTE Prophylaxis Devices: Yes VTE Pharmacological Prophylaxi: Yes Assessment/Plan Assessment/Plan IMPRESSION 1. Congestive heart failure., ACUTE EXAC 2. Chronic obstructive pulmonary disease. 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 4. Status post bronchoscopy.10/22 5. CAD; past CABG 2015 and PCI/stent to RCA and OM 2014. CP free 6. HTN: controlled 7. Hyperlipidemia 8. 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 24 min pt exam, chart review, > 50% of time spent with exam, chart review, pt care coordination Vitals Vitals Vital Signs Date Time Temp Pulse Resp B/P (MAP) Pulse Ox O2 Delivery O2 Flow Rate FiO2 11/21/18 09:06 77 133/61 11/21/18 07:50 98 Room Air 11/21/18 07:00 98.3 18 98.3 Physical Exam General: Alert, Oriented X3, Cooperative, No acute distress Heart: Regular rate (SR), Normal S1, Normal S2, No murmurs Lungs: Crackles Abdomen: Normal bowel sounds, Soft Extremities: No cyanosis, No edema Skin: No breakdown, No significant lesion Labs LABS Laboratory Tests Test 11/20/18 16:55 11/21/18 05:00 Prothrombin Time 12.4 SEC (11.7-14.0) Prothromb Time International Ratio 1.0 (0.8-1.1) Fibrinogen 311 mg/dL (200-440) D-Dimer (Maryse) < 0.27 ug/mlFEU Lactic Acid Level 3.0 mmol/L (0.4-2.0) Procalcitonin < 0.10 ng/mL (0.00-0.10) White Blood Count 12.3 x10^3/uL (4.0-11.0) Red Blood Count 4.40 x10^6/uL (4.30-5.70) Hemoglobin 11.0 g/dL (13.0-17.5) Hematocrit 35.4 % (39.0-53.0) Mean Corpuscular Volume 80 fL (79-100) Mean Corpuscular Hemoglobin 25 pg (25-35) Mean Corpuscular Hemoglobin Concent 31 g/dL (31-37) Red Cell Distribution Width 19.6 % (11.5-14.5) Platelet Count 222 x10^3/uL (140-400) Neutrophils (%) (Auto) 67 % (31-73) Lymphocytes (%) (Auto) 26 % (24-48) Monocytes (%) (Auto) 5 % (0-9) Eosinophils (%) (Auto) 1 % (0-3) Basophils (%) (Auto) 1 % (0-3) Neutrophils # (Auto) 8.2 x10^3uL (1.8-7.7) Lymphocytes # (Auto) 3.1 x10^3/uL (1.0-4.8) Monocytes # (Auto) 0.6 x10^3/uL (0.0-1.1) Eosinophils # (Auto) 0.1 x10^3/uL (0.0-0.7) Basophils # (Auto) 0.1 x10^3/uL (0.0-0.2) Sodium Level 138 mmol/L (136-145) Potassium Level 3.5 mmol/L (3.5-5.1) Chloride Level 103 mmol/L (98-107) Carbon Dioxide Level 21 mmol/L (21-32) Anion Gap 14 (6-14) Blood Urea Nitrogen 20 mg/dL (8-26) Creatinine 0.9 mg/dL (0.7-1.3) Estimated GFR (Cockcroft-Gault) 92.1 BUN/Creatinine Ratio 22 (6-20) Glucose Level 133 mg/dL (70-99) Calcium Level 9.2 mg/dL (8.5-10.1) Total Bilirubin 0.1 mg/dL (0.2-1.0) Aspartate Amino Transf (AST/SGOT) 19 U/L (15-37) Alanine Aminotransferase (ALT/SGPT) 28 U/L (16-63) Alkaline Phosphatase 82 U/L (46-116) Total Protein 5.6 g/dL (6.4-8.2) Albumin 3.1 g/dL (3.4-5.0) Albumin/Globulin Ratio 1.2 (1.0-1.7) Assessment and Plan Assessmemt and Plan Problems Medical Problems: (1) Abnormal EKG Status: Acute (2) COPD exacerbation Status: Acute (3) Elevated lactic acid level Status: Acute (4) Narcotic dependence Status: Acute Comment Review of Relevant I have reviewed the following items lexie (where applicable) has been applied. Labs Laboratory Tests Test 11/19/18 10:13 11/19/18 11:15 11/19/18 15:28 11/19/18 16:50 Urine Collection Type Void Urine Color Yellow Urine Clarity Clear Urine pH 6.5 Urine Specific [place] <=1.005 Urine Protein Negative mg/dL (NEG-TRACE) Urine Glucose (UA) Negative mg/dL (NEG) Urine Ketones (Stick) Negative mg/dL (NEG) Urine Blood Negative (NEG) Urine Nitrite Negative (NEG) Urine Bilirubin Negative (NEG) Urine Urobilinogen Dipstick 0.2 mg/dL (0.2 mg/dL) Urine Leukocyte Esterase Negative (NEG) Urine RBC 0 /HPF (0-2) Urine WBC Rare /HPF (0-4) Urine Bacteria 0 /HPF (0-FEW) Urine Opiates Screen Pos (NEG) Urine Methadone Screen Neg (NEG) Urine Barbiturates Neg (NEG) Urine Phencyclidine Screen Neg (NEG) Urine Amphetamine/Methamphetamine Neg (NEG) Urine Benzodiazepines Screen Neg (NEG) Urine Cocaine Screen Neg (NEG) Urine Cannabinoids Screen Neg (NEG) Urine Ethyl Alcohol Neg (NEG) White Blood Count 14.9 x10^3/uL (4.0-11.0) Red Blood Count 5.11 x10^6/uL (4.30-5.70) Hemoglobin 12.4 g/dL (13.0-17.5) Hematocrit 39.7 % (39.0-53.0) Mean Corpuscular Volume 78 fL (79-100) Mean Corpuscular Hemoglobin 24 pg (25-35) Mean Corpuscular Hemoglobin Concent 31 g/dL (31-37) Red Cell Distribution Width 19.1 % (11.5-14.5) Platelet Count 307 x10^3/uL (140-400) Neutrophils (%) (Auto) 78 % (31-73) Lymphocytes (%) (Auto) 18 % (24-48) Monocytes (%) (Auto) 4 % (0-9) Eosinophils (%) (Auto) 1 % (0-3) Basophils (%) (Auto) 1 % (0-3) Neutrophils # (Auto) 11.6 x10^3uL (1.8-7.7) Lymphocytes # (Auto) 2.6 x10^3/uL (1.0-4.8) Monocytes # (Auto) 0.5 x10^3/uL (0.0-1.1) Eosinophils # (Auto) 0.1 x10^3/uL (0.0-0.7) Basophils # (Auto) 0.1 x10^3/uL (0.0-0.2) Sodium Level 138 mmol/L (136-145) Potassium Level 4.2 mmol/L (3.5-5.1) Chloride Level 98 mmol/L (98-107) Carbon Dioxide Level 28 mmol/L (21-32) Anion Gap 12 (6-14) Blood Urea Nitrogen 17 mg/dL (8-26) Creatinine 1.0 mg/dL (0.7-1.3) Estimated GFR (Cockcroft-Gault) 81.6 BUN/Creatinine Ratio 17 (6-20) Glucose Level 120 mg/dL (70-99) Lactic Acid Level 2.2 mmol/L (0.4-2.0) 4.4 mmol/L (0.4-2.0) Calcium Level 10.0 mg/dL (8.5-10.1) Magnesium Level 1.8 mg/dL (1.8-2.4) Total Bilirubin 0.4 mg/dL (0.2-1.0) Aspartate Amino Transf (AST/SGOT) 18 U/L (15-37) Alanine Aminotransferase (ALT/SGPT) 36 U/L (16-63) Alkaline Phosphatase 98 U/L (46-116) Creatine Kinase 136 U/L (39-308) Creatine Kinase MB (Mass) 3.6 ng/mL (0.0-3.6) Creatine Kinase MB Relative Index 2.6 % (0-4) Troponin I Quantitative < 0.017 ng/mL (0.000-0.055) < 0.017 ng/mL (0.000-0.055) QE-Guo-S-Type Natriuretic Peptide 333 pg/mL (0-124) Total Protein 7.6 g/dL (6.4-8.2) Albumin 4.1 g/dL (3.4-5.0) Albumin/Globulin Ratio 1.2 (1.0-1.7) Triglycerides Level 154 mg/dL (0-150) Cholesterol Level 159 mg/dL (0-200) LDL Cholesterol, Calculated 81 mg/dL (0-100) VLDL Cholesterol, Calculated 31 mg/dL (0-40) Non-HDL Cholesterol Calculated 112 mg/dL (0-129) HDL Cholesterol 47 mg/dL (40-60) Cholesterol/HDL Ratio 3.4 Thyroid Stimulating Hormone (TSH) 2.049 uIU/mL (0.358-3.74) Test 11/19/18 17:25 11/19/18 23:40 11/20/18 07:30 11/20/18 16:55 Nasal Screen MRSA (PCR) Positive (Negative) Lactic Acid Level 4.0 mmol/L (0.4-2.0) 3.0 mmol/L (0.4-2.0) Troponin I Quantitative < 0.017 ng/mL (0.000-0.055) White Blood Count 17.5 x10^3/uL (4.0-11.0) Red Blood Count 4.31 x10^6/uL (4.30-5.70) Hemoglobin 10.9 g/dL (13.0-17.5) Hematocrit 33.5 % (39.0-53.0) Mean Corpuscular Volume 78 fL (79-100) Mean Corpuscular Hemoglobin 25 pg (25-35) Mean Corpuscular Hemoglobin Concent 32 g/dL (31-37) Red Cell Distribution Width 19.0 % (11.5-14.5) Platelet Count 244 x10^3/uL (140-400) Neutrophils (%) (Auto) 84 % (31-73) Lymphocytes (%) (Auto) 10 % (24-48) Monocytes (%) (Auto) 5 % (0-9) Eosinophils (%) (Auto) 0 % (0-3) Basophils (%) (Auto) 1 % (0-3) Neutrophils # (Auto) 14.6 x10^3uL (1.8-7.7) Lymphocytes # (Auto) 1.8 x10^3/uL (1.0-4.8) Monocytes # (Auto) 0.9 x10^3/uL (0.0-1.1) Eosinophils # (Auto) 0.0 x10^3/uL (0.0-0.7) Basophils # (Auto) 0.1 x10^3/uL (0.0-0.2) Segmented Neutrophils % 82 % (35-66) Band Neutrophils % 2 % (0-9) Lymphocytes % 7 % (24-48) Monocytes % 7 % (0-10) Metamyelocytes % 2 % (0-0) Platelet Estimate Adequate (ADEQUATE) Anisocytosis Slight Sodium Level 138 mmol/L (136-145) Potassium Level 3.6 mmol/L (3.5-5.1) Chloride Level 102 mmol/L (98-107) Carbon Dioxide Level 27 mmol/L (21-32) Anion Gap 9 (6-14) Blood Urea Nitrogen 24 mg/dL (8-26) Creatinine 1.0 mg/dL (0.7-1.3) Estimated GFR (Cockcroft-Gault) 81.6 Glucose Level 141 mg/dL (70-99) Calcium Level 9.0 mg/dL (8.5-10.1) Procalcitonin < 0.10 ng/mL (0.00-0.10) < 0.10 ng/mL (0.00-0.10) Prothrombin Time 12.4 SEC (11.7-14.0) Prothromb Time International Ratio 1.0 (0.8-1.1) Fibrinogen 311 mg/dL (200-440) D-Dimer (Maryse) < 0.27 ug/mlFEU Test 11/21/18 05:00 White Blood Count 12.3 x10^3/uL (4.0-11.0) Red Blood Count 4.40 x10^6/uL (4.30-5.70) Hemoglobin 11.0 g/dL (13.0-17.5) Hematocrit 35.4 % (39.0-53.0) Mean Corpuscular Volume 80 fL (79-100) Mean Corpuscular Hemoglobin 25 pg (25-35) Mean Corpuscular Hemoglobin Concent 31 g/dL (31-37) Red Cell Distribution Width 19.6 % (11.5-14.5) Platelet Count 222 x10^3/uL (140-400) Neutrophils (%) (Auto) 67 % (31-73) Lymphocytes (%) (Auto) 26 % (24-48) Monocytes (%) (Auto) 5 % (0-9) Eosinophils (%) (Auto) 1 % (0-3) Basophils (%) (Auto) 1 % (0-3) Neutrophils # (Auto) 8.2 x10^3uL (1.8-7.7) Lymphocytes # (Auto) 3.1 x10^3/uL (1.0-4.8) Monocytes # (Auto) 0.6 x10^3/uL (0.0-1.1) Eosinophils # (Auto) 0.1 x10^3/uL (0.0-0.7) Basophils # (Auto) 0.1 x10^3/uL (0.0-0.2) Sodium Level 138 mmol/L (136-145) Potassium Level 3.5 mmol/L (3.5-5.1) Chloride Level 103 mmol/L (98-107) Carbon Dioxide Level 21 mmol/L (21-32) Anion Gap 14 (6-14) Blood Urea Nitrogen 20 mg/dL (8-26) Creatinine 0.9 mg/dL (0.7-1.3) Estimated GFR (Cockcroft-Gault) 92.1 BUN/Creatinine Ratio 22 (6-20) Glucose Level 133 mg/dL (70-99) Calcium Level 9.2 mg/dL (8.5-10.1) Total Bilirubin 0.1 mg/dL (0.2-1.0) Aspartate Amino Transf (AST/SGOT) 19 U/L (15-37) Alanine Aminotransferase (ALT/SGPT) 28 U/L (16-63) Alkaline Phosphatase 82 U/L (46-116) Total Protein 5.6 g/dL (6.4-8.2) Albumin 3.1 g/dL (3.4-5.0) Albumin/Globulin Ratio 1.2 (1.0-1.7) Laboratory Tests Test 11/20/18 16:55 11/21/18 05:00 Prothrombin Time 12.4 SEC (11.7-14.0) Prothromb Time International Ratio 1.0 (0.8-1.1) Fibrinogen 311 mg/dL (200-440) D-Dimer (Maryse) < 0.27 ug/mlFEU Lactic Acid Level 3.0 mmol/L (0.4-2.0) Procalcitonin < 0.10 ng/mL (0.00-0.10) White Blood Count 12.3 x10^3/uL (4.0-11.0) Red Blood Count 4.40 x10^6/uL (4.30-5.70) Hemoglobin 11.0 g/dL (13.0-17.5) Hematocrit 35.4 % (39.0-53.0) Mean Corpuscular Volume 80 fL (79-100) Mean Corpuscular Hemoglobin 25 pg (25-35) Mean Corpuscular Hemoglobin Concent 31 g/dL (31-37) Red Cell Distribution Width 19.6 % (11.5-14.5) Platelet Count 222 x10^3/uL (140-400) Neutrophils (%) (Auto) 67 % (31-73) Lymphocytes (%) (Auto) 26 % (24-48) Monocytes (%) (Auto) 5 % (0-9) Eosinophils (%) (Auto) 1 % (0-3) Basophils (%) (Auto) 1 % (0-3) Neutrophils # (Auto) 8.2 x10^3uL (1.8-7.7) Lymphocytes # (Auto) 3.1 x10^3/uL (1.0-4.8) Monocytes # (Auto) 0.6 x10^3/uL (0.0-1.1) Eosinophils # (Auto) 0.1 x10^3/uL (0.0-0.7) Basophils # (Auto) 0.1 x10^3/uL (0.0-0.2) Sodium Level 138 mmol/L (136-145) Potassium Level 3.5 mmol/L (3.5-5.1) Chloride Level 103 mmol/L (98-107) Carbon Dioxide Level 21 mmol/L (21-32) Anion Gap 14 (6-14) Blood Urea Nitrogen 20 mg/dL (8-26) Creatinine 0.9 mg/dL (0.7-1.3) Estimated GFR (Cockcroft-Gault) 92.1 BUN/Creatinine Ratio 22 (6-20) Glucose Level 133 mg/dL (70-99) Calcium Level 9.2 mg/dL (8.5-10.1) Total Bilirubin 0.1 mg/dL (0.2-1.0) Aspartate Amino Transf (AST/SGOT) 19 U/L (15-37) Alanine Aminotransferase (ALT/SGPT) 28 U/L (16-63) Alkaline Phosphatase 82 U/L (46-116) Total Protein 5.6 g/dL (6.4-8.2) Albumin 3.1 g/dL (3.4-5.0) Albumin/Globulin Ratio 1.2 (1.0-1.7) Microbiology 11/19/18 Blood Culture - Preliminary, Resulted NO GROWTH AFTER 1 DAY Medications Current Medications Albuterol/ Ipratropium (Duoneb) 3 ml 1X ONCE NEB Last administered on 11/19/18at 10:49; Start 11/19/18 at 10:30; Stop 11/19/18 at 10:31; Status DC Methylprednisolone Sodium Succinate (SOLU-Medrol 125MG VIAL) 125 mg 1X ONCE IV Last administered on 11/19/18at 10:56; Start 11/19/18 at 10:30; Stop 11/19/18 at 10:31; Status DC Fentanyl Citrate (Fentanyl 2ml Vial) 50 mcg 1X ONCE IV Last administered on 11/19/18at 10:56; Start 11/19/18 at 10:30; Stop 11/19/18 at 10:31; Status DC Diazepam (Valium) 5 mg 1X ONCE PO Last administered on 11/19/18at 10:56; Start 11/19/18 at 10:30; Stop 11/19/18 at 10:31; Status DC Sodium Chloride 1,000 ml @ 2,130 mls/hr Q29M IV Last administered on 11/19/18at 15:58; Start 11/19/18 at 12:30; Stop 11/19/18 at 13:30; Status DC Ceftriaxone Sodium (Rocephin) 1 gm 1X ONCE IVP Last administered on 11/19/18at 12:34; Start 11/19/18 at 12:30; Stop 11/19/18 at 12:31; Status DC Ondansetron HCl (Zofran) 4 mg PRN Q8HRS PRN IV NAUSEA/VOMITING; Start 11/19/18 at 12:15; Stop 11/20/18 at 12:14; Status DC Fentanyl Citrate (Fentanyl 2ml Vial) 50 mcg PRN Q1HR PRN IV PAIN Last administered on 11/19/18at 22:36; Start 11/19/18 at 12:15; Stop 11/20/18 at 12:14; Status DC Albuterol Sulfate (Ventolin Neb Soln) 2.5 mg PRN Q6HRS PRN INH SHORTNESS OF BREATH Last administered on 11/20/18 08:02; Start 11/19/18 at 13:45 Aspirin (Children'S Aspirin) 81 mg DAILY PO Last administered on 11/21/18 09:03; Start 11/20/18 at 09:00 Baclofen (Lioresal) 10 mg PRN TID PRN PO MUSCLE SPASTICITY Last administered on 11/21/18 09:14; Start 11/19/18 at 13:45 Bupropion HCl (Wellbutrin) 75 mg TID PO Last administered on 11/21/18 09:03; Start 11/19/18 at 14:00 Ferrous Sulfate (Feosol) 325 mg BIDWMEALS PO Last administered on 11/21/18 09:03; Start 11/19/18 at 17:00 Fluoxetine HCl (PROzac) 20 mg DAILY PO Last administered on 11/21/18 09:01; Start 11/20/18 at 09:00 Furosemide (Lasix) 40 mg DAILY PO ; Start 11/20/18 at 09:00 Lactobacillus Rhamnosus (Culturelle) 1 cap BID PO Last administered on 11/21/18 09:02; Start 11/19/18 at 21:00 Metoprolol Succinate (Toprol Xl) 25 mg BID PO Last administered on 11/21/18 09:06; Start 11/19/18 at 21:00 Nitroglycerin (Nitrostat) 0.4 mg PRN Q5MIN PRN SL CHEST PAIN; Start 11/19/18 at 13:45 Potassium Chloride (Klor-Con) 10 meq DAILY PO Last administered on 11/21/18 09:01; Start 11/20/18 at 09:00 Atorvastatin Calcium (Lipitor) 80 mg QHS PO Last administered on 11/20/18at 21:42; Start 11/19/18 at 21:00 Albuterol Sulfate (Ventolin Neb Soln) 2.5 mg RTQID NEB Last administered on 11/19/18at 20:00; Start 11/19/18 at 16:00; Stop 11/20/18 at 07:48; Status DC Buspirone HCl (Buspar) 7.5 mg TID PO Last administered on 11/21/18at 09:02; Start 11/19/18 at 14:00 Doxycycline Hyclate (Vibra-Tab) 100 mg BID PO Last administered on 11/21/18 09:01; Start 11/19/18 at 21:00 Fenofibrate (Lofibra) 54 mg DAILY PO Last administered on 11/21/18 09:14; S tart 11/20/18 at 09:00 Gabapentin (Neurontin) 1,800 mg BID PO Last administered on 11/21/18 09:00; Start 11/19/18 at 21:00 Hydromorphone HCl (Dilaudid) 4 mg PRN Q6HRS PRN PO PAIN Last administered on 11/21/18at 00:15; Start 11/19/18 at 13:45 Hydromorphone HCl (Dilaudid) 8 mg DAILY PO Last administered on 11/21/18at 09:03; Start 11/20/18 at 09:00 Non-Formulary Medication (Melatonin ) 1 tab QHS PO ; Start 11/19/18 at 21:00; Status UNV Pantoprazole Sodium (Protonix) 40 mg DAILYAC PO Last administered on 11/21/18at 09:01; Start 11/20/18 at 07:30 Promethazine HCl (Phenergan) 25 mg PRN Q6HRS PRN PO NAUSEA/VOMITING; Start 11/19/18 at 14:00 Piperacillin Sod/ Tazobactam Sod (Zosyn Per Pharmacy) 1 each PRN DAILY PRN MC SEE COMMENTS; Start 11/19/18 at 13:45 Budesonide (Pulmicort) 0.5 mg RTBID NEB Last administered on 11/21/18at 07:49; Start 11/19/18 at 20:00 Piperacillin Sod/ Tazobactam Sod 3.375 gm/Sodium Chloride 50 ml @ 100 mls/hr Q6HRS IV Last administered on 11/21/18at 06:00; Start 11/19/18 at 18:00 Nicotine (Nicoderm Cq 14mg) 1 patch PRN DAILY PRN TD SMOKING CESSATION Last administered on 11/21/18 09:18; Start 11/19/18 at 15:45 Linezolid (Zyvox) 600 mg BID PO Last administered on 11/20/18 09:08; Start 11/19/18 at 18:00; Stop 11/20/18 at 15:38; Status DC Non-Formulary Medication (Prednisolone Acetate ) 1 drop QID EACHEYE Last administered on 11/21/18at 09:08; Start 11/19/18 at 21:00 Albuterol/ Ipratropium (Duoneb) 3 ml RTQID NEB Last administered on 11/21/18at 07:49; Start 11/20/18 at 08:00 Budesonide (Pulmicort) 0.5 mg RTBID NEB ; Start 11/20/18 at 08:00; Status UNV Enoxaparin Sodium (Lovenox 40mg Syringe) 40 mg Q24H SQ ; Start 11/20/18 at 09:00 Non-Formulary Medication 1 ea QID OU Last administered on 11/21/18 09:10; Start 11/20/18 at 13:00 Fluticasone Propionate (Flonase) 2 spray BID NS Last administered on 11/21/18 09:07; Start 11/20/18 at 15:45 Alprazolam (Xanax) 0.5 mg PRN BID PRN PO ANXIETY / AGITATION Last administered on 11/20/18at 21:45; Start 11/20/18 at 15:45 Sodium Chloride 1,000 ml @ 166.667 mls/hr Q6H IV ; Start 11/20/18 at 16:16; Stop 11/21/18 at 05:01; Status DC Sodium Chloride 500 ml @ 1,000 mls/hr PRN Q30MIN PRN IV SEE COMMENTS; Start 11/20/18 at 16:30; Stop 11/20/18 at 22:44; Status DC Active Scripts Active Culturelle (Lactobacillus Rhamnosus Gg) 1 Each Cap.sprink 1 Cap PO BID 14 Days Proair Hfa Inhaler (Albuterol Sulfate) 8.5 Gm Hfa.aer.ad 1 Puff INH PRN Q6HRS PRN Furosemide 40 Mg Tablet 40 Mg PO DAILY 30 Days Feosol (Ferrous Sulfate) 325 Mg Tablet 325 Mg PO BIDWMEALS 30 Days Reported Alprazolam 0.5 Mg Tablet 0.5 Mg PO PRN BID PRN Prednisolone Acetate 5 Ml Drops.susp 1 Drop EACHEYE QID Doxycycline Hyclate 100 Mg Capsule 1 Cap PO BID 14 Days Prednisone 20 Mg Tablet 30 Mg PO DAILY 90 Days Hydromorphone Hcl 4 Mg Tablet 4 Mg PO PRN Q6HRS PRN Aspirin 81 Mg Tab.chew 1 Tab PO DAILY Klor-Con 10 (Potassium Chloride) 10 Meq Tablet.er 1 Tab PO DAILY Hydromorphone ER (Hydromorphone HCl) 8 Mg Tab.er.24h 8 Mg PO DAILY Metoprolol Succinate ( Xl ) (Metoprolol Succinate) 25 Mg Tab.er.24h 25 Mg PO BID Atorvastatin Calcium 80 Mg Tablet 80 Mg PO HS Protonix (Pantoprazole Sodium) 20 Mg Tablet.dr 20 Mg PO BID Buspirone Hcl 7.5 Mg Tablet 7.5 Mg PO TID Bupropion Hcl 75 Mg Tablet 75 Mg PO TID Symbicort 160-4.5 Mcg Inhaler (Budesonide/Formoterol Fumarate) 10.2 Gm Hfa.aer.ad 2 Puff IH BID Baclofen 10 Mg Tablet 1 Tab PO PRN TID Melatonin 3 Mg Tablet 1 Tab PO QHS Nitrostat (Nitroglycerin) 0.4 Mg Tab.subl 0.4 Mg SL PRN Q5MIN PRN Promethazine Hcl 25 Mg Tablet 25 Mg PO Q6H PRN Fenofibrate (Fenofibrate Nanocrystallized) 48 Mg Tablet 48 Mg PO DAILY Fluoxetine Hcl 20 Mg Capsule 1 Cap PO DAILY Gabapentin 600 Mg Tablet 3 Tab PO BID Vitals/I & O Vital Sign - Last 24 Hours 11/20/18 11/20/18 11/20/18 11/20/18 11:00 11:51 15:00 16:06 Temp 98.2 98.2 98.2 98.2 Pulse 83 89 Resp 20 20 B/P (MAP) 154/71 (98) 98/51 (67) Pulse Ox 97 99 96 O2 Delivery Room Air Room Air Room Air 11/20/18 11/20/18 11/20/18 11/20/18 19:20 19:54 21:44 23:00 Temp 98.0 97.9 98.0 97.9 Pulse 82 82 82 Resp 22 20 B/P (MAP) 106/55 (72) 106/55 101/55 (70) Pulse Ox 98 98 96 O2 Delivery Room Air Room Air Room Air 11/21/18 11/21/18 11/21/18 11/21/18 03:00 07:00 07:50 09:06 Temp 97.7 98.3 97.7 98.3 Pulse 73 77 77 Resp 20 18 B/P (MAP) 124/62 (82) 125/50 (75) 133/61 Pulse Ox 96 97 98 O2 Delivery Room Air Room Air Room Air Intake and Output 11/20/18 11/20/18 11/21/18 14:59 22:59 06:59 Intake Total 360 ml 180 ml 360 ml Balance 360 ml 180 ml 360 ml ANTHONY SUN MD November 21, 2018 09:33
--- NOTE | 2018-11-21 10:47 | PDOC ---
Infectious Disease Note Subjective Subjective Hopes to go home too Feels good No F/C/SOA Vital Sign Vital Signs Vital Signs Date Time Temp Pulse Resp B/P (MAP) Pulse Ox O2 Delivery O2 Flow Rate FiO2 11/21/18 09:06 77 133/61 11/21/18 07:50 98 Room Air 11/21/18 07:00 98.3 18 98.3 Physical Exam PHYSICAL EXAM GENERAL: Sitting upright in bed, alert, watching music videos HEENT: Pupils equally round, reactive. Normal conjunctivae. Oral cavity/pharynx pink and moist. NECK: Supple. LUNGS: Soft wheeze RLL, nonlabored. HEART: S1 and S2. ABDOMEN: Soft and nontender with bowel sounds present. EXTREMITIES: No gross edema or cyanosis. SKIN: Warm without generalized rash. NEUROLOGIC: Alert and oriented x 3. Labs Lab Laboratory Tests Test 11/20/18 16:55 11/21/18 05:00 Prothrombin Time 12.4 SEC (11.7-14.0) Prothromb Time International Ratio 1.0 (0.8-1.1) Fibrinogen 311 mg/dL (200-440) D-Dimer (Maryse) < 0.27 ug/mlFEU Lactic Acid Level 3.0 mmol/L (0.4-2.0) Procalcitonin < 0.10 ng/mL (0.00-0.10) White Blood Count 12.3 x10^3/uL (4.0-11.0) Red Blood Count 4.40 x10^6/uL (4.30-5.70) Hemoglobin 11.0 g/dL (13.0-17.5) Hematocrit 35.4 % (39.0-53.0) Mean Corpuscular Volume 80 fL (79-100) Mean Corpuscular Hemoglobin 25 pg (25-35) Mean Corpuscular Hemoglobin Concent 31 g/dL (31-37) Red Cell Distribution Width 19.6 % (11.5-14.5) Platelet Count 222 x10^3/uL (140-400) Neutrophils (%) (Auto) 67 % (31-73) Lymphocytes (%) (Auto) 26 % (24-48) Monocytes (%) (Auto) 5 % (0-9) Eosinophils (%) (Auto) 1 % (0-3) Basophils (%) (Auto) 1 % (0-3) Neutrophils # (Auto) 8.2 x10^3uL (1.8-7.7) Lymphocytes # (Auto) 3.1 x10^3/uL (1.0-4.8) Monocytes # (Auto) 0.6 x10^3/uL (0.0-1.1) Eosinophils # (Auto) 0.1 x10^3/uL (0.0-0.7) Basophils # (Auto) 0.1 x10^3/uL (0.0-0.2) Sodium Level 138 mmol/L (136-145) Potassium Level 3.5 mmol/L (3.5-5.1) Chloride Level 103 mmol/L (98-107) Carbon Dioxide Level 21 mmol/L (21-32) Anion Gap 14 (6-14) Blood Urea Nitrogen 20 mg/dL (8-26) Creatinine 0.9 mg/dL (0.7-1.3) Estimated GFR (Cockcroft-Gault) 92.1 BUN/Creatinine Ratio 22 (6-20) Glucose Level 133 mg/dL (70-99) Calcium Level 9.2 mg/dL (8.5-10.1) Total Bilirubin 0.1 mg/dL (0.2-1.0) Aspartate Amino Transf (AST/SGOT) 19 U/L (15-37) Alanine Aminotransferase (ALT/SGPT) 28 U/L (16-63) Alkaline Phosphatase 82 U/L (46-116) Total Protein 5.6 g/dL (6.4-8.2) Albumin 3.1 g/dL (3.4-5.0) Albumin/Globulin Ratio 1.2 (1.0-1.7) Micro Microbiology 11/19/18 Blood Culture - Preliminary, Resulted NO GROWTH AFTER 1 DAY Objective Assessment Lactic acidosis, improving Leukocytosis, in part reactive steroids, improving Allergy vanc w/ rash; and moxifloxacin AECOPD Recent h/o MRSA pneumonia, discharged 10/30 on doxycycline h/o presumptive BOOP CAD Chronic HF Plan Plan of Care Zosyn and Doxy Off Zyvox Monitor labs and temp BC neg so far Contact isolation for MRSA Supportive care D/w MATILDA Gracia APRN November 21, 2018 10:47
[2018-11-21] MEDS: ALPRAZolam 0.5 MG TABLET PO PRN ×2 (11:20→21:34)
[2018-11-21] MEDS: ATORVASTATIN CALCIUM 40 MG TABLET. PO SCH (21:11)
[2018-11-22] MEDS: PIPERACILLIN/TAZOBACTAM 3.375 GM in IV NORMAL SALINE 50ML 50 ML IV SCH ×3 (00:23→11:19)
[2018-11-22] MEDS: HYDROmorphone 4 MG TABLET PO PRN (00:24)
[2018-11-22 03:15] VITALS: BP 132/60
[2018-11-22 04:45] LABS: BASO % 0 % (0-3); EOS # 0.2 x10^3/uL (0.0-0.7); EOS % 2 % (0-3); HEMATOCRIT 37.3 % (39.0-53.0); HEMOGLOBIN 11.5 g/dL (13.0-17.5); LYMPH # 3.5 x10^3/uL (1.0-4.8); LYMPH % 29 % (24-48); MEAN CORPUSCULAR HEMOGLOBIN 24 pg (25-35); MEAN CORPUSCULAR HGB CONC 31 g/dL (31-37); MEAN CORPUSCULAR VOLUME 79 fL (79-100); MONO # 0.7 x10^3/uL (0.0-1.1); MONO % 6 % (0-9); NEUT # 7.6 x10^3uL (1.8-7.7); NEUT % 64 % (31-73); PLATELET COUNT 255 x10^3/uL (140-400); RED BLOOD COUNT 4.75 x10^6/uL (4.30-5.70); RED CELL DISTRIBUTION WIDTH 19.8 % (11.5-14.5)
[2018-11-22 05:34] LABS: GFR 81.6; MAGNESIUM 1.7 mg/dL (1.8-2.4); POTASSIUM 3.5 mmol/L (3.5-5.1)
[2018-11-22 07:00] VITALS: BP 126/71
[2018-11-22] MEDS: IPRATRPIUM/ALBUTEROL 0.5/2.5MG 3 ML NEBU. NEB SCH ×2 (07:56→11:37)
[2018-11-22] MEDS: BUDESONIDE 0.5 MG/2 ML NEBU. NEB SCH (07:57)
--- NOTE | 2018-11-22 08:30 | CARD ---
MR#: [id number] Date of Study: 11/21/2018 Ordering Physician: JOSIE MCNEAL, Referring Physician: ANTHONY SUN, Tech: Charlene Ortega ANASTACIO APPROVED REPORT EXAM: Two-dimensional and M-mode echocardiogram with Doppler and color Doppler. Other Information Quality : GoodHR: 81bpm Rhythm : NSR INDICATION Abnormal ECG CAD 2D DIMENSIONS Left Atrium(2D)4.2 (1.6-4.0cm)IVSd1.2 (0.7-1.1cm) Aortic Root(2D)2.7 (2.0-3.7cm)LVDd4.4 (3.9-5.9cm) LVOT Diameter2.1 (1.8-2.4cm)PWd1.3 (0.7-1.1cm) LVDs3.0 (2.5-4.0cm)FS (%) 31.1 % SV51.0 mlLVEF(%)59.0 (>50%) Aortic Valve AoV Peak Jose Francisco.181.2cm/sAoV VTI30.6cm AO Peak GR.13.1mmHgLVOT Peak Jose Francisco.169.5cm/s AO Mean GR.7mmHgAVA (VMAX)3.28cm2 AI P 1/2 [id number] Mitral Valve MV A [id number] Pulmonary Valve PV Peak Wudwbcsw745.7cm/s Tricuspid Valve TR P. Seqdqstu227qp/sRAP [id number] TR Peak Gr.9jpKuZXHZ26anTv LEFT VENTRICLE The left ventricle is normal size. There is mild concentric left ventricular hypertrophy. The left ve ntricular systolic function is normal. The ejection fraction is estimated at 55-60%. There is normal LV segmental wall motion. No left ventricle thrombus noted on this study. There is no ventricular sep laura defect visualized. There is no left ventricular aneurysm. There is no mass noted in the left vent ricle. RIGHT VENTRICLE The right ventricle is normal size. There is normal right ventricular wall thickness. The right ventr icular systolic function is normal. ATRIA The left atrium is mildly dilated. The right atrium size is normal. The interatrial septum is intact with no evidence for an atrial septal defect or patent foramen ovale as noted on 2-D or Doppler imagi ng. AORTIC VALVE The aortic valve is normal in structure and function. Doppler and Color Flow revealed moderate aortic regurgitation. There is no significant aortic valvular stenosis. There is no aortic valvular vegetat ion. MITRAL VALVE The mitral valve is normal in structure and function. There is no evidence of mitral valve prolapse. There is no mitral valve stenosis. Doppler and Color Flow revealed mild mitral regurgitation. TRICUSPID VALVE The tricuspid valve is normal in structure and function. Doppler and Color Flow revealed trace tricus pid regurgitation. The PA pressure was estimated at 14 mmHg. There is no tricuspid valve prolapse or vegetation. There is no tricuspid valve stenosis. PULMONIC VALVE The pulmonary valve is normal in structure and function. Color Flow revealed trace pulmonic valvular regurgitation. There is no pulmonic valvular stenosis. GREAT VESSELS The aortic root is normal in size. The IVC is normal in size and collapses >50% with inspiration. PERICARDIAL EFFUSION There is no pleural effusion. There is no evidence of significant pericardial effusion. Critical Notification Critical Value: No <Conclusion> The left ventricular systolic function is normal. The ejection fraction is estimated at 55-60%. There is normal LV segmental wall motion. Moderate aortic regurgitation. Mild mitral regurgitation. Trace tricuspid regurgitation. The PA pressure was estimated at 14 mmHg. There is no evidence of significant pericardial effusion. Signed by : Lasha Serrato, Electronically Approved : 11/22/2018 08:29:42
--- NOTE | 2018-11-22 08:53 | PDOC ---
PULMONARY PROGRESS NOTES Subjective WANTS TO GO HOME Vitals Vital Signs Date Time Temp Pulse Resp B/P (MAP) Pulse Ox O2 Delivery O2 Flow Rate FiO2 11/22/18 07:57 Room Air 11/22/18 07:00 98.1 79 16 126/71 (89) 98 98.1 ROS: No Nausea General: Alert, No acute distress HEENT: Other (nc at perrl nose clear, shallow oropharynx) Lungs: Crackles Cardiovascular: S1, S2 Abdomen: Soft Neuro Exam: Alert Extremities: No Edema Skin: Warm Labs Laboratory Tests Test 11/20/18 16:55 11/21/18 05:00 11/22/18 04:20 Prothrombin Time 12.4 SEC (11.7-14.0) Prothromb Time International Ratio 1.0 (0.8-1.1) Fibrinogen 311 mg/dL (200-440) D-Dimer (Maryse) < 0.27 ug/mlFEU Lactic Acid Level 3.0 mmol/L (0.4-2.0) Procalcitonin < 0.10 ng/mL (0.00-0.10) White Blood Count 12.3 x10^3/uL (4.0-11.0) 12.0 x10^3/uL (4.0-11.0) Red Blood Count 4.40 x10^6/uL (4.30-5.70) 4.75 x10^6/uL (4.30-5.70) Hemoglobin 11.0 g/dL (13.0-17.5) 11.5 g/dL (13.0-17.5) Hematocrit 35.4 % (39.0-53.0) 37.3 % (39.0-53.0) Mean Corpuscular Volume 80 fL (79-100) 79 fL (79-100) Mean Corpuscular Hemoglobin 25 pg (25-35) 24 pg (25-35) Mean Corpuscular Hemoglobin Concent 31 g/dL (31-37) 31 g/dL (31-37) Red Cell Distribution Width 19.6 % (11.5-14.5) 19.8 % (11.5-14.5) Platelet Count 222 x10^3/uL (140-400) 255 x10^3/uL (140-400) Neutrophils (%) (Auto) 67 % (31-73) 64 % (31-73) Lymphocytes (%) (Auto) 26 % (24-48) 29 % (24-48) Monocytes (%) (Auto) 5 % (0-9) 6 % (0-9) Eosinophils (%) (Auto) 1 % (0-3) 2 % (0-3) Basophils (%) (Auto) 1 % (0-3) 0 % (0-3) Neutrophils # (Auto) 8.2 x10^3uL (1.8-7.7) 7.6 x10^3uL (1.8-7.7) Lymphocytes # (Auto) 3.1 x10^3/uL (1.0-4.8) 3.5 x10^3/uL (1.0-4.8) Monocytes # (Auto) 0.6 x10^3/uL (0.0-1.1) 0.7 x10^3/uL (0.0-1.1) Eosinophils # (Auto) 0.1 x10^3/uL (0.0-0.7) 0.2 x10^3/uL (0.0-0.7) Basophils # (Auto) 0.1 x10^3/uL (0.0-0.2) 0.0 x10^3/uL (0.0-0.2) Sodium Level 138 mmol/L (136-145) 142 mmol/L (136-145) Potassium Level 3.5 mmol/L (3.5-5.1) 3.5 mmol/L (3.5-5.1) Chloride Level 103 mmol/L (98-107) 103 mmol/L (98-107) Carbon Dioxide Level 21 mmol/L (21-32) 28 mmol/L (21-32) Anion Gap 14 (6-14) 11 (6-14) Blood Urea Nitrogen 20 mg/dL (8-26) 21 mg/dL (8-26) Creatinine 0.9 mg/dL (0.7-1.3) 1.0 mg/dL (0.7-1.3) Estimated GFR (Cockcroft-Gault) 92.1 81.6 BUN/Creatinine Ratio 22 (6-20) Glucose Level 133 mg/dL (70-99) 110 mg/dL (70-99) Calcium Level 9.2 mg/dL (8.5-10.1) 9.0 mg/dL (8.5-10.1) Total Bilirubin 0.1 mg/dL (0.2-1.0) Aspartate Amino Transf (AST/SGOT) 19 U/L (15-37) Alanine Aminotransferase (ALT/SGPT) 28 U/L (16-63) Alkaline Phosphatase 82 U/L (46-116) Total Protein 5.6 g/dL (6.4-8.2) Albumin 3.1 g/dL (3.4-5.0) Albumin/Globulin Ratio 1.2 (1.0-1.7) Magnesium Level 1.7 mg/dL (1.8-2.4) Laboratory Tests Test 11/22/18 04:20 White Blood Count 12.0 x10^3/uL (4.0-11.0) Red Blood Count 4.75 x10^6/uL (4.30-5.70) Hemoglobin 11.5 g/dL (13.0-17.5) Hematocrit 37.3 % (39.0-53.0) Mean Corpuscular Volume 79 fL (79-100) Mean Corpuscular Hemoglobin 24 pg (25-35) Mean Corpuscular Hemoglobin Concent 31 g/dL (31-37) Red Cell Distribution Width 19.8 % (11.5-14.5) Platelet Count 255 x10^3/uL (140-400) Neutrophils (%) (Auto) 64 % (31-73) Lymphocytes (%) (Auto) 29 % (24-48) Monocytes (%) (Auto) 6 % (0-9) Eosinophils (%) (Auto) 2 % (0-3) Basophils (%) (Auto) 0 % (0-3) Neutrophils # (Auto) 7.6 x10^3uL (1.8-7.7) Lymphocytes # (Auto) 3.5 x10^3/uL (1.0-4.8) Monocytes # (Auto) 0.7 x10^3/uL (0.0-1.1) Eosinophils # (Auto) 0.2 x10^3/uL (0.0-0.7) Basophils # (Auto) 0.0 x10^3/uL (0.0-0.2) Sodium Level 142 mmol/L (136-145) Potassium Level 3.5 mmol/L (3.5-5.1) Chloride Level 103 mmol/L (98-107) Carbon Dioxide Level 28 mmol/L (21-32) Anion Gap 11 (6-14) Blood Urea Nitrogen 21 mg/dL (8-26) Creatinine 1.0 mg/dL (0.7-1.3) Estimated GFR (Cockcroft-Gault) 81.6 Glucose Level 110 mg/dL (70-99) Calcium Level 9.0 mg/dL (8.5-10.1) Magnesium Level 1.7 mg/dL (1.8-2.4) Medications Active Scripts Medications Dose Route/Sig Max Daily Dose Days Date Category Alprazolam 0.5 Mg Tablet 0.5 Mg PO PRN BID PRN 11/20/18 Reported Prednisolone Acetate 5 Ml Drops.susp 1 Drop EACHEYE QID 11/19/18 Reported Doxycycline Hyclate 100 Mg Capsule 1 Cap PO BID 14 10/30/18 Reported Prednisone 20 Mg Tablet 30 Mg PO DAILY 90 10/30/18 Reported Hydromorphone Hcl 4 Mg Tablet 4 Mg PO PRN Q6HRS PRN 10/27/18 Reported Culturelle (Lactobacillus Rhamnosus Gg) 1 Each Cap.sprink 1 Cap PO BID 14 06/27/18 Rx Aspirin 81 Mg Tab.chew 1 Tab PO DAILY 06/24/18 Reported Klor-Con 10 (Potassium Chloride) 10 Meq Tablet.er 1 Tab PO DAILY 06/21/18 Reported Proair Hfa Inhaler (Albuterol Sulfate) 8.5 Gm Hfa.aer.ad 1 Puff INH PRN Q6HRS PRN 05/08/18 Rx Hydromorphone ER (Hydromorphone HCl) 8 Mg Tab.er.24h 8 Mg PO DAILY 04/06/18 Reported Metoprolol Succinate ( Xl ) (Metoprolol Succinate) 25 Mg Tab.er.24h 25 Mg PO BID 04/06/18 Reported Atorvastatin Calcium 80 Mg Tablet 80 Mg PO HS 04/06/18 Reported Protonix (Pantoprazole Sodium) 20 Mg Tablet.dr 20 Mg PO BID 04/06/18 Reported Buspirone Hcl 7.5 Mg Tablet 7.5 Mg PO TID 04/06/18 Reported Bupropion Hcl 75 Mg Tablet 75 Mg PO TID 04/06/18 Reported Furosemide 40 Mg Tablet 40 Mg PO DAILY 30 12/25/17 Rx Feosol (Ferrous Sulfate) 325 Mg Tablet 325 Mg PO BIDWMEALS 30 12/25/17 Rx Symbicort 160-4.5 Mcg Inhaler (Budesonide/Formoterol Fumarate) 10.2 Gm Hfa.aer.ad 2 Puff IH BID 06/25/17 Reported Baclofen 10 Mg Tablet 1 Tab PO PRN TID 06/25/17 Reported Melatonin 3 Mg Tablet 1 Tab PO QHS 04/11/17 Reported Nitrostat (Nitroglycerin) 0.4 Mg Tab.subl 0.4 Mg SL PRN Q5MIN PRN 09/10/15 Reported Promethazine Hcl 25 Mg Tablet 25 Mg PO Q6H PRN 09/07/14 Reported Fenofibrate (Fenofibrate Nanocrystallized) 48 Mg Tablet 48 Mg PO DAILY 09/07/14 Reported Fluoxetine Hcl 20 Mg Capsule 1 Cap PO DAILY 09/07/14 Reported Gabapentin 600 Mg Tablet 3 Tab PO BID 09/07/14 Reported Impression . IMPRESSION: 1. Dyspnea, multifactorial in etiology including acute exacerbation of chronic obstructive pulmonary disease, acute bronchitis versus pneumonia, acute diastolic congestive heart failure versus others. 2. Abnormal chest x-ray. 3. Acute exacerbation of chronic obstructive pulmonary disease. 4. Acute bronchitis versus pneumonia. 5. Acute diastolic congestive heart failure. 6. Coronary artery disease. 7. Tobacco habituation. 8. Snoring and excessive daytime sleepiness, probable obstructive sleep apnea-hypopnea syndrome. 9. Leukocytosis, elevated lactic acid? sepsis. Plan . D/C FOLLOW UP IN OFFICE HAS CHIO AT HOME BELINDA SCOTT MD November 22, 2018 08:53
[2018-11-22] MEDS: FLUTICASONE 50MCG/NASAL SPRAY 16GM BOTTLE. NS SCH (09:00)
[2018-11-22] MEDS: ENOXAPARIN 40 MG/0.4 ML SYRINGE. SQ SCH (09:00)
[2018-11-22] MEDS: DIFLUPREDNATE OU SCH ×2 (09:00→13:00)
[2018-11-22] MEDS: GABAPENTIN 300 MG CAPSULE. PO SCH (09:05)
[2018-11-22] MEDS: PANTOPRAZOLE 40 MG TABLET.DR. PO SCH (09:06)
[2018-11-22] MEDS: busPIRone 5 MG TABLET. PO SCH ×2 (09:06→14:12)
[2018-11-22] MEDS: FLUoxetine HCL 20 MG CAPSULE PO SCH (09:06)
[2018-11-22] MEDS: ALPRAZolam 0.5 MG TABLET PO PRN (09:06)
[2018-11-22] MEDS: buPROPion 75 MG TABLET. PO SCH ×2 (09:06→14:12)
[2018-11-22] MEDS: FENOFIBRATE 54 MG TABLET. PO SCH (09:06)
[2018-11-22] MEDS: DOXYCYCLINE HYCLATE 100 MG TABLET PO SCH (09:06)
[2018-11-22] MEDS: BACLOFEN 10 MG TABLET. PO PRN (09:06)
[2018-11-22] MEDS: ASPIRIN CHEWABLE 81 MG TABLET. PO SCH (09:06)
[2018-11-22] MEDS: FERROUS SULFATE 325 MG TABLET. PO SCH (09:06)
[2018-11-22] MEDS: LACTOBACILLUS RHAMNOSUS GG 1 CAPSULE. PO SCH (09:06)
[2018-11-22] MEDS: METOPROLOL SUCC 24HR ER 25 MG TAB.ER.24H. PO SCH (09:07)
[2018-11-22] MEDS: POTASSIUM CHLORIDE 10 MEQ TABLET.ER. PO SCH (09:07)
[2018-11-22] MEDS: HYDROmorphone 4 MG TABLET PO SCH (09:07)
[2018-11-22] MEDS: FUROSEMIDE 40 MG TABLET. PO SCH (09:07)
[2018-11-22] MEDS: NICOTINE 14MG PATCH. TD PRN (09:09)
--- NOTE | 2018-11-22 09:22 | NUR ---
IP: Pt has had several + mrsa screens since 04/2018 with most current on 10/27/18. [facility] Pt to be in contact precautions until there are 2 negative screens and 2 negative sputum cultures each 7 days apart.
--- NOTE | 2018-11-22 09:25 | PDOC ---
Infectious Disease Note Subjective Subjective feeling better, wants to go home ROS ROS no n/v/d/sob Vital Sign Vital Signs Vital Signs Date Time Temp Pulse Resp B/P (MAP) Pulse Ox O2 Delivery O2 Flow Rate FiO2 11/22/18 07:57 Room Air 11/22/18 07:00 98.1 79 16 126/71 (89) 98 98.1 Physical Exam PHYSICAL EXAM GENERAL: Sitting upright in bed, alert, watching music videos HEENT: Pupils equally round, reactive. Normal conjunctivae. Oral cavit y/pharynx pink and moist. NECK: Supple. LUNGS: Soft wheeze RLL, nonlabored. HEART: S1 and S2. ABDOMEN: Soft and nontender with bowel sounds present. EXTREMITIES: No gross edema or cyanosis. SKIN: Warm without generalized rash. NEUROLOGIC: Alert and oriented x 3. Labs Lab Laboratory Tests Test 11/22/18 04:20 White Blood Count 12.0 x10^3/uL (4.0-11.0) Red Blood Count 4.75 x10^6/uL (4.30-5.70) Hemoglobin 11.5 g/dL (13.0-17.5) Hematocrit 37.3 % (39.0-53.0) Mean Corpuscular Volume 79 fL (79-100) Mean Corpuscular Hemoglobin 24 pg (25-35) Mean Corpuscular Hemoglobin Concent 31 g/dL (31-37) Red Cell Distribution Width 19.8 % (11.5-14.5) Platelet Count 255 x10^3/uL (140-400) Neutrophils (%) (Auto) 64 % (31-73) Lymphocytes (%) (Auto) 29 % (24-48) Monocytes (%) (Auto) 6 % (0-9) Eosinophils (%) (Auto) 2 % (0-3) Basophils (%) (Auto) 0 % (0-3) Neutrophils # (Auto) 7.6 x10^3uL (1.8-7.7) Lymphocytes # (Auto) 3.5 x10^3/uL (1.0-4.8) Monocytes # (Auto) 0.7 x10^3/uL (0.0-1.1) Eosinophils # (Auto) 0.2 x10^3/uL (0.0-0.7) Basophils # (Auto) 0.0 x10^3/uL (0.0-0.2) Sodium Level 142 mmol/L (136-145) Potassium Level 3.5 mmol/L (3.5-5.1) Chloride Level 103 mmol/L (98-107) Carbon Dioxide Level 28 mmol/L (21-32) Anion Gap 11 (6-14) Blood Urea Nitrogen 21 mg/dL (8-26) Creatinine 1.0 mg/dL (0.7-1.3) Estimated GFR (Cockcroft-Gault) 81.6 Glucose Level 110 mg/dL (70-99) Calcium Level 9.0 mg/dL (8.5-10.1) Magnesium Level 1.7 mg/dL (1.8-2.4) Objective Assessment 1. Lactic acidosis. 2. Leukocytosis in part reactive steroids. 3. Allergy to VANCOMYCIN WITH RASH AND MOXIFLOXACIN. 4. Acute exacerbation of chronic obstructive pulmonary disease. 5. Recent history of methicillin resistant Staphylococcus aureus pneumonia, discharged on 10/30 on doxycycline. 6. Presumptive bronchiolitis obliterans organizing pneumonia. 7. Coronary artery disease. 8. Chronic heart failure. Plan Plan of Care Monitor labs and temp BC neg so far Contact isolation for MRSA Supportive care D/w nursing adv to quit smoking ok to d/c on po zyvox and augmentin DARSHANA ALMAZAN MD November 22, 2018 09:25
--- NOTE | 2018-11-22 09:57 | PDOC ---
PROGRESS NOTES History of Present Illness History of Present Illness VTE Prophylaxis Ordered VTE Prophylaxis Devices: Yes VTE Pharmacological Prophylaxi: Yes discharge dx Assessment/Plan IMPRESSION 1. Congestive heart failure., ACUTE EXAC 2. Chronic obstructive pulmonary disease. 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 4. Status post bronchoscopy.10/22 5. CAD; past CABG 2015 and PCI/stent to RCA and OM 2014. CP free 6. HTN: controlled 7. Hyperlipidemia 8. lactic acidosis/ SIRS plan cardiology consult pulm consult cvc admit smoking cessation needed, education provided stacia qid home meds cxr dvt prophylaxis gi prophylaxis IV Zosyn CONTINUE Patient is presently scheduled for stress test next month with primary cardiolog ist ID consult ok d/c zyvox and augmentin 34 min pt exam, chart review d/c planning , > 50% of time spent with exam, chart review, pt care coordination Vitals Vitals Vital Signs Date Time Temp Pulse Resp B/P (MAP) Pulse Ox O2 Delivery O2 Flow Rate FiO2 11/22/18 09:07 79 126/71 11/22/18 07:57 Room Air 11/22/18 07:00 98.1 16 98 98.1 Physical Exam Physical Exam GENERAL: Sitting upright in bed, alert, watching music videos HEENT: Pupils equally round, reactive. Normal conjunctivae. Oral cavity/pharynx pink and moist. NECK: Supple. LUNGS: Soft wheeze RLL, nonlabored. HEART: S1 and S2. ABDOMEN: Soft and nontender with bowel sounds present. EXTREMITIES: No gross edema or cyanosis. SKIN: Warm without generalized rash. NEUROLOGIC: Alert and oriented x 3. General: Alert, Oriented X3, Cooperative, No acute distress Heart: Regular rate (SR), Normal S1, Normal S2, No murmurs Lungs: Clear, Wheezing, Crackles, Other (no distress) Abdomen: Normal bowel sounds, Soft Extremities: No cyanosis, No edema Skin: No breakdown, No significant lesion Labs LABS Laboratory Tests Test 11/22/18 04:20 White Blood Count 12.0 x10^3/uL (4.0-11.0) Red Blood Count 4.75 x10^6/uL (4.30-5.70) Hemoglobin 11.5 g/dL (13.0-17.5) Hematocrit 37.3 % (39.0-53.0) Mean Corpuscular Volume 79 fL (79-100) Mean Corpuscular Hemoglobin 24 pg (25-35) Mean Corpuscular Hemoglobin Concent 31 g/dL (31-37) Red Cell Distribution Width 19.8 % (11.5-14.5) Platelet Count 255 x10^3/uL (140-400) Neutrophils (%) (Auto) 64 % (31-73) Lymphocytes (%) (Auto) 29 % (24-48) Monocytes (%) (Auto) 6 % (0-9) Eosinophils (%) (Auto) 2 % (0-3) Basophils (%) (Auto) 0 % (0-3) Neutrophils # (Auto) 7.6 x10^3uL (1.8-7.7) Lymphocytes # (Auto) 3.5 x10^3/uL (1.0-4.8) Monocytes # (Auto) 0.7 x10^3/uL (0.0-1.1) Eosinophils # (Auto) 0.2 x10^3/uL (0.0-0.7) Basophils # (Auto) 0.0 x10^3/uL (0.0-0.2) Sodium Level 142 mmol/L (136-145) Potassium Level 3.5 mmol/L (3.5-5.1) Chloride Level 103 mmol/L (98-107) Carbon Dioxide Level 28 mmol/L (21-32) Anion Gap 11 (6-14) Blood Urea Nitrogen 21 mg/dL (8-26) Creatinine 1.0 mg/dL (0.7-1.3) Estimated GFR (Cockcroft-Gault) 81.6 Glucose Level 110 mg/dL (70-99) Calcium Level 9.0 mg/dL (8.5-10.1) Magnesium Level 1.7 mg/dL (1.8-2.4) Assessment and Plan Assessmemt and Plan Problems Medical Problems: (1) Abnormal EKG Status: Acute (2) COPD exacerbation Status: Acute (3) Elevated lactic acid level Status: Acute (4) Narcotic dependence Status: Acute Comment Review of Relevant I have reviewed the following items lexie (where applicable) has been applied. Labs Laboratory Tests Test 11/20/18 16:55 11/21/18 05:00 11/22/18 04:20 Prothrombin Time 12.4 SEC (11.7-14.0) Prothromb Time International Ratio 1.0 (0.8-1.1) Fibrinogen 311 mg/dL (200-440) D-Dimer (Maryse) < 0.27 ug/mlFEU Lactic Acid Level 3.0 mmol/L (0.4-2.0) Procalcitonin < 0.10 ng/mL (0.00-0.10) White Blood Count 12.3 x10^3/uL (4.0-11.0) 12.0 x10^3/uL (4.0-11.0) Red Blood Count 4.40 x10^6/uL (4.30-5.70) 4.75 x10^6/uL (4.30-5.70) Hemoglobin 11.0 g/dL (13.0-17.5) 11.5 g/dL (13.0-17.5) Hematocrit 35.4 % (39.0-53.0) 37.3 % (39.0-53.0) Mean Corpuscular Volume 80 fL (79-100) 79 fL (79-100) Mean Corpuscular Hemoglobin 25 pg (25-35) 24 pg (25-35) Mean Corpuscular Hemoglobin Concent 31 g/dL (31-37) 31 g/dL (31-37) Red Cell Distribution Width 19.6 % (11.5-14.5) 19.8 % (11.5-14.5) Platelet Count 222 x10^3/uL (140-400) 255 x10^3/uL (140-400) Neutrophils (%) (Auto) 67 % (31-73) 64 % (31-73) Lymphocytes (%) (Auto) 26 % (24-48) 29 % (24-48) Monocytes (%) (Auto) 5 % (0-9) 6 % (0-9) Eosinophils (%) (Auto) 1 % (0-3) 2 % (0-3) Basophils (%) (Auto) 1 % (0-3) 0 % (0-3) Neutrophils # (Auto) 8.2 x10^3uL (1.8-7.7) 7.6 x10^3uL (1.8-7.7) Lymphocytes # (Auto) 3.1 x10^3/uL (1.0-4.8) 3.5 x10^3/uL (1.0-4.8) Monocytes # (Auto) 0.6 x10^3/uL (0.0-1.1) 0.7 x10^3/uL (0.0-1.1) Eosinophils # (Auto) 0.1 x10^3/uL (0.0-0.7) 0.2 x10^3/uL (0.0-0.7) Basophils # (Auto) 0.1 x10^3/uL (0.0-0.2) 0.0 x10^3/uL (0.0-0.2) Sodium Level 138 mmol/L (136-145) 142 mmol/L (136-145) Potassium Level 3.5 mmol/L (3.5-5.1) 3.5 mmol/L (3.5-5.1) Chloride Level 103 mmol/L (98-107) 103 mmol/L (98-107) Carbon Dioxide Level 21 mmol/L (21-32) 28 mmol/L (21-32) Anion Gap 14 (6-14) 11 (6-14) Blood Urea Nitrogen 20 mg/dL (8-26) 21 mg/dL (8-26) Creatinine 0.9 mg/dL (0.7-1.3) 1.0 mg/dL (0.7-1.3) Estimated GFR (Cockcroft-Gault) 92.1 81.6 BUN/Creatinine Ratio 22 (6-20) Glucose Level 133 mg/dL (70-99) 110 mg/dL (70-99) Calcium Level 9.2 mg/dL (8.5-10.1) 9.0 mg/dL (8.5-10.1) Total Bilirubin 0.1 mg/dL (0.2-1.0) Aspartate Amino Transf (AST/SGOT) 19 U/L (15-37) Alanine Aminotransferase (ALT/SGPT) 28 U/L (16-63) Alkaline Phosphatase 82 U/L (46-116) Total Protein 5.6 g/dL (6.4-8.2) Albumin 3.1 g/dL (3.4-5.0) Albumin/Globulin Ratio 1.2 (1.0-1.7) Magnesium Level 1.7 mg/dL (1.8-2.4) Laboratory Tests Test 11/22/18 04:20 White Blood Count 12.0 x10^3/uL (4.0-11.0) Red Blood Count 4.75 x10^6/uL (4.30-5.70) Hemoglobin 11.5 g/dL (13.0-17.5) Hematocrit 37.3 % (39.0-53.0) Mean Corpuscular Volume 79 fL (79-100) Mean Corpuscular Hemoglobin 24 pg (25-35) Mean Corpuscular Hemoglobin Concent 31 g/dL (31-37) Red Cell Distribution Width 19.8 % (11.5-14.5) Platelet Count 255 x10^3/uL (140-400) Neutrophils (%) (Auto) 64 % (31-73) Lymphocytes (%) (Auto) 29 % (24-48) Monocytes (%) (Auto) 6 % (0-9) Eosinophils (%) (Auto) 2 % (0-3) Basophils (%) (Auto) 0 % (0-3) Neutrophils # (Auto) 7.6 x10^3uL (1.8-7.7) Lymphocytes # (Auto) 3.5 x10^3/uL (1.0-4.8) Monocytes # (Auto) 0.7 x10^3/uL (0.0-1.1) Eosinophils # (Auto) 0.2 x10^3/uL (0.0-0.7) Basophils # (Auto) 0.0 x10^3/uL (0.0-0.2) Sodium Level 142 mmol/L (136-145) Potassium Level 3.5 mmol/L (3.5-5.1) Chloride Level 103 mmol/L (98-107) Carbon Dioxide Level 28 mmol/L (21-32) Anion Gap 11 (6-14) Blood Urea Nitrogen 21 mg/dL (8-26) Creatinine 1.0 mg/dL (0.7-1.3) Estimated GFR (Cockcroft-Gault) 81.6 Glucose Level 110 mg/dL (70-99) Calcium Level 9.0 mg/dL (8.5-10.1) Magnesium Level 1.7 mg/dL (1.8-2.4) Microbiology 11/19/18 Blood Culture - Preliminary, Resulted NO GROWTH AFTER 2 DAYS Medications Current Medications Albuterol/ Ipratropium (Duoneb) 3 ml 1X ONCE NEB Last administered on 11/19/18at 10:49; Start 11/19/18 at 10:30; Stop 11/19/18 at 10:31; Status DC Methylprednisolone Sodium Succinate (SOLU-Medrol 125MG VIAL) 125 mg 1X ONCE IV Last administered on 11/19/18at 10:56; Start 11/19/18 at 10:30; Stop 11/19/18 at 10:31; Status DC Fentanyl Citrate (Fentanyl 2ml Vial) 50 mcg 1X ONCE IV Last administered on 11/19/18at 10:56; Start 11/19/18 at 10:30; Stop 11/19/18 at 10:31; Status DC Diazepam (Valium) 5 mg 1X ONCE PO Last administered on 11/19/18at 10:56; Start 11/19/18 at 10:30; Stop 11/19/18 at 10:31; Status DC Sodium Chloride 1,000 ml @ 2,130 mls/hr Q29M IV Last administered on 11/19/18at 15:58; Start 11/19/18 at 12:30; Stop 11/19/18 at 13:30; Status DC Ceftriaxone Sodium (Rocephin) 1 gm 1X ONCE IVP Last administered on 11/19/18at 12:34; Start 11/19/18 at 12:30; Stop 11/19/18 at 12:31; Status DC Ondansetron HCl (Zofran) 4 mg PRN Q8HRS PRN IV NAUSEA/VOMITING; Start 11/19/18 at 12:15; Stop 11/20/18 at 12:14; Status DC Fentanyl Citrate (Fentanyl 2ml Vial) 50 mcg PRN Q1HR PRN IV PAIN Last administered on 11/19/18at 22:36; Start 11/19/18 at 12:15; Stop 11/20/18 at 12:14 ; Status DC Albuterol Sulfate (Ventolin Neb Soln) 2.5 mg PRN Q6HRS PRN INH SHORTNESS OF BREATH Last administered on 11/20/18 08:02; Start 11/19/18 at 13:45 Aspirin (Children'S Aspirin) 81 mg DAILY PO Last administered on 11/22/18 09:06; Start 11/20/18 at 09:00 Baclofen (Lioresal) 10 mg PRN TID PRN PO MUSCLE SPASTICITY Last administered on 11/22/18 09:06; Start 11/19/18 at 13:45 Bupropion HCl (Wellbutrin) 75 mg TID PO Last administered on 11/22/18 09:06; Start 11/19/18 at 14:00 Ferrous Sulfate (Feosol) 325 mg BIDWMEALS PO Last administered on 11/22/18 09:06; Start 11/19/18 at 17:00 Fluoxetine HCl (PROzac) 20 mg DAILY PO Last administered on 11/22/18 09:06; Start 11/20/18 at 09:00 Furosemide (Lasix) 40 mg DAILY PO Last administered on 11/22/18 09:07; Start 11/20/18 at 09:00 Lactobacillus Rhamnosus (Culturelle) 1 cap BID PO Last administered on 11/22/18 09:06; Start 11/19/18 at 21:00 Metoprolol Succinate (Toprol Xl) 25 mg BID PO Last administered on 11/22/18 09:07; Start 11/19/18 at 21:00 Nitroglycerin (Nitrostat) 0.4 mg PRN Q5MIN PRN SL CHEST PAIN; Start 11/19/18 at 13:45 Potassium Chloride (Klor-Con) 10 meq DAILY PO Last administered on 11/22/18 09:07; Start 11/20/18 at 09:00 Atorvastatin Calcium (Lipitor) 80 mg QHS PO Last administered on 11/21/18 21:11; Start 11/19/18 at 21:00 Albuterol Sulfate (Ventolin Neb Soln) 2.5 mg RTQID NEB Last administered on 11/19/18 20:00; Start 11/19/18 at 16:00; Stop 11/20/18 at 07:48; Status DC Buspirone HCl (Buspar) 7.5 mg TID PO Last administered on 11/22/18 09:06; Start 11/19/18 at 14:00 Doxycycline Hyclate (Vibra-Tab) 100 mg BID PO Last administered on 11/22/18 09:06; Start 11/19/18 at 21:00; Stop 11/22/18 at 09:19; Status DC Fenofibrate (Lofibra) 54 mg DAILY PO Last administered on 11/22/18 09:06; Start 11/20/18 at 09:00 Gabapentin (Neurontin) 1,800 mg BID PO Last administered on 11/22/18at 09:05; Start 11/19/18 at 21:00 Hydromorphone HCl (Dilaudid) 4 mg PRN Q6HRS PRN PO PAIN Last administered on 11/22/18 00:24; Start 11/19/18 at 13:45 Hydromorphone HCl (Dilaudid) 8 mg DAILY PO Last administered on 11/22/18 09:07; Start 11/20/18 at 09:00 Non-Formulary Medication (Melatonin ) 1 tab QHS PO ; Start 11/19/18 at 21:00; Status UNV Pantoprazole Sodium (Protonix) 40 mg DAILYAC PO Last administered on 11/22/18 09:06; Start 11/20/18 at 07:30 Promethazine HCl (Phenergan) 25 mg PRN Q6HRS PRN PO NAUSEA/VOMITING; Start 11/19/18 at 14:00 Piperacillin Sod/ Tazobactam Sod (Zosyn Per Pharmacy) 1 each PRN DAILY PRN MC SEE COMMENTS; Start 11/19/18 at 13:45 Budesonide (Pulmicort) 0.5 mg RTBID NEB Last administered on 11/22/18at 07:57; Start 11/19/18 at 20:00 Piperacillin Sod/ Tazobactam Sod 3.375 gm/Sodium Chloride 50 ml @ 100 mls/hr Q6HRS IV Last administered on 11/22/18 06:01; Start 11/19/18 at 18:00 Nicotine (Nicoderm Cq 14mg) 1 patch PRN DAILY PRN TD SMOKING CESSATION Last administered on 11/22/18 09:09; Start 11/19/18 at 15:45 Linezolid (Zyvox) 600 mg BID PO Last administered on 11/20/18at 09:08; Start 11/19/18 at 18:00; Stop 11/20/18 at 15:38; Status DC Non-Formulary Medication (Prednisolone Acetate ) 1 drop QID EACHEYE Last administered on 11/21/18at 09:08; Start 11/19/18 at 21:00 Albuterol/ Ipratropium (Duoneb) 3 ml RTQID NEB Last administered on 11/22/18at 07:56; Start 11/20/18 at 08:00 Budesonide (Pulmicort) 0.5 mg RTBID NEB ; Start 11/20/18 at 08:00; Status UNV Enoxaparin Sodium (Lovenox 40mg Syringe) 40 mg Q24H SQ ; Start 11/20/18 at 09:00 Non-Formulary Medication 1 ea QID OU Last administered on 11/21/18at 09:10; Start 11/20/18 at 13:00 Fluticasone Propionate (Flonase) 2 spray BID NS Last administered on 11/21/18 09:07; Start 11/20/18 at 15:45 Alprazolam (Xanax) 0.5 mg PRN BID PRN PO ANXIETY / AGITATION Last administered on 11/22/18at 09:06; Start 11/20/18 at 15:45 Sodium Chloride 1,000 ml @ 166.667 mls/hr Q6H IV ; Start 11/20/18 at 16:16; Stop 11/21/18 at 05:01; Status DC Sodium Chloride 500 ml @ 1,000 mls/hr PRN Q30MIN PRN IV SEE COMMENTS; Start 11/20/18 at 16:30; Stop 11/20/18 at 22:44; Status DC Linezolid (Zyvox) 600 mg BID PO ; Start 11/22/18 at 10:00 Active Scripts Active Culturelle (Lactobacillus Rhamnosus Gg) 1 Each Cap.sprink 1 Cap PO BID 14 Days Proair Hfa Inhaler (Albuterol Sulfate) 8.5 Gm Hfa.aer.ad 1 Puff INH PRN Q6HRS PRN Furosemide 40 Mg Tablet 40 Mg PO DAILY 30 Days Feosol (Ferrous Sulfate) 325 Mg Tablet 325 Mg PO BIDWMEALS 30 Days Reported Alprazolam 0.5 Mg Tablet 0.5 Mg PO PRN BID PRN Prednisolone Acetate 5 Ml Drops.susp 1 Drop EACHEYE QID Doxycycline Hyclate 100 Mg Capsule 1 Cap PO BID 14 Days Prednisone 20 Mg Tablet 30 Mg PO DAILY 90 Days Hydromorphone Hcl 4 Mg Tablet 4 Mg PO PRN Q6HRS PRN Aspirin 81 Mg Tab.chew 1 Tab PO DAILY Klor-Con 10 (Potassium Chloride) 10 Meq Tablet.er 1 Tab PO DAILY Hydromorphone ER (Hydromorphone HCl) 8 Mg Tab.er.24h 8 Mg PO DAILY Metoprolol Succinate ( Xl ) (Metoprolol Succinate) 25 Mg Tab.er.24h 25 Mg PO BID Atorvastatin Calcium 80 Mg Tablet 80 Mg PO HS Protonix (Pantoprazole Sodium) 20 Mg Tablet.dr 20 Mg PO BID Buspirone Hcl 7.5 Mg Tablet 7.5 Mg PO TID Bupropion Hcl 75 Mg Tablet 75 Mg PO TID Symbicort 160-4.5 Mcg Inhaler (Budesonide/Formoterol Fumarate) 10.2 Gm H fa.aer.ad 2 Puff IH BID Baclofen 10 Mg Tablet 1 Tab PO PRN TID Melatonin 3 Mg Tablet 1 Tab PO QHS Nitrostat (Nitroglycerin) 0.4 Mg Tab.subl 0.4 Mg SL PRN Q5MIN PRN Promethazine Hcl 25 Mg Tablet 25 Mg PO Q6H PRN Fenofibrate (Fenofibrate Nanocrystallized) 48 Mg Tablet 48 Mg PO DAILY Fluoxetine Hcl 20 Mg Capsule 1 Cap PO DAILY Gabapentin 600 Mg Tablet 3 Tab PO BID Vitals/I & O Vital Sign - Last 24 Hours 11/21/18 11/21/18 11/21/18 11/21/18 11:05 11:08 11:50 15:05 Temp 97.8 98.4 98.2 97.8 98.4 98.2 Pulse 66 76 81 Resp 18 18 18 B/P (MAP) 138/56 (83) 149/82 (104) 108/62 (77) Pulse Ox 93 97 98 96 O2 Delivery Room Air Room Air Room Air Room Air 11/21/18 11/21/18 11/21/18 11/21/18 16:07 19:50 21:13 23:05 Temp 98.6 98.1 98.6 98.1 Pulse 91 91 81 Resp 22 20 B/P (MAP) 108/53 (71) 108/53 120/59 (79) Pulse Ox 98 97 97 O2 Delivery Room Air Room Air Room Air 11/22/18 11/22/18 11/22/18 11/22/18 03:15 07:00 07:57 09:07 Temp 97.8 98.1 97.8 98.1 Pulse 75 79 79 Resp 20 16 B/P (MAP) 132/60 (84) 126/71 (89) 126/71 Pulse Ox 96 98 O2 Delivery Room Air Room Air Room Air Intake and Output 11/21/18 11/21/18 11/22/18 14:59 22:59 06:59 Intake Total 360 ml 780 ml 610 ml Balance 360 ml 780 ml 610 ml ANTHONY SUN MD November 22, 2018 09:56
[2018-11-22] MEDS ORDERED: LINEZOLID 600 MG TABLET PO SCH (10:00)
[2018-11-22 11:00] VITALS: BP 143/75
--- NOTE | 2018-11-22 12:23 | PDOC3 ---
Discharge Summary Date of Admission: November 19, 2018 Date of Discharge: November 22, 2018 Follow-Up: 3-5 days Admitting Diagnosis comment: discharge dx Assessment/Plan IMPRESSION 1. Congestive heart failure., ACUTE EXAC 2. acute exacerbation of Chronic obstructive pulmonary disease. 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 4. Status post bronchoscopy.10/22 5. CAD; past CABG 2015 and PCI/stent to RCA and OM 2014. CP free 6. HTN: controlled 7. Hyperlipidemia 8. lactic acidosis/ SIRS plan cardiology consult pulm consult cvc admit smoking cessation needed, education provided stacia qid home meds cxr dvt prophylaxis gi prophylaxis IV Zosyn CONTINUE Patient is presently scheduled for stress test next month with primary cardi ologist ID consult ok d/c zyvox and augmentin 34 min pt exam, chart review d/c planning , > 50% of time spent with exam, chart review, pt care coordination Vitals Vitals Vital Signs Date Time Temp Pulse Resp B/P (MAP) Pulse Ox O2 Delivery O2 Flow Rate FiO2 11/22/18 09:07 79 126/71 11/22/18 07:57 Room Air 11/22/18 07:00 98.1 16 98 98.1 Physical Exam Physical Exam GENERAL: Sitting upright in bed, alert, watching music videos HEENT: Pupils equally round, reactive. Normal conjunctivae. Oral cavity/pharynx pink and moist. NECK: Supple. LUNGS: Soft wheeze RLL, nonlabored. HEART: S1 and S2. ABDOMEN: Soft and nontender with bowel sounds present. EXTREMITIES: No gross edema or cyanosis. SKIN: Warm without generalized rash. NEUROLOGIC: Alert and oriented x 3. General: Alert, Oriented X3, Cooperative, No acute distress Heart: Regular rate (SR), Normal S1, Normal S2, No murmurs Lungs: Clear, Wheezing, Crackles, Other (no distress) Abdomen: Normal bowel sounds, Soft Extremities: No cyanosis, No edema Skin: No breakdown, No significant lesion Chief Complaint SEEN IN ER, presents to the ED 11/17 complaining of cough and shortness of breath for the last 1 week. Patient states his shortness of breath is worse on activities or exertion. also complaining of subjective fevers. Patient is also complaining of mild to moderate chronic left low back pain radiating to the left lower extremity. Patient denies any known injury. Denies any loss of bowel bladder function. Denies any numbness or tingling to bilateral lower extremities. States his back pain is worse on activity. He is also complaining of being on 3 psychiatric medications and requesting we switched the medications FINAL DIAGNOSIS Problems Medical Problems: (1) Abnormal EKG Status: Acute (2) COPD exacerbation Status: Acute (3) Elevated lactic acid level Status: Acute (4) Narcotic dependence Status: Acute Brief Hospital Course Mr. Marcum is a 43 old [sex] who presented with [ acute resp failure, hypoxic] CONDITION AT DISCHARGE: Improved Discharge Medications Current Medications Albuterol/ Ipratropium (Duoneb) 3 ml 1X ONCE NEB Last administered on 11/19/18at 10:49; Start 11/19/18 at 10:30; Stop 11/19/18 at 10:31; Status DC Methylprednisolone Sodium Succinate (SOLU-Medrol 125MG VIAL) 125 mg 1X ONCE IV Last administered on 11/19/18at 10:56; Start 11/19/18 at 10:30; Stop 11/19/18 at 10:31; Status DC Fentanyl Citrate (Fentanyl 2ml Vial) 50 mcg 1X ONCE IV Last administered on 11/19/18at 10:56; Start 11/19/18 at 10:30; Stop 11/19/18 at 10:31; Status DC Diazepam (Valium) 5 mg 1X ONCE PO Last administered on 11/19/18at 10:56; Start 11/19/18 at 10:30; Stop 11/19/18 at 10:31; Status DC Sodium Chloride 1,000 ml @ 2,130 mls/hr Q29M IV Last administered on 11/19/18at 15:58; Start 11/19/18 at 12:30; Stop 11/19/18 at 13:30; Status DC Ceftriaxone Sodium (Rocephin) 1 gm 1X ONCE IVP Last administered on 11/19/18at 12:34; Start 11/19/18 at 12:30; Stop 11/19/18 at 12:31; Status DC Ondansetron HCl (Zofran) 4 mg PRN Q8HRS PRN IV NAUSEA/VOMITING; Start 11/19/18 at 12:15; Stop 11/20/18 at 12:14; Status DC Fentanyl Citrate (Fentanyl 2ml Vial) 50 mcg PRN Q1HR PRN IV PAIN Last administered on 11/19/18at 22:36; Start 11/19/18 at 12:15; Stop 11/20/18 at 12:14; Status DC Albuterol Sulfate (Ventolin Neb Soln) 2.5 mg PRN Q6HRS PRN INH SHORTNESS OF BREATH Last administered on 11/20/18 08:02; Start 11/19/18 at 13:45 Aspirin (Children'S Aspirin) 81 mg DAILY PO Last administered on 11/22/18 09:06; Start 11/20/18 at 09:00 Baclofen (Lioresal) 10 mg PRN TID PRN PO MUSCLE SPASTICITY Last administered on 11/22/18 09:06; Start 11/19/18 at 13:45 Bupropion HCl (Wellbutrin) 75 mg TID PO Last administered on 11/22/18 09:06; Start 11/19/18 at 14:00 Ferrous Sulfate (Feosol) 325 mg BIDWMEALS PO Last administered on 11/22/18 09:06; Start 11/19/18 at 17:00 Fluoxetine HCl (PROzac) 20 mg DAILY PO Last administered on 11/22/18 09:06; Start 11/20/18 at 09:00 Furosemide (Lasix) 40 mg DAILY PO Last administered on 11/22/18 09:07; Start 11/20/18 at 09:00 Lactobacillus Rhamnosus (Culturelle) 1 cap BID PO Last administered on 11/22/18 09:06; Start 11/19/18 at 21:00 Metoprolol Succinate (Toprol Xl) 25 mg BID PO Last administered on 11/22/18 09:07; Start 11/19/18 at 21:00 Nitroglycerin (Nitrostat) 0.4 mg PRN Q5MIN PRN SL CHEST PAIN; Start 11/19/18 at 13:45 Potassium Chloride (Klor-Con) 10 meq DAILY PO Last administered on 11/22/18 09:07; Start 11/20/18 at 09:00 Atorvastatin Calcium (Lipitor) 80 mg QHS PO Last administered on 11/21/18at 21:11; Start 11/19/18 at 21:00 Albuterol Sulfate (Ventolin Neb Soln) 2.5 mg RTQID NEB Last administered on 11/19/18at 20:00; Start 11/19/18 at 16:00; Stop 11/20/18 at 07:48; Status DC Buspirone HCl (Buspar) 7.5 mg TID PO Last administered on 11/22/18at 09:06; Start 11/19/18 at 14:00 Doxycycline Hyclate (Vibra-Tab) 100 mg BID PO Last administered on 11/22/18at 09:06; Start 11/19/18 at 21:00; Stop 11/22/18 at 09:19; Status DC Fenofibrate (Lofibra) 54 mg DAILY PO Last administered on 11/22/18at 09:06; Start 11/20/18 at 09:00 Gabapentin (Neurontin) 1,800 mg BID PO Last administered on 11/22/18at 09:05; Start 11/19/18 at 21:00 Hydromorphone HCl (Dilaudid) 4 mg PRN Q6HRS PRN PO PAIN Last administered on 11/22/18at 00:24; Start 11/19/18 at 13:45 Hydromorphone HCl (Dilaudid) 8 mg DAILY PO Last administered on 11/22/18at 09:07; Start 11/20/18 at 09:00 Non-Formulary Medication (Melatonin ) 1 tab QHS PO ; Start 11/19/18 at 21:00; Status UNV Pantoprazole Sodium (Protonix) 40 mg DAILYAC PO Last administered on 11/22/18at 09:06; Start 11/20/18 at 07:30 Promethazine HCl (Phenergan) 25 mg PRN Q6HRS PRN PO NAUSEA/VOMITING; Start 11/19/18 at 14:00 Piperacillin Sod/ Tazobactam Sod (Zosyn Per Pharmacy) 1 each PRN DAILY PRN MC SEE COMMENTS; Start 11/19/18 at 13:45 Budesonide (Pulmicort) 0.5 mg RTBID NEB Last administered on 11/22/18at 07:57; Start 11/19/18 at 20:00 Piperacillin Sod/ Tazobactam Sod 3.375 gm/Sodium Chloride 50 ml @ 100 mls/hr Q6HRS IV Last administered on 11/22/18 11:19; Start 11/19/18 at 18:00 Nicotine (Nicoderm Cq 14mg) 1 patch PRN DAILY PRN TD SMOKING CESSATION Last administered on 11/22/18 09:09; Start 11/19/18 at 15:45 Linezolid (Zyvox) 600 mg BID PO Last administered on 11/20/18 09:08; Start 11/19/18 at 18:00; Stop 11/20/18 at 15:38; Status DC Non-Formulary Medication (Prednisolone Acetate ) 1 drop QID EACHEYE Last administered on 11/21/18 09:08; Start 11/19/18 at 21:00 Albuterol/ Ipratropium (Duoneb) 3 ml RTQID NEB Last administered on 11/22/18 11:37; Start 11/20/18 at 08:00 Budesonide (Pulmicort) 0.5 mg RTBID NEB ; Start 11/20/18 at 08:00; Status UNV Enoxaparin Sodium (Lovenox 40mg Syringe) 40 mg Q24H SQ ; Start 11/20/18 at 09:00 Non-Formulary Medication 1 ea QID OU Last administered on 11/21/18 09:10; Start 11/20/18 at 13:00 Fluticasone Propionate (Flonase) 2 spray BID NS Last administered on 11/21/18 09:07; Start 11/20/18 at 15:45 Alprazolam (Xanax) 0.5 mg PRN BID PRN PO ANXIETY / AGITATION Last administered on 11/22/18at 09:06; Start 11/20/18 at 15:45 Sodium Chloride 1,000 ml @ 166.667 mls/hr Q6H IV ; Start 11/20/18 at 16:16; Stop 11/21/18 at 05:01; Status DC Sodium Chloride 500 ml @ 1,000 mls/hr PRN Q30MIN PRN IV SEE COMMENTS; Start 11/20/18 at 16:30; Stop 11/20/18 at 22:44; Status DC Linezolid (Zyvox) 600 mg BID PO Last administered on 11/22/18at 11:18; Start 11/22/18 at 10:00 Active Scripts Active Culturelle (Lactobacillus Rhamnosus Gg) 1 Each Cap.sprink 1 Cap PO BID 14 Days Proair Hfa Inhaler (Albuterol Sulfate) 8.5 Gm Hfa.aer.ad 1 Puff INH PRN Q6HRS PRN Furosemide 40 Mg Tablet 40 Mg PO DAILY 30 Days Feosol (Ferrous Sulfate) 325 Mg Tablet 325 Mg PO BIDWMEALS 30 Days Reported Alprazolam 0.5 Mg Tablet 0.5 Mg PO PRN BID PRN Prednisolone Acetate 5 Ml Drops.susp 1 Drop EACHEYE QID Doxycycline Hyclate 100 Mg Capsule 1 Cap PO BID 14 Days Prednisone 20 Mg Tablet 30 Mg PO DAILY 90 Days Hydromorphone Hcl 4 Mg Tablet 4 Mg PO PRN Q6HRS PRN Aspirin 81 Mg Tab.chew 1 Tab PO DAILY Klor-Con 10 (Potassium Chloride) 10 Meq Tablet.er 1 Tab PO DAILY Hydromorphone ER (Hydromorphone HCl) 8 Mg Tab.er.24h 8 Mg PO DAILY Metoprolol Succinate ( Xl ) (Metoprolol Succinate) 25 Mg Tab.er.24h 25 Mg PO BID Atorvastatin Calcium 80 Mg Tablet 80 Mg PO HS Protonix (Pantoprazole Sodium) 20 Mg Tablet.dr 20 Mg PO BID Buspirone Hcl 7.5 Mg Tablet 7.5 Mg PO TID Bupropion Hcl 75 Mg Tablet 75 Mg PO TID Symbicort 160-4.5 Mcg Inhaler (Budesonide/Formoterol Fumarate) 10.2 Gm Hfa.aer.ad 2 Puff IH BID Baclofen 10 Mg Tablet 1 Tab PO PRN TID Melatonin 3 Mg Tablet 1 Tab PO QHS Nitrostat (Nitroglycerin) 0.4 Mg Tab.subl 0.4 Mg SL PRN Q5MIN PRN Promethazine Hcl 25 Mg Tablet 25 Mg PO Q6H PRN Fenofibrate (Fenofibrate Nanocrystallized) 48 Mg Tablet 48 Mg PO DAILY Fluoxetine Hcl 20 Mg Capsule 1 Cap PO DAILY Gabapentin 600 Mg Tablet 3 Tab PO BID Vital Signs Vital Signs Date Time Temp Pulse Resp B/P (MAP) Pulse Ox O2 Delivery O2 Flow Rate FiO2 11/22/18 11:38 Room Air 11/22/18 11:00 97.9 89 16 143/75 (97) 98 97.9 Labs Laboratory Tests Test 11/20/18 16:55 11/21/18 05:00 11/22/18 04:20 Prothrombin Time 12.4 SEC (11.7-14.0) Prothromb Time International Ratio 1.0 (0.8-1.1) Fibrinogen 311 mg/dL (200-440) D-Dimer (Maryse) < 0.27 ug/mlFEU Lactic Acid Level 3.0 mmol/L (0.4-2.0) Procalcitonin < 0.10 ng/mL (0.00-0.10) White Blood Count 12.3 x10^3/uL (4.0-11.0) 12.0 x10^3/uL (4.0-11.0) Red Blood Count 4.40 x10^6/uL (4.30-5.70) 4.75 x10^6/uL (4.30-5.70) Hemoglobin 11.0 g/dL (13.0-17.5) 11.5 g/dL (13.0-17.5) Hematocrit 35.4 % (39.0-53.0) 37.3 % (39.0-53.0) Mean Corpuscular Volume 80 fL (79-100) 79 fL (79-100) Mean Corpuscular Hemoglobin 25 pg (25-35) 24 pg (25-35) Mean Corpuscular Hemoglobin Concent 31 g/dL (31-37) 31 g/dL (31-37) Red Cell Distribution Width 19.6 % (11.5-14.5) 19.8 % (11.5-14.5) Platelet Count 222 x10^3/uL (140-400) 255 x10^3/uL (140-400) Neutrophils (%) (Auto) 67 % (31-73) 64 % (31-73) Lymphocytes (%) (Auto) 26 % (24-48) 29 % (24-48) Monocytes (%) (Auto) 5 % (0-9) 6 % (0-9) Eosinophils (%) (Auto) 1 % (0-3) 2 % (0-3) Basophils (%) (Auto) 1 % (0-3) 0 % (0-3) Neutrophils # (Auto) 8.2 x10^3uL (1.8-7.7) 7.6 x10^3uL (1.8-7.7) Lymphocytes # (Auto) 3.1 x10^3/uL (1.0-4.8) 3.5 x10^3/uL (1.0-4.8) Monocytes # (Auto) 0.6 x10^3/uL (0.0-1.1) 0.7 x10^3/uL (0.0-1.1) Eosinophils # (Auto) 0.1 x10^3/uL (0.0-0.7) 0.2 x10^3/uL (0.0-0.7) Basophils # (Auto) 0.1 x10^3/uL (0.0-0.2) 0.0 x10^3/uL (0.0-0.2) Sodium Level 138 mmol/L (136-145) 142 mmol/L (136-145) Potassium Level 3.5 mmol/L (3.5-5.1) 3.5 mmol/L (3.5-5.1) Chloride Level 103 mmol/L (98-107) 103 mmol/L (98-107) Carbon Dioxide Level 21 mmol/L (21-32) 28 mmol/L (21-32) Anion Gap 14 (6-14) 11 (6-14) Blood Urea Nitrogen 20 mg/dL (8-26) 21 mg/dL (8-26) Creatinine 0.9 mg/dL (0.7-1.3) 1.0 mg/dL (0.7-1.3) Estimated GFR (Cockcroft-Gault) 92.1 81.6 BUN/Creatinine Ratio 22 (6-20) Glucose Level 133 mg/dL (70-99) 110 mg/dL (70-99) Calcium Level 9.2 mg/dL (8.5-10.1) 9.0 mg/dL (8.5-10.1) Total Bilirubin 0.1 mg/dL (0.2-1.0) Aspartate Amino Transf (AST/SGOT) 19 U/L (15-37) Alanine Aminotransferase (ALT/SGPT) 28 U/L (16-63) Alkaline Phosphatase 82 U/L (46-116) Total Protein 5.6 g/dL (6.4-8.2) Albumin 3.1 g/dL (3.4-5.0) Albumin/Globulin Ratio 1.2 (1.0-1.7) Magnesium Level 1.7 mg/dL (1.8-2.4) Laboratory Tests Test 11/22/18 04:20 White Blood Count 12.0 x10^3/uL (4.0-11.0) Red Blood Count 4.75 x10^6/uL (4.30-5.70) Hemoglobin 11.5 g/dL (13.0-17.5) Hematocrit 37.3 % (39.0-53.0) Mean Corpuscular Volume 79 fL (79-100) Mean Corpuscular Hemoglobin 24 pg (25-35) Mean Corpuscular Hemoglobin Concent 31 g/dL (31-37) Red Cell Distribution Width 19.8 % (11.5-14.5) Platelet Count 255 x10^3/uL (140-400) Neutrophils (%) (Auto) 64 % (31-73) Lymphocytes (%) (Auto) 29 % (24-48) Monocytes (%) (Auto) 6 % (0-9) Eosinophils (%) (Auto) 2 % (0-3) Basophils (%) (Auto) 0 % (0-3) Neutrophils # (Auto) 7.6 x10^3uL (1.8-7.7) Lymphocytes # (Auto) 3.5 x10^3/uL (1.0-4.8) Monocytes # (Auto) 0.7 x10^3/uL (0.0-1.1) Eosinophils # (Auto) 0.2 x10^3/uL (0.0-0.7) Basophils # (Auto) 0.0 x10^3/uL (0.0-0.2) Sodium Level 142 mmol/L (136-145) Potassium Level 3.5 mmol/L (3.5-5.1) Chloride Level 103 mmol/L (98-107) Carbon Dioxide Level 28 mmol/L (21-32) Anion Gap 11 (6-14) Blood Urea Nitrogen 21 mg/dL (8-26) Creatinine 1.0 mg/dL (0.7-1.3) Estimated GFR (Cockcroft-Gault) 81.6 Glucose Level 110 mg/dL (70-99) Calcium Level 9.0 mg/dL (8.5-10.1) Magnesium Level 1.7 mg/dL (1.8-2.4) Allergies Allergies Coded Allergies Type Severity Reaction Last Updated Verified morphine Allergy Intermediate rash 12/21/17 Yes vancomycin Allergy Intermediate Rash 04/06/18 Yes I S O L A T I O N *CONTACT* Allergy Unknown 04/09/18 Yes ketorolac Adverse Reaction Intermediate nausea and vomiting 12/21/17 Yes moxifloxacin Adverse Reaction Intermediate Nausea and Vomiting 12/21/17 Yes tramadol Adverse Reaction Intermediate nausea and vomiting 12/21/17 Yes Disposition/Orders: D/C to Home Patient Instructions d/c planning 34 min ANTHONY SUN MD November 22, 2018 12:23
[2018-11-22] MEDS ORDERED: IPRA3AMP29 NEB (12:30)
[2018-11-22] MEDS ORDERED: LINE600T PO (12:30)
[2018-11-22] MEDS ORDERED: Nicotine 14MG TD (12:30)
[2018-11-22] MEDS ORDERED: AMOX1TAB58 PO (12:30)
[2018-11-22] MEDS ORDERED: MAGNESIUM OXIDE 400 MG TABLET PO ONE (12:30)
--- NOTE | 2018-11-22 14:44 | NUR ---
Discharge Note: EMELIA AGUIAR Discharge instructions and discharge home medications reviewed with Patient and a copy given. All questions have been answered and understanding verbalized. The following instructions and handouts were given: cardiac diet, chest pain, COPD, and smoking cessation. Discontinued iv lines and catheter intact. Patient discharged to home with self care via private vehicle.
== END 2018-11-22 14:30 | disposition home or self-care (01) | DRG 291 ==
LOC: ER 09:17 → 2 SOUTH 13:18
PROVIDERS: ADMIT Family Medicine; ATTEND Family Medicine
DX: I11.0 Hypertensive heart disease with heart failure (principal); J96.01 Acute respiratory failure with hypoxia; F11.20 Opioid dependence, uncomplicated; J44.1 Chronic obstructive pulmonary disease with (acute) exacerbation; R65.10 Systemic inflammatory response syndrome (SIRS) of non-infectious origin without acute organ dysfunction; E87.2 Acidosis; I50.33 Acute on chronic diastolic (congestive) heart failure; F41.9 Anxiety disorder, unspecified; M19.90 Unspecified osteoarthritis, unspecified site; E78.5 Hyperlipidemia, unspecified; F17.210 Nicotine dependence, cigarettes, uncomplicated; G47.33 Obstructive sleep apnea (adult) (pediatric); G89.29 Other chronic pain; I25.10 Atherosclerotic heart disease of native coronary artery without angina pectoris; I25.2 Old myocardial infarction; K21.9 Gastro-esophageal reflux disease without esophagitis; M41.9 Scoliosis, unspecified; Z82.49 Family history of ischemic heart disease and other diseases of the circulatory system; Z86.14 Personal history of Methicillin resistant Staphylococcus aureus infection; Z88.1 Allergy status to other antibiotic agents; Z95.1 Presence of aortocoronary bypass graft; Z95.5 Presence of coronary angioplasty implant and graft; Z99.81 Dependence on supplemental oxygen; Z87.01 Personal history of pneumonia (recurrent); Z71.6 Tobacco abuse counseling
CPT/HCPCS: 36415; 71046; 80048; 80053; 80061; 80307; 81001; 82553; 83605; 83735; 83880; 84145; 84443; 84484; 85007; 85025; 85379; 85384; 85610; 87040; 87641; 93005; 93306; 94640; 96374; 96375; J0696; J2543; J2930; J3010; J7030; J7613; J7620; J7626; 99285-25

== ENCOUNTER 2019-01-12 10:02 | Emergency (ER) | payer MEDICARE, MEDICAID ==
[~2019-01-12] VITALS: Ht 175.3 cm; Wt 93.0 kg
[~2019-01-12 10:02] MED LIST changes: +ALPR0.5T6 PO; +CLOT10TR PO; +IPRA3AMP29 NEB; +Nicotine 14MG TD; +PRED5DRO16 EACHEYE
[2019-01-12] MEDS ORDERED: ONDANSETRON PF 4 MG/2 ML VIAL. IV ONE (11:00)
[2019-01-12] MEDS ORDERED: fentaNYL PF VIAL 100 MCG/2 ML VIAL IV ONE ×2 (11:00→13:30)
[2019-01-12 11:07] LABS: BASO % 0 % (0-3); EOS # 0.2 x10^3/uL (0.0-0.7); EOS % 1 % (0-3); HEMATOCRIT 33.6 % (39.0-53.0); HEMOGLOBIN 10.7 g/dL (13.0-17.5); LYMPH # 3.6 x10^3/uL (1.0-4.8); LYMPH % 24 % (24-48); MEAN CORPUSCULAR HEMOGLOBIN 26 pg (25-35); MEAN CORPUSCULAR HGB CONC 32 g/dL (31-37); MEAN CORPUSCULAR VOLUME 82 fL (79-100); MONO # 0.6 x10^3/uL (0.0-1.1); MONO % 4 % (0-9); NEUT # 10.4 x10^3uL (1.8-7.7); NEUT % 70 % (31-73); PLATELET COUNT 251 x10^3/uL (140-400); RED BLOOD COUNT 4.09 x10^6/uL (4.30-5.70); RED CELL DISTRIBUTION WIDTH 21.1 % (11.5-14.5); WHITE BLOOD COUNT 14.9 x10^3/uL (4.0-11.0)
[2019-01-12 11:24] LABS: PROTHROMBIN TIME PATIENT 11.9 SEC (11.7-14.0)
--- NOTE | 2019-01-12 11:26 | RAD ---
Three-view left knee radiographs 01/12/2019 CLINICAL HISTORY: Left knee pain. AP, lateral and oblique digital radiographs of the left knee were obtained. Chondrocalcinosis is seen involving the medial and lateral compartments of the left knee. An acute comminuted fracture of the medial left tibial plateau is noted. The fracture fragments are slightly impacted. No additional fracture is seen. IMPRESSION: Acute comminuted fracture of the medial left tibial plateau. Electronically signed by: Fredis Cavazos MD (01/12/2019 11:23 AM) [id number]
--- NOTE | 2019-01-12 11:27 | RAD ---
Left lower extremity venous duplex study 01/12/2019 Clinical History: Left leg pain. Technique: Using a combination of real time ultrasound imaging and color-flow and pulse Doppler imaging techniques along with graded compression and augmentation, duplex evaluation of the deep venous system of the left lower extremity was performed. Multiple images were obtained. Findings: There is no sonographic evidence of deep venous thrombosis involving the visualized deep venous structures of the left lower extremity. Impression: Negative study. Electronically signed by: Fredis Cavazos MD (01/12/2019 11:24 AM) [place] [id number]
[2019-01-12 11:29] LABS: D-DIMER 1.06 ug/mlFEU (0.00-0.50)
[2019-01-12 11:30] LABS: CALCIUM 9.1 mg/dL (8.5-10.1); CREATININE 0.8 mg/dL (0.7-1.3); GFR 105.5; POTASSIUM 4.2 mmol/L (3.5-5.1)
[2019-01-12 11:36] LABS: ALBUMIN 3.4 g/dL (3.4-5.0); ALBUMIN/GLOBULIN RATIO 0.8 (1.0-1.7); MAGNESIUM 1.3 mg/dL (1.8-2.4); TOTAL BILIRUBIN 0.5 mg/dL (0.2-1.0); TOTAL PROTEIN 7.6 g/dL (6.4-8.2)
--- NOTE | 2019-01-12 11:50 | PHYS DOC ---
Past Medical History Past Medical History: Anemia, CHF, COPD, [place], Pneumonia Additional Past Medical Histor: chronic back pain Past Surgical History: Angioplasty, Coronary Bypass Surgery, Other Additional Past Surgical Histo: Triple bypass, 2 carpal tunnel sxs, 3 back sxs, R knee sx Smokin Pack Per Day Alcohol Use: Rarely Drug Use: None Adult General Chief Complaint Chief Complaint: SHORTNESS OF BREATH [facility] HPI Patient is a 43 year old male, accompanied by his significant other, with complaints of shortness of breath since 6:00 this morning. Patient states he signed himself out AGAINST MEDICAL ADVICE yesterday from [facility] in [facility]. Patient states he had been admitted for treatment of a left tibial plateau fracture. Patient states that approximately 3 days ago he felt a sharp pain in his left knee, he denies any injury, fall, or trauma to his left knee. He states he went to [facility] and was diagnosed with the tibial plateau fracture and admitted to the hospital for possible surgery. Patient states he became upset as they would not let him smoke cigarettes and he signed himself out AMA. He states that this morning he was doing nothing in particular when all of a sudden he felt short of breath so they decided to drive here for another evaluation. Patient denies any chest pain, palpitations, abdominal pain, back pain, nausea, vomiting, diarrhea, or fever. He also reports a dry cough and pain in his left calf with swelling to his left lower extremity. He is wearing a knee immobilizer that was placed by [facility]. Currently he rates his discomfort a 10 out of 10 on the pain scale, there are no alleviating factors. Patient states he does smoke about a pack of cigarettes a day. Review of Systems Review of Systems Constitutional: Denies fever or chills [] Eyes: Denies redness, or eye pain [] HENT: Denies nasal congestion or sore throat [] Respiratory: see history of present illness Cardiovascular: No additional information not addressed in HPI [] GI: Denies abdominal pain, nausea, vomiting, or diarrhea [] : Denies dysuria or hematuria [] Musculoskeletal: see history of present illness Integument: Denies rash or skin lesions [] Neurologic: Denies headache, focal weakness or sensory changes [] Complete systems were reviewed and found to be within normal limits, except as documented in this note. Current Medications Current Medications Current Medications Medications (Trade) Dose Ordered Sig/Josi Start Time Stop Time Status Last Admin Dose Admin Fentanyl Citrate (Fentanyl 2ml Vial) 50 mcg 1X ONCE 01/12/19 13:30 01/12/19 13:31 DC 01/12/19 13:40 50 MCG Iohexol (Omnipaque 350 Mg/ml) 100 ml 1X ONCE 01/12/19 12:00 01/12/19 12:01 DC 01/12/19 12:15 100 ML Ondansetron HCl (Zofran) 4 mg 1X ONCE 01/12/19 11:00 01/12/19 11:01 DC 01/12/19 11:17 4 MG Allergies Allergies Allergies Coded Allergies Type Severity Reaction Last Updated Verified morphine Allergy Intermediate rash 12/21/17 Yes piperacillin Allergy Intermediate Itching 12/23/18 Yes tazobactam Allergy Intermediate Itching 12/23/18 Yes vancomycin Allergy Intermediate Rash 04/06/18 Yes I S O L A T I O N *CONTACT* Allergy Unknown 04/09/18 Yes ketorolac Adverse Reaction Intermediate nausea and vomiting 12/21/17 Yes moxifloxacin Adverse Reaction Intermediate Nausea and Vomiting 12/21/17 Yes tramadol Adverse Reaction Intermediate nausea and vomiting 12/21/17 Yes Physical Exam Physical Exam Constitutional: Well developed, well nourished, no acute distress, non-toxic appearance, obese. [] HENT: Normocephalic, atraumatic, bilateral external ears normal, oropharynx moist, no oral exudates, nose normal. [] Eyes: conjunctiva normal, no discharge. [] Neck: Normal range of motion, no stridor. [] Cardiovascular:Heart rate regular rhythm, no murmur [] Lungs & Thorax: Bilateral breath sounds clear to auscultation, diminished in bases bilaterally posterior [] Abdomen: soft, no tenderness, no masses, no pulsatile masses. [] Skin: Warm, dry, no erythema, no rash. [] Extremities: No cyanosis, no clubbing; limited ROM left knee due to recent fracture, 1+ edema to lower left extremity, pedal and posterior tibial pulses 2+ lower left extremity Neurologic: Alert and oriented X 3, normal motor function, normal sensory function, no focal deficits noted. [] Psychologic: Affect normal, judgement normal, mood normal. [] Current Patient Data Vital Signs Vital Signs Date Time Temp Pulse Resp B/P (MAP) Pulse Ox O2 Delivery O2 Flow Rate FiO2 01/12/19 12:24 100 139/65 (89) 94 Nasal Cannula 2.0 01/12/19 10:29 98.5 22 98.5 Lab Values Laboratory Tests Test 01/12/19 10:55 White Blood Count 14.9 x10^3/uL (4.0-11.0) H Red Blood Count 4.09 x10^6/uL (4.30-5.70) L Hemoglobin 10.7 g/dL (13.0-17.5) L Hematocrit 33.6 % (39.0-53.0) L Mean Corpuscular Volume 82 fL (79-100) Mean Corpuscular Hemoglobin 26 pg (25-35) Mean Corpuscular Hemoglobin Concent 32 g/dL (31-37) Red Cell Distribution Width 21.1 % (11.5-14.5) H Platelet Count 251 x10^3/uL (140-400) Neutrophils (%) (Auto) 70 % (31-73) Lymphocytes (%) (Auto) 24 % (24-48) Monocytes (%) (Auto) 4 % (0-9) Eosinophils (%) (Auto) 1 % (0-3) Basophils (%) (Auto) 0 % (0-3) Neutrophils # (Auto) 10.4 x10^3uL (1.8-7.7) H Lymphocytes # (Auto) 3.6 x10^3/uL (1.0-4.8) Monocytes # (Auto) 0.6 x10^3/uL (0.0-1.1) Eosinophils # (Auto) 0.2 x10^3/uL (0.0-0.7) Basophils # (Auto) 0.0 x10^3/uL (0.0-0.2) Prothrombin Time 11.9 SEC (11.7-14.0) Prothrombin Time INR 0.9 (0.8-1.1) D-Dimer (Maryse) 1.06 ug/mlFEU (0.00-0.50) H Sodium Level 133 mmol/L (136-145) L Potassium Level 4.2 mmol/L (3.5-5.1) Chloride Level 96 mmol/L (98-107) L Carbon Dioxide Level 26 mmol/L (21-32) Anion Gap 11 (6-14) Blood Urea Nitrogen 9 mg/dL (8-26) Creatinine 0.8 mg/dL (0.7-1.3) Estimated GFR (Cockcroft-Gault) 105.5 BUN/Creatinine Ratio 11 (6-20) Glucose Level 99 mg/dL (70-99) Calcium Level 9.1 mg/dL (8.5-10.1) Magnesium Level 1.3 mg/dL (1.8-2.4) L Total Bilirubin 0.5 mg/dL (0.2-1.0) Aspartate Amino Transferase (AST) 51 U/L (15-37) H Alanine Aminotransferase (ALT) 44 U/L (16-63) Alkaline Phosphatase 99 U/L (46-116) Troponin I Quantitative 0.020 ng/mL (0.000-0.055) TO-Oqw-K-Type Natriuretic Peptide 103 pg/mL (0-124) Total Protein 7.6 g/dL (6.4-8.2) Albumin 3.4 g/dL (3.4-5.0) Albumin/Globulin Ratio 0.8 (1.0-1.7) L Laboratory Tests 01/12/19 10:55 Laboratory Tests 01/12/19 10:55 EKG EKG 1028- SR rate 100 bpm, no STEMI, read by Dr. Stroud. Radiology/Procedures Radiology/Procedures PROCEDURE: KNEE LEFT 3V Three-view left knee radiographs 01/12/2019 CLINICAL HISTORY: Left knee pain. AP, lateral and oblique digital radiographs of the left knee were obtained. Chondrocalcinosis is seen involving the medial and lateral compartments of the left knee. An acute comminuted fracture of the medial left tibial plateau is noted. The fracture fragments are slightly impacted. No additional fracture is seen. IMPRESSION: Acute comminuted fracture of the medial left tibial plateau.[] PROCEDURE: VENOUS LOWER EXTREMITY LEFT Left lower extremity venous duplex study 01/12/2019 Clinical History: Left leg pain. Technique: Using a combination of real time ultrasound imaging and color-flow and pulse Doppler imaging techniques along with graded compression and augmentation, duplex evaluation of the deep venous system of the left lower extremity was performed. Multiple images were obtained. Findings: There is no sonographic evidence of deep venous thrombosis involving the visualized deep venous structures of the left lower extremity. Impression: Negative study. PROCEDURE: CT ANGIOGRAPHY CHEST CT Angio chest 01/12/2019 10:47 AM Indication: Shortness of breath Technique: Multiple contiguous axial images were obtained through the chest after administration of intravenous iodinated contrast. Coronal, sagittal, and 3-D MIP reformations were created. Comparison: Chest radiograph, December 24, 2018 CT chest December 22, 2018 Findings: There is no filling defect within central pulmonary arteries or evidence of acute pulmonary embolism. Multifocal predominantly groundglass pulmonary infiltrates are seen involving all lobes. The degree of infiltrate however has actually decreased from December 22, 2018. Findings may represent residual /recurrent edema, versus pneumonia, and including infection with atypical organisms. Improving hypersensitivity pneumonitis could be considered. No pericardial effusion is identified. Prior median sternotomy noted. Coronary calcification is seen. Scattered mild mediastinal adenopathy is seen. Right hilar adenopathy is noted. Limited visualization of the upper abdomen demonstrates no acute abnormality. No acute osseous abnormalities are identified. IMPRESSION: 1.Improving multifocal, predominantly groundglass pulmonary infiltrates are seen involving all lobes. The Findings may represent residual /recurrent edema, versus pneumonia, and including infection with atypical organisms. Improving hypersensitivity pneumonitis could be considered.. 2. No evidence of acute pulmonary embolism is identified. Course & Med Decision Making Course & Med Decision Making Pertinent Labs and Imaging studies reviewed. (See chart for details) DX: Fx of Left tibial plateau, SOA DDx: PE, pneumomia Ct chest showed: decreased degree of infiltrate from previous CT December 22, 2018. Findings may represent residual /recurrent edema, versus pneumonia, and including infection with atypical organisms. Improving hypersensitivity pneumonitis could be considered. Negative for PE L Knee x-ray: Acute comminuted fracture of the medial left tibial plateau.[] LLE U/S: negative for DVT BNP 103, troponin 0.020, Na 133, Mg 1.3, AST 51 otherwise unremarkable, CBC: WBC 14.9 previous 24.1, Hgb 10.7 previous 10.6, HCT 33.6 previous 32.9 otherwise unremarkable. PT/INR normal, D-dimer 1.06 Pt was given 4 mg of zofran, 2 doses of 50 mcg of Fentanyl, and 1L NS in the department. Pt reported feeling better. 1321- Spoke with Dr. Garcia, per Dr. Garcia pt is appropriate for outpatient follow-up, continue to wear knee immobilizer and be non-weight bearing. Call To schedule appointment for this week. Prescription written for [place] 5/325 mg tablets #[address] Garcia this week, continue to wear home O2 as needed. Return to ER if symptoms worsen. Patient verbalized an understanding of home care, medications, follow-up, and return to ED instructions and was in agreement with the plan of care. Dragon Disclaimer Dragon Disclaimer This electronic medical record was generated, in whole or in part, using a voice recognition dictation system. Departure Departure Impression: Primary Impression: Fracture of left tibial plateau Additional Impression: Shortness of breath Disposition: HOME, SELF-CARE Condition: STABLE Referrals: OLIVIA FERRERA DO (PCP) MIAN GARCIA MD Patient Instructions: Tibial Plateau Fracture, Undisplaced, Adult Additional Instructions: Your chest CT is improved compared to the recent study last month. No weight bearing until follow-up with Dr. Garcia's office. Fill prescription and take as directed. Call Dr. Garcia's office to schedule follow-up this week. Return to the ER if symptoms worsen. Scripts Hydrocodone Bit/Acetaminophen (HYDROCODONE-APAP 5-325 ) 1 Tab Tablet 1 TAB PO PRN Q6HRS PRN for PAIN for 3 Days, #12 TAB 0 Refills Prov: THANIA GUTIERREZ JUNIOR SALES REPRESENTATIVE 01/12/19 Problem Qualifiers Primary Impression: Fracture of left tibial plateau Encounter type: initial encounter Fracture type: closed Qualified Codes: S82.142A - Displaced bicondylar fracture of left tibia, initial encounter for closed fracture THANIA GUTIERREZ JUNIOR SALES REPRESENTATIVE Jan 12, 2019 11:50
--- NOTE | 2019-01-12 11:51 | EKG ---
[facility] [address] [place] [address] Test Date: 2019-01-12 Test Time: 10:28:53 Pat Name: EMELIA AGUIAR Department: Room: Gender: M Inspector Mechanical: : 1975 Requested By: THANIA GUTIERREZ Order Number: [id number] Reading MD: Measurements Intervals [place] Rate: 100 P: 47 NM: 148 QRS: 43 QRSD: 100 T: -39 QT: 322 QTc: 418 Interpretive Statements SINUS RHYTHM LEFT ATRIAL ABNORMALITY LVH WITH REPOLARIZATION ABNORMALITY QRS(T) CONTOUR ABNORMALITY CONSIDER ANTEROSEPTAL MYOCARDIAL DAMAGE ABNORMAL ECG RI6.01 No previous ECG available for comparison
[2019-01-12] MEDS ORDERED: IOHEXOL 350 MG/ML 100 ML VIAL. IV ONE (12:00)
[2019-01-12 12:24] VITALS: BP 139/65
--- NOTE | 2019-01-12 12:43 | RAD ---
CT Angio chest 01/12/2019 10:47 AM Indication: Shortness of breath Technique: Multiple contiguous axial images were obtained through the chest after administration of intravenous iodinated contrast. Coronal, sagittal, and 3-D MIP reformations were created. Comparison: Chest radiograph, December 24, 2018 CT chest December 22, 2018 Findings: There is no filling defect within central pulmonary arteries or evidence of acute pulmonary embolism. Multifocal predominantly groundglass pulmonary infiltrates are seen involving all lobes. The degree of infiltrate however has actually decreased from December 22, 2018. Findings may represent residual /recurrent edema, versus pneumonia, and including infection with atypical organisms. Improving hypersensitivity pneumonitis could be considered. No pericardial effusion is identified. Prior median sternotomy noted. Coronary calcification is seen. Scattered mild mediastinal adenopathy is seen. Right hilar adenopathy is noted. Limited visualization of the upper abdomen demonstrates no acute abnormality. No acute osseous abnormalities are identified. IMPRESSION: 1.Improving multifocal, predominantly groundglass pulmonary infiltrates are seen involving all lobes. The Findings may represent residual /recurrent edema, versus pneumonia, and including infection with atypical organisms. Improving hypersensitivity pneumonitis could be considered.. 2. No evidence of acute pulmonary embolism is identified. CT DOSING PQRS STATEMENT: One or more of the following individualized dose reduction techniques were utilized for this examination: 1. Automated exposure control 2. Adjustment of the mA and/or kV according to patient size 3. Use of iterative reconstruction technique Electronically signed by: Kanu Hicks MD (01/12/2019 12:40 PM) [id number]
[2019-01-12] MEDS ORDERED: HYDR-2761 PO (13:44)
== END 2019-01-12 13:52 | disposition home or self-care (01) ==
LOC: ER 10:02
DX: S82.142D Displaced bicondylar fracture of left tibia, subsequent encounter for closed fracture with routine healing (principal); R06.02 Shortness of breath; M79.662 Pain in left lower leg; M25.562 Pain in left knee; R05 Cough; J44.9 Chronic obstructive pulmonary disease, unspecified; I25.2 Old myocardial infarction; G89.29 Other chronic pain; Z95.5 Presence of coronary angioplasty implant and graft; Z95.1 Presence of aortocoronary bypass graft; Z86.79 Personal history of other diseases of the circulatory system; Z98.890 Other specified postprocedural states; F17.210 Nicotine dependence, cigarettes, uncomplicated; Z88.1 Allergy status to other antibiotic agents; Z91.041 Radiographic dye allergy status; Z88.6 Allergy status to analgesic agent; Z88.5 Allergy status to narcotic agent; X58.XXXD Exposure to other specified factors, subsequent encounter
CPT/HCPCS: 36415; 71275; 73562; 80053; 83735; 83880; 84484; 85025; 85379; 85610; 93005; 93971; 96374; 96375; 96376; 99285; J2405; J3010; Q9967

== ENCOUNTER 2019-01-22 02:16 | Emergency (ER) | payer MEDICARE, MEDICAID ==
[~2019-01-22] VITALS: Ht 175.3 cm; Wt 86.2 kg
[~2019-01-22 02:16] MED LIST changes: +HYDR-2761 PO
[2019-01-22 02:20] VITALS: BP 149/61
[2019-01-22] MEDS ORDERED: IPRATRPIUM/ALBUTEROL 0.5/2.5MG 3 ML NEBU. NEB ONE (02:30)
--- NOTE | 2019-01-22 03:04 | PHYS DOC ---
Past Medical History Past Medical History: Anemia, CHF, COPD, [place], Pneumonia Additional Past Medical Histor: chronic back pain Past Surgical History: Angioplasty, Coronary Bypass Surgery, Other Additional Past Surgical Histo: Triple bypass, 2 carpal tunnel sxs, 3 back sxs, R knee sx Smoking: Greater than 1 pack/day Alcohol Use: Rarely Drug Use: Marijuana Adult General Chief Complaint Chief Complaint: SHORTNESS OF BREATH [facility] HPI Patient is a 43 year old [male] who presents with [shortness of air and left knee pain]. Pt reports his knee pain has gotten "3 times worse" since his last visit here at [facility] on 01/12/2019 (at which time his pain was a 10/10). At said visit pt had an x-ray of the left knee and it showed a tibial plateau fracture. Pt was instructed to see an orthopedist and not bear weight on that leg until seeing the orthopedist. Pt did not follow these instructions and reports walking around on it and the pain worsening. He has not seen an orthopedist. He states that he feels a "clicking/catching" in his knee when he walks, but is still able to put weight on the left leg. Pt then reports that he left [facility] at [place], [place] AGAINST MEDICAL ADVICE on 01/21/2019 in the AM. He states he was admitted for 5-7 days for pneumonia and Pt had a PICC line that was removed before his departure. Pt denies having home antibiotics prescribed for his pneumonia. He states his shortness of air has "Stayed the same, but not worse," since leaving [facility] 01/12/2019. He admits to headache and diarrhea. He denies chest pain, abdominal pain, and n/v. Review of Systems Review of Systems Constitutional: Denies fever or chills Eyes: Denies change in visual acuity, redness, or eye pain HENT: Denies nasal congestion or sore throat Respiratory: Denies cough or shortness of breath [Admits shortness of air] Cardiovascular: No additional information not addressed in HPI GI: Denies abdominal pain, nausea, vomiting, bloody stools [Admits diarrhea] : Denies dysuria or hematuria Musculoskeletal: Denies back pain or joint pain [Admits left knee pain and back pain] Integument: Denies rash or skin lesions Neurologic: Denies focal weakness or sensory changes [Admits MAYERS] Endocrine: Denies polyuria or polydipsia All other systems were reviewed and found to be within normal limits, except as documented in this note. Current Medications Current Medications Current Medications Medications (Trade) Dose Ordered Sig/Josi Start Time Stop Time Status Last Admin Dose Admin Albuterol/ Ipratropium (Duoneb) 3 ml 1X ONCE 01/22/19 02:30 01/22/19 02:39 DC 01/22/19 02:31 3 ML Oxycodone/ Acetaminophen (Percocet 5/325) 2 tab 1X ONCE 01/22/19 04:00 01/22/19 04:01 DC 01/22/19 03:28 2 TAB Allergies Allergies Allergies Coded Allergies Type Severity Reaction Last Updated Verified morphine Allergy Intermediate rash 12/21/17 Yes piperacillin Allergy Intermediate Itching 12/23/18 Yes tazobactam Allergy Intermediate Itching 12/23/18 Yes vancomycin Allergy Intermediate Rash 04/06/18 Yes I S O L A T I O N *CONTACT* Allergy Unknown 04/09/18 Yes ketorolac Adverse Reaction Intermediate nausea and vomiting 12/21/17 Yes moxifloxacin Adverse Reaction Intermediate Nausea and Vomiting 12/21/17 Yes tramadol Adverse Reaction Intermediate nausea and vomiting 12/21/17 Yes Physical Exam Physical Exam Constitutional: Well developed, well nourished, no acute distress, non-toxic appearance. [Looks older than stated age, unkempt] HENT: Normocephalic, atraumatic, bilateral external ears normal, oropharynx moist, no oral exudates, nose normal. [] Eyes: PERRLA, EOMI, conjunctiva normal, no discharge. [] Neck: Normal range of motion, no tenderness, supple, no stridor. [] Cardiovascular:Heart rate regular rhythm, no murmur [] Lungs & Thorax: [Mild inspiratory and expiratory wheezes heard in the upper and lower lung lobes b/l] Abdomen: Bowel sounds normal, soft, no tenderness, no masses, no pulsatile masses. [] Skin: Warm, dry, no erythema, no rash. [] Back: No tenderness, no CVA tenderness. [] Extremities: ttp left knee anteriorly, no deformity present. dsital pulse intact Neurologic: Alert and oriented X 3, normal motor function, normal sensory function, no focal deficits noted. [] Psychologic: Affect normal, judgement normal, mood normal. [] Current Patient Data Vital Signs Vital Signs Date Time Temp Pulse Resp B/P (MAP) Pulse Ox O2 Delivery O2 Flow Rate FiO2 01/22/19 04:05 84 21 96 Room Air 01/22/19 02:20 98.5 149/61 (90) 98.5 Lab Values Laboratory Tests Test 01/22/19 03:18 White Blood Count 12.0 x10^3/uL (4.0-11.0) H Red Blood Count 4.03 x10^6/uL (4.30-5.70) L Hemoglobin 10.3 g/dL (13.0-17.5) L Hematocrit 32.2 % (39.0-53.0) L Mean Corpuscular Volume 80 fL (79-100) Mean Corpuscular Hemoglobin 25 pg (25-35) Mean Corpuscular Hemoglobin Concent 32 g/dL (31-37) Red Cell Distribution Width 19.8 % (11.5-14.5) H Platelet Count 301 x10^3/uL (140-400) Neutrophils (%) (Auto) 55 % (31-73) Lymphocytes (%) (Auto) 35 % (24-48) Monocytes (%) (Auto) 7 % (0-9) Eosinophils (%) (Auto) 1 % (0-3) Basophils (%) (Auto) 2 % (0-3) Neutrophils # (Auto) 6.6 x10^3/uL (1.8-7.7) Lymphocytes # (Auto) 4.2 x10^3/uL (1.0-4.8) Monocytes # (Auto) 0.8 x10^3/uL (0.0-1.1) Eosinophils # (Auto) 0.1 x10^3/uL (0.0-0.7) Basophils # (Auto) 0.2 x10^3/uL (0.0-0.2) Sodium Level 141 mmol/L (136-145) Potassium Level 3.1 mmol/L (3.5-5.1) L Chloride Level 101 mmol/L (98-107) Carbon Dioxide Level 28 mmol/L (21-32) Anion Gap 12 (6-14) Blood Urea Nitrogen 21 mg/dL (8-26) Creatinine 1.0 mg/dL (0.7-1.3) Estimated GFR (Cockcroft-Gault) 81.6 BUN/Creatinine Ratio 21 (6-20) H Glucose Level 117 mg/dL (70-99) H Calcium Level 9.2 mg/dL (8.5-10.1) Total Bilirubin 0.3 mg/dL (0.2-1.0) Aspartate Amino Transferase (AST) 46 U/L (15-37) H Alanine Aminotransferase (ALT) 54 U/L (16-63) Alkaline Phosphatase 97 U/L (46-116) Troponin I Quantitative < 0.017 ng/mL (0.000-0.055) UD-Vmq-M-Type Natriuretic Peptide 303 pg/mL (0-124) H Total Protein 7.2 g/dL (6.4-8.2) Albumin 3.5 g/dL (3.4-5.0) Albumin/Globulin Ratio 0.9 (1.0-1.7) L Laboratory Tests 01/22/19 03:18 Laboratory Tests 01/22/19 03:18 EKG EKG Normal sinus rhythm rate of 79 EST changes or old same as January 12[] Radiology/Procedures Radiology/Procedures [] Impressions: Chest x-ray my interpretation better than before. There is some residual lateral infiltrate pattern but much much better than prior. Course & Med Decision Making Course & Med Decision Making Pertinent Labs and Imaging studies reviewed. (See chart for details) [Pt is a 43 yo male with an extensive medical history presenting with worsening left knee pain and shortness of air. Pt presented with these same symptoms here at [facility] on 01/12/2019 and had a tibial plateau fracture on X-Ray of the left knee. Pt was instructed to not bare weight on this leg until seeing an orthopedist and pt did not either of these instructions. He was admitted to [facility] in [place], [place] for 6-7 days between this visit and his last on 01/12/2019 for treatment of pneumonia (pt left AGAINST MEDICAL ADVICE from [facility] on 01/21/2019). His CXR ordered at this visit looks improved compared to the CXR on 01/12/2019. His O2 sat on room air was sitting around 95-100% throughout the H&P. He had mild wheezing on auscultation of the lungs in all lung singh b/l. He is tender to palpation at the medial aspect of his distal femur extending to the proximal portion of his tibia. The joint does not look overtly deformed and there is no edema.] Patient reports no knowledge or memory of the January 12 visit here where he was seen and extensively evaluated by our team. I did tell him the importance of nonweightbearing status on his leg he said that he didn't even know he broke his knee despite documentation in our system that he had been admitted to an outside hospital as well as been seen here for that. Regarding his respiratory status had mild wheezing his sat was normal on room air this chest x-ray looked better to give him a prescription for doxycycline but I think that is stable at this time. Regarding his knee we did give him a knee mobilizer and crutches and I did give him again follow-up with orthopedics, I recommended a repeat the x-ray to evaluate to see if any changes in the anatomy but he declined that x-ray did not want to be done. Overall The patient has had issues with noncompliance Dragon Disclaimer Dragon Disclaimer This electronic medical record was generated, in whole or in part, using a voice recognition dictation system. Departure Departure Impression: Primary Impression: Fracture of left tibial plateau Disposition: HOME, SELF-CARE Condition: STABLE Referrals: OLIVIA FERRERA DO (PCP) Scripts Doxycycline Hyclate (DOXYCYCLINE HYCLATE) 100 Mg Capsule 1 CAP PO BID, #14 CAP Prov: JEFFY RIVAS MD 01/22/19 JEFFY RIVAS MD Jan 22, 2019 03:04
[2019-01-22 03:32] LABS: BASO # 0.2 x10^3/uL (0.0-0.2); BASO % 2 % (0-3); EOS # 0.1 x10^3/uL (0.0-0.7); EOS % 1 % (0-3); HEMATOCRIT 32.2 % (39.0-53.0); HEMOGLOBIN 10.3 g/dL (13.0-17.5); LYMPH # 4.2 x10^3/uL (1.0-4.8); LYMPH % 35 % (24-48); MEAN CORPUSCULAR HEMOGLOBIN 25 pg (25-35); MEAN CORPUSCULAR HGB CONC 32 g/dL (31-37); MEAN CORPUSCULAR VOLUME 80 fL (79-100); MONO # 0.8 x10^3/uL (0.0-1.1); MONO % 7 % (0-9); NEUT # 6.6 x10^3/uL (1.8-7.7); NEUT % 55 % (31-73); PLATELET COUNT 301 x10^3/uL (140-400); RED BLOOD COUNT 4.03 x10^6/uL (4.30-5.70); RED CELL DISTRIBUTION WIDTH 19.8 % (11.5-14.5)
[2019-01-22 03:39] LABS: CALCIUM 9.2 mg/dL (8.5-10.1); GFR 81.6; POTASSIUM 3.1 mmol/L (3.5-5.1)
[2019-01-22 03:45] LABS: ALBUMIN 3.5 g/dL (3.4-5.0); ALBUMIN/GLOBULIN RATIO 0.9 (1.0-1.7); TOTAL BILIRUBIN 0.3 mg/dL (0.2-1.0); TOTAL PROTEIN 7.2 g/dL (6.4-8.2)
[2019-01-22] MEDS ORDERED: oxyCODONE/APAP 5/325 1 TAB TABLET PO ONE (04:00)
[2019-01-22] MEDS ORDERED: DOXY100C2 PO (04:08)
--- NOTE | 2019-01-22 07:36 | RAD ---
Indication: Shortness of breath, cough TECHNIQUE: Single AP view of the chest COMPARISON: 12/24/2018 FINDINGS: CABG changes noted. Heart is normal in size. Diffuse bilateral interstitial opacities. No pneumothorax or pleural effusion. Visualized bony thorax within normal limits. IMPRESSION: Diffuse bilateral interstitial opacities may be secondary to interstitial pulmonary edema or atypical/viral infection. Electronically signed by: Reginald Florian DO (01/22/2019 7:34 AM) [facility]
--- NOTE | 2019-01-22 13:40 | EKG ---
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
== END 2019-01-22 04:16 | disposition home or self-care (01) ==
LOC: ER 02:16
DX: S82.142A Displaced bicondylar fracture of left tibia, initial encounter for closed fracture (principal); R06.02 Shortness of breath; R51 Headache; R19.7 Diarrhea, unspecified; M54.9 Dorsalgia, unspecified; J44.9 Chronic obstructive pulmonary disease, unspecified; I25.2 Old myocardial infarction; G89.29 Other chronic pain; Z86.79 Personal history of other diseases of the circulatory system; Z95.1 Presence of aortocoronary bypass graft; Z95.5 Presence of coronary angioplasty implant and graft; F17.200 Nicotine dependence, unspecified, uncomplicated; Z88.1 Allergy status to other antibiotic agents; Z88.5 Allergy status to narcotic agent; Z88.6 Allergy status to analgesic agent; Z91.041 Radiographic dye allergy status; X58.XXXA Exposure to other specified factors, initial encounter; Y93.89 Activity, other specified; Y92.89 Other specified places as the place of occurrence of the external cause; Y99.8 Other external cause status
CPT/HCPCS: 29505; 36415; 71045; 80053; 83880; 84484; 85025; 93005; 94640; 99285; J7620

== ENCOUNTER 2019-01-25 06:43 | Inpatient (IN) | payer MEDICARE, MEDICAID ==
[~2019-01-25] VITALS: Ht 175.3 cm; Wt 86.2 kg
[2019-01-25] MEDS ORDERED: IPRATRPIUM/ALBUTEROL 0.5/2.5MG 3 ML NEBU. NEB ONE ×2 (07:30→08:00)
[2019-01-25 07:45] LABS: BASO # 0.2 x10^3/uL (0.0-0.2); BASO % 1 % (0-3); EOS # 0.1 x10^3/uL (0.0-0.7); EOS % 1 % (0-3); HEMATOCRIT 32.6 % (39.0-53.0); HEMOGLOBIN 10.4 g/dL (13.0-17.5); LYMPH # 4.5 x10^3/uL (1.0-4.8); LYMPH % 24 % (24-48); MEAN CORPUSCULAR HEMOGLOBIN 25 pg (25-35); MEAN CORPUSCULAR HGB CONC 32 g/dL (31-37); MEAN CORPUSCULAR VOLUME 79 fL (79-100); MONO # 1.1 x10^3/uL (0.0-1.1); MONO % 6 % (0-9); NEUT # 12.7 x10^3/uL (1.8-7.7); NEUT % 69 % (31-73); PLATELET COUNT 260 x10^3/uL (140-400); RED BLOOD COUNT 4.13 x10^6/uL (4.30-5.70); RED CELL DISTRIBUTION WIDTH 20.6 % (11.5-14.5); WHITE BLOOD COUNT 18.5 x10^3/uL (4.0-11.0)
[2019-01-25 07:56] LABS: CALCIUM 9.2 mg/dL (8.5-10.1); CREATININE 0.9 mg/dL (0.7-1.3); GFR 92.1
[2019-01-25] MEDS ORDERED: oxyCODONE/APAP 10/325 1 TAB TABLET PO ONE (08:00)
[2019-01-25 08:01] LABS: POTASSIUM 2.8 mmol/L (3.5-5.1)
--- NOTE | 2019-01-25 08:20 | RAD ---
CHEST PA LATERAL History: Cough and shortness of breath Comparison: 01/22/2019 Portable Chest X-ray Exam. Findings: Sternal wires and mediastinal clips are present. Epicardial leads noted. The cardiomediastinal silhouette is borderline. Mild pulmonary vasculature congestion and interstitial edema noted. No definite focal consolidation. No pleural effusion or pneumothorax is seen. There is no acute bone abnormality. IMPRESSION: Congestive heart failure. No focal consolidation.. Electronically signed by: Jamar Montenegro MD (01/25/2019 8:17 AM) [id number]
[2019-01-25] MEDS ORDERED: POTASSIUM CHLORIDE 20 MEQ TABLET.ER. PO ONE (08:30)
[2019-01-25] MEDS ORDERED: IOHEXOL 350 MG/ML 100 ML VIAL. IV ONE (08:30)
[2019-01-25] MEDS ORDERED: CONTRAST GIVEN. MC PRN (08:30)
--- NOTE | 2019-01-25 08:30 | PHYS DOC ---
Past Medical History Past Medical History: Anemia, CHF, COPD, [place], Pneumonia Additional Past Medical Histor: chronic back pain Past Surgical History: Angioplasty, Coronary Bypass Surgery, Other Additional Past Surgical Histo: Triple bypass, 2 carpal tunnel sxs, 3 back sxs, R knee sx Alcohol Use: Rarely Drug Use: Marijuana Adult General Chief Complaint Chief Complaint: SHORTNESS OF BREATH HPI HPI Patient is a 43 year old male who presents the ER for evaluation. Patient with recent frequent hospitalizations. Patient has had hospitalizations for recurrent bilateral pulmonary infiltrates and on pulmonology evaluation these are thought to be noninfectious and there is questionable autoimmune pathology with recommendations for outpt lung biopsy. This has been responsive to steroids and pt d/c with Prednisone 30mg which he tapered of ?10 days ago. Patient also has history of COPD and he continues to smoke. Patient wears 2-4 L of nasal cannula O2 chronically. Patient here with complaint of increased shortness of breath, patient reports significant dizziness with exertion over the past 3-4 days. Patient reports compliance with home medications. Patient denies any improvement with breathing treatments. Patient denies any chest pain. Patient also with Tibial Plateau fracture to L knee and c/o pain there. pt is non-complaint with non weight bearing recommendations. Review of Systems Review of Systems Constitutional: Denies fever or chills [] Eyes: Denies change in visual acuity, redness, or eye pain [] HENT: Denies nasal congestion or sore throat [] Respiratory: Denies cough or shortness of breath [] Cardiovascular: No chest pain, +LE edema, GI: Denies abdominal pain, nausea, vomiting, bloody stools or diarrhea [] : Denies dysuria or hematuria [] Musculoskeletal: Denies back pain or joint pain [] Integument: Denies rash or skin lesions [] Neurologic: Denies headache, focal weakness or sensory changes [] Endocrine: Denies polyuria or polydipsia [] All other systems were reviewed and found to be within normal limits, except as documented in this note. Current Medications Current Medications Current Medications Medications (Trade) Dose Ordered Sig/Josi Start Time Stop Time Status Last Admin Dose Admin Albuterol/ Ipratropium (Duoneb) 6 ml 1X ONCE 01/25/19 08:00 01/25/19 08:01 DC 01/25/19 07:31 6 ML Info (CONTRAST GIVEN -- Rx MONITORING) 1 each PRN DAILY PRN 01/25/19 08:30 01/27/19 08:29 Iohexol (Omnipaque 350 Mg/ml) 100 ml 1X ONCE 01/25/19 08:30 01/25/19 08:31 DC Lorazepam (Ativan) 0.5 mg 1X ONCE 01/25/19 09:15 01/25/19 09:16 DC 01/25/19 09:16 0.5 MG Methylprednisolone Sodium Succinate (SOLU-Medrol 125MG VIAL) 60 mg 1X ONCE 01/25/19 09:15 01/25/19 09:16 DC 01/25/19 09:20 60 MG Nicotine (Nicoderm Cq 21mg) 1 patch 1X STAT 01/25/19 09:33 01/25/19 09:35 DC Oxycodone/ Acetaminophen (Percocet 10/325) 1 tab 1X ONCE 01/25/19 08:00 01/25/19 08:01 DC 01/25/19 08:09 1 TAB Potassium Chloride (Klor-Con) 40 meq 1X ONCE 01/25/19 08:30 01/25/19 08:31 DC 01/25/19 09:16 40 MEQ Allergies Allergies Allergies Coded Allergies Type Severity Reaction Last Updated Verified morphine Allergy Intermediate rash 12/21/17 Yes piperacillin Allergy Intermediate Itching 12/23/18 Yes tazobactam Allergy Intermediate Itching 12/23/18 Yes vancomycin Allergy Intermediate Rash 04/06/18 Yes I S O L A T I O N *CONTACT* Allergy Unknown 04/09/18 Yes ketorolac Adverse Reaction Intermediate nausea and vomiting 12/21/17 Yes moxifloxacin Adverse Reaction Intermediate Nausea and Vomiting 12/21/17 Yes tramadol Adverse Reaction Intermediate nausea and vomiting 12/21/17 Yes Physical Exam Physical Exam Constitutional: agitated, anxious, chronically ill appearing, appears significantly older than stated age. HENT: Normocephalic, atraumatic, Eyes: PERRLA, EOMI, Neck: Normal range of motion, no tenderness, supple, no stridor. [] Cardiovascular:Tachycardic Lungs & Thorax: Diffusely diminished Abdomen: Bowel sounds normal, soft, no tenderness, no masses, no pulsatile masses. [] Skin: Warm, dry, no erythema, no rash. [] Back: No tenderness, Extremities: LLE in knee immobilizer. +1 pitting edema to bilateral LE Neurologic: Alert and oriented X 3,, no focal deficits noted. [] Psychologic: Anxious, intermittently agitated, judgement normal, mood normal. [] Current Patient Data Vital Signs Vital Signs Date Time Temp Pulse Resp B/P (MAP) Pulse Ox O2 Delivery O2 Flow Rate FiO2 01/25/19 07:50 82 Nasal Cannula 2.0 01/25/19 06:45 98.5 96 24 108/78 (88) 98.5 Lab Values Laboratory Tests Test 01/25/19 07:20 White Blood Count 18.5 x10^3/uL (4.0-11.0) H Red Blood Count 4.13 x10^6/uL (4.30-5.70) L Hemoglobin 10.4 g/dL (13.0-17.5) L Hematocrit 32.6 % (39.0-53.0) L Mean Corpuscular Volume 79 fL (79-100) Mean Corpuscular Hemoglobin 25 pg (25-35) Mean Corpuscular Hemoglobin Concent 32 g/dL (31-37) Red Cell Distribution Width 20.6 % (11.5-14.5) H Platelet Count 260 x10^3/uL (140-400) Neutrophils (%) (Auto) 69 % (31-73) Lymphocytes (%) (Auto) 24 % (24-48) Monocytes (%) (Auto) 6 % (0-9) Eosinophils (%) (Auto) 1 % (0-3) Basophils (%) (Auto) 1 % (0-3) Neutrophils # (Auto) 12.7 x10^3/uL (1.8-7.7) H Lymphocytes # (Auto) 4.5 x10^3/uL (1.0-4.8) Monocytes # (Auto) 1.1 x10^3/uL (0.0-1.1) Eosinophils # (Auto) 0.1 x10^3/uL (0.0-0.7) Basophils # (Auto) 0.2 x10^3/uL (0.0-0.2) Segmented Neutrophils % 66 % (35-66) Band Neutrophils % 3 % (0-9) Lymphocytes % 25 % (24-48) Monocytes % 5 % (0-10) Eosinophils % 1 % (0-5) Nucleated Red Blood Cells 1 Platelet Estimate Adequate (ADEQUATE) Polychromasia Occasional Anisocytosis Slight D-Dimer (Maryse) 0.71 ug/mlFEU (0.00-0.50) H Sodium Level 139 mmol/L (136-145) Potassium Level 2.8 mmol/L (3.5-5.1) *L Chloride Level 100 mmol/L (98-107) Carbon Dioxide Level 25 mmol/L (21-32) Anion Gap 14 (6-14) Blood Urea Nitrogen 20 mg/dL (8-26) Creatinine 0.9 mg/dL (0.7-1.3) Estimated GFR (Cockcroft-Gault) 92.1 Glucose Level 117 mg/dL (70-99) H Calcium Level 9.2 mg/dL (8.5-10.1) Troponin I Quantitative 0.022 ng/mL (0.000-0.055) FL-Fup-N-Type Natriuretic Peptide 365 pg/mL (0-124) H Laboratory Tests 01/25/19 07:20 Laboratory Tests 01/25/19 07:20 EKG EKG []0806: Normal sinus rhythm, heart rate 101, no significant ST segment changes, significant artifact. Radiology/Procedures Radiology/Procedures CT Angio IMPRESSION: 1. Suboptimal examination for the evaluation of acute pulmonary embolus. Within these constraints: No large central pulmonary emboli seen. The pulmonary artery branches are not adequately assessed. 2. Bilateral groundglass airspace opacities are seen likely infectious or inflammatory process. The nodular opacities seen bilaterally may also be related to the aforementioned diffuse process however imaging follow-up to resolution is recommended to exclude underlying lung nodule or mass. Electronically signed by: Yuri Bowser MD (01/25/2019 9:27 AM) [facility] [] CXR IMPRESSION: Congestive heart failure. No focal consolidation.. Course & Med Decision Making Course & Med Decision Making Pertinent Labs and Imaging studies reviewed. (See chart for details) Patient with significant drop in O2 saturation with minimal activity while being transported on oxygen for x-ray and CT into. He at no point ambulated and was on his oxygen but his oxygen level drops to 8182% and he was symptomatic with some dizziness. Unable to completely orthostatic secondary to patient noncompliance as well as patient's tibial plateau fracture. Patient was unwill ing to lie supine for vital signs. CT angiogram to rule out PE. Poor study secondary to poorly timed bolus but no central emboli. Patient does not have any signs of an acute infection that would indicate antibiotics. Patient has been off steroids for about 10 days. Will start IV Solu-Medrol. No improvement with breathing treatment in the ER. Troponin slightly elevated. No EKG changes. Will admit for continued management. Discussed with Dr. Ojeda who is agreeable to hospitalization. Dragon Disclaimer Dragon Disclaimer This electronic medical record was generated, in whole or in part, using a voice recognition dictation system. Departure Departure Impression: Primary Impression: COPD exacerbation Additional Impressions: ARDS (adult respiratory distress syndrome) Hypokalemia Elevated troponin Disposition: ADMITTED INPATIENT Admitting Physician: RICHARD Condition: GUARDED Referrals: OLIVIA FERRERA DO (PCP) Problem Qualifiers OSMAN COOPER DO Jan 25, 2019 08:30
[2019-01-25 08:46] LABS: % BANDS 3 % (0-9); % EOS 1 % (0-5); % LYMPHS 25 % (24-48); % MONOS 5 % (0-10); % SEGS 66 % (35-66)
[2019-01-25 08:47] LABS: ANISOCYTOSIS SLIGHT; NUCLEATED RBC 1; PLT ESTIMATE ADEQUATE (ADEQUATE); POLYCHROMASIA OCCASIONAL
[2019-01-25] MEDS ORDERED: LORazepam 0.5 MG TABLET PO ONE (09:15)
[2019-01-25] MEDS ORDERED: methylPREDNISolone SOD SUCC PF 125 MG/2 ML VIAL. IV ONE (09:15)
--- NOTE | 2019-01-25 09:30 | RAD ---
EXAM: CT chest with contrast - pulmonary embolus protocol CLINICAL HISTORY: Shortness of breath, chest pain COMPARISON: None. TECHNIQUE: CT of the chest following the administration of intravenous contrast during the pulmonary arterial phase. Axial, coronal and sagittal reformatted images were generated including MIP images. ---PQRS compliance statement - One or more of the following individualized dose reduction techniques were utilized for this study: 1. Automated exposure control 2. Adjustment of the mA and/or kV according to patient size 3. Use of iterative reconstruction technique--- FINDINGS: CHEST: Diagnostic quality: Suboptimal with suboptimal contrast bolus timing and motion artifact limiting evaluation. Pulmonary emboli: No large central pulmonary emboli seen. The pulmonary artery branches are not adequately assessed. Right heart strain: None Pulmonary arteries: Normal in caliber. Heart is mildly enlarged. Cord artery calcifications are seen. Changes of CABG are noted. No pleural effusion or pneumothorax. Visualized thyroid is grossly unremarkable. Prominent and borderline enlarged mediastinal and hilar lymph nodes are seen. For example a precarinal lymph node measures 1.2 x 1.2 cm. Subcarinal lymph node measures 1.5 x 1.1 cm. Bilateral groundglass airspace opacities are seen. Several solid and groundglass nodular opacities are seen particularly in the lower lobes measuring 7-10 mm. Visualized Upper abdomen: Visualized upper abdomen is grossly unremarkable. Bones: Degenerative changes of the spine are seen. Serpentine sclerosis of the humeral heads bilaterally from osteonecrosis without collapse. Evaluation of the osseous structures limited given MIP reconstructions. IMPRESSION: 1. Suboptimal examination for the evaluation of acute pulmonary embolus. Within these constraints: No large central pulmonary emboli seen. The pulmonary artery branches are not adequately assessed. 2. Bilateral groundglass airspace opacities are seen likely infectious or inflammatory process. The nodular opacities seen bilaterally may also be related to the aforementioned diffuse process however imaging follow-up to resolution is recommended to exclude underlying lung nodule or mass. Electronically signed by: Yuri Bowser MD (01/25/2019 9:27 AM) [facility]
[2019-01-25] MEDS ORDERED: NICOTINE 21MG PATCH. TD STA (09:33)
--- NOTE | 2019-01-25 09:49 | EKG ---
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
[2019-01-25] MEDS ORDERED: guaiFENesin DM 200MG/20MG 10 ML SYRUP PO PRN (12:00)
[2019-01-25] MEDS ORDERED: NITROGLYCERIN SUBLINGUAL 0.4 MG BOTTLE OF 25. SL PRN (12:00)
[2019-01-25] MEDS ORDERED: ONDANSETRON PF 4 MG/2 ML VIAL. IV PRN (12:00)
[2019-01-25] MEDS ORDERED: fentaNYL PF VIAL 100 MCG/2 ML VIAL IV PRN (12:00)
[2019-01-25] MEDS ORDERED: HYDROcodone/APAP 5/325MG 1 TAB TABLET PO PRN (12:00)
[2019-01-25] MEDS ORDERED: ALPRAZolam 0.5 MG TABLET PO PRN (12:00)
--- NOTE | 2019-01-25 12:10 | PDOC1 ---
History and Physical Date of Admission Date of Admission DATE: 01/25/19 TIME: 12:02 Identification/Chief Complaint Chief Complaint soa, cough, left leg hurts - recent fx Source Source: Caregiver, Chart review, Patient History of Present Illness History of Present Illness 43-year-old white male, history of COPD and continues to smoke, CHF, diastolic, question the compliance. Not the best historian. Has been here multiple times in the last few months for COPD or mild CHF flare, HX CABG. ALso chronic back pain with prev back sxs (huge long midline back scar). Known to pulmonary service comes in because of pulmonary symptoms- SOA,phlegm but no fever. Most recently he fractured his left knee has a left leg brace seems to be seen or was seen at our ER for that, and has a follow-up with a different/outside orthopedics? Again not the best historian but that is most bothersome to him. 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 Most bothersome to him is the breathing and the left knee. X-ray does verify a tibial fracture which I have reviewed in January 2019 Okay to DC telemetry with the above consults Okay for regular diet. Supposed to follow up with pulmonary as instructed last time but failed to do so CT IMPRESSION: 1. Suboptimal examination for the evaluation of acute pulmonary embolus. Within these constraints: No large central pulmonary emboli seen. The pulmonary artery branches are not adequately assessed. 2. Bilateral groundglass airspace opacities are seen likely infectious or inflammatory process. The nodular opacities seen bilaterally may also be related to the aforementioned diffuse process however imaging follow-up to resolution is recommended to exclude underlying lung nodule or mass. Past Medical History Cardiovascular: CAD, HTN, HI, Hyperlipidemia Pulmonary: COPD, Pneumonia CENTRAL NERVOUS SYSTEM: Carpal Tunnel Syndrome GI: GERD Heme/Onc: No pertinent hx Hepatobiliary: No pertinent hx Psych: Anxiety Musculoskeletal: low back pain, Osteoarthritis Infectious disease: No pertinent hx Renal/: No pertinent hx Endocrine: Other Past Surgical History Past Surgical History: CABG, Other Family History Family History: Chronic Bronchitis, Coronary Artery Disease, High Cholestrol, Hypertension Social History Smoke: <1 pack per day ALCOHOL: none Drugs: None Current Problem List Problem List Problems Medical Problems: (1) ARDS (adult respiratory distress syndrome) Status: Acute (2) COPD exacerbation Status: Acute (3) Elevated troponin Status: Acute (4) Hypokalemia Status: Acute Current Medications Current Medications Current Medications Albuterol/ Ipratropium (Duoneb) 5 ml 1X ONCE NEB ; Start 01/25/19 at 07:30; Stop 01/25/19 at 07:54; Status DC Oxycodone/ Acetaminophen (Percocet 10/325) 1 tab 1X ONCE PO Last administered on 01/25/19at 08:09; Start 01/25/19 at 08:00; Stop 01/25/19 at 08:01; Status DC Albuterol/ Ipratropium (Duoneb) 6 ml 1X ONCE NEB Last administered on 01/25/19at 07:31; Start 01/25/19 at 08:00; Stop 01/25/19 at 08:01; Status DC Potassium Chloride (Klor-Con) 40 meq 1X ONCE PO Last administered on 01/25/19at 09:16; Start 01/25/19 at 08:30; Stop 01/25/19 at 08:31; Status DC Iohexol (Omnipaque 350 Mg/ml) 100 ml 1X ONCE IV Last administered on 01/25/19at 08:30; Start 01/25/19 at 08:30; Stop 01/25/19 at 08:31; Status DC Info (CONTRAST GIVEN -- Rx MONITORING) 1 each PRN DAILY PRN MC SEE COMMENTS; Start 01/25/19 at 08:30; Stop 01/27/19 at 08:29 Lorazepam (Ativan) 0.5 mg 1X ONCE PO Last administered on 01/25/19at 09:16; Start 01/25/19 at 09:15; Stop 01/25/19 at 09:16; Status DC Methylprednisolone Sodium Succinate (SOLU-Medrol 125MG VIAL) 60 mg 1X ONCE IV Last administered on 01/25/19at 09:20; Start 01/25/19 at 09:15; Stop 01/25/19 at 09:16; Status DC Nicotine (Nicoderm Cq 21mg) 1 patch 1X STAT TD Last administered on 01/25/19at 10:06; Start 01/25/19 at 09:33; Stop 01/25/19 at 09:35; Status DC Active Scripts Active Doxycycline Hyclate 100 Mg Capsule 1 Cap PO BID Hydrocodone-Apap 5-325 (Hydrocodone Bit/Acetaminophen) 1 Tab Tablet 1 Tab PO PRN Q6HRS PRN 3 Days Clotrimazole 10 Mg Nilson 1 Tab PO TID 14 Days Doxycycline Hyclate 100 Mg Tablet 100 Mg PO BID 7 Days [Nicotine 14MG] 1 PATCH Patch 1 Patch TD PRN DAILY PRN 30 Days Duoneb 0.5-3(2.5) Mg/3 Ml (Albuterol/Ipratropium) 3 Ml Ampul.neb 3 Ml NEB RTQID 30 Days Culturelle (Lactobacillus Rhamnosus Gg) 1 Each Cap.sprink 1 Cap PO BID 14 Days Proair Hfa Inhaler (Albuterol Sulfate) 8.5 Gm Hfa.aer.ad 1 Puff INH PRN Q6HRS PRN Furosemide 40 Mg Tablet 40 Mg PO DAILY 30 Days Feosol (Ferrous Sulfate) 325 Mg Tablet 325 Mg PO BIDWMEALS 30 Days Reported Alprazolam 0.5 Mg Tablet 0.5 Mg PO PRN BID PRN Prednisolone Acetate 5 Ml Drops.susp 1 Drop EACHEYE QID Prednisone 20 Mg Tablet 30 Mg PO DAILY 90 Days Hydromorphone Hcl 4 Mg Tablet 4 Mg PO PRN Q6HRS PRN Aspirin 81 Mg Tab.chew 1 Tab PO DAILY Klor-Con 10 (Potassium Chloride) 10 Meq Tablet.er 1 Tab PO DAILY Hydromorphone ER (Hydromorphone HCl) 8 Mg Tab.er.24h 8 Mg PO DAILY Metoprolol Succinate ( Xl ) (Metoprolol Succinate) 25 Mg Tab.er.24h 25 Mg PO BID Atorvastatin Calcium 80 Mg Tablet 80 Mg PO HS Protonix (Pantoprazole Sodium) 20 Mg Tablet.dr 20 Mg PO BID Buspirone Hcl 7.5 Mg Tablet 7.5 Mg PO TID Bupropion Hcl 75 Mg Tablet 75 Mg PO TID Symbicort 160-4.5 Mcg Inhaler (Budesonide/Formoterol Fumarate) 10.2 Gm Hfa.aer.ad 2 Puff IH BID Baclofen 10 Mg Tablet 1 Tab PO PRN TID Melatonin 3 Mg Tablet 1 Tab PO QHS Nitrostat (Nitroglycerin) 0.4 Mg Tab.subl 0.4 Mg SL PRN Q5MIN PRN Promethazine Hcl 25 Mg Tablet 25 Mg PO Q6H PRN Fenofibrate (Fenofibrate Nanocrystallized) 48 Mg Tablet 48 Mg PO DAILY Fluoxetine Hcl 20 Mg Capsule 1 Cap PO DAILY Gabapentin 600 Mg Tablet 3 Tab PO BID Allergies Allergies: Coded Allergies: morphine (Verified Allergy, Intermediate, rash, 12/21/17) Tolerates oxycodone piperacillin (Verified Allergy, Intermediate, Itching, 12/23/18) tazobactam (Verified Allergy, Intermediate, Itching, 12/23/18) vancomycin (Verified Allergy, Intermediate, Rash, 04/06/18) I S O L A T I O N *CONTACT* (Verified Allergy, Unknown, 04/09/18) +MRSA nares 04/06/18 ketorolac (Verified Adverse Reaction, Intermediate, nausea and vomiting, 12/21/17) moxifloxacin (Verified Adverse Reaction, Intermediate, Nausea and Vomiting, 12/21/17) tramadol (Verified Adverse Reaction, Intermediate, nausea and vomiting, 12/21/17) ROS Review of System left knee hurts, SOA, phlegm, no chest pain, no abdominal symptoms, no fever, the rest of ROS 14 point negative Physical Exam General: No acute distress HEENT: Atraumatic, PERRLA Lungs: Normal air movement, Other (no wheezing, no crackles, equal air entry but diminished breath sounds) Heart: S1S2, RRR, no thrills, no rubs, no gallops, no murmurs Cardiovascular: S1, S2 Abdomen: Normal bowel sounds, Soft, No tenderness, No hepatosplenomegaly, No masses Male Genitals Exam: normal genitalia, normal prostate Rectal Exam: not examined PELVIC: Nml ext genitalia Extremities: Other (left leg brace) Skin: No rashes, No breakdown, No significant lesion Neuro: Normal gait, Normal speech, Strength at 5/5 X4 ext, Normal tone, Sensation intact, Cranial nerves 3-12 NL, Reflexes 2+ Psych/Mental Status: Mental status NL, Mood NL Vitals Vitals Vital Signs Date Time Temp Pulse Resp B/P (MAP) Pulse Ox O2 Delivery O2 Flow Rate FiO2 01/25/19 07:50 82 Nasal Cannula 2.0 01/25/19 06:45 98.5 96 24 108/78 (88) 98.5 Labs Labs Laboratory Tests Test 01/25/19 07:20 White Blood Count 18.5 x10^3/uL (4.0-11.0) Red Blood Count 4.13 x10^6/uL (4.30-5.70) Hemoglobin 10.4 g/dL (13.0-17.5) Hematocrit 32.6 % (39.0-53.0) Mean Corpuscular Volume 79 fL (79-100) Mean Corpuscular Hemoglobin 25 pg (25-35) Mean Corpuscular Hemoglobin Concent 32 g/dL (31-37) Red Cell Distribution Width 20.6 % (11.5-14.5) Platelet Count 260 x10^3/uL (140-400) Neutrophils (%) (Auto) 69 % (31-73) Lymphocytes (%) (Auto) 24 % (24-48) Monocytes (%) (Auto) 6 % (0-9) Eosinophils (%) (Auto) 1 % (0-3) Basophils (%) (Auto) 1 % (0-3) Neutrophils # (Auto) 12.7 x10^3/uL (1.8-7.7) Lymphocytes # (Auto) 4.5 x10^3/uL (1.0-4.8) Monocytes # (Auto) 1.1 x10^3/uL (0.0-1.1) Eosinophils # (Auto) 0.1 x10^3/uL (0.0-0.7) Basophils # (Auto) 0.2 x10^3/uL (0.0-0.2) Segmented Neutrophils % 66 % (35-66) Band Neutrophils % 3 % (0-9) Lymphocytes % 25 % (24-48) Monocytes % 5 % (0-10) Eosinophils % 1 % (0-5) Nucleated Red Blood Cells 1 Platelet Estimate Adequate (ADEQUATE) Polychromasia Occasional Anisocytosis Slight D-Dimer (Maryse) 0.71 ug/mlFEU (0.00-0.50) Sodium Level 139 mmol/L (136-145) Potassium Level 2.8 mmol/L (3.5-5.1) Chloride Level 100 mmol/L (98-107) Carbon Dioxide Level 25 mmol/L (21-32) Anion Gap 14 (6-14) Blood Urea Nitrogen 20 mg/dL (8-26) Creatinine 0.9 mg/dL (0.7-1.3) Estimated GFR (Cockcroft-Gault) 92.1 Glucose Level 117 mg/dL (70-99) Calcium Level 9.2 mg/dL (8.5-10.1) Troponin I Quantitative 0.022 ng/mL (0.000-0.055) QC-Lrt-A-Type Natriuretic Peptide 365 pg/mL (0-124) Laboratory Tests Test 01/25/19 07:20 White Blood Count 18.5 x10^3/uL (4.0-11.0) Red Blood Count 4.13 x10^6/uL (4.30-5.70) Hemoglobin 10.4 g/dL (13.0-17.5) Hematocrit 32.6 % (39.0-53.0) Mean Corpuscular Volume 79 fL (79-100) Mean Corpuscular Hemoglobin 25 pg (25-35) Mean Corpuscular Hemoglobin Concent 32 g/dL (31-37) Red Cell Distribution Width 20.6 % (11.5-14.5) Platelet Count 260 x10^3/uL (140-400) Neutrophils (%) (Auto) 69 % (31-73) Lymphocytes (%) (Auto) 24 % (24-48) Monocytes (%) (Auto) 6 % (0-9) Eosinophils (%) (Auto) 1 % (0-3) Basophils (%) (Auto) 1 % (0-3) Neutrophils # (Auto) 12.7 x10^3/uL (1.8-7.7) Lymphocytes # (Auto) 4.5 x10^3/uL (1.0-4.8) Monocytes # (Auto) 1.1 x10^3/uL (0.0-1.1) Eosinophils # (Auto) 0.1 x10^3/uL (0.0-0.7) Basophils # (Auto) 0.2 x10^3/uL (0.0-0.2) Segmented Neutrophils % 66 % (35-66) Band Neutrophils % 3 % (0-9) Lymphocytes % 25 % (24-48) Monocytes % 5 % (0-10) Eosinophils % 1 % (0-5) Nucleated Red Blood Cells 1 Platelet Estimate Adequate (ADEQUATE) Polychromasia Occasional Anisocytosis Slight D-Dimer (Maryse) 0.71 ug/mlFEU (0.00-0.50) Sodium Level 139 mmol/L (136-145) Potassium Level 2.8 mmol/L (3.5-5.1) Chloride Level 100 mmol/L (98-107) Carbon Dioxide Level 25 mmol/L (21-32) Anion Gap 14 (6-14) Blood Urea Nitrogen 20 mg/dL (8-26) Creatinine 0.9 mg/dL (0.7-1.3) Estimated GFR (Cockcroft-Gault) 92.1 Glucose Level 117 mg/dL (70-99) Calcium Level 9.2 mg/dL (8.5-10.1) Troponin I Quantitative 0.022 ng/mL (0.000-0.055) EJ-Ida-B-Type Natriuretic Peptide 365 pg/mL (0-124) VTE Prophylaxis Ordered VTE Prophylaxis Devices: Yes VTE Pharmacological Prophylaxi: Yes Assessment/Plan Assessment/Plan COPD flare, acute bronchitis CHF diastolic chronic stable Smoker History CAD CABG Chronic back pain history of back surgeries Obesity, BMI 28.1 Left distal tibial fracture-January 2019 on left leg brace HX recent CAP? PLAN: 2 [place] pulmo consulted, I held off antibiotics as of this time Consult orthopedics re that fx that happened 01/2019 Okay to be off telemetry Okay to transfer out of cardiac floor Nicotine patch I have reconciled home meds Multiple allergies- ? legitimacy OK for reg diet PAUL REICH MD Jan 25, 2019 12:10
[2019-01-25] MEDS: IPRATRPIUM/ALBUTEROL 0.5/2.5MG 3 ML NEBU. NEB SCH ×3 (12:25→19:24)
[2019-01-25] MEDS ORDERED: HYDROmorphone 4 MG TABLET PO PRN (13:00)
[2019-01-25] MEDS ORDERED: PROMETHAZINE 12.5 MG TABLET. PO PRN (13:15)
[2019-01-25] MEDS: CLOTRIMAZOLE 10 MG TROCHE. MM SCH ×2 (13:30→21:00)
[2019-01-25] MEDS: busPIRone 5 MG TABLET. PO SCH ×2 (13:30→21:00)
[2019-01-25] MEDS: buPROPion 75 MG TABLET. PO SCH ×2 (13:31→20:59)
[2019-01-25] MEDS: CYCLOBENZAPRINE 10 MG TABLET. PO PRN (13:45)
--- NOTE | 2019-01-25 14:35 | CONS ---
DATE OF CONSULTATION: 01/25/2019 PULMONARY CONSULTATION ATTENDING PHYSICIAN: Dr. Ojeda. REASON FOR CONSULTATION: Dyspnea. HISTORY OF PRESENT ILLNESS: The patient is a 43-year-old male who has been seen by our pulmonary service from prior admissions. He has history of ongoing tobaccoism and underlying COPD. He was hospitalized in December and was found to have extensive bilateral alveolar and interstitial infiltrates, likely related to acute lung injury/ARDS pattern; however, bronchiolitis obliterans organizing pneumonia was also a consideration and he was treated with steroids. His CAT scans are continued to improve. He was brought back with complaint of shortness of breath. He also has a cough which has been nonproductive. No fever. He had some subjective sweats at home. The patient states that he is on 3 liters on a 24-hour basis. I have been asked to see him for further evaluation. He denies any headaches, no nausea, no vomiting, no diarrhea, no dysuria or no focal weakness. I reviewed the patient's CT of the chest. There were no central pulmonary emboli observed. However, there has been a significant improvement in the previously seen extensive ground glass infiltrates, now very faint mild residual infiltrate seen in the upper lobes. PAST MEDICAL HISTORY: Significant for history of COPD with ongoing tobaccoism, history of chronic hypoxia, CAD, hypertension, DE, hyperlipidemia, history of extensive pneumonia in December with likely acute lung injury, ARDS/BOOP. PAST SURGICAL HISTORY: CABG. SOCIAL HISTORY: Ongoing tobacco use, 1 pack per day since age 15. MEDICATIONS: All reviewed as listed in the MRAD. REVIEW OF SYSTEMS: A twelve-point system obtained. Pertinent positives discussed in my history of present illness, otherwise noncontributory. All systems that were negative were reviewed as well. FAMILY HISTORY: Noncontributory to lungs. MEDICATIONS: His current medications were reviewed as listed in the MRAD including bronchodilators and Lasix. PHYSICAL EXAMINATION: VITAL SIGNS: Reviewed. Blood pressure is stable, afebrile, pulse ox 96% on 3 liters and was 82% on 2 liters. HEENT: Sclerae nonicteric. NECK: Supple. LUNGS: Diminished breath sounds. No crackles, no wheezes. CARDIOVASCULAR: Regular rate and rhythm. ABDOMEN: Soft, nontender. EXTREMITIES: With no pitting edema. LABORATORY DATA: Reviewed. White cell count 18.5, hemoglobin 10.4 and platelets are 260. BUN and creatinine 20 and 0.9 and potassium is 2.8. ProBNP is 365. IMPRESSION: 1. Acute on chronic hypoxic respiratory failure secondary to acute exacerbation of chronic obstructive pulmonary disease in a patient who has ongoing tobacco use since age 15. [address] chest with faint residual mild ground glass infiltrates, mostly in the upper lobes. This is overall a significant improvement when comparisons were made to CTA chest from 12/22/2018 and also from 01/12/2019. The initial CAT scan in December had extensive bilateral interstitial and ground glass infiltrates. The radiologist did not compare his current CT with the old CTs. 3. Previous clinical diagnosis suspected acute respiratory distress syndrome/acute lung injury/bronchiolitis obliterans organizing pneumonia. Responded to steroids. RECOMMENDATIONS: 1. Smoking cessation counseling provided. 2. Continue present oxygen. 3. Continue present Bronchodilators. 4. Supportive medication. 5. Clinically, I do not think that there is any acute infectious etiology and as such no need for any antibiotics. 6. We discussed with RN and discussed with the patient's . Anticipate discharge in the next 24 hours. KEELEY YOU MD DR: AMY/viki JOB#: [id number] / [id number]
[2019-01-25 15:00] VITALS: BP 133/53
[2019-01-25] MEDS: ALBUTEROL SULFATE 2.5 MG/3 ML NEBU. NEB SCH ×2 (15:57→20:00)
[2019-01-25] MEDS: FERROUS SULFATE 325 MG TABLET. PO SCH (18:17)
[2019-01-25] MEDS: PANTOPRAZOLE 40 MG TABLET.DR. PO SCH (18:17)
[2019-01-25 19:00] VITALS: BP 125/55
[2019-01-25] MEDS: BUDESONIDE 0.5 MG/2 ML NEBU. NEB SCH (19:24)
[2019-01-25] MEDS: LACTOBACILLUS RHAMNOSUS GG 1 CAPSULE. PO SCH (20:59)
[2019-01-25] MEDS ORDERED: HYDROmorphone 4 MG TABLET PO SCH (21:00)
[2019-01-25] MEDS: GABAPENTIN 400 MG CAPSULE. PO SCH (21:00)
[2019-01-25] MEDS ORDERED: ATORVASTATIN CALCIUM 40 MG TABLET. PO SCH (21:00)
[2019-01-25] MEDS ORDERED: NON FORMULARY ITEM (Melatonin 1 TAB) PO SCH (21:00)
[2019-01-25] MEDS: METOPROLOL TART IMMED RELEASE 25 MG TABLET. PO SCH (21:01)
[2019-01-25 23:00] VITALS: BP 123/63
--- NOTE | 2019-01-26 01:14 | CONS ---
DATE OF CONSULTATION: 01/25/2019 ORTHOPEDIC CONSULTATION REQUESTING CONSULTATION: Jeanette Ojeda MD. REASON FOR CONSULTATION: Left knee tibial plateau fracture. HISTORY OF PRESENT ILLNESS: The patient is a 43-year-old male who was admitted for pulmonary issues and apparently reported shortness of breath, dizziness with exertion. No improvement with breathing treatments, but also has a history per the Emergency Department of a tibial plateau fracture and left knee pain and the patient being noncompliant with nonweightbearing recommendations. When I asked the patient what his history is he indicates that he was seen in [facility] probably end of December timeframe because he lives there. He indicates no specific injury, but he went into the Emergency Department because his knee hurt. Apparently, he is unsure what his diagnosis was from there, but he apparently had an orthopedic followup that he elected not to go to because he was not pleased with his care. He later reported to the Emergency Department on 01/12/2019 here a couple of weeks later because his knee was hurting, again no traumatic episode was reported. He was placed in an immobilizer and directed to be nonweightbearing. He states that he has put weight on it a few times and when weightbearing indicates that his pain increases from the level of about a 6 to 10 on a scale of 10, although I asked his pain level currently resting in bed and although he seems in no acute distress, he complains of 10/10 pain in the left knee. To clarify in terms of his longer term history, he complains of no traumatic episodes recently whatsoever aside from a mild recent fall a couple of days ago that were well after the onset of his left knee pain, which was onset a few weeks prior to his visit to [place] Emergency Department at [facility]. He says very remotely as a youth he fell 15 feet onto a cement floor when a bucket truck hydraulic collapsed and he reports off and on pain since that time. PAST MEDICAL HISTORY: Significant for congestive heart failure, COPD, history of [place], chronic back pain, anemia, recent pneumonia. PAST SURGICAL HISTORY: Several back surgeries, carpal tunnel surgery, coronary artery bypass as well as a right knee surgery, all done elsewhere. ALLERGIES: HE HAS MULTIPLE ALLERGIES INCLUDING PIPERACILLIN, TAZOBACTAM, VANCOMYCIN, KETOROLAC, MOXIFLOXACIN, TRAMADOL, AND MORPHINE. MEDICATIONS: List is reviewed. SOCIAL HISTORY: He continues to smoke cigarettes and marijuana despite a history of COPD, rare alcohol use. REVIEW OF SYSTEMS: Reported to be on a course of prednisone for his pulmonary issues that he tapered off of about a week ago. Review of systems is significant for the left knee pain, chronic low back pain, improving shortness of breath and denies focal weakness or numbness. PHYSICAL EXAMINATION: EXTREMITIES: He initially stated that he could not move his knee, but easily had a passive and active range of motion 0 to well over 90 degrees flexion on the left knee. There is no ligamentous instability. Minimal patellofemoral crepitus, which is equal to the contralateral side and no specific point tenderness over the joint line. No knee effusion is noted. He has no calf tenderness or surrounding muscle or point tenderness around the knee. He has some decreased quadriceps tone left side compared to the right, but otherwise normal examination of right knee, bilateral hips and ankles. Equivocal straight leg raise sign. X-rays of the left knee were read by radiology report as having a medial tibial plateau fracture from 01/12/2019, I really do not see any acute changes on the film or significant displacement of the joint line. IMPRESSION: 1. Left knee pain. The patient describes chronic off and on since a youth. No history of recent trauma. 2. Recent questionable diagnosis of tibial plateau fracture without history of recent trauma. TREATMENT PLAN: I went over with him that it really does not make sense in terms of his diagnosis, he really has no knee swelling, which would certainly go against the tibial plateau fracture. He has no point tenderness in the area. Likewise, no history of trauma and a described history as a youth of a fallen off and on knee pain since then, which could include a more chronic injury. Therefore, I am getting him out of his immobilizer so he can undergo some motion, which he seemed very comfortable with and I would like to obtain a CT scan of the left knee to better assess that the presence of any acute fracture, which I certainly doubt based on his history, examination and my evaluation of the x-rays despite the apparent diagnosis of a tibial plateau fracture. I encouraged him to limit his activities in the interim and maintain nonweightbearing status till we more definitively sort this out, but I am fully expecting only chronic injury and perhaps based on the severe non-activity related pain that he has that he may even have pain of some neurologic cause as even an inflammatory cause in the knee. I would expect to resolve with the recent course of prednisone which he had been taking for his pulmonary status and therefore really not impressed necessarily with knee joint abnormality being a significant cause of his pain, but we will further evaluate this with CT results. MIAN JOHNSON MD DR: BRITTANY/viki JOB#: [id number] / [id number]
[2019-01-26 02:54] VITALS: BP 133/58
[2019-01-26 07:00] VITALS: BP 123/68
[2019-01-26] MEDS: IPRATRPIUM/ALBUTEROL 0.5/2.5MG 3 ML NEBU. NEB SCH ×2 (07:12→11:03)
[2019-01-26] MEDS: BUDESONIDE 0.5 MG/2 ML NEBU. NEB SCH (07:12)
[2019-01-26] MEDS ORDERED: POTASSIUM CHLORIDE 10 MEQ TABLET.ER. PO SCH (08:00)
--- NOTE | 2019-01-26 08:25 | PDOC ---
PROGRESS NOTES Chief Complaint Chief Complaint COPD flare, acute bronchitis CHF diastolic chronic stable Smoker History CAD CABG Chronic back pain history of back surgeries Obesity, BMI 28.1 Left distal tibial fracture-January 2019 on left leg brace History of Present Illness History of Present Illness Mr Marcum is a 43-year-old white male, history of COPD and continues to smoke, CHF, diastolic, question the compliance. Not the best historian. Has been here multiple times in the last few months for COPD or mild CHF flare, HX CABG. Also chronic back pain with prev back sxs. Known to pulmonary service comes in because of pulmonary symptoms- SOA,phlegm but no fever. Most recently he injured his left knee has a left leg brace Some hypoxia and chronic lung changes on imaging, chronic lung symptoms. Most bothersome to him is the breathing and the left knee. X-ray does verify a tibial fracture in January 2019. Seen by ortho and pulmonology. With high dose steroids his symptoms have improved over 48 hours. Feels he is back to his baseline. He is more worried about pain management and transportation to [place] where he lives. Vitals Vitals Vital Signs Date Time Temp Pulse Resp B/P (MAP) Pulse Ox O2 Delivery O2 Flow Rate FiO2 01/26/19 07:12 100 Nasal Cannula 3.0 01/26/19 07:00 98.1 93 20 123/68 (86) 98.1 Physical Exam General: No acute distress Lungs: Clear, Wheezing, Crackles, Other Abdomen: Normal bowel sounds, Soft, No tenderness, No hepatosplenomegaly, No masses Extremities: Other (left leg brace) Skin: No rashes, No breakdown, No significant lesion Assessment and Plan Assessmemt and Plan Problems Medical Problems: (1) Acute and chronic respiratory failure with hypoxia Status: Acute (2) Acute exacerbation of chronic obstructive pulmonary disease (COPD) Status: Acute (3) ARDS (adult respiratory distress syndrome) Status: Acute (4) COPD exacerbation Status: Acute (5) Elevated troponin Status: Acute (6) Hypokalemia Status: Acute Comment Review of Relevant I have reviewed the following items lexie (where applicable) has been applied. Labs Laboratory Tests Test 01/25/19 07:20 White Blood Count 18.5 x10^3/uL (4.0-11.0) Red Blood Count 4.13 x10^6/uL (4.30-5.70) Hemoglobin 10.4 g/dL (13.0-17.5) Hematocrit 32.6 % (39.0-53.0) Mean Corpuscular Volume 79 fL (79-100) Mean Corpuscular Hemoglobin 25 pg (25-35) Mean Corpuscular Hemoglobin Concent 32 g/dL (31-37) Red Cell Distribution Width 20.6 % (11.5-14.5) Platelet Count 260 x10^3/uL (140-400) Neutrophils (%) (Auto) 69 % (31-73) Lymphocytes (%) (Auto) 24 % (24-48) Monocytes (%) (Auto) 6 % (0-9) Eosinophils (%) (Auto) 1 % (0-3) Basophils (%) (Auto) 1 % (0-3) Neutrophils # (Auto) 12.7 x10^3/uL (1.8-7.7) Lymphocytes # (Auto) 4.5 x10^3/uL (1.0-4.8) Monocytes # (Auto) 1.1 x10^3/uL (0.0-1.1) Eosinophils # (Auto) 0.1 x10^3/uL (0.0-0.7) Basophils # (Auto) 0.2 x10^3/uL (0.0-0.2) Segmented Neutrophils % 66 % (35-66) Band Neutrophils % 3 % (0-9) Lymphocytes % 25 % (24-48) Monocytes % 5 % (0-10) Eosinophils % 1 % (0-5) Nucleated Red Blood Cells 1 Platelet Estimate Adequate (ADEQUATE) Polychromasia Occasional Anisocytosis Slight D-Dimer (Maryse) 0.71 ug/mlFEU (0.00-0.50) Sodium Level 139 mmol/L (136-145) Potassium Level 2.8 mmol/L (3.5-5.1) Chloride Level 100 mmol/L (98-107) Carbon Dioxide Level 25 mmol/L (21-32) Anion Gap 14 (6-14) Blood Urea Nitrogen 20 mg/dL (8-26) Creatinine 0.9 mg/dL (0.7-1.3) Estimated GFR (Cockcroft-Gault) 92.1 Glucose Level 117 mg/dL (70-99) Calcium Level 9.2 mg/dL (8.5-10.1) Troponin I Quantitative 0.022 ng/mL (0.000-0.055) HF-Mld-U-Type Natriuretic Peptide 365 pg/mL (0-124) Medications Current Medications Albuterol/ Ipratropium (Duoneb) 5 ml 1X ONCE NEB ; Start 01/25/19 at 07:30; Stop 01/25/19 at 07:54; Status DC Oxycodone/ Acetaminophen (Percocet 10/325) 1 tab 1X ONCE PO Last administered on 01/25/19at 08:09; Start 01/25/19 at 08:00; Stop 01/25/19 at 08:01; Status DC Albuterol/ Ipratropium (Duoneb) 6 ml 1X ONCE NEB Last administered on 01/25/19at 07:31; Start 01/25/19 at 08:00; Stop 01/25/19 at 08:01; Status DC Potassium Chloride (Klor-Con) 40 meq 1X ONCE PO Last administered on 01/25/19at 09:16; Start 01/25/19 at 08:30; Stop 01/25/19 at 08:31; Status DC Iohexol (Omnipaque 350 Mg/ml) 100 ml 1X ONCE IV Last administered on 01/25/19at 08:30; Start 01/25/19 at 08:30; Stop 01/25/19 at 08:31; Status DC Info (CONTRAST GIVEN -- Rx MONITORING) 1 each PRN DAILY PRN MC SEE COMMENTS; Start 01/25/19 at 08:30; Stop 01/27/19 at 08:29 Lorazepam (Ativan) 0.5 mg 1X ONCE PO Last administered on 01/25/19at 09:16; Start 01/25/19 at 09:15; Stop 01/25/19 at 09:16; Status DC Methylprednisolone Sodium Succinate (SOLU-Medrol 125MG VIAL) 60 mg 1X ONCE IV Last administered on 01/25/19at 09:20; Start 01/25/19 at 09:15; Stop 01/25/19 at 09:16; Status DC Nicotine (Nicoderm Cq 21mg) 1 patch 1X STAT TD Last administered on 01/25/19at 10:06; Start 01/25/19 at 09:33; Stop 01/25/19 at 09:35; Status DC Albuterol/ Ipratropium (Duoneb) 3 ml RTQID NEB Last administered on 01/26/19at 07:12; Start 01/25/19 at 12:00 Guaifenesin (Robitussin Dm) 10 ml PRN Q6HRS PRN PO COUGH; Start 01/25/19 at 12:00 Ondansetron HCl (Zofran) 4 mg PRN Q6HRS PRN IV NAUSEA/VOMITING; Start 01/25/19 at 12:00 Alprazolam (Xanax) 0.5 mg PRN BID PRN PO ANXIETY / AGITATION Last administered on 01/25/19at 13:31; Start 01/25/19 at 12:00 Bupropion HCl (Wellbutrin) 75 mg TID PO Last administered on 01/25/19at 20:59; Start 01/25/19 at 14:00 Clotrimazole (Mycelex) 10 mg TID MM Last administered on 01/25/19at 21:00; Start 01/25/19 at 14:00 Ferrous Sulfate (Feosol) 325 mg BIDWMEALS PO Last administered on 01/25/19at 18:17; Start 01/25/19 at 17:00 Fluoxetine HCl (PROzac) 20 mg DAILY PO ; Start 01/26/19 at 09:00 Furosemide (Lasix) 40 mg DAILY PO ; Start 01/26/19 at 09:00 Acetaminophen/ Hydrocodone Bitart (Lortab 5/325) 1 tab PRN Q6HRS PRN PO PAIN; Start 01/25/19 at 12:00 Lactobacillus Rhamnosus (Culturelle) 1 cap BID PO Last administered on 01/25/19 at 20:59; Start 01/25/19 at 21:00 Metoprolol Tartrate (Lopressor) 25 mg BID PO Last administered on 01/25/19at 21:01; Start 01/25/19 at 21:00 Nitroglycerin (Nitrostat) 0.4 mg PRN Q5MIN PRN SL CHEST PAIN; Start 01/25/19 at 12:00 Potassium Chloride (Klor-Con) 10 meq DAILY08 PO ; Start 01/26/19 at 08:00 Atorvastatin Calcium (Lipitor) 80 mg QHS PO Last administered on 01/25/19at 21:00; Start 01/25/19 at 21:00 Cyclobenzaprine HCl (Flexeril) 10 mg PRN Q8HRS PRN PO MUSCLE SPASMS Last administered on 01/25/19 13:45; Start 01/25/19 at 12:30 Budesonide (Pulmicort) 0.5 mg RTBID NEB Last administered on 01/26/19 07:12; Start 01/25/19 at 20:00 Buspirone HCl (Buspar) 7.5 mg TID PO Last administered on 01/25/19 21:00; Start 01/25/19 at 14:00 Fenofibrate (Lofibra) 54 mg DAILY PO ; Start 01/26/19 at 09:00 Gabapentin (Neurontin) 2,400 mg BID PO ; Start 01/25/19 at 21:00 Hydromorphone HCl (Dilaudid) 4 mg PRN Q6HRS PRN PO PAIN Last administered on 01/25/19 13:45; Start 01/25/19 at 13:00 Hydromorphone HCl (Dilaudid) 4 mg BID PO Last administered on 01/25/19 21:02; Start 01/25/19 at 21:00 Non-Formulary Medication (Melatonin ) 1 tab QHS PO ; Start 01/25/19 at 21:00; Status UNV Pantoprazole Sodium (Protonix) 40 mg BIDAC PO Last administered on 01/25/19 18:17; Start 01/25/19 at 16:30 Promethazine HCl (Phenergan) 25 mg PRN Q6HRS PRN PO NAUSEA/VOMITING; Start 01/25/19 at 13:15 Nicotine (Nicoderm Cq 14mg) 1 patch PRN DAILY PRN TD SMOKING CESSATION; Start 01/26/19 at 09:00 Fentanyl Citrate (Fentanyl 2ml Vial) 25 mcg PRN Q2HR PRN IV PAIN Last administered on 01/25/19 18:18; Start 01/25/19 at 12:00 Albuterol Sulfate (Ventolin Neb Soln) 2.5 mg RTQID NEB Last administered on 01/25/19at 15:57; Start 01/25/19 at 16:00 Active Scripts Active Doxycycline Hyclate 100 Mg Capsule 1 Cap PO BID Hydrocodone-Apap 5-325 (Hydrocodone Bit/Acetaminophen) 1 Tab Tablet 1 Tab PO PRN Q6HRS PRN 3 Days Clotrimazole 10 Mg Nilson 1 Tab PO TID 14 Days Doxycycline Hyclate 100 Mg Tablet 100 Mg PO BID 7 Days [Nicotine 14MG] 1 PATCH Patch 1 Patch TD PRN DAILY PRN 30 Days Duoneb 0.5-3(2.5) Mg/3 Ml (Albuterol/Ipratropium) 3 Ml Ampul.neb 3 Ml NEB RTQID 30 Days Culturelle (Lactobacillus Rhamnosus Gg) 1 Each Cap.sprink 1 Cap PO BID 14 Days Proair Hfa Inhaler (Albuterol Sulfate) 8.5 Gm Hfa.aer.ad 1 Puff INH PRN Q6HRS PRN Furosemide 40 Mg Tablet 40 Mg PO DAILY 30 Days Feosol (Ferrous Sulfate) 325 Mg Tablet 325 Mg PO BIDWMEALS 30 Days Reported Alprazolam 0.5 Mg Tablet 0.5 Mg PO PRN BID PRN Prednisolone Acetate 5 Ml Drops.susp 1 Drop EACHEYE QID Prednisone 20 Mg Tablet 30 Mg PO DAILY 90 Days Hydromorphone Hcl 4 Mg Tablet 4 Mg PO PRN Q6HRS PRN Aspirin 81 Mg Tab.chew 1 Tab PO DAILY Klor-Con 10 (Potassium Chloride) 10 Meq Tablet.er 1 Tab PO DAILY Hydromorphone ER (Hydromorphone HCl) 8 Mg Tab.er.24h 8 Mg PO DAILY Metoprolol Succinate ( Xl ) (Metoprolol Succinate) 25 Mg Tab.er.24h 25 Mg PO BID Atorvastatin Calcium 80 Mg Tablet 80 Mg PO HS Protonix (Pantoprazole Sodium) 20 Mg Tablet.dr 20 Mg PO BID Buspirone Hcl 7.5 Mg Tablet 7.5 Mg PO TID Bupropion Hcl 75 Mg Tablet 75 Mg PO TID Symbicort 160-4.5 Mcg Inhaler (Budesonide/Formoterol Fumarate) 10.2 Gm Hfa.aer.ad 2 Puff IH BID Baclofen 10 Mg Tablet 1 Tab PO PRN TID Melatonin 3 Mg Tablet 1 Tab PO QHS Nitrostat (Nitroglycerin) 0.4 Mg Tab.subl 0.4 Mg SL PRN Q5MIN PRN Promethazine Hcl 25 Mg Tablet 25 Mg PO Q6H PRN Fenofibrate (Fenofibrate Nanocrystallized) 48 Mg Tablet 48 Mg PO DAILY Fluoxetine Hcl 20 Mg Capsule 1 Cap PO DAILY Gabapentin 600 Mg Tablet 3 Tab PO BID Vitals/I & O Vital Sign - Last 24 Hours 01/25/19 01/25/19 01/25/19 01/25/19 08:30 09:30 10:30 12:20 Pulse 88 87 82 Resp 20 24 20 B/P (MAP) 144/82 (102) 139/84 (102) 148/89 (108) Pulse Ox 96 96 96 O2 Delivery Nasal Cannula Nasal Cannula Nasal Cannula Nasal Cannula O2 Flow Rate 3.0 3.0 3.0 3.0 01/25/19 01/25/19 01/25/19 01/25/19 12:25 15:00 15:57 18:18 Temp 98.2 98.2 Pulse 111 Resp 22 20 B/P (MAP) 133/53 (79) Pulse Ox 96 91 O2 Delivery Nasal Cannula Nasal Cannula Nasal Cannula Nasal Cannula O2 Flow Rate 3.0 3.0 3.0 01/25/19 01/25/19 01/25/19 01/25/19 18:48 19:00 19:24 19:28 Temp 98.1 98.1 Pulse 115 Resp 20 B/P (MAP) 125/55 (78) Pulse Ox 98 94 94 O2 Delivery Nasal Cannula Nasal Cannula Nasal Cannula Nasal Cannula O2 Flow Rate 3.0 3.0 3.0 3.0 01/25/19 01/25/19 01/25/19 01/26/19 20:00 21:01 23:00 02:54 Temp 98.9 97.8 98.9 97.8 Pulse 115 99 90 Resp 20 20 B/P (MAP) 125/55 123/63 (83) 133/58 (83) Pulse Ox 98 98 O2 Delivery Nasal Cannula Nasal Cannula Nasal Cannula O2 Flow Rate 3.0 3.0 3.0 01/26/19 01/26/19 07:00 07:12 Temp 98.1 98.1 Pulse 93 Resp 20 B/P (MAP) 123/68 (86) Pulse Ox 98 100 O2 Delivery Nasal Cannula Nasal Cannula O2 Flow Rate 3.0 3.0 Intake and Output 01/25/19 01/25/19 01/26/19 15:00 23:00 07:00 Intake Total 180 ml Balance 180 ml OLIVIA STALEY MD Jan 26, 2019:25
[2019-01-26 08:43] LABS: BASO % 0 % (0-3); EOS % 0 % (0-3); HEMATOCRIT 29.6 % (39.0-53.0); HEMOGLOBIN 9.2 g/dL (13.0-17.5); LYMPH # 2.7 x10^3/uL (1.0-4.8); LYMPH % 13 % (24-48); MEAN CORPUSCULAR HEMOGLOBIN 25 pg (25-35); MEAN CORPUSCULAR HGB CONC 31 g/dL (31-37); MEAN CORPUSCULAR VOLUME 81 fL (79-100); MONO # 1.3 x10^3/uL (0.0-1.1); MONO % 6 % (0-9); NEUT # 17.4 x10^3/uL (1.8-7.7); NEUT % 81 % (31-73); PLATELET COUNT 238 x10^3/uL (140-400); RED BLOOD COUNT 3.67 x10^6/uL (4.30-5.70); RED CELL DISTRIBUTION WIDTH 20.7 % (11.5-14.5); WHITE BLOOD COUNT 21.5 x10^3/uL (4.0-11.0)
--- NOTE | 2019-01-26 08:46 | RAD ---
EXAM: CT left lower extremity without contrast DATE: 01/25/2019 4:20 PM COMPARISON: No prior INDICATION: Left tibial plateau fracture TECHNIQUE: CT of the left lower cavity was performed without IV contrast from above the knee through ankle. Multiplanar reconstructed images were generated. PQRS compliance statement - One or more of the following individualized dose reduction techniques were utilized for this study: 1. Automated exposure control 2. Adjustment of the mA and/or kV according to patient size 3. 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 In addition there is a fracture of the medial tibial plateau involving the majority of the articular surface with up to 4 mm articular surface collapse. The fracture planes are mildly sclerotic suggesting subacute state with changes of healing. Background of decreased bone mineral density. Small left knee joint effusion. Small Sr's cyst. Of note, there is also serpentine sclerosis of the talar dome laterally and centrally measuring approximately 2.8 cm in transverse dimension involving at least 80 percent of the talar articular surface. IMPRESSION: 1. 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 2. Superimposed on the osteonecrosis is a medial tibial plateau fracture which demonstrates signs of early healing suggesting early subacute state although the discrete fracture lines are still evident. Up to 4 mm articular surface depression. 3. Small knee joint effusion. Small Sr's cyst. Electronically signed by: Yuri Bowser MD (01/26/2019 8:43 AM) [facility]
[2019-01-26] MEDS: GABAPENTIN 400 MG CAPSULE. PO SCH (08:47)
[2019-01-26] MEDS: CLOTRIMAZOLE 10 MG TROCHE. MM SCH ×2 (08:48→13:43)
[2019-01-26] MEDS: METOPROLOL TART IMMED RELEASE 25 MG TABLET. PO SCH (08:48)
[2019-01-26] MEDS: CYCLOBENZAPRINE 10 MG TABLET. PO PRN (08:49)
[2019-01-26 08:51] LABS: CALCIUM 8.9 mg/dL (8.5-10.1); GFR 81.6; POTASSIUM 3.1 mmol/L (3.5-5.1)
[2019-01-26] MEDS: LACTOBACILLUS RHAMNOSUS GG 1 CAPSULE. PO SCH (08:51)
[2019-01-26] MEDS: buPROPion 75 MG TABLET. PO SCH (08:51)
[2019-01-26] MEDS: busPIRone 5 MG TABLET. PO SCH ×2 (08:51→13:43)
[2019-01-26] MEDS: PANTOPRAZOLE 40 MG TABLET.DR. PO SCH (08:52)
[2019-01-26] MEDS: FERROUS SULFATE 325 MG TABLET. PO SCH (08:52)
[2019-01-26] MEDS ORDERED: FENOFIBRATE 54 MG TABLET. PO SCH (09:00)
[2019-01-26] MEDS ORDERED: DICLOFENAC SODIUM 1% TOPICAL GEL 100GM TUBE. TP SCH (09:00)
[2019-01-26] MEDS ORDERED: FLUoxetine HCL 20 MG CAPSULE PO SCH (09:00)
[2019-01-26] MEDS ORDERED: FUROSEMIDE 40 MG TABLET. PO SCH (09:00)
[2019-01-26] MEDS ORDERED: NICOTINE 14MG PATCH. TD PRN (09:00)
--- NOTE | 2019-01-26 09:34 | NUR ---
IP:Pt has a hx of mrsa in bronchwash on 10/29/18 as well as + mrsa screen on 11/19/18. Pt to be in contact precautions until there are 2 negative screens 7 days apart.
[2019-01-26 11:00] VITALS: BP 148/55
[2019-01-26] MEDS ORDERED: HYDROmorphone 4 MG TABLET PO PRN (11:00)
[2019-01-26] MEDS ORDERED: PRED20TA PO (11:35)
[2019-01-26] MEDS: ALPRAZolam 1 MG TABLET PO PRN ×2 (11:43→13:44)
[2019-01-26] MEDS ORDERED: ALBUTEROL SULFATE 2.5 MG/3 ML NEBU. NEB PRN (11:45)
[2019-01-26] MEDS ORDERED: POTASSIUM CHLORIDE 20 MEQ TABLET.ER. PO ONE (11:45)
--- NOTE | 2019-01-26 12:02 | PDOC3 ---
Discharge Summary Visit Information Date of Admission: Jan 25, 2019 Date of Discharge: Jan 26, 2019 Admitting Diagnosis: Acute respiratory distress Final Diagnosis Problems Medical Problems: (1) Acute and chronic respiratory failure with hypoxia Status: Acute (2) Acute exacerbation of chronic obstructive pulmonary disease (COPD) Status: Acute (3) ARDS (adult respiratory distress syndrome) Status: Acute (4) COPD exacerbation Status: Acute (5) Elevated troponin Status: Acute (6) Hypokalemia Status: Acute Brief Hospital Course Allergies Allergies Coded Allergies Type Severity Reaction Last Updated Verified morphine Allergy Intermediate rash 01/26/19 Yes piperacillin Allergy Intermediate Itching 12/23/18 Yes tazobactam Allergy Intermediate Itching 12/23/18 Yes vancomycin Allergy Intermediate Rash 04/06/18 Yes I S O L A T I O N *CONTACT* Allergy Unknown 04/09/18 Yes ketorolac Adverse Reaction Intermediate nausea and vomiting 12/21/17 Yes moxifloxacin Adverse Reaction Intermediate Nausea and Vomiting 12/21/17 Yes tramadol Adverse Reaction Intermediate nausea and vomiting 12/21/17 Yes Vital Signs Vital Signs Date Time Temp Pulse Resp B/P (MAP) Pulse Ox O2 Delivery O2 Flow Rate FiO2 01/26/19 11:04 100 Nasal Cannula 3.0 01/26/19 08:50 18 01/26/19 08:48 117 130/72 01/26/19 07:00 98.1 98.1 Lab Results Laboratory Tests Test 01/25/19 07:20 01/26/19 08:30 White Blood Count 18.5 x10^3/uL (4.0-11.0) 21.5 x10^3/uL (4.0-11.0) Red Blood Count 4.13 x10^6/uL (4.30-5.70) 3.67 x10^6/uL (4.30-5.70) Hemoglobin 10.4 g/dL (13.0-17.5) 9.2 g/dL (13.0-17.5) Hematocrit 32.6 % (39.0-53.0) 29.6 % (39.0-53.0) Mean Corpuscular Volume 79 fL (79-100) 81 fL (79-100) Mean Corpuscular Hemoglobin 25 pg (25-35) 25 pg (25-35) Mean Corpuscular Hemoglobin Concent 32 g/dL (31-37) 31 g/dL (31-37) Red Cell Distribution Width 20.6 % (11.5-14.5) 20.7 % (11.5-14.5) Platelet Count 260 x10^3/uL (140-400) 238 x10^3/uL (140-400) Neutrophils (%) (Auto) 69 % (31-73) 81 % (31-73) Lymphocytes (%) (Auto) 24 % (24-48) 13 % (24-48) Monocytes (%) (Auto) 6 % (0-9) 6 % (0-9) Eosinophils (%) (Auto) 1 % (0-3) 0 % (0-3) Basophils (%) (Auto) 1 % (0-3) 0 % (0-3) Neutrophils # (Auto) 12.7 x10^3/uL (1.8-7.7) 17.4 x10^3/uL (1.8-7.7) Lymphocytes # (Auto) 4.5 x10^3/uL (1.0-4.8) 2.7 x10^3/uL (1.0-4.8) Monocytes # (Auto) 1.1 x10^3/uL (0.0-1.1) 1.3 x10^3/uL (0.0-1.1) Eosinophils # (Auto) 0.1 x10^3/uL (0.0-0.7) 0.0 x10^3/uL (0.0-0.7) Basophils # (Auto) 0.2 x10^3/uL (0.0-0.2) 0.0 x10^3/uL (0.0-0.2) Segmented Neutrophils % 66 % (35-66) Band Neutrophils % 3 % (0-9) Lymphocytes % 25 % (24-48) Monocytes % 5 % (0-10) Eosinophils % 1 % (0-5) Nucleated Red Blood Cells 1 Platelet Estimate Adequate (ADEQUATE) Polychromasia Occasional Anisocytosis Slight D-Dimer (Maryse) 0.71 ug/mlFEU (0.00-0.50) Sodium Level 139 mmol/L (136-145) 141 mmol/L (136-145) Potassium Level 2.8 mmol/L (3.5-5.1) 3.1 mmol/L (3.5-5.1) Chloride Level 100 mmol/L (98-107) 103 mmol/L (98-107) Carbon Dioxide Level 25 mmol/L (21-32) 23 mmol/L (21-32) Anion Gap 14 (6-14) 15 (6-14) Blood Urea Nitrogen 20 mg/dL (8-26) 16 mg/dL (8-26) Creatinine 0.9 mg/dL (0.7-1.3) 1.0 mg/dL (0.7-1.3) Estimated GFR (Cockcroft-Gault) 92.1 81.6 Glucose Level 117 mg/dL (70-99) 177 mg/dL (70-99) Calcium Level 9.2 mg/dL (8.5-10.1) 8.9 mg/dL (8.5-10.1) Troponin I Quantitative 0.022 ng/mL (0.000-0.055) HB-Zdh-H-Type Natriuretic Peptide 365 pg/mL (0-124) Laboratory Tests Test 01/26/19 08:30 White Blood Count 21.5 x10^3/uL (4.0-11.0) Red Blood Count 3.67 x10^6/uL (4.30-5.70) Hemoglobin 9.2 g/dL (13.0-17.5) Hematocrit 29.6 % (39.0-53.0) Mean Corpuscular Volume 81 fL (79-100) Mean Corpuscular Hemoglobin 25 pg (25-35) Mean Corpuscular Hemoglobin Concent 31 g/dL (31-37) Red Cell Distribution Width 20.7 % (11.5-14.5) Platelet Count 238 x10^3/uL (140-400) Neutrophils (%) (Auto) 81 % (31-73) Lymphocytes (%) (Auto) 13 % (24-48) Monocytes (%) (Auto) 6 % (0-9) Eosinophils (%) (Auto) 0 % (0-3) Basophils (%) (Auto) 0 % (0-3) Neutrophils # (Auto) 17.4 x10^3/uL (1.8-7.7) Lymphocytes # (Auto) 2.7 x10^3/uL (1.0-4.8) Monocytes # (Auto) 1.3 x10^3/uL (0.0-1.1) Eosinophils # (Auto) 0.0 x10^3/uL (0.0-0.7) Basophils # (Auto) 0.0 x10^3/uL (0.0-0.2) Sodium Level 141 mmol/L (136-145) Potassium Level 3.1 mmol/L (3.5-5.1) Chloride Level 103 mmol/L (98-107) Carbon Dioxide Level 23 mmol/L (21-32) Anion Gap 15 (6-14) Blood Urea Nitrogen 16 mg/dL (8-26) Creatinine 1.0 mg/dL (0.7-1.3) Estimated GFR (Cockcroft-Gault) 81.6 Glucose Level 177 mg/dL (70-99) Calcium Level 8.9 mg/dL (8.5-10.1) Brief Hospital Course Mr Marcum is a 43-year-old white male, history of COPD and continues to smoke, CHF, diastolic, question the compliance. Not the best historian. Has been here multiple times in the last few months for COPD or mild CHF flare, HX CABG. Also chronic back pain with prev back sxs. Known to pulmonary service comes in because of pulmonary symptoms- SOA,phlegm but no fever. Most recently he injured his left knee has a left leg brace Some hypoxia and chronic lung changes on imaging, chronic lung symptoms. Most bothersome to him is the breathing and the left knee. X-ray does verify a tibial fracture in January 2019. Seen by ortho and pulmonology. With high dose steroids his symptoms have improved over 48 hours. Feels he is back to his baseline. He is more worried about pain management and transportation to [place] where he lives. COPD flare, acute bronchitis CHF diastolic chronic stable Smoker History CAD CABG Chronic back pain history of back surgeries Obesity, BMI 28.1 Left distal tibial fracture-January 2019 on left leg brace Greater than 30 minutes spent on discharge Discharge Information Condition at Discharge: Improved Follow Up: Weeks Disposition/Orders: D/C to Home Scheduled Aspirin (Aspirin) 81 Mg Tab.chew, 1 TAB PO DAILY for heart health, #30 Ref 3 (Reported) Entered as Reported by: HEMANTH AYON RN on 06/24/181742 Last Action: HELD on 01/25/191200 by PAUL REICH Atorvastatin Calcium (Atorvastatin Calcium) 80 Mg Tablet, 80 MG PO HS for cholesterol, (Reported) Entered as Reported by: REED BATES on 04/06/18147 Last Action: Converted on 01/25/191200 by PAUL REICH Baclofen (Baclofen) 10 Mg Tablet, 1 TAB PO PRN TID for muscle spasms, #90 Ref 2 (Reported) Entered as Reported by: Jesus Vila on 06/25/17148 Last Action: Converted on 01/25/191200 by PAUL REICH Budesonide/Formoterol Fumarate (Symbicort 160-4.5 Mcg Inhaler) 10.2 Gm Hfa.aer.ad, 2 PUFF IH BID for copd, #10.6 Ref 3 (Reported) Entered as Reported by: Jesus Vila on 06/25/17148 Last Action: Converted on 01/25/191200 by PAUL REICH Bupropion Hcl (Bupropion Hcl) 75 Mg Tablet, 75 MG PO TID for anxiety, (Reported) Entered as Reported by: REED BATES on 04/06/18147 Last Action: Continued on 01/25/191200 by PAUL REICH Buspirone Hcl (Buspirone Hcl) 7.5 Mg Tablet, 7.5 MG PO TID for anxiety, (Reported) Entered as Reported by: REED BATES on 04/06/18147 Last Action: Converted on 01/25/191200 by PAUL REICH Clotrimazole (Clotrimazole) 10 Mg Nilson, 1 TAB PO TID for candidiasis ppx for 14 Days, #42 Prescribed by: JACINTA PECK MD on 12/27/18 1222 Last Action: Continued on 01/25/191200 by PAUL REICH Fenofibrate Nanocrystallized (Fenofibrate) 48 Mg Tablet, 48 MG PO DAILY, (Reported) Entered as Reported by: NIKO MONCADA on 09/07/14 1205 Last Action: Converted on 01/25/191200 by PAUL REICH Ferrous Sulfate (Feosol) 325 Mg Tablet, 325 MG PO BIDWMEALS for 30 Days, #60 Prescribed by: ANNIKA REZA MD on 12/25/17 1340 Last Action: Continued on 01/25/191200 by PAUL REICH Fluoxetine Hcl (Fluoxetine Hcl) 20 Mg Capsule, 1 CAP PO DAILY for depression, #90 Ref 1 (Reported) Entered as Reported by: NIKO MONCADA on 09/07/14 1205 Last Action: Continued on 01/25/191200 by PAUL REICH Furosemide (Furosemide) 40 Mg Tablet, 40 MG PO DAILY for 30 Days, #30 Prescribed by: ANNIKA REZA MD on 12/25/17 1340 Last Action: Continued on 01/25/191200 by PAUL REICH Gabapentin (Gabapentin) 600 Mg Tablet, 3 TAB PO BID for nerve pain, #90 Ref 2 (Reported) Entered as Reported by: NIKO MONCADA on 09/07/14 1205 Last Action: Converted on 01/25/191200 by PAUL REICH Hydromorphone HCl (Hydromorphone ER) 8 Mg Tab.er.24h, 8 MG PO DAILY for pain, (Reported) Entered as Reported by: REED BATES on 04/06/18 0148 Last Action: Converted on 01/25/191200 by PAUL REICH Ipratropium/Albuterol Sulfate (Duoneb 0.5-3(2.5) Mg/3 Ml) 3 Ml Ampul.neb, 3 ML NEB RTQID for copd for 30 Days, #120 Prescribed by: ANTHONY SUN MD on 11/22/18 1230 Last Action: HELD on 01/25/191200 by PAUL REICH Lactobacillus Rhamnosus Gg (Culturelle) 1 Each Cap.sprink, 1 CAP PO BID for COUGH for 14 Days, #28 Prescribed by: ANTHONY SUN MD on 06/27/18 1332 Last Action: Continued on 01/25/191200 by PAUL REICH Melatonin (Melatonin) 3 Mg Tablet, 1 TAB PO QHS for sleep, #30 Ref 2 (Reported) Entered as Reported by: NICKOLAS SABA on 04/11/17 1706 Last Action: Converted on 01/25/191200 by PAUL REICH Metoprolol Succinate (Metoprolol Succinate ( Xl )) 25 Mg Tab.er.24h, 25 MG PO BID for htn, (Reported) Entered as Reported by: REED BATES on 04/06/18147 Last Action: Continued on 01/25/191200 by PAUL REICH Pantoprazole Sodium (Protonix) 20 Mg Tablet.dr, 20 MG PO BID for GERD, (Reporte d) Entered as Reported by: REED BATES on 04/06/18147 Last Action: Converted on 01/25/191200 by PAUL REICH Potassium Chloride (Klor-Con 10) 10 Meq Tablet.er, 1 TAB PO DAILY for supplement for lasix, #30 Ref 5 (Reported) Entered as Reported by: THELMA NDIAYE on 06/21/18 0752 Last Action: Continued on 01/25/191200 by PAUL REICH Prednisolone Acetate (Prednisolone Acetate) 5 Ml Drops.susp, 1 DROP EACHEYE QID for eyes, #5 (Reported) Entered as Reported by: ELVIRA GARCIA on 11/19/181952 Last Action: HELD on 01/25/191200 by PAUL REICH Prednisone (Prednisone) 20 Mg Tablet, 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 on 05/08/18 0651 Last Action: HELD on 01/25/191200 by PAUL REICH Alprazolam (Alprazolam) 0.5 Mg Tablet, 0.5 MG PO PRN BID PRN for ANXIETY / AGITATION, (Reported) Entered as Reported by: PRETTY KUHN on 11/20/18 1824 Last Action: Continued on 01/25/191200 by PAUL REICH Hydrocodone Bit/Acetaminophen (Hydrocodone-Apap 5-325 ) 1 Tab Tablet, 1 TAB PO PRN Q6HRS PRN for PAIN for 3 Days, #12 Ref 0 Prescribed by: THANIA GUTIERREZ APRN on 01/12/19 1344 Last Action: Continued on 01/25/191200 by PAUL REICH Hydromorphone Hcl (Hydromorphone Hcl) 4 Mg Tablet, 4 MG PO PRN Q6HRS PRN for PAIN, (Reported) Entered as Reported by: VALENTINO MURRAY RN on 10/27/182132 Last Action: Converted on 01/25/191200 by PAUL REICH Nitroglycerin (Nitrostat) 0.4 Mg Tab.subl, 0.4 MG SL PRN Q5MIN PRN for CHEST PAIN, (Reported) Entered as Reported by: NIKO MONCADA on 09/10/15 180 Last Action: Continued on 01/25/191200 by PAUL REICH Promethazine Hcl (Promethazine Hcl) 25 Mg Tablet, 25 MG PO Q6H PRN for NAUSEA/VOMITING, (Reported) Entered as Reported by: NIKO MONCADA on 09/07/14 1205 Last Action: Converted on 01/25/191200 by PAUL REICH [Nicotine 14MG] 1 PATCH PATCH, 1 PATCH TD PRN DAILY PRN for SMOKING CESSATION for 30 Days, #30 Prescribed by: ANTHONY SUN MD on 11/22/18 1230 Last Action: Converted on 01/25/191200 by PAUL REICH Discontinued Medications Doxycycline Hyclate (Doxycycline Hyclate) 100 Mg Tablet, 100 MG PO BID for pna for 7 Days, #14 Prescribed by: JACINTA PECK MD on 12/27/18 1218 Last Action: HELD on 01/25/191200 by PAUL REICH Doxycycline Hyclate (Doxycycline Hyclate) 100 Mg Capsule, 1 CAP PO BID, #14 Prescribed by: JEFFY RIVAS MD on 01/22/19 0408 Last Action: HELD on 01/25/191200 by OLIVIA BLANTON MD Jan 26, 2019 12:02
--- NOTE | 2019-01-26 12:05 | PDOC ---
PULMONARY PROGRESS NOTES Subjective mild cough, no soa Vitals Vital Signs Date Time Temp Pulse Resp B/P (MAP) Pulse Ox O2 Delivery O2 Flow Rate FiO2 01/26/19 11:04 100 Nasal Cannula 3.0 01/26/19 09:50 16 01/26/19 08:48 117 130/72 01/26/19 07:00 98.1 98.1 ROS: No Chest Pain, No Increase Cough General: Alert, No acute distress Lungs: Clear Cardiovascular: S1 Abdomen: Soft Neuro Exam: Alert Extremities: No Edema Skin: Warm Labs Laboratory Tests Test 01/25/19 07:20 01/26/19 08:30 White Blood Count 18.5 x10^3/uL (4.0-11.0) 21.5 x10^3/uL (4.0-11.0) Red Blood Count 4.13 x10^6/uL (4.30-5.70) 3.67 x10^6/uL (4.30-5.70) Hemoglobin 10.4 g/dL (13.0-17.5) 9.2 g/dL (13.0-17.5) Hematocrit 32.6 % (39.0-53.0) 29.6 % (39.0-53.0) Mean Corpuscular Volume 79 fL (79-100) 81 fL (79-100) Mean Corpuscular Hemoglobin 25 pg (25-35) 25 pg (25-35) Mean Corpuscular Hemoglobin Concent 32 g/dL (31-37) 31 g/dL (31-37) Red Cell Distribution Width 20.6 % (11.5-14.5) 20.7 % (11.5-14.5) Platelet Count 260 x10^3/uL (140-400) 238 x10^3/uL (140-400) Neutrophils (%) (Auto) 69 % (31-73) 81 % (31-73) Lymphocytes (%) (Auto) 24 % (24-48) 13 % (24-48) Monocytes (%) (Auto) 6 % (0-9) 6 % (0-9) Eosinophils (%) (Auto) 1 % (0-3) 0 % (0-3) Basophils (%) (Auto) 1 % (0-3) 0 % (0-3) Neutrophils # (Auto) 12.7 x10^3/uL (1.8-7.7) 17.4 x10^3/uL (1.8-7.7) Lymphocytes # (Auto) 4.5 x10^3/uL (1.0-4.8) 2.7 x10^3/uL (1.0-4.8) Monocytes # (Auto) 1.1 x10^3/uL (0.0-1.1) 1.3 x10^3/uL (0.0-1.1) Eosinophils # (Auto) 0.1 x10^3/uL (0.0-0.7) 0.0 x10^3/uL (0.0-0.7) Basophils # (Auto) 0.2 x10^3/uL (0.0-0.2) 0.0 x10^3/uL (0.0-0.2) Segmented Neutrophils % 66 % (35-66) Band Neutrophils % 3 % (0-9) Lymphocytes % 25 % (24-48) Monocytes % 5 % (0-10) Eosinophils % 1 % (0-5) Nucleated Red Blood Cells 1 Platelet Estimate Adequate (ADEQUATE) Polychromasia Occasional Anisocytosis Slight D-Dimer (Maryse) 0.71 ug/mlFEU (0.00-0.50) Sodium Level 139 mmol/L (136-145) 141 mmol/L (136-145) Potassium Level 2.8 mmol/L (3.5-5.1) 3.1 mmol/L (3.5-5.1) Chloride Level 100 mmol/L (98-107) 103 mmol/L (98-107) Carbon Dioxide Level 25 mmol/L (21-32) 23 mmol/L (21-32) Anion Gap 14 (6-14) 15 (6-14) Blood Urea Nitrogen 20 mg/dL (8-26) 16 mg/dL (8-26) Creatinine 0.9 mg/dL (0.7-1.3) 1.0 mg/dL (0.7-1.3) Estimated GFR (Cockcroft-Gault) 92.1 81.6 Glucose Level 117 mg/dL (70-99) 177 mg/dL (70-99) Calcium Level 9.2 mg/dL (8.5-10.1) 8.9 mg/dL (8.5-10.1) Troponin I Quantitative 0.022 ng/mL (0.000-0.055) FP-Nrt-Q-Type Natriuretic Peptide 365 pg/mL (0-124) Laboratory Tests Test 01/26/19 08:30 White Blood Count 21.5 x10^3/uL (4.0-11.0) Red Blood Count 3.67 x10^6/uL (4.30-5.70) Hemoglobin 9.2 g/dL (13.0-17.5) Hematocrit 29.6 % (39.0-53.0) Mean Corpuscular Volume 81 fL (79-100) Mean Corpuscular Hemoglobin 25 pg (25-35) Mean Corpuscular Hemoglobin Concent 31 g/dL (31-37) Red Cell Distribution Width 20.7 % (11.5-14.5) Platelet Count 238 x10^3/uL (140-400) Neutrophils (%) (Auto) 81 % (31-73) Lymphocytes (%) (Auto) 13 % (24-48) Monocytes (%) (Auto) 6 % (0-9) Eosinophils (%) (Auto) 0 % (0-3) Basophils (%) (Auto) 0 % (0-3) Neutrophils # (Auto) 17.4 x10^3/uL (1.8-7.7) Lymphocytes # (Auto) 2.7 x10^3/uL (1.0-4.8) Monocytes # (Auto) 1.3 x10^3/uL (0.0-1.1) Eosinophils # (Auto) 0.0 x10^3/uL (0.0-0.7) Basophils # (Auto) 0.0 x10^3/uL (0.0-0.2) Sodium Level 141 mmol/L (136-145) Potassium Level 3.1 mmol/L (3.5-5.1) Chloride Level 103 mmol/L (98-107) Carbon Dioxide Level 23 mmol/L (21-32) Anion Gap 15 (6-14) Blood Urea Nitrogen 16 mg/dL (8-26) Creatinine 1.0 mg/dL (0.7-1.3) Estimated GFR (Cockcroft-Gault) 81.6 Glucose Level 177 mg/dL (70-99) Calcium Level 8.9 mg/dL (8.5-10.1) Medications Active Scripts Medications Dose Route/Sig Max Daily Dose Days Date Category Dose Instructions Prednisone 20 Mg Tablet 20 Mg PO DAILY 10 01/26/19 Rx 40mg for 5 days, then 5mg for 5 days Doxycycline Hyclate 100 Mg Capsule 1 Cap PO BID 01/22/19 Rx Hydrocodone-Apap 5-325 (Hydrocodone Bit/Acetaminophen) 1 Tab Tablet 1 Tab PO PRN Q6HRS PRN 3 01/12/19 Rx Clotrimazole 10 Mg Nilson 1 Tab PO TID 14 12/27/18 Rx Doxycycline Hyclate 100 Mg Tablet 100 Mg PO BID 7 12/27/18 Rx [Nicotine 14MG] 1 PATCH Patch 1 Patch TD PRN DAILY PRN 30 11/22/18 Rx Duoneb 0.5-3(2.5) Mg/3 Ml (Albuterol/Ipratropium) 3 Ml Ampul.neb 3 Ml NEB RTQID 30 11/22/18 Rx Alprazolam 0.5 Mg Tablet 0.5 Mg PO PRN BID PRN 11/20/18 Reported Prednisolone Acetate 5 Ml Drops.susp 1 Drop EACHEYE QID 11/19/18 Reported Hydromorphone Hcl 4 Mg Tablet 4 Mg PO PRN Q6HRS PRN 10/27/18 Reported Culturelle (Lactobacillus Rhamnosus Gg) 1 Each Cap.sprink 1 Cap PO BID 14 06/27/18 Rx Aspirin 81 Mg Tab.chew 1 Tab PO DAILY 06/24/18 Reported Klor-Con 10 (Potassium Chloride) 10 Meq Tablet.er 1 Tab PO DAILY 06/21/18 Reported Proair Hfa Inhaler (Albuterol Sulfate) 8.5 Gm Hfa.aer.ad 1 Puff INH PRN Q6HRS PRN 05/08/18 Rx Hydromorphone ER (Hydromorphone HCl) 8 Mg Tab.er.24h 8 Mg PO DAILY 04/06/18 Reported Metoprolol Succinate ( Xl ) (Metoprolol Succinate) 25 Mg Tab.er.24h 25 Mg PO BID 04/06/18 Reported Atorvastatin Calcium 80 Mg Tablet 80 Mg PO HS 04/06/18 Reported Protonix (Pantoprazole Sodium) 20 Mg Tablet.dr 20 Mg PO BID 04/06/18 Reported Buspirone Hcl 7.5 Mg Tablet 7.5 Mg PO TID 04/06/18 Reported Bupropion Hcl 75 Mg Tablet 75 Mg PO TID 04/06/18 Reported Furosemide 40 Mg Tablet 40 Mg PO DAILY 30 12/25/17 Rx Feosol (Ferrous Sulfate) 325 Mg Tablet 325 Mg PO BIDWMEALS 30 12/25/17 Rx Symbicort 160-4.5 Mcg Inhaler (Budesonide/Formoterol Fumarate) 10.2 Gm Hfa.aer.ad 2 Puff IH BID 06/25/17 Reported Baclofen 10 Mg Tablet 1 Tab PO PRN TID 06/25/17 Reported Melatonin 3 Mg Tablet 1 Tab PO QHS 04/11/17 Reported Nitrostat (Nitroglycerin) 0.4 Mg Tab.subl 0.4 Mg SL PRN Q5MIN PRN 09/10/15 Reported Promethazine Hcl 25 Mg Tablet 25 Mg PO Q6H PRN 09/07/14 Reported Fenofibrate (Fenofibrate Nanocrystallized) 48 Mg Tablet 48 Mg PO DAILY 09/07/14 Reported Fluoxetine Hcl 20 Mg Capsule 1 Cap PO DAILY 09/07/14 Reported Gabapentin 600 Mg Tablet 3 Tab PO BID 09/07/14 Reported Impression . 1. Acute on chronic hypoxic respiratory failure secondary to acute exacerbation of chronic obstructive pulmonary disease in a patient who has ongoing tobacco use since age 15. 2[address] chest with faint residual mild ground glass infiltrates, mostly in the upper lobes. This is overall a significant improvement when comparisons were made to CTA chest from 12/22/2018 and also from 01/12/2019. The initial CAT scan in December had extensive bilateral interstitial and ground glass infiltrates. The radiologist did not compare his current CT with the old CTs. 3. 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 Plan . 1. Smoking cessation counseling provided. 2. Continue present oxygen. 3. Continue present Bronchodilators. 4. Supportive medication. 5. Clinically, I do not think that there is any acute infectious etiology and as such no need for any antibiotics. 6. d/w DR Leyva. Pt was on 20 mg prednisone at home. Rec to taper off in 10 days KEELEY YOU MD Jan 26, 2019 12:05
--- NOTE | 2019-01-26 12:20 | NUR ---
SS following for discharge planning. SS reviewed pt chart. Pt is from home with spouse and is currently requiring oxygen. No discharge needs noted at this time. Discharge order on the chart.
[2019-01-26] MEDS ORDERED: predniSONE 20 MG TABLET PO SCH (12:30)
--- NOTE | 2019-01-26 13:06 | NUR ---
SS following up with discharge planning. Pt's RN reported that pt needs transportation to home. SS contacted [facility] [employer] and scheduled transportation between 1500 and 1530.
[2019-01-26 15:00] VITALS: BP 132/57
--- NOTE | 2019-01-26 15:53 | NUR ---
Discharge Note: EMELIA AGUIAR [address] [place] [address] Discharge instructions and discharge home medications reviewed with Patient and a copy given. All questions have been answered and understanding verbalized. The following instructions and handouts were given: pain mgmt, ARDS Discontinued lines and drains: peripheral iv. Patient discharged to Home or Self Care with Ambulance Personnel via Wheelchair. Meds called in to [facility] pharmacy in [place]
[2019-01-27] MEDS ORDERED: buPROPion 75 MG TABLET. PO SCH (09:00)
== END 2019-01-26 15:56 | disposition home or self-care (01) | DRG 189 ==
LOC: ER 06:43 → 2 SOUTH 09:55 → 5 NORTH 15:25
PROVIDERS: ADMIT Internal Medicine; ATTEND Internal Medicine
DX: J96.21 Acute and chronic respiratory failure with hypoxia (principal); J44.1 Chronic obstructive pulmonary disease with (acute) exacerbation; I50.32 Chronic diastolic (congestive) heart failure; J44.0 Chronic obstructive pulmonary disease with (acute) lower respiratory infection; E87.6 Hypokalemia; E66.9 Obesity, unspecified; Z68.28 Body mass index [BMI] 28.0-28.9, adult; E78.5 Hyperlipidemia, unspecified; F17.210 Nicotine dependence, cigarettes, uncomplicated; G89.29 Other chronic pain; I11.0 Hypertensive heart disease with heart failure; I25.10 Atherosclerotic heart disease of native coronary artery without angina pectoris; I25.2 Old myocardial infarction; K21.9 Gastro-esophageal reflux disease without esophagitis; Z82.49 Family history of ischemic heart disease and other diseases of the circulatory system; Z82.5 Family history of asthma and other chronic lower respiratory diseases; Z87.01 Personal history of pneumonia (recurrent); Z91.19 Patient's noncompliance with other medical treatment and regimen; Z95.1 Presence of aortocoronary bypass graft; Z99.81 Dependence on supplemental oxygen; F12.90 Cannabis use, unspecified, uncomplicated; F41.9 Anxiety disorder, unspecified; Z88.1 Allergy status to other antibiotic agents; Z88.5 Allergy status to narcotic agent; Z88.8 Allergy status to other drugs, medicaments and biological substances; M19.90 Unspecified osteoarthritis, unspecified site; J20.9 Acute bronchitis, unspecified; S82.302A Unspecified fracture of lower end of left tibia, initial encounter for closed fracture; X58.XXXA Exposure to other specified factors, initial encounter; Y93.89 Activity, other specified; Y92.89 Other specified places as the place of occurrence of the external cause; Y99.8 Other external cause status; Z71.6 Tobacco abuse counseling
CPT/HCPCS: 36415; 71046; 71275; 73700; 80048; 83880; 84484; 85007; 85025; 85379; 93005; 94640; 94760; J2930; J3010; J7512; J7613; J7620; J7626; Q9967; 97116